=== PATIENT | male | born 1970 | race African-American/Black ===

== ENCOUNTER 2020-07-12 09:35 | Outpatient (REF) | payer OTHER, SELFPAY ==
[2020-07-12 11:36] LABS: Estimated Average Glucose 140 mg/dL; Hemoglobin A1c % 6.5 %
[2020-07-12 11:46] LABS: Microalbum/Creatinine Ratio Ur 34.3 ug/mg cr
[2020-07-12 11:50] LABS: Alanine Aminotransferase 15 U/L (0-40); Albumin Level 4.2 g/dL (3.5-5.0); Alkaline Phosphatase 93 U/L (39-117); Anion Gap 13 (12-20); Aspartate Amino Transferase 16 U/L (5-37); Bilirubin Total 0.4 mg/dL (0.0-1.0); Blood Urea Nitrogen 16 mg/dL (9-16); Calcium 9.2 mg/dL (8.4-10.2); Carbon Dioxide 27 mmol/L (22-29); Chloride 103 mmol/L (96-108); Cholesterol 230 mg/dL; Estimated Glomerular Filt Rate > 60; Glucose Fasting 135 mg/dL (60-99); HDL Cholesterol 47 mg/dL; LDL Cholesterol Calculated 168 mg/dl; Potassium 4.6 mmol/l (3.3-5.1); Sodium 138 mmol/L (135-145); Total Protein 7.7 g/dL (6.5-8.0); Triglycerides 78 mg/dL
[2020-07-12 11:53] LABS: TSH reflex Free T4 1.58 mIU/mL (0.32-4.0)
== END 2020-07-12 09:36 | disposition home or self-care (01) ==
LOC: HO.WFDLDS 09:35
PROVIDERS: Visit Provider Family Medicine
DX: Z00.00 Encounter for general adult medical examination without abnormal findings (principal); I10 Essential (primary) hypertension; E78.5 Hyperlipidemia, unspecified; R73.03 Prediabetes; R79.89 Other specified abnormal findings of blood chemistry
CPT/HCPCS: 36415; 80053; 80061; 82043; 83036; 84443

== ENCOUNTER 2020-11-10 09:46 | Outpatient (REF) | payer OTHER, SELFPAY ==
[2020-11-10 12:08] LABS: Anion Gap 11 (12-20); Blood Urea Nitrogen 12 mg/dL (9-16); Calcium 9.2 mg/dL (8.4-10.2); Carbon Dioxide 29 mmol/L (22-29); Chloride 104 mmol/L (96-108); Cholesterol 179 mg/dL; Estimated Glomerular Filt Rate > 60; Glucose Fasting 132 mg/dL (60-99); HDL Cholesterol 42 mg/dL; LDL Cholesterol Calculated 123 mg/dl; Potassium 4.4 mmol/L (3.3-5.1); Sodium 140 mmol/L (135-145); Triglycerides 73 mg/dL
== END 2020-11-10 09:47 | disposition home or self-care (01) ==
LOC: HO.WFDLDS 09:46
PROVIDERS: Visit Provider Family Medicine
DX: Z00.00 Encounter for general adult medical examination without abnormal findings (principal); E78.5 Hyperlipidemia, unspecified; E11.9 Type 2 diabetes mellitus without complications
CPT/HCPCS: 36415; 80048; 80061

== ENCOUNTER 2023-02-07 10:23 | Outpatient (AMB) | payer OTHER, SELFPAY ==
--- NOTE | 2023-02-07 10:32 | MHC.PC.OV ---
Vital Signs 02/07/23 10:33 Height 5 ft 8 in Weight 414 lb 2 oz BMI 63.0 BP 138/94 H Blood Pressure Location Lt brachial Position Sitting Respiration 12 Pulse 78 Pulse Source Pulse Oximeter Temp 98.4 F Temp Source Temporal Artery Scan Pulse Oximetry (%) 96 Oxygen Delivery Method Room Air Intake Visit Reasons: Re-establish care Intake Note: Patient states that that he was in the hospital 11/15/22. Patient states that he was in the hospital due to his blood sugar spiking. Patient also hasn't had any meds in a while due to him going away to help take care of a family member who was sick and eneded up passing way. Histology Aide Required: No Accompanied by: Self / Same As Patient Allergies shellfish derived Allergy (Severe, Verified 02/07/23 10:42) rash, sweeling throat Raw fruit Adverse Reaction (Intermediate, Uncoded 02/07/23 10:43) Tickling in back of throat Tobacco use date assessed: 02/07/23 Dental Screening Dental Screen Date: 02/07/23 Did you have a dental visit in the last 12 months?: No Did you have a dental problem in the last 6 months where you did not have access to dental care?: No Was dental information given to patient?: Yes HPI Re-establish care HPI Details 52 y/o male presents to re-establish care. PMHx: MO 2011, DM, HLD, HTN Last eye doctor exam was this year at [place]. Bp today 138/94. He is on lisinopril 5 mg daily. A1c today 02/07/23 is 14.0%. Has been off his metformin for some time. [facility] Medical History (Updated 02/07/23 @ 11:10 by Andrés Wallace) No pertinent past medical history Surgical History No pertinent past surgical history Family History Father Heart disease Mother Diabetes Sister FH: diabetic complications Social History Housing: House Alcohol intake: current Alcohol intake frequency: holidays/special occasions only Patient Tobacco Use Status: Never used Tobacco e-Cigarette/Vaping Use: Never Used service: Yes Current occupational status: employed 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 Cognitive needs: No Hearing needs: No Vision needs: No Questionnaire PHQ-9 Over the last 2 weeks, how often have you been bothered by any of the following problems? 1. Little interest or pleasure in doing things: several days 2. Feeling down, depressed, or hopeless: several days 3. Trouble falling or staying asleep, or sleeping too much: several days (Staying asleep) 4. Feeling tired or having little energy: not at all 5. Poor appetite or overeating: not at all 6. Feeling bad about yourself - or that you are a failure or have let yourself or your family down: several days 7. Trouble concentrating on things, such as reading the newspaper or watching television: several days 8. Moving or speaking so slowly that other people could have noticed. Or the opposite - being so fidgety or restless that you have been moving around a lot more than usual: not at all 9. Thoughts that you would be better off or of hurting yourself in some way: several days Total score: 6 Source: Developed by Drs. Alvarez Kirk, Jessica Jeff, Arthur Mosquera and colleagues, with an educational hilda from [employer]. Thrive Questionnaire Date Thrive assessed: 02/07/23 I am a: Patient What is your living situation today?: I have a steady place to live Within the past 12 months, did the food you bought not last and you didn't have the money to get more?: Never true Within the past 12 months, did you worry whether your food would run out before you got money to buy more?: Never true Do you have trouble paying for medicines?: No Do you have trouble getting transportation to medical appointments?: No Do you have trouble paying your heating and electricity bill?: No Do you have trouble taking care of your child, family member or friend?: No Do you have trouble with day-to-day activities such as bathing, preparing meals, shopping, managing finances, etc.?: No Are you currently unemployed and looking for a job?: No Are you interested in more education?: No Please select the resources that you would like help with: None Currently or been in a relationship where the following occur: no concerns reported AUDIT C Alcohol Use Questionnaire (AUDIT-C) 1. How often do you have a drink containing alcohol?: Monthly or less 2. How many drinks containing alcohol do you have on a typical day when you are drinking?: 1 or 2 3. How often do you have six or more drinks on one occasion?: Never Total Score: 1 LOU-7 AMB Questionnaire LOU-7 Date LOU - 7 assessed: 02/07/23 Feeling nervous, anxious, or on edge: 1 = Several days Not being able to stop or control worryin = Several days Worrying too much about different things: 1 = Several days Trouble relaxin = Several days Being so restless that it is hard to sit still: 0 = Not at all Becoming easily annoyed or irritable: 2 = More than half the days Feeling afraid as if something awful might happen: 2 = More than half the days Total LOU-7 score (0-4 normal; 5-9 mild; 10-14 moderate; 15-21 severe): 8 Source: Developed by Drs. Alvarez Kirk, Jessica Jeff, Arthur Mosquera and colleagues, with an educational hilda from [employer]. Review of Systems Const Denies chills, Denies fatigue, Denies fever(s), Denies headache(s) and Denies weakness ENT Denies dizziness and Denies headache(s) Card Denies dyspnea Resp Denies cough, Denies dyspnea, Denies wheezing and Denies other (shortness of breath) Musc Denies numbness and Denies tingling Neuro Denies dizziness, Denies headache(s), Denies numbness, Denies tingling and Denies weakness Psych Denies anxiety and Denies depression Endo Denies fatigue Aller/Immun Denies wheezing Physical exam (Primary Care) Vital Signs: Last Vital Signs Temp 98.4 F 02/07/23 10:33 Pulse 78 02/07/23 10:33 Resp 12 02/07/23 10:33 BP 138/94 H 02/07/23 10:33 Pulse Ox 96 02/07/23 10:33 Oxygen Delivery Method Room Air 02/07/23 10:33 BMI result Body Mass Index 63.0 Tobacco/Smoking Status: Tobacco use Status Tobacco use date assessed 02/07/23 02/07/23 10:50 Patient Tobacco Use Status Never used Tobacco 02/07/23 10:50 e-Cigarette/Vaping Use Never Used 02/07/23 10:50 PHQ-9: PHQ-9 Score PHQ-9: Total score 6 02/07/23 10:50 Thrive Assessment: Date of Thrive Assessment Date Thrive assessed 02/07/23 02/07/23 10:50 Currently or been in a relationship where the following occur: no concerns reported Const General: well developed; No acute distress Nutritional Appearance: obese morbidly obese Orientation/consciousness: patient oriented x3 HENMT Head: Yes normocephalic and Yes atraumatic Eyes General: appearance normal, both eyes and all related structures Pupils: Equal, round and reactive pupils present EOM: EOMs intact bilaterally Resp Effort & Inspection: normal respiratory effort Auscultation: clear to auscultation bilaterally Cardio Rate: regular rate Rhythm: regular rhythm Heart sounds: S1 normal heart sound present, S2 normal heart sound present, no gallops, no murmurs and no rubs Neuro General: patient oriented x3 and gait normal Cranial nerves: Yes Equal, round and reactive pupils present Psych Affect: normal affect Assessment and Plan Assessment & Plan (1) Diabetes: Code(s): E11.9 - Type 2 diabetes mellitus without complications Plan: History of diabetes Had been on metformin 500 mg twice a day but has been off this for quite some time. A1c today is 14.0% (2) Essential hypertension: Code(s): I10 - Essential (primary) hypertension Plan: Blood pressure is elevated. Goal is less than 130/80 He has been off of his medication Will start him back up on lisinopril 10 mg daily (3) Hyperlipidemia: Code(s): E78.5 - Hyperlipidemia, unspecified Plan: History of hyperlipidemia and had been on atorvastatin 40 mg daily Check lipids Restart atorvastatin 40 mg daily. History of coronary artery disease and [place] in 2012; if tolerating atorvastatin 40 mg daily, we discussed considering increasing this to 80 mg daily at his next visit. (4) Morbid obesity with BMI of 60.0-69.9, adult: Code(s): E66.01 - Morbid (severe) obesity due to excess calories; Z68.44 - Body mass index [BMI] 60.0-69.9, adult Plan: Has lost about 60 lb recently Encouraged ongoing weight loss Encouraged exercise (5) CAD (coronary artery disease): Code(s): I25.10 - Atherosclerotic heart disease of [place] coronary artery without angina pectoris Plan: As above, restart statin and we may increase this at his next visit Check lipids Control blood pressure and blood sugar (6) History of MO (myocardial infarction): Code(s): I25.2 - Old myocardial infarction Plan: Stable Orders: Orders Comprehensive [place]. Panel Fast Today Z00.00 - Encounter for general adult medical examination without abnormal findings Lipid Panel Today Z00.00 - Encounter for general adult medical examination without abnormal findings Prostate Specific Antigen Scr Today Z12.5 - Encounter for screening for malignant neoplasm of prostate TSH reflex Free T4 Today Z00.00 - Encounter for general adult medical examination without abnormal findings Microalbumin, Random (w Creat) Today I10 - Essential (primary) hypertension UA and rflx microscopic Today Z00.00 - Encounter for general adult medical examination without abnormal findings Medications: New dulaglutide (Trulicity) 0.75 mg (0.5 mL) subcut QWEEK 2 mL 1RF 28 days Changed From lisinopril 5 mg PO DAILY 30 tabs 2RF To lisinopril 10 mg PO DAILY 30 tabs 1RF 30 days Refilled atorvastatin 40 mg PO BEDTIME 30 tabs 0RF 30 days metformin 500 mg PO BID 60 tabs 4RF Coding Level of Care Code Est Pt Level 4 (78118) Diagnoses Diabetes E11.9 Essential hypertension I10 Hyperlipidemia E78.5 Morbid obesity with BMI of 60.0-69.9, adult E66.01; Z68.44 CAD (coronary artery disease) I25.10 History of MO (myocardial infarction) I25.2
[2023-02-07 10:33] VITALS: BP 138/94; PULSE 78; RESP 12; TEMP 36.9; O2SAT 96; BMI 63.0
== END 2023-02-07 11:13 | disposition home or self-care (01) ==
PROVIDERS: Visit Provider Family Medicine
DX: E11.9 Type 2 diabetes mellitus without complications (principal); I10 Essential (primary) hypertension; E66.01 Morbid (severe) obesity due to excess calories; Z68.44 Body mass index [BMI] 60.0-69.9, adult; E78.5 Hyperlipidemia, unspecified; I25.10 Atherosclerotic heart disease of native coronary artery without angina pectoris; I25.2 Old myocardial infarction
CPT/HCPCS: 99214

== ENCOUNTER 2023-02-07 11:13 | Outpatient (REF) | payer OTHER, SELFPAY ==
[2023-02-07 14:31] LABS: Appearance Urine Clear; Color Urine Yellow; Glucose Urine UA >=1000 mg/dL (Negative); Leukocyte Esterase Urine Negative (Negative); Nitrite Urine Negative (Negative); PH 5.5 (5.0-9.0); Specific Gravity - Urine >= 1.030 (1.005-1.025); UMIC TRIGGER UA YES; Urine Blood Negative (Negative); Urine Ketones Trace mg/dL (Negative); Urine Protein Negative (Neg-Trace)
[2023-02-07 14:44] LABS: Alanine Aminotransferase 26 U/L (0-40); Albumin Level 3.9 g/dL (3.5-5.0); Alkaline Phosphatase 105 U/L (39-117); Anion Gap 11 (12-20); Aspartate Amino Transferase 21 U/L (5-37); Bacteria Urine None Seen (None Seen); Bilirubin Total 0.6 mg/dL (0.0-1.0); Blood Urea Nitrogen 9 mg/dL (9-16); Calcium 9.4 mg/dL (8.4-10.2); Carbon Dioxide 25 mmol/L (22-29); Chloride 103 mmol/L (96-108); Cholesterol 255 mg/dL; Estimated Glomerular Filt Rate > 60; Glucose Fasting 308 mg/dL (60-99); HDL Cholesterol 43 mg/dL; Hyaline Casts Urine 0-2 /LPF (0-2); LDL Cholesterol Calculated 188 mg/dl; Potassium 3.9 mmol/L (3.3-5.1); RBC Urine 0-2 /HPF (0-2); Sodium 135 mmol/L (135-145); Total Protein 7.9 g/dL (6.5-8.0); Triglycerides 120 mg/dL; WBC Urine 0-5 /HPF (0-5)
[2023-02-07 14:56] LABS: Creatinine Urine 134.48 mg/dL; Microalbum/Creatinine Ratio Ur 21.5 ug/mg cr
[2023-02-07 14:59] LABS: Prostate Specific Antigen Scr 0.54 ng/mL (<0.05-4.0); TSH reflex Free T4 1.37 uIU/mL (0.32-4.0)
== END 2023-02-07 11:14 | disposition home or self-care (01) ==
LOC: HO.WFDLDS 11:13
PROVIDERS: Visit Provider Family Medicine
DX: Z00.00 Encounter for general adult medical examination without abnormal findings (principal); Z12.5 Encounter for screening for malignant neoplasm of prostate; I10 Essential (primary) hypertension
CPT/HCPCS: 36415; 80053; 80061; 81001; 82043; 84153; 84443

== ENCOUNTER 2023-03-07 10:31 | Outpatient (AMB) | payer OTHER, SELFPAY ==
--- NOTE | 2023-03-07 10:37 | A.OFFPC_ITS ---
Vital Signs 03/07/23 10:38 03/07/23 11:02 03/07/23 11:04 Height 5 ft 8 in Weight 409 lb 6 oz BMI 62.2 BP 162/100 H 162/98 H 158/88 H Blood Pressure Location Lt brachial Lt brachial Rt brachial Position Sitting Sitting Sitting Respiration 15 16 Pulse 70 76 Pulse Source Pulse Oximeter Pulse Oximeter Pulse Oximetry (%) 98 96 Oxygen Delivery Method Room Air Room Air Intake Visit Reasons: f/u hypertension and diabetes Intake Note: Patient reports he is following up on hypertension and diabetes today. Fluxer Required: No Accompanied by: Self / Same As Patient Allergies shellfish derived Allergy (Severe, Verified 03/07/23 10:52) rash, sweeling throat Raw fruit Adverse Reaction (Intermediate, Uncoded 02/07/23 10:43) Tickling in back of throat Tobacco use date assessed: 02/07/23 HPI f/u hypertension and diabetes HPI Details 52 y/o male presents to f/u hypertension and diabetes. Blood pressure today elevated at 162/100. He is on lisinopril 10mg daily but he states he has not taken it this morning. Last A1c 02/07/23 14%. He is on Trulicity 0.75mg and metformin 500mg b.i.d. [facility] Medical History No pertinent past medical history Surgical History No pertinent past surgical history Family History Father Heart disease Mother Diabetes Sister FH: diabetic complications Social History Housing: House Alcohol intake: current Alcohol intake frequency: holidays/special occasions only Patient Tobacco Use Status: Never used Tobacco e-Cigarette/Vaping Use: Never Used service: Yes Current occupational status: employed 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 Cognitive needs: No Hearing needs: No Vision needs: No Questionnaire Thrive Questionnaire Date Thrive assessed: 02/07/23 LOU-7 AMB Questionnaire LOU-7 Date LOU - 7 assessed: 02/07/23 Source: Developed by Drs. Alvarez Kirk, Jessica Jeff, Arthur Mosquera and colleagues, with an educational hilda from [employer].. Review of Systems Const Denies chills, Denies fatigue, Denies fever(s), Denies headache(s) and Denies weakness ENT Denies dizziness and Denies headache(s) Card Denies chest pain, Denies lightheadedness, Denies dyspnea and Denies other (Palpitations) Resp Denies cough, Denies dyspnea, Denies wheezing and Denies other ( shortness of breath) Musc Denies numbness and Denies tingling Neuro Denies dizziness, Denies headache(s), Denies numbness, Denies tingling, Denies paresthesias and Denies weakness Psych Denies anxiety and Denies depression Endo Denies fatigue Aller/Immun Denies wheezing Physical exam (Primary Care) Vital Signs: Last Vital Signs Pulse 76 03/07/23 11:02 Resp 16 03/07/23 11:02 BP 158/88 H 03/07/23 11:04 Pulse Ox 96 03/07/23 11:02 Oxygen Delivery Method Room Air 03/07/23 11:02 BMI result Body Mass Index 62.2 Tobacco/Smoking Status: Tobacco use Status Tobacco use date assessed 02/07/23 03/07/23 10:37 Patient Tobacco Use Status Never used Tobacco 03/07/23 10:37 e-Cigarette/Vaping Use Never Used 03/07/23 10:37 Thrive Assessment: Date of Thrive Assessment Date Thrive assessed 02/07/23 03/07/23 10:37 Const General: no acute distress and well developed Nutritional Appearance: well nourished and obese morbidly obese Orientation/consciousness: patient oriented x3 [facility] Head: Yes normocephalic and Yes atraumatic Eyes General: appearance normal, both eyes and all related structures Pupils: Equal, round and reactive pupils present EOM: EOMs intact bilaterally Resp Effort & Inspection: normal respiratory effort Auscultation: clear to auscultation bilaterally Cardio Rate: regular rate Rhythm: regular rhythm Heart sounds: S1 normal heart sound present, S2 normal heart sound present, no gallops, no murmurs and no rubs Neuro General: patient oriented x3 and gait normal Cranial nerves: Yes Equal, round and reactive pupils present Psych Affect: normal affect Assessment and Plan Assessment & Plan (1) Essential hypertension: Code(s): I10 - Essential (primary) hypertension Plan: Patient is tolerating lisinopril 10 mg daily. Still well above goal for a patient with coronary artery disease; less than 130/80 Has not taken his medications today but significantly elevated and only comes on slightly with relaxation. As he has been tolerating 10 mg daily, will increase to 20 mg daily Encouraged good compliance with medication (2) Diabetes: Code(s): E11.9 - Type 2 diabetes mellitus without complications Plan: A1c still 14.0%. He is not at steady state yet but has not changed any with addition of Trulicity Continue metformin and will increase Trulicity from 0.75 mg weekly to 1.5 mg weekly Will follow-up in 2 months (3) CAD (coronary artery disease): Code(s): I25.10 - Atherosclerotic heart disease of [place] coronary artery without angina pectoris Plan: Stable (4) Viral illness: Code(s): B34.9 - Viral infection, unspecified Plan: Recent COVID infection. Symptoms have resolved and lungs are clear today Reminded him that if he is ill with COVID, he is a candidate for Paxil [employer] and can call at 1st positive test. Medications: Changed From lisinopril 10 mg PO DAILY 30 days 30 tabs 1RF To lisinopril 20 mg PO DAILY 30 days 30 tabs 1RF From atorvastatin 40 mg PO BEDTIME 30 days 30 tabs 0RF To atorvastatin 80 mg PO BEDTIME 90 days 90 tabs 2RF From dulaglutide (Trulicity) 0.75 mg (0.5 mL) subcut QWEEK 28 days 2 mL 1RF To dulaglutide 1.5 mg (0.5 mL) subcut QWEEK 28 days 2 mL 3RF Coding Level of Care Code Est Pt Level 4 (05244) Diagnoses Essential hypertension I10 Diabetes E11.9 CAD (coronary artery disease) I25.10 Viral illness B34.9
[2023-03-07 10:38] VITALS: BP 162/100; PULSE 70; RESP 15; O2SAT 98; BMI 62.2
[2023-03-07 11:02] VITALS: BP 162/98; PULSE 76; RESP 16; O2SAT 96
[2023-03-07 11:04] VITALS: BP 158/88
== END 2023-03-07 11:18 | disposition home or self-care (01) ==
PROVIDERS: PCP Family Medicine; Visit Provider Family Medicine
DX: I10 Essential (primary) hypertension (principal); E11.9 Type 2 diabetes mellitus without complications; I25.10 Atherosclerotic heart disease of native coronary artery without angina pectoris; B34.9 Viral infection, unspecified
CPT/HCPCS: 99214

== ENCOUNTER 2023-05-09 08:36 | Outpatient (AMB) | payer OTHER, SELFPAY ==
[2023-05-09 08:44] VITALS: BP 130/78; PULSE 74; O2SAT 99; BMI 62.2
--- NOTE | 2023-05-09 08:44 | A.OFFPC_ITS ---
Vital Signs 05/09/23 08:44 Height 5 ft 8 in Weight 409 lb BMI 62.2 BP 130/78 Blood Pressure Location Lt brachial Position Sitting Pulse 74 Pulse Source Pulse Oximeter Pulse Oximetry (%) 99 Oxygen Delivery Method Room Air Intake Visit Reasons: f/u diabetes, hypertension Intake Note: Patient is here to follow up on hypertension and diabetes. Allergies shellfish derived Allergy (Severe, Verified 05/09/23 08:45) rash, sweeling throat Raw fruit Adverse Reaction (Intermediate, Uncoded 05/09/23 08:45) Tickling in back of throat Tobacco use date assessed: 05/09/23 Dental Screening Dental Screen Date: 05/09/23 Did you have a dental visit in the last 12 months?: No Did you have a dental problem in the last 6 months where you did not have access to dental care?: Yes Was dental information given to patient?: Yes HPI f/u diabetes, hypertension HPI Details 52 y/o male presents to f/u diabetes, hy pertension and hyperlipidemia. Had increased lisinopril from 10mg to 20mg daily. Increased artovastatin from 40mg to 80mg daily. Increased Trulicity from 0.75 weekly to 1.5mg weekly and continued metformin as prescribed. No recent lipid panel to review. A1c today 05/09/23 is 7.6%. Last A1c 02/07/23 14%. He reports normal sensation of his feet but does have some neuropathy. Blood pressure today 130/78. He is on lisinopril 20mg daily. [facility] Medical History No pertinent past medical history Surgical History No pertinent past surgical history Family History Father Heart disease Mother Diabetes Sister FH: diabetic complications Social History Housing: House Alcohol intake: current Alcohol intake frequency: holidays/special occasions only Patient Tobacco Use Status: Never used Tobacco e-Cigarette/Vaping Use: Never Used service: Yes Current occupational status: employed Current occupation: [employer] Cognitive needs: No Hearing needs: No Vision needs: No Questionnaire Thrive Questionnaire Date Thrive assessed: 02/07/23 LOU-7 AMB Questionnaire LOU-7 Date LOU - 7 assessed: 02/07/23 Source: Developed by Drs. Alvarez Kirk, Jessica Jeff, Arthur Mosquera and colleagues, with an educational hilda from [employer]. Physical exam (Primary Care) Vital Signs: Last Vital Signs Pulse 74 05/09/23 08:44 BP 130/78 05/09/23 08:44 Pulse Ox 99 05/09/23 08:44 Oxygen Delivery Method Room Air 05/09/23 08:44 BMI result Body Mass Index 62.2 Tobacco/Smoking Status: Tobacco use Status Tobacco use date assessed 05/09/23 05/09/23 08:51 Patient Tobacco Use Status Never used Tobacco 05/09/23 08:51 e-Cigarette/Vaping Use Never Used 05/09/23 08:51 Thrive Assessment: Date of Thrive Assessment Date Thrive assessed 02/07/23 05/09/23 08:51 Const Nutritional Appearance: obese morbidly obese Results AMB Hemoglobin A1c AMB Hemoglobin A1c 7.6 % Last Edit by Yoli Coombs CMA on 05/09/23 09:02 Results Reviewed Results Reviewed: Laboratory Last Values Hgb A1c (Clinic) 7.6 % (4.0-6.0) H 05/09/23 09:01 Assessment and Plan Assessment & Plan (1) Diabetes mellitus with diabetic neuropathy: Code(s): E11.40 - Type 2 diabetes mellitus with diabetic neuropathy, unspecified Plan: A1c?much?improved?and?now?7.6%. Goal?is?less?than?7.0% Neuropathy?at?bilateral?feet?is?much?improved?as?well Will?increase?Trulicity?from?1.5?mg?weekly?to?3.0?mg?weekly He?will?continue?metformin?as?prescribed (2) CAD (coronary artery disease): Code(s): I25.10 - Atherosclerotic heart disease of [place] coronary artery without angina pectoris Plan: Stable (3) Essential hypertension: Code(s): I10 - Essential (primary) hypertension Plan: Blood?pressure?is?fairly?well?controlled.??Goal?is?less?than?130/80?for?patient? with?coronary?artery?disease Continue?lisinopril?20?mg?daily (4) Hyperlipidemia: Code(s): E78.5 - Hyperlipidemia, unspecified Plan: Had?increased?his?atorvastatin?to?80?mg?daily?as? patient?has?coronary?artery?disease Tolerating?well He?is?fasting?today?so?we?will?recheck?lipids. Orders: Orders Lipid Panel Today I25.10 - Atherosclerotic heart disease of [place] coronary artery without angina pectoris, Z00.00 - Encounter for general adult medical examination without abnormal findings Comprehensive [place]. Panel Fast Today I25.10 - Atherosclerotic heart disease of [place] coronary artery without angina pectoris, Z00.00 - Encounter for general adult medical examination without abnormal findings AMB Hemoglobin A1c Today Z13.9 - Encounter for screening, unspecified Medications: Changed From dulaglutide 1.5 mg (0.5 mL) subcut QWEEK 28 days 2 mL 3RF To dulaglutide 3 mg (0.5 mL) subcut QWEEK 2 mL 3RF 28 days Coding Level of Care Code Est Pt Level 4 (63753) Diagnoses Diabetes mellitus with diabetic neuropathy E11.40 CAD (coronary artery disease) I25.10 Essential hypertension I10 Hyperlipidemia E78.5
== END 2023-05-09 09:30 | disposition home or self-care (01) ==
PROVIDERS: PCP Family Medicine; Visit Provider Family Medicine
DX: E11.40 Type 2 diabetes mellitus with diabetic neuropathy, unspecified (principal); I25.10 Atherosclerotic heart disease of native coronary artery without angina pectoris; I10 Essential (primary) hypertension; E78.5 Hyperlipidemia, unspecified
CPT/HCPCS: 83036; 99214

== ENCOUNTER 2023-05-09 09:21 | Outpatient (REF) | payer OTHER, SELFPAY ==
[2023-05-09 11:41] LABS: Alanine Aminotransferase 17 U/L (0-40); Alkaline Phosphatase 96 U/L (39-117); Anion Gap 13 (12-20); Aspartate Amino Transferase 16 U/L (5-37); Bilirubin Total 0.6 mg/dL (0.0-1.0); Blood Urea Nitrogen 11 mg/dL (9-16); Calcium 9.4 mg/dL (8.4-10.2); Carbon Dioxide 27 mmol/L (22-29); Chloride 105 mmol/L (96-108); Cholesterol 186 mg/dL (<200); Estimated Glomerular Filt Rate > 60; Glucose Fasting 96 mg/dL (60-99); HDL Cholesterol 38 mg/dL (>40); LDL Cholesterol Calculated 129 mg/dL (<100); Potassium 4.1 mmol/L (3.3-5.1); Sodium 141 mmol/L (135-145); Total Protein 8.3 g/dL (6.5-8.0); Triglycerides 99 mg/dL (<150)
== END 2023-05-09 09:22 | disposition home or self-care (01) ==
LOC: HO.WFDLDS 09:21
PROVIDERS: Visit Provider Family Medicine
DX: Z00.00 Encounter for general adult medical examination without abnormal findings (principal); I25.10 Atherosclerotic heart disease of native coronary artery without angina pectoris
CPT/HCPCS: 36415; 80053; 80061

== ENCOUNTER 2023-12-19 12:14 | Outpatient (AMB) | payer OTHER, SELFPAY ==
[2023-12-19 12:25] VITALS: BP 128/78; PULSE 84; O2SAT 98; BMI 65.1
--- NOTE | 2023-12-19 12:25 | MHC.PC.OV ---
Vital Signs 12/19/23 12:25 Height 5 ft 8 in Weight 428 lb 8 oz BMI 65.1 BP 128/78 Blood Pressure Location Lt brachial Position Sitting Pulse 84 Pulse Source Pulse Oximeter Pulse Oximetry (%) 98 Oxygen Delivery Method Room Air Intake Visit Reasons: CPE Intake Note: Patient is here physical Allergies shellfish derived Allergy (Severe, Verified 05/09/23 08:45) rash, sweeling throat Raw fruit Adverse Reaction (Intermediate, Uncoded 05/09/23 08:45) Tickling in back of throat Medication List - Last Reconciled 12/19/23 by Kurt Steel MD atorvastatin 80 mg PO BEDTIME 90 days dulaglutide 1.5 mg (0.5 mL) subcut QWEEK 28 days ibuprofen 800 mg PO Q8H 14 days lisinopril 20 mg PO DAILY 30 days metformin 500 mg PO BID Tobacco use date assessed: 05/09/23 Dental Screening Dental Screen Date: 05/09/23 HPI CPE HPI Details 53 y/o male presents for a CPE with f/u labs and health maintenance. Labs were drawn 05/09/23. Reviewed labs with pt. Triglycerides 99. TC 186. LDL 129. HDL low at 38. He is on artovastatin 80mg. Last A1c 05/09/23 7.6%. A1c today 12/19/23 is 7.2%. Blood pressure today 128/78. He is on lisinopril 20mg daily. [facility] Medical History No pertinent past medical history Surgical History No pertinent past surgical history Family History Father Heart disease Mother Diabetes Sister FH: diabetic complications Social History Housing: House Alcohol intake: current Alcohol intake frequency: holidays/special occasions only Patient Tobacco Use Status: Never used Tobacco e-Cigarette/Vaping Use: Never Used service: Yes Current occupational status: employed 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 Cognitive needs: No Hearing needs: No Vision needs: No Questionnaire PHQ-9 Over the last 2 weeks, how often have you been bothered by any of the following problems? 1. Little interest or pleasure in doing things: not at all 2. Feeling down, depressed, or hopeless: not at all 3. Trouble falling or staying asleep, or sleeping too much: not at all 4. Feeling tired or having little energy: not at all 5. Poor appetite or overeating: not at all 6. Feeling bad about yourself - or that you are a failure or have let yourself or your family down: not at all 7. Trouble concentrating on things, such as reading the newspaper or watching television: not at all 8. Moving or speaking so slowly that other people could have noticed. Or the opposite - being so fidgety or restless that you have been moving around a lot more than usual: not at all 9. Thoughts that you would be better off or of hurting yourself in some way: not at all Total score: 0 Depression Screening Interpretation: Negative Depression Screening Done: Yes 04697 - PHQ-9 Billing: Yes Source: Developed by Drs. Alvarez Kirk, Jessica Jeff, Arthur Mosquera and colleagues, with an educational hilda from [employer]. Thrive Questionnaire Date Thrive assessed: 12/19/23 I am a: Patient What is your living situation today?: I have a steady place to live Within the past 12 months, did the food you bought not last and you didn't have the money to get more?: Never true Within the past 12 months, did you worry whether your food would run out before you got money to buy more?: Never true Do you have trouble paying for medicines?: No Do you have trouble getting transportation to medical appointments?: No Do you have trouble paying your heating and electricity bill?: No Do you have trouble taking care of your child, family member or friend?: No Do you have trouble with day-to-day activities such as bathing, preparing meals, shopping, managing finances, etc.?: No Are you currently unemployed and looking for a job?: No Are you interested in more education?: No THRIVE Score: 0 AUDIT C Alcohol Use Questionnaire (AUDIT-C) 1. How often do you have a drink containing alcohol?: Monthly or less 2. How many drinks containing alcohol do you have on a typical day when you are drinking?: 1 or 2 3. How often do you have six or more drinks on one occasion?: Never Total Score: 1 LOU-7 AMB Questionnaire LOU-7 Date LOU - 7 assessed: 12/19/23 Feeling nervous, anxious, or on edge: 2 = More than half the days Not being able to stop or control worryin = More than half the days Worrying too much about different things: 2 = More than half the days Trouble relaxin = Several days Being so restless that it is hard to sit still: 0 = Not at all Becoming easily annoyed or irritable: 0 = Not at all Feeling afraid as if something awful might happen: 1 = Several days Total LOU-7 score (0-4 normal; 5-9 mild; 10-14 moderate; 15-21 severe): 8 Source: Developed by Drs. Alvarez Kirk, Jessica Jeff, Arthur Mosquera and colleagues, with an educational hilda from [employer]. LOU-7 Assessment Billing LOU-7 Assessment Tool: LOU-7 Assessment 24263 Review of Systems Const Denies chills, Denies fatigue, Denies fever(s), Denies headache(s) and Denies weakness Eyes Denies change in vision ENT Denies dizziness, Denies headache(s), Denies hearing loss, Denies nasal congestion, Denies sinus pain, Denies sinus pressure and Denies sore throat Card Denies chest pain, Denies lightheadedness, Denies dyspnea and Denies other (palpitations) Resp Denies cough, Denies dyspnea and Denies wheezing GI Denies abdominal pain, Denies melena, Denies hematochezia, Denies change in bowel habits, Denies dyspepsia and Denies nausea Denies hematuria and Denies dysuria Musc Denies abnormal gait, Denies myalgias, Denies arthralgias, Denies numbness and Denies tingling Skin/Breast Denies rash, Denies unusual bruising and Denies wounds Neuro Denies abnormal gait, Denies dizziness, Denies headache(s), Denies memory loss, Denies numbness, Denies Sensory deficit (Neuro), Denies tingling and Denies weakness Psych Denies anxiety, Denies depression and Denies memory loss Endo Denies cold intolerance, Denies fatigue, Denies heat intolerance, Denies polydipsia and Denies polyuria Rui/Lymph Denies easy bleeding and Denies easy bruising Aller/Immun Denies wheezing Physical exam (Primary Care) Vital Signs: Last Vital Signs Pulse 84 12/19/23 12:25 BP 128/78 12/19/23 12:25 Pulse Ox 98 12/19/23 12:25 Oxygen Delivery Method Room Air 12/19/23 12:25 BMI result Body Mass Index 65.1 Tobacco/Smoking Status: Tobacco use Status Tobacco use date assessed 05/09/23 12/19/23 12:25 Patient Tobacco Use Status Never used Tobacco 12/19/23 12:25 e-Cigarette/Vaping Use Never Used 12/19/23 12:25 PHQ-9: PHQ-9 Score PHQ-9: Total score 0 12/19/23 13:10 Depression Screening Interpretation: Negative Thrive Assessment: Date of Thrive Assessment Date Thrive assessed 12/19/23 12/19/23 12:41 Const General: no acute distress, well developed, alert and awake Nutritional Appearance: well nourished Orientation/consciousness: patient oriented x3 HENMT Head: Yes normocephalic and Yes atraumatic Ears: hearing grossly normal bilaterally and TM's normal bilaterally General nose exam: Normal external nose present and Normal nares present Mouth: Normal oral and palatal mucosa present and moist mucous membranes Teeth and gingiva: dentition normal Throat: Yes posterior oropharynx normal Eyes General: appearance normal, both eyes and all related structures Pupils: Equal, round and reactive pupils present and Pupil accommodation reflex normal EOM: EOMs intact bilaterally Neck Neck: Yes normal visual inspection, Yes no lymphadenopathy and Yes trachea midline Thyroid: Thyroid normal Carotids: no bruits Lymphatic: no lymphadenopathy noted Chest Chest palpation & inspection: normal inspection of the chest Resp Effort & Inspection: normal respiratory effort Auscultation: clear to auscultation bilaterally Cardio Rate: regular rate Rhythm: regular rhythm Heart sounds: S1 normal heart sound present, S2 normal heart sound present, no gallops, no murmurs and no rubs Bruits: no abdominal aortic bruits and no carotid bruits GI Palpation (GI): No Abdominal aortic bruit present, Soft to palpation, nontender, No hepatosplenomegaly present and No Rebound tenderness present Auscultation: normal bowel sounds General: Yes no CVA tenderness Back/Spine/Pelvis Back: no CVA tenderness Cervical Spine: cervical ROM normal and No Cervical spine tenderness Thoracic/Lumbar Spine: thoraco-lumbar ROM normal, No pain with thoraco-lumbar ROM, No thoracic spinal tenderness and No lumbar spinal tenderness Skin Lesions: no lesions Rashes: no rashes Trauma: no lacerations or abrasions Wounds: no wounds Nails: normal Neuro General: patient oriented x3 Cranial nerves: Yes Equal, round and reactive pupils present Cognition (Neuro): normal cognition Gait exam (Neuro): Normal gait present Motor exam (neuro): 5/5 motor strength present throughout Sensory Exam: No Sensory deficit (Neuro) Deep tendon reflexes (DTR's): Right patellar reflex intensity grade: 2+ and Left patellar reflex intensity grade: 2+ Extrem General: Yes normal to inspection and No edema Psych Appearance: grossly normal Affect: normal affect Attitude: cooperative Thought process: Normal thought process present Results AMB Hemoglobin A1c AMB Hemoglobin A1c 7.2 % Last Edit by Yoli Coombs CMA on 12/19/23 13:28 Assessment and Plan Assessment & Plan (1) Adult general medical exam: Code(s): Z00.00 - Encounter for general adult medical examination without abnormal findings Plan: 53-year-old?male?presents?for?complete?physical?exam Encouraged?healthy?diet?with?active?lifestyle?and?plenty?of?exercise (2) Diabetes: Code(s): E11.9 - Type 2 diabetes mellitus without complications Plan: A1c?7.2%?which?is?improved?despite?not?being?able?to?tolerate?an increase?in?dulaglutide He?will?continue?this?and?we?will?increase?metformin?from?500?mg?b.i.d.?to?750?mg?b.i.d. (3) CAD (coronary artery disease): Code(s): I25.10 - Atherosclerotic heart disease of [place] coronary artery without angina pectoris Plan: Stable (4) Hyperlipidemia: Code(s): E78.5 - Hyperlipidemia, unspecified Plan: Check?labs (5) Chest wall pain: Code(s): R07.89 - Other chest pain (6) Essential hypertension: Code(s): I10 - Essential (primary) hypertension Plan: Blood?pressure?is?controlled Continue?current?medication.??Goal?is?less?than?130/80 (7) History of HI (myocardial infarction): Code(s): I25.2 - Old myocardial infarction Plan: Stable (8) Screening for colon cancer: Code(s): Z12.11 - Encounter for screening for malignant neoplasm of colon Plan: Refer?to?Gastroenterology (9) Screening for prostate cancer: Code(s): Z12.5 - Encounter for screening for malignant neoplasm of prostate Plan: Check?PSA (10) Morbid obesity with BMI of 60.0-69.9, adult: Code(s): E66.01 - Morbid (severe) obesity due to excess calories; Z68.44 - Body mass index [BMI] 60.0-69.9, adult Plan: Referred?to?weight?management Orders: Orders Comprehensive Muse. Panel Fast Today Z00.00 - Encounter for general adult medical examination without abnormal findings Lipid Panel Today Z00.00 - Encounter for general adult medical examination without abnormal findings Prostate Specific Antigen Scr Today Z12.5 - Encounter for screening for malignant neoplasm of prostate TSH reflex Free T4 Today Z00.00 - Encounter for general adult medical examination without abnormal findings UA and rflx microscopic Today Z00.00 - Encounter for general adult medical examination without abnormal findings Complete Blood Count Auto Diff Today Z00.00 - Encounter for general adult medical examination without abnormal findings Microalbumin, Random (w Creat) Today I10 - Essential (primary) hypertension AMB Hemoglobin A1c Today Z13.9 - Encounter for screening, unspecified US extremity nonvascular Today M79.661 - Pain in right lower leg Referrals Gastroenterology Referral Z12.11 - Encounter for screening for malignant neoplasm of colon Medical Weight Management Referral E11.9 - Type 2 diabetes mellitus without complications, E66.01 - Morbid (severe) obesity due to excess calories, I25.10 - Atherosclerotic heart disease of [place] coronary artery without angina pectoris, Z68.44 - Body mass index [BMI] 60.0-69.9, adult Medications: Changed From metformin 500 mg PO BID 60 tabs 4RF To metformin 750 mg (1.5 x 500 mg) PO BID 90 days 270 tabs 4RF Coding Level of Care Code Est Pt Level 3 (07750) Est Pt Prev Care 40-64y(48814) Diagnoses Adult general medical exam Z00.00 Diabetes E11.9 CAD (coronary artery disease) I25.10 Hyperlipidemia E78.5 Chest wall pain R07.89 Essential hypertension I10 History of HI (myocardial infarction) I25.2 Screening for colon cancer Z12.11 Screening for prostate cancer Z12.5 Morbid obesity with BMI of 60.0-69.9, adult E66.01; Z68.44 Additional Codes LOU-7 Assessment Billing - LOU-7 Assessment Tool: LOU-7 Assessment [id number] ([id number])
== END 2023-12-19 13:29 | disposition home or self-care (01) ==
PROVIDERS: PCP Family Medicine; Visit Provider Family Medicine
DX: Z00.00 Encounter for general adult medical examination without abnormal findings (principal); E11.69 Type 2 diabetes mellitus with other specified complication; E66.01 Morbid (severe) obesity due to excess calories; Z68.44 Body mass index [BMI] 60.0-69.9, adult; M76.61 Achilles tendinitis, right leg; I25.10 Atherosclerotic heart disease of native coronary artery without angina pectoris; E78.5 Hyperlipidemia, unspecified; R07.89 Other chest pain; I10 Essential (primary) hypertension; I25.2 Old myocardial infarction; Z12.11 Encounter for screening for malignant neoplasm of colon; Z12.5 Encounter for screening for malignant neoplasm of prostate
CPT/HCPCS: 83036; 99213; 99396

== ENCOUNTER 2023-12-19 12:45 | Outpatient (REF) | payer OTHER, SELFPAY ==
[2023-12-19 14:25] LABS: MANUAL DIFF FLAG NO
[2023-12-19 14:30] LABS: Basophils Percent Auto 0.7 % (0-2); Eosinophils Absolute Auto 0.2 X10*3/uL (0.0-0.4); Eosinophils Percent Auto 2.8 % (0-4); Hematocrit 38.9 % (42.0-52.0); Imm Gran Abs Auto 0.02 X10*3/uL (0.00-0.03); Imm Gran Pct Auto 0.3 % (0.0-0.4); Lymphocytes Absolute Auto 2.6 X10*3/uL (1.2-4.9); Lymphocytes Percent Auto 42.6 % (20-40); Mean Corpuscular HGB Conc 33.4 g/dl (31.0-36.0); Mean Corpuscular Hemoglobin 31.3 pg (27.0-33.0); Mean Corpuscular Volume 93.5 fL (80.0-98.0); Monocytes Absolute Auto 0.4 X10*3/uL (0.1-1.2); Monocytes Percent Auto 6.5 % (2-11); Neutrophils Absolute Auto 2.8 x10*3/uL (2.0-8.3); Neutrophils Percent Auto 47.1 % (45-73); Platelet Count 232 X10*3/uL (160-400); Red Blood Count 4.16 X10*6/uL (4.60-5.80); Red Cell Distribution Width 12.4 % (11.0-16.0)
[2023-12-19 14:38] LABS: Appearance Urine Clear; Color Urine Yellow; Glucose Urine UA Negative (Negative); Leukocyte Esterase Urine Negative (Negative); Nitrite Urine Negative (Negative); PH 5.5 (5.0-9.0); Specific Gravity - Urine >= 1.030 (1.005-1.025); Urine Blood Negative (Negative); Urine Ketones Negative (Negative); Urine Protein Negative (Neg-Trace)
[2023-12-19 14:51] LABS: Alanine Aminotransferase 23 U/L (0-40); Albumin Level 4.3 g/dL (3.5-5.0); Alkaline Phosphatase 109 U/L (39-117); Anion Gap 12 (12-20); Aspartate Amino Transferase 20 U/L (5-37); Bilirubin Total 0.5 mg/dL (0.0-1.0); Blood Urea Nitrogen 17 mg/dL (9-16); Calcium 9.6 mg/dL (8.4-10.2); Carbon Dioxide 26 mmol/L (22-29); Chloride 105 mmol/L (96-108); Cholesterol 168 mg/dL (<200); Estimated Glomerular Filt Rate > 60; Glucose Fasting 128 mg/dL (60-99); HDL Cholesterol 45 mg/dL (>40); LDL Cholesterol Calculated 109 mg/dL (<100); Potassium 3.8 mmol/L (3.3-5.1); Sodium 139 mmol/L (135-145); Total Protein 8.2 g/dL (6.5-8.0); Triglycerides 72 mg/dL (<150)
[2023-12-19 15:00] LABS: Prostate Specific Antigen Scr 0.54 ng/mL (<0.05-4.0)
[2023-12-19 15:08] LABS: TSH reflex Free T4 1.09 uIU/mL (0.32-4.0)
[2023-12-19 15:30] LABS: Creatinine Urine 155.25 mg/dL; Microalbum/Creatinine Ratio Ur 21.9 ug/mg cr (<30)
== END 2023-12-19 12:46 | disposition home or self-care (01) ==
LOC: HO.WFDLDS 12:45
PROVIDERS: Visit Provider Family Medicine
DX: Z00.00 Encounter for general adult medical examination without abnormal findings (principal); I10 Essential (primary) hypertension; Z12.5 Encounter for screening for malignant neoplasm of prostate
CPT/HCPCS: 36415; 80053; 80061; 81003; 82043; 82570; 84153; 84443; 85025

== ENCOUNTER 2024-01-01 13:02 | Outpatient (AMB) | payer OTHER, SELFPAY ==
--- NOTE | 2024-01-01 13:06 | MHC.PC.OV ---
Vital Signs 01/01/24 13:13 Height 5 ft 8 in Weight 436 lb BMI 66.3 BP 130/76 Blood Pressure Location Lt brachial Position Sitting Pulse 82 Pulse Source Pulse Oximeter Pulse Oximetry (%) 97 Oxygen Delivery Method Room Air Intake Visit Reasons: [facility] 12/26 for nausea and dizziness Intake Note: Patient is here for follow up on dizziness and nausea, was seen at [facility] on 12/26. Allergies shellfish derived Allergy (Severe, Verified 01/01/24 13:31) rash, sweeling throat Raw fruit Adverse Reaction (Intermediate, Uncoded 05/09/23 08:45) Tickling in back of throat Medication List - Last Reconciled 01/01/24 by LIAM Caballero-DEREK atorvastatin 80 mg PO BEDTIME 90 days dulaglutide 1.5 mg (0.5 mL) subcut QWEEK 28 days ibuprofen 800 mg PO Q8H 14 days lisinopril 20 mg PO DAILY 30 days metformin 750 mg (1.5 x 500 mg) PO BID 90 days Tobacco use date assessed: 01/01/24 Dental Screening Dental Screen Date: 01/01/24 Did you have a dental visit in the last 12 months?: No Did you have a dental problem in the last 6 months where you did not have access to dental care?: No Was dental information given to patient?: Yes HPI HPI Comments History of Present Illness Details 53-year-old male with ACS, prediabetes, hypertension here today for hospital discharge follow up. He went to [facility] Emergency room 12/27/2023. Workup and discharge summary from this visit has been reviewed. The patient's EKG was within normal limits, labs showed mild anemia, glucose 213, mild elevation in his lactate 2.6, troponin x1 elevated at 9, COVID test negative, urinalysis showed trace glucose albumin and bacteria, specific gravity was elevated, along with urobili; he was treated with IV fluids & Zofran. He was discharged home with a diagnosis of viral gastritis and a prescription for Zofran. Chest x-ray was done and negative. Records indicate a repeat Troponin was done however this result is NOT available to me at the time of the visit. He comes in today telling me that he was in his normal state of health until December 23 when he had a sudden onset of dizziness. The dizziness would worsen with position changes such as rolling over in bed, turning his head to the side or leaning over to the side. The dizziness would come and go over the next few days until which time the dizziness caused vomiting. It was at this time that he sought care in the emergency room. Since the emergency room visit, he has been taking Zofran every 8 hours and completed the medication yesterday. He reports that he is eating and drinking normally now and has had no more vomiting. He continues to have symptoms of dizziness that remain worse with position changes such as turning his head to the side, leaning over or with position changes. He denies syncope or chest pain. Denies fever chills or head trauma. In regards to the labs showing anemia has not had a colonoscopy yet. He denies any overt bleeding Exam: Awake alert oriented Scleras nonicteric bilat, EOMI R EAC cerumen impaction, L EAC with cerumen obstructing view of TM MMM RRR LS dim throughout Abd morbidly obese Plan: Treat cerumen impaction with Debrox and return to the office for an ear lavage. Use meclizine to treat vertigo. The likely cause of his symptoms is middle ear such as BPPV. Referral placed to GI for a colonoscopy given anemia found on ED labs. Return to the office in 1 week for re-evaluation and for bilat ear lavage, sooner as needed. [facility] Medical History No pertinent past medical history Surgical History No pertinent past surgical history Family History Father Heart disease Mother Diabetes Sister FH: diabetic complications Social History Housing: House Alcohol intake: current Alcohol intake frequency: holidays/special occasions only Patient Tobacco Use Status: Never used Tobacco e-Cigarette/Vaping Use: Never Used service: Yes Current occupational status: employed 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 Cognitive needs: No Hearing needs: No Vision needs: No Questionnaire Thrive Questionnaire Date Thrive assessed: 12/19/23 LOU-7 AMB Questionnaire LOU-7 Date LOU - 7 assessed: 12/19/23 Source: Developed by Drs. Alvarez Kirk, Jessica Jeff, Arthur Mosquera and colleagues, with an educational hilda from [employer]. Physical exam (Primary Care) Vital Signs: Last Vital Signs Pulse 82 01/01/24 13:13 BP 130/76 01/01/24 13:13 Pulse Ox 97 01/01/24 13:13 Oxygen Delivery Method Room Air 01/01/24 13:13 BMI result Body Mass Index 66.3 Tobacco/Smoking Status: Tobacco use Status Tobacco use date assessed 01/01/24 01/01/24 13:16 Patient Tobacco Use Status Never used Tobacco 01/01/24 13:10 e-Cigarette/Vaping Use Never Used 01/01/24 13:10 Thrive Assessment: Date of Thrive Assessment Date Thrive assessed 12/19/23 01/01/24 13:10 Assessment and Plan Assessment & Plan (1) Hospital discharge follow-up: Code(s): Z09 - Encounter for follow-up examination after completed treatment for conditions other than malignant neoplasm (2) Screening for colon cancer: Code(s): Z12.11 - Encounter for screening for malignant neoplasm of colon (3) Anemia: Code(s): D64.9 - Anemia, unspecified Qualifiers: Anemia type: unspecified type Qualified Code(s): D64.9 - Anemia, unspecified (4) Vertigo: Code(s): R42 - Dizziness and giddiness (5) Impacted cerumen, bilateral: Code(s): H61.23 - Impacted cerumen, bilateral Plan This note is constructed using voice recognition software. While every effort has been made to ensure accuracy in surface miner, still errors may have been included Sometimes, these errors may affect the content or meaning of the given sentence . Total time spent caring for the patient today was 42 minutes. This includes time spent before the visit reviewing the chart, time spent during the visit, and time spent after the visit on documentation Orders: Referrals Gastroenterology Referral D64.9 - Anemia, unspecified, Z12.11 - Encounter for screening for malignant neoplasm of colon Medications: New meclizine 25 mg PO BID PRN 30 tabs 0RF dizziness carbamide peroxide 6.5% (Debrox) 5 drps otic (ears) DAILY 15 mL 0RF BILAT EARS 5 days Coding Level of Care Code Est Pt Level 5 (03438) Diagnoses Hospital discharge follow-up Z09 Screening for colon cancer Z12.11 Anemia, unspecified type D64.9 Anemia type: unspecified type Vertigo R42 Impacted cerumen, bilateral H61.23
[2024-01-01 13:13] VITALS: BP 130/76; PULSE 82; O2SAT 97; BMI 66.3
== END 2024-01-01 13:50 | disposition home or self-care (01) ==
PROVIDERS: PCP Family Medicine; Visit Provider Nurse Practitioner Family
DX: Z09 Encounter for follow-up examination after completed treatment for conditions other than malignant neoplasm (principal); Z12.11 Encounter for screening for malignant neoplasm of colon; D64.9 Anemia, unspecified; R42 Dizziness and giddiness; H61.23 Impacted cerumen, bilateral
CPT/HCPCS: 99215

== ENCOUNTER → 2024-01-03 08:38 | Outpatient (BNVA) | payer OTHER, SELFPAY | PROVIDERS: PCP Family Medicine; Visit Provider Physician Assistant Surgical ==

== ENCOUNTER 2024-01-10 15:40 | Outpatient (REF) | payer OTHER, SELFPAY ==
--- NOTE | ~2024-01-10 | US_ITS ---
EXAMINATION: US EXTREMITY, NONVASCULAR CLINICAL INFORMATION: Right lower extremity pain. COMPARISON: None available. TECHNIQUE: High-frequency linear ultrasound transducer was used to examine the area of clinical concern in the right posterior medial calf. FINDINGS: Varicosities as large as 3.5 mm are seen with a deep cranberry sorter noted in the right calf posteriorly. The cranberry sorter was not evaluated for reflux. US/US extremity nonvascular IMPRESSION: Varicosities with deep cranberry sorter in the right calf.
== END 2024-01-10 15:41 | disposition home or self-care (01) ==
LOC: HO.US 15:40
PROVIDERS: PCP Family Medicine; Visit Provider Family Medicine
DX: M79.661 Pain in right lower leg (principal)
CPT/HCPCS: 76882

== ENCOUNTER 2024-01-31 08:57 | Outpatient (REF) | payer OTHER, SELFPAY ==
--- NOTE | ~2024-01-31 | US_ITS ---
EXAMINATION: US ABDOMEN COMPLETE CLINICAL INFORMATION: Upper abdominal pain.. COMPARISON: None available. TECHNIQUE: Real-time imaging of the abdominal viscera. FINDINGS: PANCREAS: Normal. ABDOMINAL AORTA: The proximal, mid, and distal segments are normal in caliber. INFERIOR VENA CAVA: Visualized portions are normal. LIVER: The liver is normal in size. The liver contour is normal. Parenchymal echogenicity is generally increased. No focal hepatic lesion. There is no intrahepatic biliary duct dilatation seen. GALLBLADDER: Normal. The gallbladder is physiologically distended without evidence of stones, sludge, polyps, wall thickening or pericholecystic fluid. COMMON BILE DUCT: Normal in caliber measuring 0.5 cm in diameter. RIGHT KIDNEY: Normal. No hydronephrosis. No renal calculi or focal parenchymal lesions. The kidney measures 13.5 cm in maximum dimension. LEFT KIDNEY: Normal. No hydronephrosis. No renal calculi or focal parenchymal lesions. The kidney measures 14.5 cm in maximum dimension. SPLEEN: Normal. The spleen measures 8.5 cm in maximum dimension. FREE FLUID: None. US/US abdomen complete IMPRESSION: There is generalized increase in hepatic echotexture, consistent with fatty infiltration or hepatocellular disease. Please correlate clinically. No focal hepatic mass or intrahepatic biliary dilatation is seen.
== END 2024-01-31 08:58 | disposition home or self-care (01) ==
LOC: HO.US 08:57
PROVIDERS: PCP Family Medicine; Visit Provider Physician Assistant
DX: R10.10 Upper abdominal pain, unspecified (principal)
CPT/HCPCS: 76700

== ENCOUNTER 2024-02-06 11:07 | Emergency (ER) | payer OTHER, SELFPAY ==
--- NOTE | ~2024-02-06 | XR_ITS ---
EXAMINATION: XR LUMBOSACRAL SPINE CLINICAL INFORMATION: Severe lower back pain COMPARISON: None available. TECHNIQUE: Four views of the lumbosacral spine. FINDINGS: 5 nonrib-bearing lumbar-type vertebral bodies. Retrolisthesis of the distal coccyx. No acute visible fracture. Very mild degenerative changes of the lower lumbar spine with osteophyte formation. Vertebral body heights and disc spaces are otherwise maintained. Posterior elements are intact. Paraspinal soft tissues are unremarkable. Visualized bowel gas is unremarkable. Pelvic phleboliths are noted. XR/XR lumbar spine 2-3V IMPRESSION: 1. Retrolisthesis of the distal coccyx. Correlation with point tenderness. 2. No acute visible fracture. 3. Very mild degenerative changes of the lower lumbar spine with osteophyte formation.
[2024-02-06 11:13] VITALS: BP 178/78; PULSE 78; RESP 16; TEMP 36.4; O2SAT 98; BMI 63.1
--- NOTE | 2024-02-06 11:13 | ED.BACK ---
HPI - Back Pain/Injury General Chief Complaint: Back Pain/Injury Stated Complaint: r flank pain Time Seen by Provider: 02/06/24 11:24 Source: patient Mode of arrival: ambulatory Limitations: no limitations History of Present Illness HPI Narrative: 53-year-old male with a past medical history of CAD, DM, and hypertension presents to the emergency department with complains of worsening bilateral low back pain for the past 6 days. He reports he initially had right upper quadrant pain with an ultrasound and his primary care provider which was ?normal?. He denies any trauma or overuse injury but states that he has been increasing his exercise in the attempt to lose weight. He reports that he has lost 70+ lbs and has an appointment at the [place] [facility] tomorrow. He denies any saddle anesthesias, urinary or fecal incontinence, urinary hesitancy, fever, chills, history of IVDU, erythema, or ecchymosis of the back. Pertinent positives and negatives discussed in HPI Related Data Home Medications ?Medication ?Instructions ?Recorded ?Confirmed ondansetron HCl 4 mg tablet 4 mg PO Q8H PRN 01/23/24 01/23/24 Previous Rx's ?Medication ?Instructions ?Recorded atorvastatin 80 mg tablet 80 mg PO BEDTIME 90 days #90 tabs 07/31/23 metformin 500 mg tablet 750 mg (1.5 x 500 mg) PO BID 90 12/19/23 days #270 tabs meclizine 25 mg tablet 25 mg PO BID PRN dizziness #30 tabs 01/01/24 lisinopril 20 mg tablet 20 mg PO DAILY 30 days #30 tabs 01/14/24 tirzepatide 2.5 mg/0.5 mL 2.5 mg (0.5 mL) subcut QWEEK 4 01/23/24 subcutaneous pen injector weeks #2 mL (Mounjaro) Allergies Allergy/AdvReac Type Severity Reaction Status Date / Time shellfish derived Allergy Severe rash, Verified 02/06/24 11:18 sweeling throat Raw fruit AdvReac Intermediate Tickling Uncoded 02/06/24 11:18 in back of throat Review of Systems Review of Systems: Yes all other systems are reviewed and are negative PMFSH Past Medical History Medical History (Updated 02/06/24 @ 13:01 by Saniya Xiong NP) No pertinent past medical history Surgical History (Updated 01/03/24 @ 09:36 by Christine Zhao [facility]) Hx of oral surgery Family History Family History Father Heart disease Mother Diabetes Sister FH: diabetic complications Social History Social History Housing: House Alcohol intake: current Alcohol intake frequency: holidays/special occasions only Patient Tobacco Use Status: Never used Tobacco e-Cigarette/Vaping Use: Never Used Advance Directives: No Advance Directives Information Provided: Yes service: Yes Current occupational status: employed Current occupation: [employer] Cognitive needs: No Hearing needs: No Vision needs: No Physical Exam Vital Signs: Vital Signs: Last Vital Signs Temp 98.2 F 02/06/24 13:08 Pulse 69 02/06/24 13:08 Resp 18 02/06/24 13:08 BP 152/81 H 02/06/24 13:08 Pulse Ox 96 02/06/24 13:08 O2 Del Method Room Air 02/06/24 13:08 BMI result Body Mass Index 63.1 Nursing notes and vital signs reviewed. GENERAL APPEARANCE: A&0 x 4, generally well appearing, no acute distress HENMT: Normal to inspection, atraumatic, face symmetrical. Normal external ears, nose, and oropharynx clear. EYE: PERRLA, EOM intact, structures appear normal NECK: Supple without stiffness or restricted ROM. HEART: Normal rate and regular rhythm, normal S1/S2, no M/R/G LUNGS: LS CTA, moving air well. Able to speak in complete sentences. No crackles, wheezes, or rhonchi auscultated BACK: No CVAT, no obvious deformity EXTREMITIES: Moving all extremities without difficulty. Normal capillary refill. NEUROLOGICAL: Alert and oriented, moving all 4 extremities with equal strength. CN not formally tested but appearing grossly intact. Observed to ambulate with normal gait. Cognition normal SKIN: Warm and dry without any lesions, rash, or visible sores Back/Spine/Pelvis: Back: No mass, No erythema, No warmth and No ecchymosis Back/spine/pelvis image: 1. Tenderness to palpation 2. Tenderness to palpation Course Course Course Narrative: This is a Rapid Medical Examination (RME) performed by Alireza Reed PA-C in triage. Full HPI, ROS, assessment and treatment plan per primary provider in the Main ED. 53 yo male with history of morbid obesity, CAD w/ hx [place], DM2, anemia, HTN, HLD who presents to the ER for evaluation of lower back pain that started 6 days ago when he was sleeping. He states it started after he had an abdominal U/S a few weeks ago. He has had RUQ pain since December, no changes with it, no N/V/D. No urinary symptoms. In triage he appears comfortable. He has midline tenderness of his lumbar spine w/ associated soft tissue tenderness as well. Plan: lumbar xray & UA Medications Administered Discontinued Medications Generic Name Dose Route Start Last Admin Trade Name Freq PRN Reason Stop Dose Admin Acetaminophen 975 mg 02/06/24 12:08 02/06/24 12:19 Acetaminophen 325 Mg Tablet PO 02/06/24 12:09 975 mg ONCE ONE Administration Medical Decision Making Medical Decision Making MDM Narrative: Old records reviewed for previous imaging, lab studies, ECGs, and notes. Patient was assessed the emergency department with no acute distress or toxicity noted. UA showing no evidence of hematuria or infection. XR lumbar spine completed, which I have independently interpreted as negative to acute fractures. Radiologist remarks on retrolisthesis of the distal coccyx and very mild degenerative changes of the lower lumbar spine with osteophyte formation and no evidence of acute visible fracture. Patient educated to use [id number] pain medications including Tylenol and ibuprofen, heat, and ice. Patient educated to follow up with his primary care provider as he may benefit from physical therapy. Patient also educated to continue with his appointment for tomorrow the [facility] as weight loss can help definitively lessen low back pain. Patient is safe for discharge at this time with plan for [id number] Tylenol and/or NSAID such as ibuprofen or naproxen for fever/discomfort with dosing as per packaging. HPI, PE, diagnostics, and plan discussed with patient and family with no unanswered questions at this time. Strict return precautions given to return to the emergency department with new, worsening, or concerning emergent symptoms. Recommended to follow-up with there primary care provider in 24-48 hours for further treatment and management. Differential Diagnosis Differential Diagnoses: The differential diagnosis associated with the presentation includes But not limited to fracture, dislocation, strain, sprain, stenosis, radiculopathy, spondylolisthesis, cauda equina, epidural abscess, contusion, sepsis, malignancy, UTI, cystitis, pyelonephritis, nephrolithiasis Lab Data MDM Lab Attestation statement: I reviewed the patient's lab results. Labs: Lab Results 02/06/24 Range/Units 12:21 Urine Color Yellow Urine Appearance Clear Urine pH 5.5 (5.0-9.0) Ur Specific [place] 1.025 (1.005-1.025) Urine Protein Negative (Neg-Trace) mg/dL Urine Glucose (UA) Negative (Negative) mg/dL Urine Ketones Negative (Negative) mg/dL Urine Blood Negative (Negative) Urine Nitrite Negative (Negative) Ur Leukocyte Esterase Negative (Negative) Independent Interpretation I performed an independent interpretation of an: Plain X-Ray External Record Review External record reviewed: Prior outpatient labs Prescription Management Antibiotics were considered, however; no bacterial infection was identified at this time. Narcotic pain medication was considered, however; based on exam, side effects, and high-risk of addiction was deemed necessary at this time. Chronic Conditions Patient?s care impacted by: Diabetes and Hypertension Discharge Plan Discharge Clinical Impression: Retrolisthesis of vertebrae, Low back pain Patient Disposition: Home, Self-Care Instructions: Back Pain (ED), Spondylolisthesis (ED) Additional Instructions: Changes in your lower spine were seen on x-ray. These changes are called retrolisthesis. It is recommended that you follow-up with your primary care regarding this as you may need to start physical therapy. Continue on your weight loss journey is not will help with alleviating low back pain. You may continue to use [id number] Tylenol in addition to ibuprofen, 600 mg, every 8 hours for further management. Please return to the emergency department for any numbness or tingling in the legs or between the legs, loss of urine or bowel function, or urinary hesitancy, or any other concerning symptoms Prescriptions: No Action atorvastatin 80 mg tablet 80 mg PO BEDTIME 90 Days Qty: 90 2RF lisinopril 20 mg tablet 20 mg PO DAILY 30 Days Qty: 30 1RF meclizine 25 mg tablet 25 mg PO BID PRN (Reason: dizziness) Qty: 30 0RF metformin 500 mg tablet 750 mg PO BID 90 Days Qty: 270 4RF ondansetron HCl 4 mg tablet 4 mg PO Q8H PRN Mounjaro 2.5 mg/0.5 mL pen injector 2.5 mg subcut QWEEK 28 Days Qty: 2 1RF Referrals: Kurt Steel MD [Primary Care Provider] - Stand Alone Forms: Work/School Release Interventions: ED Discharge Assessment Last Done: 02/06/24 13:08 Discharge Date/Time: 02/06/24 13:08 Print Language: Turkish
[2024-02-06] MEDS: Acetaminophen 325 MG TABLET 975 MG PO (12:19)
[2024-02-06 12:30] LABS: Appearance Urine Clear; Color Urine Yellow; Glucose Urine UA Negative (Negative); Leukocyte Esterase Urine Negative (Negative); Nitrite Urine Negative (Negative); PH 5.5 (5.0-9.0); Specific Gravity - Urine 1.025 (1.005-1.025); Urine Blood Negative (Negative); Urine Ketones Negative (Negative); Urine Protein Negative (Neg-Trace)
[2024-02-06 13:08] VITALS: BP 152/81; PULSE 69; RESP 18; TEMP 36.8; O2SAT 96
== END 2024-02-06 13:08 | disposition home or self-care (01) ==
PROVIDERS: Physician Assistant; Emergency Provider Emergency Medicine; PCP Family Medicine
DX: M43.16 Spondylolisthesis, lumbar region (principal); M54.50 Low back pain, unspecified; I25.10 Atherosclerotic heart disease of native coronary artery without angina pectoris; I10 Essential (primary) hypertension; Z79.899 Other long term (current) drug therapy
CPT/HCPCS: 72100; 81003; 99283

== ENCOUNTER 2024-02-07 13:07 | Outpatient (AMB) | payer OTHER, SELFPAY ==
--- NOTE | 2024-02-07 13:11 | MHC.OFFVISWM ---
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 Allergies shellfish derived Allergy (Severe, Verified 02/07/24 13:32) rash, sweeling throat Raw fruit Adverse Reaction (Intermediate, Uncoded 02/07/24 13:32) Tickling in back of throat Medication List - Last Reconciled 02/07/24 by SANJEEV Estes atorvastatin 80 mg PO BEDTIME 90 days lisinopril 20 mg PO DAILY 30 days meclizine 25 mg PO BID PRN metformin 750 mg (1.5 x 500 mg) PO BID 90 days ondansetron HCl 4 mg PO Q8H PRN tirzepatide (Mounjaro) 2.5 mg (0.5 mL) subcut QWEEK 4 weeks HPI Comments Details: Pt is here to start the [facility] Weight Management surgical weight loss program. He heard about our program from his PCP. His goal is to lose weight and achieve a healthy lifestyle as well as to improve, if not resolve, obesity related medical conditions, including htn, dm, hld. He reports first being concerned about her weight over the last 40 years, highest weight to date was 485. His initial weight when he first presented to the SWL program on 01/03/24 was 428.8 pounds with a BMI of 66.2. Current weight is 416.4 pounds with a BMI of 63.3. He has tried multiple methods of weight loss including fad diets without permanent results. He lives alone. 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 [place] 2011, saw cardiology around that time but not since, he was focusing on being a father (4 grown kids) and didn't f/u. He wakes at:?6 am, and goes to bed at?9 pm. Dinner is at 730 pm. Breakfast: bagel w cream cheese or sandwich AM snack: mini muffins Lunch: sandwich or salad PM snack: popcorn Dinner: chicken, pork chops, burger, hot dogs, fries, chips, vegs, corn, snap peas, broccoli After dinner: donuts, candy bar Other snacks: as above Liquids: 64 oz water, no soda, no juice Alcohol/marijuana/tobacco intake: none Exercise: PF gym 3 days per week, 30 min treadmill, 90 min weights GERD score: 10 GLO score: 2 ESS score: 2 QOL score: 98 [facility] Medical History No pertinent past medical history Surgical History Hx of oral surgery Family History Father Heart disease Mother Diabetes Sister FH: diabetic complications Social History Housing: House Alcohol intake: current Alcohol intake frequency: holidays/special occasions only Patient Tobacco Use Status: Never used Tobacco e-Cigarette/Vaping Use: Never Used service: Yes Current occupational status: employed 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 Cognitive needs: No Hearing needs: No Vision needs: No Physical Exam Const General: cooperative, healthy appearing and no acute distress Orientation/consciousness: patient oriented x3 HEENT Head: Yes normal to inspection Ears: hearing grossly normal bilaterally General nose exam: Normal external nose present Face and sinus: Yes normal facial exam Eyes General: appearance normal, both eyes and all related structures Resp Effort & Inspection: normal respiratory effort Auscultation: clear to auscultation bilaterally Cardio Rate: regular rate Rhythm: regular rhythm Heart sounds: S1 normal heart sound present and S2 normal heart sound present GI Inspection: Yes normal to inspection, No distended and Yes obesity Palpation (GI): Soft to palpation, nontender and no guarding Auscultation: normal bowel sounds Skin General skin exam: no rashes or lesions noted Neuro General: patient oriented x3 Extrem General: No edema Psych Appearance: grossly normal Mental Status: mental status grossly normal Speech and movement: Normal speech and movement present Affect: normal affect Attitude: cooperative Assessment & Plan Assessment & Plan (1) Morbid obesity: Code(s): E66.01 - Morbid (severe) obesity due to excess calories Category: Medical Plan: This is a?53 yo male who will start our SWL program to prepare for bariatric surgery.? Blood work, CXR, ECG, Abd US and UGI have been ordered. She is being scheduled for initial consultations. She will start SWL classes and watch the first three videos before her next appointment. 1. You have been given a paper with a link to our software chema (The [employer]) to generate an individualized nutritional and exercise plan specific for you. Please send me a screenshot of the plans you will generate Meal to include lean meat (beef, fish, pork, turkey, chicken), or citizen of [place] yogurt, or egg whites, or beans with a salad with olive oil and fruits (berries, pears, apples, kiwi). Avoid salt, breads, potatoes, rice, pasta, desserts. 2. If you choose shakes, each shake would be drunk slowly, like coffee over a period of 2 hours. 3. If you choose bars, cut each bar in 4 pieces and eat each piece in 30 min to make each bar last 2 hours. 4. I emphasized the importance of measuring accurately the food portion and measure it when serving the food on a plate 5. The meal portions include a specific number of forks of meat (protein) and salad. You always eat the meat portion but you can replace up to half of salad/vegetables portion with rice, potatoes or pasta, or a fruit ?if you like. The less you do it the better weight loss will be. 6. One full-size fork is what can be scooped on the fork without falling aside and not what can be bit with the fork. Use regular forks like those you find in a typical restaurant. 7.? Please send me weight measurements from your body composition scale as soon as possible and then once a week. Always include your diet and exercise plan. The best time to weigh yourself is first thing in the morning after going to the bathroom. 8. The best choice for exercise would be treadmill at [employer]. Alternatively start walking outside daily, tracking calories with a goal of 300 calories per day, daily. You can download the chema [employer] which can track your time, distance and calories while walking outside. You press start in the chema when you start and then stop when you are finished. 9.?Goal is to lose at least 2-3 lbs per week, and about 50 before surgery, which is about 366 pounds before surgery 10. Please follow the diet plan exactly without any change. If you don't like something about the plan or you feel hungry you need to communicate with me so I can help you revise the plan. My cell phone number to communicate with me by text is [phone] Patient is morbidly obese and is not considered stable at this time.?I spent a total of 70 minutes reviewing/updating records, examining the patient and counseling the patient on weight management as detailed above. (2) CAD (coronary artery disease): Code(s): I25.10 - Atherosclerotic heart disease of [place] coronary artery without angina pectoris Category: Medical Plan: Patient with a history of AL in 2011. Saw cardiology around that time but has not followed up. He does have multiple risk factors for ongoing coronary artery disease including morbid obesity, diabetes, hypertension, hyperlipidemia. We will refer him to our cardiology service Orders: Orders Hemoglobin A1c Today B34.9 - Viral infection, unspecified, E11.9 - Type 2 diabetes mellitus without complications, E66.01 - Morbid (severe) obesity due to excess calories, E78.5 - Hyperlipidemia, unspecified, I10 - Essential (primary) hypertension, I25.10 - Atherosclerotic heart disease of [place] coronary artery without angina pectoris IRON PROFILE Today B34.9 - Viral infection, unspecified, E11.9 - Type 2 diabetes mellitus without complications, E66.01 - Morbid (severe) obesity due to excess calories, E78.5 - Hyperlipidemia, unspecified, I10 - Essential (primary) hypertension, I25.10 - Atherosclerotic heart disease of [place] coronary artery without angina pectoris Vitamin B12 and Folate Today B34.9 - Viral infection, unspecified, E11.9 - Type 2 diabetes mellitus without complications, E66.01 - Morbid (severe) obesity due to excess calories, E78.5 - Hyperlipidemia, unspecified, I10 - Essential (primary) hypertension, I25.10 - Atherosclerotic heart disease of [place] coronary artery without angina pectoris Zinc Today B34.9 - Viral infection, unspecified, E11.9 - Type 2 diabetes mellitus without complications, E66.01 - Morbid (severe) obesity due to excess calories, E78.5 - Hyperlipidemia, unspecified, I10 - Essential (primary) hypertension, I25.10 - Atherosclerotic heart disease of [place] coronary artery without angina pectoris C Reactive Protein Today B34.9 - Viral infection, unspecified, E11.9 - Type 2 diabetes mellitus without complications, E66.01 - Morbid (severe) obesity due to excess calories, E78.5 - Hyperlipidemia, unspecified, I10 - Essential (primary) hypertension, I25.10 - Atherosclerotic heart disease of [place] coronary artery without angina pectoris Vitamin B1 Today B34.9 - Viral infection, unspecified, E11.9 - Type 2 diabetes mellitus without complications, E66.01 - Morbid (severe) obesity due to excess calories, E78.5 - Hyperlipidemia, unspecified, I10 - Essential (primary) hypertension, I25.10 - Atherosclerotic heart disease of [place] coronary artery without angina pectoris TSH reflex Free T4 Today B34.9 - Viral infection, unspecified, E11.9 - Type 2 diabetes mellitus without complications, E66.01 - Morbid (severe) obesity due to excess calories, E78.5 - Hyperlipidemia, unspecified, I10 - Essential (primary) hypertension, I25.10 - Atherosclerotic heart disease of [place] coronary artery without angina pectoris Ferritin Today B34.9 - Viral infection, unspecified, E11.9 - Type 2 diabetes mellitus without complications, E66.01 - Morbid (severe) obesity due to excess calories, E78.5 - Hyperlipidemia, unspecified, I10 - Essential (primary) hypertension, I25.10 - Atherosclerotic heart disease of [place] coronary artery without angina pectoris Vitamin D 25-OH Total Today B34.9 - Viral infection, unspecified, E11.9 - Type 2 diabetes mellitus without complications, E66.01 - Morbid (severe) obesity due to excess calories, E78.5 - Hyperlipidemia, unspecified, I10 - Essential (primary) hypertension, I25.10 - Atherosclerotic heart disease of [place] coronary artery without angina pectoris US abdomen comp w elastography Today B34.9 - Viral infection, unspecified, E11.9 - Type 2 diabetes mellitus without complications, E66.01 - Morbid (severe) obesity due to excess calories, E78.5 - Hyperlipidemia, unspecified, I10 - Essential (primary) hypertension, I25.10 - Atherosclerotic heart disease of [place] coronary artery without angina pectoris ECG 12 lead EKG Today B34.9 - Viral infection, unspecified, E11.9 - Type 2 diabetes mellitus without complications, E66.01 - Morbid (severe) obesity due to excess calories, E78.5 - Hyperlipidemia, unspecified, I10 - Essential (primary) hypertension, I25.10 - Atherosclerotic heart disease of [place] coronary artery without angina pectoris FL upper GI w air Today B34.9 - Viral infection, unspecified, E11.9 - Type 2 diabetes mellitus without complications, E66.01 - Morbid (severe) obesity due to excess calories, E78.5 - Hyperlipidemia, unspecified, I10 - Essential (primary) hypertension, I25.10 - Atherosclerotic heart disease of [place] coronary artery without angina pectoris Insulin Today B34.9 - Viral infection, unspecified, E11.9 - Type 2 diabetes mellitus without complications, E66.01 - Morbid (severe) obesity due to excess calories, E78.5 - Hyperlipidemia, unspecified, I10 - Essential (primary) hypertension, I25.10 - Atherosclerotic heart disease of [place] coronary artery without angina pectoris Complete Blood Count Auto Diff Today B34.9 - Viral infection, unspecified, E11.9 - Type 2 diabetes mellitus without complications, E66.01 - Morbid (severe) obesity due to excess calories, E78.5 - Hyperlipidemia, unspecified, I10 - Essential (primary) hypertension, I25.10 - Atherosclerotic heart disease of [place] coronary artery without angina pectoris Lipid Panel Today B34.9 - Viral infection, unspecified, E11.9 - Type 2 diabetes mellitus without complications, E66.01 - Morbid (severe) obesity due to excess calories, E78.5 - Hyperlipidemia, unspecified, I10 - Essential (primary) hypertension, I25.10 - Atherosclerotic heart disease of [place] coronary artery without angina pectoris Comprehensive Met. Panel Today B34.9 - Viral infection, unspecified, E11.9 - Type 2 diabetes mellitus without complications, E66.01 - Morbid (severe) obesity due to excess calories, E78.5 - Hyperlipidemia, unspecified, I10 - Essential (primary) hypertension, I25.10 - Atherosclerotic heart disease of [place] coronary artery without angina pectoris Vitamin A Today B34.9 - Viral infection, unspecified, E11.9 - Type 2 diabetes mellitus without complications, E66.01 - Morbid (severe) obesity due to excess calories, E78.5 - Hyperlipidemia, unspecified, I10 - Essential (primary) hypertension, I25.10 - Atherosclerotic heart disease of [place] coronary artery without angina pectoris XR chest 2V Today B34.9 - Viral infection, unspecified, E11.9 - Type 2 diabetes mellitus without complications, E66.01 - Morbid (severe) obesity due to excess calories, E78.5 - Hyperlipidemia, unspecified, I10 - Essential (primary) hypertension, I25.10 - Atherosclerotic heart disease of [place] coronary artery without angina pectoris Referrals Behavioral Health Referral B34.9 - Viral infection, unspecified, E11.9 - Type 2 diabetes mellitus without complications, E66.01 - Morbid (severe) obesity due to excess calories, E78.5 - Hyperlipidemia, unspecified, I10 - Essential (primary) hypertension, I25.10 - Atherosclerotic heart disease of [place] coronary artery without angina pectoris Cardiology Referral E11.9 - Type 2 diabetes mellitus without complications, E66.01 - Morbid (severe) obesity due to excess calories, E78.5 - Hyperlipidemia, unspecified, I10 - Essential (primary) hypertension, I25.10 - Atherosclerotic heart disease of [place] coronary artery without angina pectoris
[2024-02-07 13:24] VITALS: BP 158/82; PULSE 86; TEMP 36.4; O2SAT 94; BMI 64.2
== END 2024-02-07 14:16 | disposition home or self-care (01) ==
PROVIDERS: PCP Family Medicine; Visit Provider Physician Assistant Surgical
DX: E66.01 Morbid (severe) obesity due to excess calories (principal); I25.10 Atherosclerotic heart disease of native coronary artery without angina pectoris
CPT/HCPCS: 99205

== ENCOUNTER → 2024-02-07 13:07 | Outpatient (BNVA) | payer OTHER, SELFPAY | PROVIDERS: PCP Family Medicine; Visit Provider Physician Assistant Surgical ==

== ENCOUNTER 2024-02-13 10:22 | Emergency (ER) | payer OTHER, SELFPAY ==
[2024-02-13 10:25] VITALS: BP 203/97; PULSE 91; RESP 18; TEMP 36.2; O2SAT 96; BMI 63.0
--- NOTE | 2024-02-13 10:55 | ED_ITS ---
HPI - Abdominal Pain General Chief Complaint: Back Pain/Injury Stated Complaint: r flank pain-swelling Time Seen by Provider: 02/13/24 10:54 Source: patient Mode of arrival: ambulatory Limitations: no limitations History of Present Illness ED Provider: Alireza Reed PA-C HPI narrative: 53-year-old male with a history of HTN, DM, morbid obesity (BMI 63), anemia, vertigo, CAD, history of MD, HLD who presents to the ER for evaluation of right- sided flank pain that started a couple of days ago. He also reports some more mild pain on the left flank as well. He states he feels like the right flank is swollen and warm. It is constant and he was unable to sleep last night. He states it is worse with palpation.He was seen here on 02/05 c/o lower back pain. Had lumbar XR that showed mild retrolisthesis of the distal coccyx and he was discharged with plan for PT - appointment made for mar 04. He also recently had an abd U/S on 01/30 for intermittent RUQ pain that showed fatty liver, no gal lstones or evidence of of cholelithaisis, no kidney stones on the right side. He reports increased urinary frequency due to increased water intake without any associated dysuria, hematuria, urgency or scrotal pain. MD elicited complaint: flank pain Pertinent past history: other (obesity, back pain) Onset (ago): day(s) Pain Consistency: constant Location: L flank and R flank Severity: moderate Quality: aching Radiation: none Migration to: no migration Exacerbating factors: other (palpation) Relieving factors: nothing Associated symptoms: denies other symptoms Related Data Home Medications ?Medication ?Instructions ?Recorded ?Confirmed ondansetron HCl 4 mg tablet 4 mg PO Q8H PRN 01/23/24 02/07/24 Previous Rx's ?Medication ?Instructions ?Recorded atorvastatin 80 mg tablet 80 mg PO BEDTIME 90 days #90 tabs 07/31/23 metformin 500 mg tablet 750 mg (1.5 x 500 mg) PO BID 90 12/19/23 days #270 tabs meclizine 25 mg tablet 25 mg PO BID PRN dizziness #30 tabs 01/01/24 lisinopril 20 mg tablet 20 mg PO DAILY 30 days #30 tabs 01/14/24 tirzepatide 2.5 mg/0.5 mL 2.5 mg (0.5 mL) subcut QWEEK 4 01/23/24 subcutaneous pen injector weeks #2 mL (Nilsa) ibuprofen 600 mg tablet 600 mg PO Q8H PRN pain #14 tabs 02/13/24 lidocaine 5 % topical patch 1 patch topical DAILY #15 ea 02/13/24 Allergies Allergy/AdvReac Type Severity Reaction Status Date / Time shellfish derived Allergy Severe rash, Verified 02/13/24 10:29 sweeling throat Raw fruit AdvReac Intermediate Tickling Uncoded 02/13/24 10:29 in back of throat Review of Systems Review of Systems Yes all other systems are reviewed and are negative [facility] Past Medical History Medical History No pertinent past medical history Surgical History Hx of oral surgery Family History Family History Father Heart disease Mother Diabetes Sister FH: diabetic complications Social History Social History Housing: House Alcohol intake: current Alcohol intake frequency: holidays/special occasions only Patient Tobacco Use Status: Never used Tobacco e-Cigarette/Vaping Use: Never Used Advance Directives: No Advance Directives Information Provided: Yes service: Yes Current occupational status: employed 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 Oriented X3. No acute distress. Head: normocephalic, atraumatic. Eyes: Pupils equal, round and reactive to light. ENT: Pharynx normal. No tonsillar swelling or exudate. Neck: Normal inspection. Neck supple. CVS: Normal heart rate and rhythm. Pulses normal. Respiratory: No respiratory distress. Breath sounds normal. Abdomen: Morbidly obese, Soft and nontender. +BS x4. right flank has an area of point tenderness without any associated swelling, erythema or warmth. mild tenderness of the left flank as well. no CVA tenderness bilaterally. Skin: Skin warm and dry. Normal skin color. Normal skin turgor. No rashes. Extremities: No lower extremity edema. No joint swelling. Neuro/psych: Oriented X 3. No motor deficit. No sensory deficit. CN II-XII intact. Normal speech and cognition. Medical Decision Making Medical Decision Making [facility] Narrative: 53-year-old male with history of morbid obesity, diabetes, back pain, vertigo, CAD, HTN who presents to the ER for evaluation of 3-4 days of right flank pain, mild left flank pain as well. He has some mild tenderness on examination. No CVA tenderness. His imaging from 01/30 was reviewed, no kidney stones were seen on the right side. He has increased urinary frequency but admits to drinking more water. He has no other urinary symptoms. He has no nausea, vomiting, diarrhea. No right upper quadrant pain at this time. Urinalysis today shows no hematuria or evidence of infection. His blood pressure was elevated on arrival but he states he did not sleep much because of the pain and he did not take his blood pressure medications this morning. He was given 20 mg of lisinopril which is a home medication for him. Denies any chest pain, vision changes, headaches. Repeat blood pressure was significantly improved. At this time his flank pain is not thought to be in acute abdominal process. Will treat for musculoskeletal pain with NSAIDs and lidocaine patches. He will follow up with his primary care doctor. Stable for discharge home Differential Diagnosis Differential Diagnoses: The differential diagnosis associated with the presentation includes MSK pain/muscle strain, kidney stone, UTI, pyelonephritis, cellulitis, abscess, cholecystitis, biliary colic Admission/Observation Consideration of admission/observation: Escalation of care including admission/observation considered Lab Data [facility] Lab Attestation statement: I reviewed the patient's lab results. No evidence of infection or microscopic hematuria Labs: Lab Results 02/13/24 Range/Units 11:08 Urine Color Yellow Urine Appearance Clear Urine pH 5.5 (5.0-9.0) Ur Specific [place] 1.025 (1.005-1.025) Urine Protein Negative (Neg-Trace) mg/dL Urine Glucose (UA) Negative (Negative) mg/dL Urine Ketones Negative (Negative) mg/dL Urine Blood Negative (Negative) Urine Nitrite Negative (Negative) Ur Leukocyte Esterase Negative (Negative) External Record Review External record reviewed: Outpatient record, Prior outpatient labs and Prior outpatient radiology Recent ultrasounds and x-rays were reviewed Tests considered The following testing was considered but not selected: CT scan of his abdomen and pelvis was considered however low clinical suspicion for acute abdominal process Prescription Management I considered prescription management with: Pain Medication and Antibiotic Chronic Conditions Patient?s care impacted by: Diabetes, Hypertension and Other (morbid obesity) Medications Administered Discontinued Medications Generic Name Dose Route Start Last Admin Trade Name Freq PRN Reason Stop Dose Admin Lisinopril 20 mg 02/13/24 11:01 02/13/24 11:08 Lisinopril 20 Mg Tablet PO 02/13/24 11:02 20 mg ONCE ONE Administration Protocol Critical Care Time Critical Care Time Critical Care Time: No Discharge Plan Discharge Clinical Impression: Acute flank pain Patient Disposition: Home, Self-Care Instructions: Flank Pain (ED) Additional Instructions: Your urine test today was normal. There was no evidence of blood or infection. Your abdominal ultrasound from a couple of weeks ago did not show any abnormalities of your right kidney or your gallbladder. The pain you are experiencing today is most likely muscular. Recommend taking the prescribed anti-inflammatory as needed for pain. Rest, no strenuous activity. Use the prescribed pain patches topically to the area that is most uncomfortable. You can use ice or heat to the area as needed. Follow-up with your doctor. If you develop new or worsening symptoms call 911 or come back to the ER for further evaluation. Prescriptions: New ibuprofen 600 mg tablet 600 mg PO Q8H PRN (Reason: pain) Qty: 14 0RF lidocaine 5 % adhesive patch,medicated 1 patch topical DAILY Qty: 15 0RF Rx Instructions: leave on most painful area for up to 12 hrs No Action atorvastatin 80 mg tablet 80 mg PO BEDTIME 90 Days Qty: 90 2RF lisinopril 20 mg tablet 20 mg PO DAILY 30 Days Qty: 30 1RF meclizine 25 mg tablet 25 mg PO BID PRN (Reason: dizziness) Qty: 30 0RF metformin 500 mg tablet 750 mg PO BID 90 Days Qty: 270 4RF ondansetron HCl 4 mg tablet 4 mg PO Q8H PRN Mounjaro 2.5 mg/0.5 mL pen injector 2.5 mg subcut QWEEK 28 Days Qty: 2 1RF Referrals: Kurt Steel MD [Primary Care Provider] - Stand Alone Forms: Work/School Release Print Language: [place]
[2024-02-13 11:08] VITALS: BP 203/97
[2024-02-13] MEDS: lisinopriL 20 MG TABLET PO (11:08)
[2024-02-13 11:17] LABS: Appearance Urine Clear; Color Urine Yellow; Glucose Urine UA Negative (Negative); Leukocyte Esterase Urine Negative (Negative); Nitrite Urine Negative (Negative); PH 5.5 (5.0-9.0); Specific Gravity - Urine 1.025 (1.005-1.025); Urine Blood Negative (Negative); Urine Ketones Negative (Negative); Urine Protein Negative (Neg-Trace)
[2024-02-13 11:31] VITALS: BP 132/78; PULSE 77; RESP 17; TEMP 36.1; O2SAT 98
[2024-02-13 12:14] VITALS: BP 132/78; PULSE 77; RESP 17; TEMP 36.1; O2SAT 98
== END 2024-02-13 12:15 | disposition home or self-care (01) ==
PROVIDERS: Physician Assistant; Emergency Provider Emergency Medicine; PCP Family Medicine
DX: R10.9 Unspecified abdominal pain (principal); E11.9 Type 2 diabetes mellitus without complications; I10 Essential (primary) hypertension; E78.5 Hyperlipidemia, unspecified; D64.9 Anemia, unspecified; Z79.02 Long term (current) use of antithrombotics/antiplatelets; Z79.84 Long term (current) use of oral hypoglycemic drugs; Z79.899 Other long term (current) drug therapy
CPT/HCPCS: 81003; 99283

== ENCOUNTER 2024-02-14 10:02 | Outpatient (REF) | payer OTHER, SELFPAY ==
--- NOTE | ~2024-02-14 | XR_ITS ---
EXAMINATION: XR CHEST, 2 VIEWS CLINICAL INFORMATION: Obesity. COMPARISON: 07/04/2017. TECHNIQUE: PA and lateral views of the chest were obtained. FINDINGS: Lungs are clear. No consolidation, pneumothorax, or pleural effusion. Cardiac and mediastinal contours are normal. Pulmonary vasculature is unremarkable. Trachea is midline. Mild degenerative disc disease midthoracic spine. Osteoarthritis of the right acromioclavicular joint. No acute osseous findings. XR/XR chest 2V IMPRESSION: No acute cardiopulmonary findings. Electronically signed by: Adi Jean-Baptiste MD 03/09/2024 05:50 PM EDT
--- NOTE | 2024-02-14 10:09 | ECG_ITS ---
Test Reason : MOR OBESITY Blood Pressure : / mmHG Vent. Rate : 074 BPM Atrial Rate : 074 BPM P-R Int : 158 ms QRS Dur : 106 ms QT Int : 378 ms P-R-T Axes : 139 075 008 degrees QTc Int : 419 ms Unusual P axis, possible ectopic atrial rhythm Abnormal ECG No previous ECGs available Referred By: Huey Hernandez Electronically Signed By:BERTHA SINGH
[2024-02-14 10:14] LABS: MANUAL DIFF FLAG NO
[2024-02-14 10:56] LABS: Basophils Percent Auto 0.8 % (0-2); Eosinophils Absolute Auto 0.1 X10*3/uL (0.0-0.4); Eosinophils Percent Auto 2.1 % (0-4); Hematocrit 40.2 % (42.0-52.0); Hemoglobin 13.5 g/dl (14.0-18.0); Imm Gran Abs Auto 0.01 X10*3/uL (0.00-0.03); Imm Gran Pct Auto 0.2 % (0.0-0.4); Lymphocytes Absolute Auto 1.9 X10*3/uL (1.2-4.9); Lymphocytes Percent Auto 40.5 % (20-40); Mean Corpuscular HGB Conc 33.6 g/dl (31.0-36.0); Mean Corpuscular Hemoglobin 31.5 pg (27.0-33.0); Mean Corpuscular Volume 93.7 fL (80.0-98.0); Mean Platelet Volume 10.8 fL (9.4-12.4); Monocytes Absolute Auto 0.3 X10*3/uL (0.1-1.2); Monocytes Percent Auto 7.1 % (2-11); Neutrophils Absolute Auto 2.4 x10*3/uL (2.0-8.3); Neutrophils Percent Auto 49.3 % (45-73); Platelet Count 229 X10*3/uL (160-400); Red Blood Count 4.29 X10*6/uL (4.60-5.80); White Blood Count 4.8 X10*3/uL (4.8-10.8)
[2024-02-14 11:01] LABS: Estimated Average Glucose 151 mg/dL; Hemoglobin A1c % 6.9 % (<6.0)
[2024-02-14 12:00] LABS: Alanine Aminotransferase 30 U/L (0-40); Albumin Level 4.4 g/dL (3.5-5.0); Alkaline Phosphatase 90 U/L (39-117); Anion Gap 11 (12-20); Aspartate Amino Transferase 22 U/L (5-37); Bilirubin Total 0.6 mg/dL (0.0-1.0); Blood Urea Nitrogen 16 mg/dL (9-16); C Reactive Protein 0.36 mg/dL (< or = 0.50); Calcium 9.6 mg/dL (8.4-10.2); Carbon Dioxide 27 mmol/L (22-29); Chloride 107 mmol/L (96-108); Cholesterol 130 mg/dL (<200); Estimated Glomerular Filt Rate > 60; Glucose Random 136 mg/dL (60-115); HDL Cholesterol 38 mg/dL (>40); Iron 63 mcg/dL (45-160); LDL Cholesterol Calculated 83 mg/dL (<100); Percent Iron Saturation 23 % (15-50); Sodium 141 mmol/L (135-145); Total Iron Binding Capacity 269 mcg/dL (228-428); Total Protein 8.4 g/dL (6.5-8.0); Triglycerides 49 mg/dL (<150); Unsaturated Iron Binding 206 ug/dL
[2024-02-14 12:02] LABS: Ferritin 289 ng/mL (20-250); Vitamin D 25-OH Total 28.7 ng/mL (>30)
[2024-02-14 12:09] LABS: Folate 11.9 ng/mL (> or = 4.0); Vitamin B12 772 pg/mL (200-900)
[2024-02-14 12:25] LABS: Insulin 14 uU/mL (2-29)
[2024-02-18 16:43] LABS: Zinc 74 mcg/dL (60-130)
[2024-02-20 02:14] LABS: Vitamin A 46 mcg/dL (38-98)
[2024-02-21 06:28] LABS: Vitamin B1 6 nmol/L (8-30)
== END 2024-02-14 10:03 | disposition home or self-care (01) ==
LOC: HO.XRAY 10:02
PROVIDERS: PCP Family Medicine; Visit Provider Physician Assistant Surgical
DX: E66.01 Morbid (severe) obesity due to excess calories (principal); B34.9 Viral infection, unspecified; I25.10 Atherosclerotic heart disease of native coronary artery without angina pectoris; E11.9 Type 2 diabetes mellitus without complications; E78.5 Hyperlipidemia, unspecified; I10 Essential (primary) hypertension
CPT/HCPCS: 36415; 71046; 80053; 80061; 82306; 82607; 82728; 82746; 83036; 83525; 83540; 84425; 84443; 84590; 84630; 85025; 86140; 93005

== ENCOUNTER 2024-02-19 10:15 | Outpatient (AMB) | payer OTHER, SELFPAY ==
--- NOTE | 2024-02-19 10:18 | MHC.OFFVIS ---
Vital Signs 02/19/24 10:19 Height 5 ft 8 in Weight 415 lb 5.614 oz BMI 63.1 BP 145/73 H Blood Pressure Location Lt brachial Position Sitting Pulse 70 Intake Visit Reasons: colonoscopy screening Intake Note: Marino presents to in office today for colonoscopy screening. CC: Patient c/o RUQ abd pain and bilateral flanks pain for a few months. Patient also reports diarrhea as soon as he eats something he states it comes right through me . Also, reports nausea, and vomiting not as bad now but back in December he states it was bad and he was not able to even sit up. He was seen at [facility] at that time. Patient on Mounjaro since the beginning of the year last dose around 25 of December per patient. Graduate Assistant Required: No Allergies shellfish derived Allergy (Severe, Verified 02/19/24 10:26) rash, sweeling throat No Known Drug Allergies Allergy (Unknown, Verified 02/19/24 10:26) none Raw fruit Adverse Reaction (Intermediate, Uncoded 02/13/24 10:29) Tickling in back of throat HPI HPI colonoscopy screening: Details: 53-year-old male here for preprocedural meeting to discuss a screening colonoscopy. He is referred by Nereyda Tatum of [facility] primary care. PMX Morbid obesity History of IA Diabetes High cholesterol Hypertension Coronary artery disease Vertigo * SURGICAL HISTORY Oral surgery * ALLERGIES Shellfish Fruit * [employer] LABS: Laboratory Tests 02/14/24 10:14 WBC 4.8 Hgb 13.5 L Hct 40.2 L MCV 93.7 MCH 31.5 Plt Count 229 Estimated GFR > 60 Hemoglobin A1c % 6.9 H Ferritin 289 H Total Bilirubin 0.6 AST 22 ALT 30 Alkaline Phosphatase 90 TSH 1.50 US abdomen 01/31/24 MPRESSION: There is generalized increase in hepatic echotexture, consistent with fatty infiltration or hepatocellular disease. Please correlate clinically. No focal hepatic mass or intrahepatic biliary dilatation is seen. LIVER: The liver is normal in size. The liver contour is normal. Parenchymal echogenicity is generally increased. No focal hepatic lesion. There is no intrahepatic biliary duct dilatation seen. GALLBLADDER: Normal. The gallbladder is physiologically distended without evidence of stones, sludge, polyps, wall thickening or pericholecystic fluid. TODAY'S VISIT This is his first colonoscopy. He has frequent N/V/D over the past 2 years, but worse with the start of his Mounjaro 1 year ago. He stopped the Mounjaro in November of 2023 and his metformin increased but the also worsened diarrhea. Has pain in the RUQ radiates down the flank and to the back, ? if muscular no r/t eating or BM. The diarrhea will be post prandial but is not regular, at times he has formed to soft stools. He vomits 1-2 times a week. He can not ID any particular exacerbating or remitting factors. He is currently in the bariatric wt loss program and the diet they prescribed has helped with the sx. HE WAS SEEN RECENTLY at [facility] emergency department for nausea vomiting and abdominal pain and it was discovered he had a mild anemia macrocytic hypochromic with normal platelets but an elevated ferritin. He is currently taking 1 a day vitamin that may contain iron. I am going to run a hemochromatosis screen on him to better guide him as it is not entirely clear that this is blood loss or iron deficiency anemia and this will help me to decide if he really should be taking iron or whether this could be detrimental to his liver. His cardiac conditions and coronary artery disease is well controlled he denies any respiratory problems. He is relatively naive to anesthesia and sedation. There are no infectious disease problems. There is no known history of colon cancer however his parents relatively young his dad in his 40s of an IA and his mom at 39 of her diabetes. ROV 8 weeks. [facility] Medical History (Updated 02/19/24 @ 10:59 by AHSAN Farah) Impacted cerumen, bilateral Pre-diabetes Acute muscle stiffness of neck History of IA (myocardial infarction) Viral illness Laboratory examination ordered as part of a routine general medical examination Screening for prostate cancer Screening for colon cancer Adult general medical exam Screening for prostate cancer Morbid obesity No pertinent past medical history Surgical History Hx of oral surgery Family History Father Heart disease Mother Diabetes Sister FH: diabetic complications Social History Housing: House Alcohol intake: current Alcohol intake frequency: holidays/special occasions only Patient Tobacco Use Status: Never used Tobacco e-Cigarette/Vaping Use: Never Used service: Yes Current occupational status: employed Current occupation: [employer] Cognitive needs: No Hearing needs: No Vision needs: No Review of Systems Const Denies fatigue, Denies fever(s), Denies night sweats, Denies poor appetite and Reports weight loss (intentional dieting) ENT Reports Normal hearing present, Denies dental pain, Denies dysphagia, Reports vertigo, Denies hearing loss, Denies mouth pain, Denies odynophagia, Denies throat swelling, Denies tongue swelling and Reports other (Dentition adequate) Card Reports no additional complaints Resp Reports no additional complaints GI Details: Reports abdominal pain, Denies melena, Denies bloating, Denies hematochezia, Denies constipation, Denies GI cramping, Denies dysphagia, Denies excessive flatus, Denies early satiety, Denies heartburn, Denies diarrhea, Reports loose stools, Reports nausea, Denies odynophagia, Reports vomiting and Denies hematemesis Reports flank pain Musc Reports back pain Skin/Breast Denies pruritus, Denies lesions, Denies rash and Denies jaundice Neuro Reports Normal hearing present, Denies Abnormal speech present and Reports vertigo Endo Denies fatigue Aller/Immun Denies throat swelling and Denies tongue swelling Physical Exam Vital Signs: Last Vital Signs Pulse 70 02/19/24 10:19 BP 145/73 H 02/19/24 10:19 BMI result Body Mass Index 63.1 Const General: cooperative, no acute distress, well developed and well groomed Nutritional Appearance: well nourished and obese morbidly obese Orientation/consciousness: oriented to person, oriented to place and oriented to time Limitations: No language barrier HEENT Head: Yes normocephalic and Yes atraumatic Eyes General: appearance normal, both eyes and all related structures Pupils: Equal, round and reactive pupils present Neck Neck: Yes normal visual inspection and Yes no lymphadenopathy Thyroid: Thyroid normal Resp Effort & Inspection: normal respiratory effort and able to speak in complete sentences Auscultation: clear to auscultation bilaterally Cardio Rate: regular rate Rhythm: regular rhythm Heart sounds: Normal, physiologic split S2 sound present Peripheral pulses: radial pulses present and posterior tibial pulses present GI Inspection: No distended, Yes Abdominal panniculus present, Yes obesity and Yes striae Palpation (GI): Soft to palpation, nontender, no guarding, not rigid and No hepatosplenomegaly present Percussion: Yes normal to percussion Auscultation: normal bowel sounds Rectal Exam - Male: Yes deferred Skin General skin exam: no rashes or lesions noted, turgor normal, skin not dry, no jaundice, No spider nevi and no striae Rashes: no rashes Nails: normal Neuro General: oriented to person, oriented to place and oriented to time Cranial nerves: Yes Equal, round and reactive pupils present and Yes Normal hearing present Speech: No Abnormal speech present Extrem General: Yes normal to inspection, No clubbing, No cyanosis and No edema Psych Appearance: grossly normal and well kempt Mental Status: mental status grossly normal Speech and movement: Normal speech and movement present Affect: normal affect Attitude: cooperative Thought process: Normal thought process present and not confabulating Thought content: Normal thought content present Insight: Fair insight present (Psych) Judgement: Fair judgement present (Psych) Results Reviewed Results Reviewed: Laboratory Tests 02/14/24 10:14 WBC 4.8 Hgb 13.5 L Hct 40.2 L MCV 93.7 MCH 31.5 Plt Count 229 Estimated GFR > 60 Hemoglobin A1c % 6.9 H Ferritin 289 H Total Bilirubin 0.6 AST 22 ALT 30 Alkaline Phosphatase 90 TSH 1.50 US abdomen 01/31/24 MPRESSION: There is generalized increase in hepatic echotexture, consistent with fatty infiltration or hepatocellular disease. Please correlate clinically. No focal hepatic mass or intrahepatic biliary dilatation is seen. LIVER: The liver is normal in size. The liver contour is normal. Parenchymal echogenicity is generally increased. No focal hepatic lesion. There is no intrahepatic biliary duct dilatation seen. GALLBLADDER: Normal. The gallbladder is physiologically distended without evidence of stones, sludge, polyps, wall thickening or pericholecystic fluid. Assessment & Plan Assessment & Plan (1) Pre-op examination: Code(s): Z01.818 - Encounter for other preprocedural examination Category: Medical (2) Morbid obesity with BMI of 60.0-69.9, adult: Code(s): E66.01 - Morbid (severe) obesity due to excess calories; Z68.44 - Body mass index [BMI] 60.0-69.9, adult Category: Medical (3) Nausea and vomiting: Code(s): R11.2 - Nausea with vomiting, unspecified Category: Medical (4) Upper abdominal pain: Code(s): R10.10 - Upper abdominal pain, unspecified Category: Medical (5) Type 2 diabetes mellitus with morbid obesity: Code(s): E11.69 - Type 2 diabetes mellitus with other specified complication; E66.01 - Morbid (severe) obesity due to excess calories Category: Medical (6) Elevated ferritin: Code(s): R79.89 - Other specified abnormal findings of blood chemistry Category: Medical Plan This is his first colonoscopy. He has frequent N/V/D over the past 2 years, but worse with the start of his Mounjaro 1 year ago. He stopped the Mounjaro in November of 2023 and his metformin increased but the also worsened diarrhea. Has pain in the RUQ radiates down the flank and to the back, ? if muscular no r/t eating or BM. The diarrhea will be post prandial but is not regular, at times he has formed to soft stools. He vomits 1-2 times a week. He can not ID any particular exacerbating or remitting factors. He is currently in the bariatric wt loss program and the diet they prescribed has helped with the sx. HE WAS SEEN RECENTLY at [facility] emergency department for nausea vomiting and abdominal pain and it was discovered he had a mild anemia macrocytic hypochromic with normal platelets but an elevated ferritin. He is currently taking 1 a day vitamin that may contain iron. I am going to run a hemochromatosis screen on him to better guide him as it is not entirely clear that this is blood loss or iron deficiency anemia and this will help me to decide if he really should be taking iron or whether this could be detrimental to his liver. His cardiac conditions and coronary artery disease is well controlled he denies any respiratory problems. He is relatively naive to anesthesia and sedation. There are no infectious disease problems. There is no known history of colon cancer however his parents relatively young his dad in his 40s of an IA and his mom at 39 of her diabetes. ROV 8 weeks. Orders: Orders C Reactive Protein Today E11.69 - Type 2 diabetes mellitus with other specified complication, E66.01 - Morbid (severe) obesity due to excess calories, R10.10 - Upper abdominal pain, unspecified, R11.2 - Nausea with vomiting, unspecified Transglutaminase IgA Today E11.69 - Type 2 diabetes mellitus with other specified complication, E66.01 - Morbid (severe) obesity due to excess calories, R10.10 - Upper abdominal pain, unspecified, R11.2 - Nausea with vomiting, unspecified Transglutaminase Ab IgG Today E11.69 - Type 2 diabetes mellitus with other specified complication, E66.01 - Morbid (severe) obesity due to excess calories, R10.10 - Upper abdominal pain, unspecified, R11.2 - Nausea with vomiting, unspecified EGD/[place] Combo - GI Use Only Today R11.2 - Nausea with vomiting, unspecified H Pylori Breath Test Today R11.2 - Nausea with vomiting, unspecified NM gastric emptying study Today R11.2 - Nausea with vomiting, unspecified Rast Allergen Today E11.69 - Type 2 diabetes mellitus with other specified complication, E66.01 - Morbid (severe) obesity due to excess calories, R10.10 - Upper abdominal pain, unspecified, R11.2 - Nausea with vomiting, unspecified DNA Analysis Hemochromatosis Today R79.89 - Other specified abnormal findings of blood chemistry Medications: New peg 3350-electrolytes 236-22.74-6.74 -5.86 gram (Golytely) until fecal effluent is clear; do not exceed a total volume of 2,000 mL 240 mL PO Q10M 4,000 mL 0RF 1 day Z12.11 - Encounter for screening for malignant neoplasm of colon bisacodyl (Dulcolax (bisacodyl)) 10 mg (2 x 5 mg) PO BEDTIME 4 tabs 0RF 2 days On Hold tirzepatide (Mounjaro) Hold Comment: Doctor's Order 2.5 mg (0.5 mL) subcut QWEEK 4 weeks 2 mL 1RF Coding Level of Care Code New Pt Level 3 (88471) Diagnoses Pre-op examination Z01.818 Morbid obesity with BMI of 60.0-69.9, adult E66.01; Z68.44 Nausea and vomiting R11.2 Upper abdominal pain R10.10 Type 2 diabetes mellitus with morbid obesity E11.69; E66.01 Elevated ferritin R79.89
[2024-02-19 10:19] VITALS: BP 145/73; PULSE 70; BMI 63.1
== END 2024-02-19 11:45 | disposition home or self-care (01) ==
PROVIDERS: PCP Family Medicine; Visit Provider Nurse Practitioner
DX: R11.2 Nausea with vomiting, unspecified (principal); R10.10 Upper abdominal pain, unspecified; Z01.818 Encounter for other preprocedural examination; Z12.11 Encounter for screening for malignant neoplasm of colon; R79.89 Other specified abnormal findings of blood chemistry
CPT/HCPCS: 99203

== ENCOUNTER → 2024-02-19 10:15 | Outpatient (BNVA) | payer OTHER, SELFPAY | PROVIDERS: PCP Family Medicine; Visit Provider Nurse Practitioner ==

== ENCOUNTER 2024-02-19 12:21 | Outpatient (REF) | payer OTHER, SELFPAY ==
[2024-02-19 14:13] LABS: C Reactive Protein 0.29 mg/dL (< or = 0.50)
[2024-02-20 11:44] LABS: H Pylori Breath Test Negative (Negative)
[2024-02-20 18:40] LABS: Transglutaminase Ab IgG <1.0 U/mL; Transglutaminase IgA <1.0 U/mL
== END 2024-02-19 12:22 | disposition home or self-care (01) ==
LOC: HO.LAB 12:21
PROVIDERS: PCP Family Medicine; Visit Provider Nurse Practitioner
DX: R11.2 Nausea with vomiting, unspecified (principal); R10.10 Upper abdominal pain, unspecified; E11.69 Type 2 diabetes mellitus with other specified complication; E66.01 Morbid (severe) obesity due to excess calories; R79.89 Other specified abnormal findings of blood chemistry
CPT/HCPCS: 36415; 81256; 83013; 86003; 86140; 86364

== ENCOUNTER → 2024-02-21 09:00 | Outpatient (BNVA) | payer OTHER, SELFPAY | PROVIDERS: PCP Family Medicine; Visit Provider Counselor Mental Health ==

== ENCOUNTER → 2024-02-21 09:00 | Outpatient (AMB) | payer OTHER, SELFPAY ==
--- NOTE | 2024-02-21 09:14 | A.OFFWM_ITS ---
Intake Intake Visit Reasons: VIDEO BH Intake Allergies shellfish derived Allergy (Severe, Verified 02/19/24 10:26) rash, sweeling throat No Known Drug Allergies Allergy (Unknown, Verified 02/19/24 10:26) none Raw fruit Adverse Reaction (Intermediate, Uncoded 02/13/24 10:29) Tickling in back of throat [facility] Medical History (Updated 02/21/24 @ 10:00 by Marisa Caruso [facility]) Adjustment disorder Impacted cerumen, bilateral Pre-diabetes Acute muscle stiffness of neck History of [place] (myocardial infarction) Viral illness Laboratory examination ordered as part of a routine general medical examination Screening for prostate cancer Screening for colon cancer Adult general medical exam Screening for prostate cancer Morbid obesity No pertinent past medical history Surgical History Hx of oral surgery Family History Father Heart disease Mother Diabetes Sister FH: diabetic complications Social History Housing: House Alcohol intake: current Alcohol intake frequency: holidays/special occasions only Patient Tobacco Use Status: Never used Tobacco e-Cigarette/Vaping Use: Never Used service: Yes Current occupational status: employed 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 Cognitive needs: No Hearing needs: No Vision needs: No Behavioral Health Assessment Weight Management Therapy Therapy Notes Details PT is a 53 years old Male, who presents for a visit to complete BH assessment as part of surgical weight loss program. Presenting Concerns Referral Source P Provider. PT saw BHARGAV on 02/06. HE has initially refered to the program by his PCP. Reason for referral Completion of behavioral health assessment as part of process for weight-loss surgery. Precipitating Event Obesity and medical issues. Living Situation Current Living Situation Rent At risk of losing current housing? No Satisfied with current living situation? Yes Comments Pt lives alone. Food/Weight/Diet Expectations of change Initial goal is to lose at least 2-3 lbs per week, and about 50 before surgery, which is about 366 pounds before surgery. (initial weight 416Lbs) Patient goals are PT is implementing the following: Current meal plan: 2 shakes, 1 bar 1 meal. Exercise plan: Daily walk. Gym at least 3 days at week. History/Relationship with food Example of meals before starting the program: Breakfast: Lunch: Dinner: Snacks: Drinks/Liquids: History/Relationship with weight In the last 10 years, the patient's Lowest weight was and highest Social History Family history and relationship Single. He has 4 children (They are 27 boy, 21 y/o girl, 20 y/o girl and 19 y/o son). He has a very good relationship with them. He has 1 sister and 2 brothers. Parents are . PT describes Pretty good family dynamics. Parental/Familial director pharmacovigilance obligations None. Developmental history and status None. Currently WNL. Social support 3 close Friends. Community support PCP. Muslim/Spirituality Grew up as southern episcopalian but he doesn't practice. Cultural/Ethnic information PT was born and raised in [place]. Identifies as black-[place]. Legal Involvement and History Current or historical involvement with the legal system? none reported. Education Highest grade completed HS Preferred learning style Learn by doing Currently enrolled in educational program? No Interested in further educational program? Yes Educational Interests/Skills Computers and electronics. 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 ) Wants help to find employment? No Meaningful activities Movies, do things out of the house, time with friends, rides on his car. In the past used to play videogames but not as much anymore. Financial Situation Describe current financial situation Occasional struggle Financial assistance? None Service Service? Yes (in the past 4 years in the [place].) Mental Health and Addiction Treatment Current/Past substance abuse? No Comments Alcohol: on special occasions, 2-3 times at year and it will be 2-3 beers and 1-2 mixed drinks. Cigarettes/Tobacco: none Cannabis/Edibles: edibles 3 at week for sleeping. Current/Past addictive behavior concerns? No Psychiatric history Never in counseling and or received medications for MH. PT denies ever been in crisis or inpatient for mental health. There is no recent or current concern about SI/SA and self-harm or other harm. However, patient disclose SI around 2020 when he moved to the area, lost his job and was struggling financially, but things quickly got resolved and has been well from mental health perspective. Medical and Physical Health Summary Additional Medical History not covered in history None reported Sexual History concerns None reported Physical exam in the last year? Yes Pain Screening Current pain? Yes Pain in the last few months? Yes Comments Ongoing issues causing abdominal pain. Referred to an specialist for p ossible gallbladder issues. Knee and back pain. Medications Is the patient compliant with medications? Yes Does the patient have Peters Guardian in place? Not applicable Does the patient use complimentary health approaches? No Trauma/Abuse History History of trauma? No Questionnaires PHQ-9 Over the last 2 weeks, how often have you been bothered by any of the following problems? 1. Little interest or pleasure in doing things: not at all 2. Feeling down, depressed, or hopeless: not at all 3. Trouble falling or staying asleep, or sleeping too much: more than half the days (staying asleep due to abdominal pain. ) 4. Feeling tired or having little energy: several days 5. Poor appetite or overeating: several days 6. Feeling bad about yourself - or that you are a failure or have let yourself o r your family down: not at all 7. Trouble concentrating on things, such as reading the newspaper or watching television: not at all 8. Moving or speaking so slowly that other people could have noticed. Or the opposite - being so fidgety or restless that you have been moving around a lot more than usual: not at all 9. Thoughts that you would be better off or of hurting yourself in some way: not at all Total score: 4 Depression Screening Interpretation: Negative Depression Screening Done: Yes 41989 - PHQ-9 Billing: Yes Source: Developed by Drs. Alvarez Kirk, Jessica Jeff, Arthur mullen nd colleagues, with an educational hilda from [employer]. Assessment & Plan Assessment & Plan (1) Adjustment disorder: Code(s): F43.20 - Adjustment disorder, unspecified Qualifiers: Adjustment disorder type: unspecified type Qualified Code(s): F43.20 - Adjustment disorder, unspecified Plan Assessment not finished today, we will meet again on 03/13/24 at 9 am via telehealth to complete it. Patient was offered a sooner appointment but Fridays at 9 work best for his work schedule. So far client appears to be a good candidate for surgery. Coding Level of Care Code New Pt Tele Psy Diag Hans ([id number]) Patient Type New Diagnoses Adjustment disorder, unspecified type F43.20 Adjustment disorder type: unspecified type Time Spent (min) 60
== END ==
PROVIDERS: PCP Family Medicine; Visit Provider Counselor Mental Health
DX: F43.20 Adjustment disorder, unspecified (principal)
CPT/HCPCS: 90791

== ENCOUNTER 2024-02-28 08:52 | Outpatient (REF) | payer OTHER, SELFPAY ==
--- NOTE | ~2024-02-28 | US_ITS ---
EXAMINATION: US COMPLETE ABDOMEN WITH LIVER ELASTOGRAPHY CLINICAL INFORMATION: Morbid obesity. COMPARISON: Ultrasound abdomen 01/31/2024. TECHNIQUE: Real-time imaging of the abdominal viscera. Noninvasive ultrasound liver fibrosis assessment is performed using Jodi ElastPQ point quantification shear wave elastography (pSWE) with a C5-2 MHz transducer. Multiple elastography samples are obtained. FINDINGS: PANCREAS: Normal. The visualized pancreatic head and body are normal in appearance. The remainder of the pancreas is obscured from visualization by the overlying bowel gas. ABDOMINAL AORTA: The proximal, middle, and distal aortic segments are normal in caliber. INFERIOR VENA CAVA: Visualized portions are normal. LIVER: The liver is enlarged measuring at least 18 cm in greatest length and demonstrates increased echogenicity with hepatic steatosis. No focal lesion or intrahepatic biliary duct dilatation. The right lobe measures 18 cm in length. The left lobe measures 12.5 cm in length. Portal flow is towards the liver (hepatopetal). Shear wave liver elastography median stiffness is 1.37 m/s (reference: normal median stiffness is 1.3 m/s or less). IQR/median stiffness to assess sampling precision is 0.20 (reference: good quality data set is IQR/median stiffness of 0.15 or less). GALLBLADDER: Normal. The gallbladder is physiologically distended without evidence of stones, sludge, polyps, wall thickening or pericholecystic fluid. COMMON BILE DUCT: Normal in caliber measuring 0.2 cm in diameter. RIGHT KIDNEY: Normal. No hydronephrosis. No renal calculi or focal parenchymal lesions. The kidney measures 12.4 cm in maximum dimension. LEFT KIDNEY: Normal. No hydronephrosis. No renal calculi or focal parenchymal lesions. The kidney measures 13.2 cm in maximum dimension. SPLEEN: Normal. The spleen measures 8.4 cm in maximum dimension. FREE FLUID: None. US/US abdomen comp w elastography IMPRESSION: 1. Enlarged fatty liver. 2. Liver Elastography: In the absence of other known clinical signs, measurements rule out compensated advanced chronic liver disease. If there are known clinical signs, further testing may be needed for confirmation. REFERENCE: Society of Radiologists in Ultrasound Liver Stiffness Thresholds (2020): LIVER STIFFNESS THRESHOLDS: *Liver Stiffness equal or less than 1.3 m/s: High probability of being normal. *Liver Stiffness less than 1.7 m/s: In the absence of other known clinical signs, rules out compensated advanced chronic liver disease. *Liver Stiffness 1.7-2.1 m/s: Suggestive of compensated advanced chronic liver disease but need further test for confirmation. *Liver Stiffness over 2.1 m/s: Rules in compensated advanced chronic liver disease. *Liver Stiffness over 2.4 m/s: Suggestive of clinically significant portal hypertension. QUALITY OF DATA SET: *IQR/Median value equal or less than 0.15 implies a quality data set. *IQR/Median value over 0.15 implies a poor quality data set. SIGNIFICANT CHANGE FROM PRIOR EXAM: Significant change if liver stiffness measurement is 10% or greater from prior exam. OTHER CONSIDERATIONS: The stage of liver fibrosis may be overestimated in the setting of acute hepatitis, liver inflammation, elevated liver function tests, hepatic vascular congestion, obstructive cholestasis, non-fasting state, and infiltrative diseases such as amyloidosis and lymphoma. In some patients with NAFLD, the liver stiffness thresholds for compensated advanced chronic liver disease may be lower. In causes other than viral hepatitis and NAFLD, liver stiffness thresholds are not well established. Electronically signed by: Dario Lerma MD 03/21/2024 03:49 PM EDT
== END 2024-02-28 08:53 | disposition home or self-care (01) ==
LOC: HO.US 08:52
PROVIDERS: PCP Family Medicine; Visit Provider Physician Assistant Surgical
DX: E66.01 Morbid (severe) obesity due to excess calories (principal); B34.9 Viral infection, unspecified; I25.10 Atherosclerotic heart disease of native coronary artery without angina pectoris; E11.9 Type 2 diabetes mellitus without complications; E78.5 Hyperlipidemia, unspecified; I10 Essential (primary) hypertension
CPT/HCPCS: 76700; 76981

== ENCOUNTER 2024-03-05 09:00 | Outpatient (AMB) | payer OTHER, SELFPAY ==
--- NOTE | 2024-03-05 09:48 | MHC.PC.OV ---
Vital Signs 03/05/24 09:52 03/05/24 10:11 Height 5 ft 7.5 in Weight 415 lb 4 oz BMI 64.1 BP 141/84 H 137/86 Blood Pressure Location Lt brachial Lt brachial Position Sitting Sitting Respiration 18 Pulse 71 Pulse Source Pulse Oximeter Pulse Oximetry (%) 96 Oxygen Delivery Method Room Air Intake Visit Reasons: dm med f/u and stomach pain Intake Note: Follow up diabetes and stomach pain. Went to [facility] and was diagnosed with spinal stenosis and needs referral to physcial therapy Allergies shellfish derived Allergy (Severe, Verified 03/05/24 09:49) rash, sweeling throat No Known Drug Allergies Allergy (Unknown, Verified 03/05/24 09:49) none Raw fruit Adverse Reaction (Intermediate, Uncoded 03/05/24 09:49) Tickling in back of throat Medication List - Last Reconciled 03/05/24 by Abimbola Nova PA-C atorvastatin 80 mg PO BEDTIME 90 days bisacodyl (Dulcolax (bisacodyl)) 10 mg (2 x 5 mg) PO BEDTIME 2 days cholecalciferol (vitamin D3) 125 mcg PO DAILY 90 days ibuprofen 600 mg PO Q8H PRN lisinopril 20 mg PO DAILY 30 days metformin 750 mg (1.5 x 500 mg) PO BID 90 days peg 3350-electrolytes 236-22.74-6.74 -5.86 gram (Golytely) 240 mL PO Q10M 1 day thiamine HCl (vitamin B1) 100 mg PO DAILY Tobacco use date assessed: 01/01/24 Dental Screening Dental Screen Date: 01/01/24 HPI dm med f/u and stomach pain HPI Details Pt is a 53 y/o male who presents today for a follow up. He is here today because he also has intermittent FMLA paperwork. States that he needs this filled out for his doctor's appointments. He has upcoming appointments with GI and bariatric surgery and would like to start physical therapy for his back. General: He is following with weight management and is feeling a lot better with the protein shakes and one meal a day. He states he is also following with an chema that is keeping him honest with it. He states that it is very effective. He is down 25 lbs. GI: He just saw GI and is booked for a double endoscopy. He still has upper abdominal pain and flank pain that comes and goes. No urinary sx. He gets nauseous with the pain but no vomiting. He denies any diarrhea or constipation. He wonders if this pain is related to his weight. He states sometimes it feels like it is from the back and is worse if he has to sit at a desk for a lot of hours and hold himself up . It gets better with laying down and stretching. Endo: He never got the mounjaro due to insurance issues. He did not tolerate trulicity. It caused dizziness. He is on metformin 750 mg bid. His last a1c was 6.9. Pysch: He states he still has a hard time falling asleep and staying asleep. States it sometimes feels like his mind races. We did discuss possibilities of obstructive sleep apnea [facility] Medical History (Updated 03/05/24 @ 12:40 by Abimbola Nova PA-C) Adjustment disorder Impacted cerumen, bilateral Pre-diabetes Acute muscle stiffness of neck History of [place] (myocardial infarction) Viral illness Laboratory examination ordered as part of a routine general medical examination Screening for prostate cancer Screening for colon cancer Adult general medical exam Screening for prostate cancer Morbid obesity No pertinent past medical history Surgical History Hx of oral surgery Family History Father Heart disease Mother Diabetes Sister FH: diabetic complications Social History Housing: House Alcohol intake: current Alcohol intake frequency: holidays/special occasions only Patient Tobacco Use Status: Never used Tobacco e-Cigarette/Vaping Use: Never Used service: Yes Current occupational status: employed Current occupation: [employer] Cognitive needs: No Hearing needs: No Vision needs: No Questionnaire PHQ-9 Over the last 2 weeks, how often have you been bothered by any of the following problems? 1. Little interest or pleasure in doing things: not at all 2. Feeling down, depressed, or hopeless: several days 3. Trouble falling or staying asleep, or sleeping too much: more than half the days 4. Feeling tired or having little energy: several days 5. Poor appetite or overeating: several days 6. Feeling bad about yourself - or that you are a failure or have let yourself or your family down: several days 7. Trouble concentrating on things, such as reading the newspaper or watching television: several days 8. Moving or speaking so slowly that other people could have noticed. Or the opposite - being so fidgety or restless that you have been moving around a lot more than usual: several days 9. Thoughts that you would be better off or of hurting yourself in some way: several days Total score: 9 Source: Developed by Drs. Alvarez Kirk, Jessica Jeff, Arthur Mosquera and colleagues, with an educational hilda from [employer]. Thrive Questionnaire Date Thrive assessed: 12/19/23 I am a: Patient What is your living situation today?: I have a steady place to live Within the past 12 months, did the food you bought not last and you didn't have the money to get more?: Never true Within the past 12 months, did you worry whether your food would run out before you got money to buy more?: Never true Do you have trouble paying for medicines?: No Do you have trouble getting transportation to medical appointments?: No Do you have trouble paying your heating and electricity bill?: No Do you have trouble taking care of your child, family member or friend?: No Do you have trouble with day-to-day activities such as bathing, preparing meals, shopping, managing finances, etc.?: No Are you currently unemployed and looking for a job?: No Are you interested in more education?: Yes Please select the resources that you would like help with: Education Currently or been in a relationship where the following occur: No concerns reported THRIVE Score: 0 AUDIT C Alcohol Use Questionnaire (AUDIT-C) 1. How often do you have a drink containing alcohol?: Monthly or less 2. How many drinks containing alcohol do you have on a typical day when you are drinking?: 1 or 2 3. How often do you have six or more drinks on one occasion?: Never Total Score: 1 LOU-7 AMB Questionnaire LOU-7 Date LOU - 7 assessed: 12/19/23 Feeling nervous, anxious, or on edge: 1 = Several days Not being able to stop or control worryin = Several days Worrying too much about different things: 1 = Several days Trouble relaxin = Several days Being so restless that it is hard to sit still: 0 = Not at all Becoming easily annoyed or irritable: 0 = Not at all Feeling afraid as if something awful might happen: 1 = Several days Total LOU-7 score (0-4 normal; 5-9 mild; 10-14 moderate; 15-21 severe): 5 Source: Developed by Drs. Alvarez Kirk, Jessica Jeff, Arthur Mosquera and colleagues, with an educational hilda from [employer]. Physical exam (Primary Care) Vital Signs: Last Vital Signs Pulse 71 03/05/24 09:52 Resp 18 03/05/24 09:52 BP 137/86 03/05/24 10:11 Pulse Ox 96 03/05/24 09:52 Oxygen Delivery Method Room Air 03/05/24 09:52 BMI result Body Mass Index 64.1 Tobacco/Smoking Status: Tobacco use Status Tobacco use date assessed 01/01/24 03/05/24 09:54 Patient Tobacco Use Status Never used Tobacco 03/05/24 09:54 e-Cigarette/Vaping Use Never Used 03/05/24 09:54 PHQ-9: PHQ-9 Score PHQ-9: Total score 9 03/05/24 09:54 Thrive Assessment: Date of Thrive Assessment Date Thrive assessed 12/19/23 03/05/24 09:54 Currently or been in a relationship where the following occur: No concerns reported Const Orientation/consciousness: patient oriented x3 HENMT Ears: hearing grossly normal bilaterally Neck Thyroid: Thyroid normal Lymphatic: no lymphadenopathy noted Resp Auscultation: clear to auscultation bilaterally Cardio Rate: regular rate Rhythm: regular rhythm Heart sounds: S1 normal heart sound present and S2 normal heart sound present GI Inspection: Yes normal to inspection Palpation (GI): Soft to palpation and Other GI palpation findings present (nontender, no cva tenderness) Auscultation: normoactive bowel sounds Rectal Exam - Male: Yes deferred Back/Spine/Pelvis Thoracic/Lumbar Spine: thoraco-lumbar ROM normal and paraspinal muscle tenderness Skin General skin exam: no rashes or lesions noted Neuro General: patient oriented x3, gait normal and no focal motor deficits Assessment and Plan Assessment & Plan (1) Type 2 diabetes mellitus with morbid obesity: Code(s): E11.69 - Type 2 diabetes mellitus with other specified complication; E66.01 - Morbid (severe) obesity due to excess calories Plan: will add ozempic. discussed risks/benefits and adverse effects. continue metformin. follow up 3 months or sooner prn (2) Mid back pain: Code(s): M54.9 - Dorsalgia, unspecified Plan: referral to PT (3) Essential hypertension: Code(s): I10 - Essential (primary) hypertension Plan: wnl continue current plan (4) Upper abdominal pain: Code(s): R10.10 - Upper abdominal pain, unspecified Plan: following with GI (5) Insomnia: Code(s): G47.00 - Insomnia, unspecified Plan: sleep study ordered (6) Morbid obesity with BMI of 60.0-69.9, adult: Code(s): E66.01 - Morbid (severe) obesity due to excess calories; Z68.44 - Body mass index [BMI] 60.0-69.9, adult Plan: starting ozempic. We discussed risks and benefits and adverse effects of this medication. He has also follow up with bariatric surgery. Three-month follow-up. Sooner if needed. Plan Intermittent FMLA filled out today for appointments. Orders: Orders PT Evaluation and Treatment Today M54.9 - Dorsalgia, unspecified RT home sleep study Today E66.01 - Morbid (severe) obesity due to excess calories, G47.00 - Insomnia, unspecified, Z68.44 - Body mass index [BMI] 60.0-69.9, adult Medications: New semaglutide (Ozempic) for 4 weeks 0.25 mg (0.368 mL) subcut QWEEK 3 mL 1RF Coding Level of Care Code Est Pt Level 4 (25931) Complex EM visit Add On G2211 Diagnoses Type 2 diabetes mellitus with morbid obesity E11.69; E66.01 Mid back pain M54.9 Essential hypertension I10 Upper abdominal pain R10.10 Insomnia G47.00 Morbid obesity with BMI of 60.0-69.9, adult E66.01; Z68.44
[2024-03-05 09:52] VITALS: BP 141/84; PULSE 71; RESP 18; O2SAT 96; BMI 64.1
[2024-03-05 10:11] VITALS: BP 137/86
== END 2024-03-05 10:45 | disposition home or self-care (01) ==
PROVIDERS: PCP Family Medicine; Visit Provider Physician Assistant
DX: E11.69 Type 2 diabetes mellitus with other specified complication (principal); E66.01 Morbid (severe) obesity due to excess calories; Z68.44 Body mass index [BMI] 60.0-69.9, adult; M54.9 Dorsalgia, unspecified; I10 Essential (primary) hypertension; R10.10 Upper abdominal pain, unspecified; G47.00 Insomnia, unspecified
CPT/HCPCS: 99214

== ENCOUNTER 2024-03-13 07:46 | Outpatient (AMB) | payer OTHER, SELFPAY ==
--- NOTE | 2024-03-13 08:13 | A.OFFVIS_ITS ---
Intake Visit Reasons: TV Follow Up LEIDY / [facility] 1ST Allergies shellfish derived Allergy (Severe, Verified 03/13/24 08:13) rash, sweeling throat No Known Drug Allergies Allergy (Unknown, Verified 03/13/24 08:13) none Raw fruit Adverse Reaction (Intermediate, Uncoded 03/13/24 08:13) Tickling in back of throat Medication List - Last Reconciled 03/13/24 by Lennox Jimenez MD atorvastatin 80 mg PO BEDTIME 90 days bisacodyl (Dulcolax (bisacodyl)) 10 mg (2 x 5 mg) PO BEDTIME 2 days cholecalciferol (vitamin D3) 125 mcg PO DAILY 90 days ibuprofen 600 mg PO Q8H PRN lisinopril 20 mg PO DAILY 30 days metformin 750 mg (1.5 x 500 mg) PO BID 90 days peg 3350-electrolytes 236-22.74-6.74 -5.86 gram (Golytely) 240 mL PO Q10M 1 day semaglutide (Ozempic) 0.25 mg (0.368 mL) subcut QWEEK thiamine HCl (vitamin B1) 100 mg PO DAILY HPI HPI TV Follow Up LEIDY / [facility] 1ST: Details: Start time: 8.09am, End time: 8.49am ?I spent 35 minutes speaking with the patient on the phone plus an additional 5 minutes reviewing and updating records for a total of 40 minutes HPI Comments Details: Overall weight loss: 22.8lbs, or 5.32% TBWL Is uisng the GAMEVIL chema. Very happy with it. Is using 2 Atkins plus shakes, 2 Atkins protein bars and one meal (14 forks of meat and 14 forks of salad or vegetables) Exercise: Gym x3/wk doing treadmill for 1 hour and walking outside x4/wk [facility] Medical History (Updated 03/13/24 @ 08:24 by Lennox Jimenez MD) Morbid obesity Adjustment disorder Impacted cerumen, bilateral Pre-diabetes Acute muscle stiffness of neck History of [place] (myocardial infarction) Viral illness Laboratory examination ordered as part of a routine general medical examination Screening for prostate cancer Screening for colon cancer Adult general medical exam Screening for prostate cancer No pertinent past medical history Surgical History Hx of oral surgery Family History Father Heart disease Mother Diabetes Sister FH: diabetic complications Social History Housing: House Alcohol intake: current Alcohol intake frequency: holidays/special occasions only Patient Tobacco Use Status: Never used Tobacco e-Cigarette/Vaping Use: Never Used service: Yes Current occupational status: employed 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 Cognitive needs: No Hearing needs: No Vision needs: No Telehealth Telehealth Telehealth Platform: Telephone Location of provider rendering services: practice address Location of patient: address on file Patient Identification confirmed using: Name, : Yes Telehealth method: voice only Patient verbally consented to treatment: Yes Patient verbally consented to billing insurance company: Yes Patient informed of any privacy concerns related to visit: Yes Minutes spent on Phone/Video with Pt.: 40 Assessment & Plan Assessment & Plan (1) Morbid obesity: Code(s): E66.01 - Morbid (severe) obesity due to excess calories Category: Medical Plan: 1. Plan for lap sleeve gastrectomy. If diaphragmatic or ventral hernias are present at time of surgery, these will be repaired laparoscopically as well. Risks and complications include possible conversion to an open procedure, anastomotic leak, bleeding requiring transfusion, small bowel obstruction, , DVT and pulmonary embolism, cardiac, or pulmonary complications, as halfway complications such as anastomotic ulcer, insufficient weight loss and vitamin deficiencies. I emphasized the importance of close follow-up, adherence to instructions and good communication. 2. Continue same meal plan of 2 Atkins plus shakes, 2 Atkins protein bars and one meal (14 forks of meat and 14 forks of salad or vegetables) 3. Exercise: Continue Gym x3/wk doing treadmill for 1 hour and walking outside x4/wk but use the Right BMI chema to create a specific exercise plan for your walks and treadmill 4. Send me weight measurements weekly on Orders: Orders CA lexiscan stress w ric Today R94.31 - Abnormal electrocardiogram [ECG] [EKG] CA echo transthorac w con Today R94.31 - Abnormal electrocardiogram [ECG] [EKG]
== END 2024-03-13 08:49 | disposition home or self-care (01) ==
LOC: HO.HBS 07:46
PROVIDERS: PCP Family Medicine; Visit Provider Surgery
DX: E66.01 Morbid (severe) obesity due to excess calories (principal); Z68.44 Body mass index [BMI] 60.0-69.9, adult
CPT/HCPCS: 99443

== ENCOUNTER → 2024-03-13 07:46 | Outpatient (BNVA) | payer OTHER, SELFPAY | PROVIDERS: PCP Family Medicine; Visit Provider Surgery ==

== ENCOUNTER 2024-03-25 08:19 | Outpatient (AMB) | payer OTHER, SELFPAY ==
[2024-03-25 08:42] VITALS: BP 118/70; PULSE 69; RESP 16; TEMP 36.6; O2SAT 98; BMI 64.0
--- NOTE | 2024-03-25 08:42 | A.OFFPC_ITS ---
Vital Signs 03/25/24 08:42 Height 5 ft 7.5 in Weight 414 lb 11.032 oz BMI 64.0 BP 118/70 Blood Pressure Location Lt brachial Position Sitting Respiration 16 Pulse 69 Pulse Source Pulse Oximeter Temp 97.9 F Temp Source Oral Pulse Oximetry (%) 98 Oxygen Delivery Method Room Air Intake Visit Reasons: f/u diabetes Allergies shellfish derived Allergy (Severe, Verified 03/13/24 08:13) rash, sweeling throat No Known Drug Allergies Allergy (Unknown, Verified 03/13/24 08:13) none Raw fruit Adverse Reaction (Intermediate, Uncoded 03/13/24 08:13) Tickling in back of throat Tobacco use date assessed: 01/01/24 Dental Screening Dental Screen Date: 01/01/24 HPI f/u diabetes HPI Details 53 y/o male presents to f/u diabetes, hy pertension. Blood pressure today 118/70. He is on lisinopril 20mg daily. Had increased his metformin in November. Last A1c 02/14/24 6.9%. He is on metformin 750mg b.i.d. He has not been able to get Ozempic approved and has not been able to take it x1 month. Notes he had been to the emergency department for back pain. He f/u with GI for nausea/vomiting and upper abd. discomfort. [facility] Medical History (Updated 03/25/24 @ 09:02 by Andrés Wallace) Morbid obesity Adjustment disorder Impacted cerumen, bilateral Pre-diabetes Acute muscle stiffness of neck History of [place] (myocardial infarction) Viral illness Laboratory examination ordered as part of a routine general medical examination Screening for prostate cancer Screening for colon cancer Adult general medical exam Screening for prostate cancer No pertinent past medical history Surgical History Hx of oral surgery Family History Father Heart disease Mother Diabetes Sister FH: diabetic complications Social History Housing: House Alcohol intake: current Alcohol intake frequency: holidays/special occasions only Patient Tobacco Use Status: Never used Tobacco e-Cigarette/Vaping Use: Never Used service: Yes Current occupational status: employed Current occupation: [employer] Cognitive needs: No Hearing needs: No Vision needs: No Questionnaire Thrive Questionnaire Date Thrive assessed: 03/05/24 I am a: Patient What is your living situation today?: I have a steady place to live Within the past 12 months, did the food you bought not last and you didn't have the money to get more?: Never true Within the past 12 months, did you worry whether your food would run out before you got money to buy more?: Never true Do you have trouble paying for medicines?: No Do you have trouble getting transportation to medical appointments?: No Do you have trouble paying your heating and electricity bill?: No Do you have trouble taking care of your child, family member or friend?: No Do you have trouble with day-to-day activities such as bathing, preparing meals, shopping, managing finances, etc.?: No Are you currently unemployed and looking for a job?: No Are you interested in more education?: Yes Please select the resources that you would like help with: Education Currently or been in a relationship where the following occur: No concerns reported THRIVE Score: 0 LOU-7 AMB Questionnaire LOU-7 Date LOU - 7 assessed: 12/19/23 Source: Developed by Drs. Alvarez Kirk, Jessica Jeff, Arthur Mosquera and colleagues, with an educational hilda from [employer]. Review of Systems Const Denies chills, Denies fatigue, Denies fever(s), Denies headache(s) and Denies weakness ENT Denies dizziness and Denies headache(s) Card Denies dyspnea Resp Denies cough, Denies dyspnea, Denies wheezing and Denies other (shortness of breath) Musc Denies numbness and Denies tingling Neuro Denies dizziness, Denies headache(s), Denies numbness, Denies tingling and Denies weakness Psych Denies anxiety and Denies depression Endo Denies fatigue Aller/Immun Denies wheezing Physical exam (Primary Care) Vital Signs: Last Vital Signs Temp 97.9 F 03/25/24 08:42 Pulse 69 03/25/24 08:42 Resp 16 03/25/24 08:42 BP 118/70 03/25/24 08:42 Pulse Ox 98 03/25/24 08:42 Oxygen Delivery Method Room Air 03/25/24 08:42 BMI result Body Mass Index 64.0 Tobacco/Smoking Status: Tobacco use Status Tobacco use date assessed 01/01/24 03/25/24 08:46 Patient Tobacco Use Status Never used Tobacco 03/25/24 08:46 e-Cigarette/Vaping Use Never Used 03/25/24 08:46 Thrive Assessment: Date of Thrive Assessment Date Thrive assessed 03/05/24 03/25/24 08:46 Currently or been in a relationship where the following occur: No concerns reported Const General: well developed; No acute distress Nutritional Appearance: well nourished and obese morbidly obese Orientation/consciousness: patient oriented x3 HENMT Head: Yes normocephalic and Yes atraumatic Eyes General: appearance normal, both eyes and all related structures Pupils: Equal, round and reactive pupils present EOM: EOMs intact bilaterally Resp Effort & Inspection: normal respiratory effort Neuro General: patient oriented x3 and gait normal Cranial nerves: Yes Equal, round and reactive pupils present Psych Affect: normal affect Coding Level of Care Code Est Pt Level 4 (64782) Diagnoses Diabetes E11.9 Essential hypertension I10 Nausea and vomiting R11.2 Back pain M54.9 Assessment & Plan Assessment & Plan (1) Diabetes: Code(s): E11.9 - Type 2 diabetes mellitus without complications Category: Medical Plan: 6.9%.??Goal?is?less?than?7.0%.??Controlled. He?has?not?been?able?to?get?Ozempic?so?is?just?on?metformin?which?I?had?increase d?at?last?visit. Patient?is?at?goal. No?changes?to?his?medications?today?though?if?he?is?able?to?get?Ozempic?he?can ?start?this. We?can?follow- up?at?next?visit?and?if?he?is?still?unable?to?get?Ozempic?I?will?take?it?off?his ?med?list Continue?diabetic?diet.??Continue?exercise?and?weight?loss (2) Essential hypertension: Code(s): I10 - Essential (primary) hypertension Category: Medical Plan: Blood?pressure?is?controlled.??Goal?is?less?than?130/80?for?patient?with?CAD Continue?current?medication (3) Nausea and vomiting: Code(s): R11.2 - Nausea with vomiting, unspecified Category: Medical Plan: Patient?had?un controlled?nausea?and?vomiting?and?missed?work?from?December??to?December?. Will?fill?out?FMLA?paperwork?for?a?continuous absence?over?that?time?period. Also?has?paperwork?filled?out?already?for?interm ittent?time?off?from?work?for?his?ongoing?workup?by?Gastroenterology. (4) Back pain: Code(s): M54.9 - Dorsalgia, unspecified Category: Medical Plan: Back?pain?with?lumbar?retrolisthesis This?has?been?improving Continue?weight?loss
== END 2024-03-25 09:06 | disposition home or self-care (01) ==
PROVIDERS: PCP Family Medicine; Visit Provider Family Medicine
DX: E11.9 Type 2 diabetes mellitus without complications (principal); I10 Essential (primary) hypertension; R11.2 Nausea with vomiting, unspecified; M54.9 Dorsalgia, unspecified

== ENCOUNTER → 2024-03-25 08:19 | Outpatient (BNVA) | payer OTHER, SELFPAY | PROVIDERS: PCP Family Medicine; Visit Provider Family Medicine ==

== ENCOUNTER 2024-04-03 09:14 | Outpatient (AMB) | payer OTHER, SELFPAY ==
--- NOTE | 2024-04-03 09:00 | MHC.WMTHER ---
Intake Intake Visit Reasons: VIDEO BH F/U Allergies shellfish derived Allergy (Severe, Verified 03/13/24 08:13) rash, sweeling throat No Known Drug Allergies Allergy (Unknown, Verified 03/13/24 08:13) none Raw fruit Adverse Reaction (Intermediate, Uncoded 03/13/24 08:13) Tickling in back of throat [facility] Medical History (Updated 03/25/24 @ 09:02 by Andrés Wallace) Morbid obesity Adjustment disorder Impacted cerumen, bilateral Pre-diabetes Acute muscle stiffness of neck History of [place] (myocardial infarction) Viral illness Laboratory examination ordered as part of a routine general medical examination Screening for prostate cancer Screening for colon cancer Adult general medical exam Screening for prostate cancer No pertinent past medical history Surgical History Hx of oral surgery Family History Father Heart disease Mother Diabetes Sister FH: diabetic complications Social History Housing: House Alcohol intake: current Alcohol intake frequency: holidays/special occasions only Patient Tobacco Use Status: Never used Tobacco e-Cigarette/Vaping Use: Never Used service: Yes Current occupational status: employed 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 Cognitive needs: No Hearing needs: No Vision needs: No Behavioral Health Assessment Weight Management Therapy Therapy Notes Details PT is a 53 years old Male, who presents for a second visit to complete assessment as part of surgical weight loss program. Today we completed assessment, PHQ-9 was repeated and BES reviewed. PT denied any history of mental health treatment and or past hospitalization/crisis for behavioral health. Also, denies safety concerns around SI/SA and/or self-harm/other-harm, also there is no history of substance use reported. There is also no evidence for stress/emotional-eating, and scores from BES suggest low risk for binge eating behavior. PHQ- scores also showed no active symptoms/concerns with depression. On the other hand, mental status exam is within normal limits, suggesting person's functioning is not impaired. At this time patient is cleared from the behavioral health standpoint and will not need to have further visits pre-surgery. Presenting Concerns Referral Source WMP Provider. PT saw BHARGAV on 02/06. HE has initially refered to the program by his PCP. Reason for referral Completion of behavioral health assessment as part of process for weight-loss surgery. Precipitating Event Obesity and medical issues. Living Situation Current Living Situation Rent At risk of losing current housing? No Satisfied with current living situation? Yes Comments Pt lives alone. Food/Weight/Diet Expectations of change Initial goal is to lose at least 2-3 lbs per week, and about 50 before surgery, which is about 366 pounds before surgery. (initial weight 416Lbs). Current weight as of today 04/03 is 408Lbs. Patient's big goal is to recover is health. With bariatric surgery and weight-loss he hopes to become active and healthier. PT is implementing the following: Current meal plan: 2 shakes, 1 bar 1 meal. Exercise plan: Daily walk. Gym at least 3 days at week. History/Relationship with food PT reports he enjoys food and try new things. And his issues are related to eat when bored, and skipping meals when he is active or busy, for example not eating at all when working a 10 hour day. He was also doing a lot of take out and by the end of the day he was very hungry and at times he was overeating. Other times he would't eat when hungry, just to have something to chew. Example of meals before starting the program: Breakfast: frozen breakfast sandwich with egg, meat and cheese and a glass a milk or juice. Lunch: a sandwich wit chasse, ham/turkey and siddiqui. Dinner: take out depending on his mood. Pizza, burger w/ fries, salad. Snacks: when has breaks from work. chips, candy, peanuts. Drinks/Liquids: 2-3 cans Soda, ice tea or hot tea, juice, milk. History/Relationship with weight Denies being overweight in childhood. He was very active growing up. PT reports he was under 200Lbs was around 1995, at age 25, when he had his first child. In the last 10 years, the patient's Lowest weight 406Lbs (2 weeks ago) and highest 475Lbs about 2 years ago. History/Relationship with dieting PT reports he was not consistent with things before. He has tried some diets like weight watchers and self-diets and exercise. Binge Eating Do you frequently eat large amounts of food in short periods of time, not feeling physically hungry? No Do you feel out of control when you eat a large amount of food in a short period of time? No Do you eat large amounts of food rapidly and typically alone? No Night Eating Do you wake up at least once during the night to eat? No If you wake up in the night, do you find that it is necessary to eat something in order to fall back asleep? No Do you have little or no appetite in the morning and feel very hungry in the evening, often overeating between dinner and when you go to bed? Yes Social History Family history and relationship Single. He has 4 children (They are 27 boy, 21 y/o girl, 20 y/o girl and 19 y/o son). He has a very good relationship with them. He has 1 sister and 2 brothers. Parents are . PT describes Pretty good family dynamics. 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 Developmental history and status None. Currently WNL. Social support 3 close Friends. Community support PCP. Hinduism/Spirituality Grew up as southern rastafari but he doesn't practice. Cultural/Ethnic information PT was born and raised in [place]. Identifies as black-[place]. Legal Involvement and History Current or historical involvement with the legal system? none reported. Education Highest grade completed HS Preferred learning style Learn by doing Currently enrolled in educational program? No Interested in further educational program? Yes Educational Interests/Skills Computers and electronics. 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 ) Wants help to find employment? No Meaningful activities Movies, do things out of the house, time with friends, rides on his car. In the past used to play videogames but not as much anymore. Financial Situation Describe current financial situation Occasional struggle Financial assistance? None Service Service? Yes (in the past 4 years in the [employer].) Mental Health and Addiction Treatment Current/Past substance abuse? No Comments Alcohol: on special occasions, 2-3 times at year and it will be 2-3 beers and 1-2 mixed drinks. Cigarettes/Tobacco: none Cannabis/Edibles: edibles 3 at week for sleeping. Current/Past addictive behavior concerns? No Psychiatric history Never in counseling and or received medications for MH. PT denies ever been in crisis or inpatient for mental health. There is no recent or current concern about SI/SA and self-harm or other harm. However, patient disclose SI around 2020 when he moved to the area, lost his job and was struggling financially, but things quickly got resolved and has been well from mental health perspective. Medical and Physical Health Summary Additional Medical History not covered in history None reported Sexual History concerns None reported Physical exam in the last year? Yes Pain Screening Current pain? Yes Pain in the last few months? Yes Comments Ongoing issues causing abdominal pain. Referred to an specialist for possible gallbladder issues. Knee and back pain. Medications Is the patient compliant with medications? Yes Does the patient have Peters Guardian in place? Not applicable Does the patient use complimentary health approaches? No Trauma/Abuse History History of trauma? No Questionnaires PHQ-9 Over the last 2 weeks, how often have you been bothered by any of the following problems? 1. Little interest or pleasure in doing things: not at all 2. Feeling down, depressed, or hopeless: several days 3. Trouble falling or staying asleep, or sleeping too much: several days (staying asleep as she multiple times at night to use the bathroom.) 4. Feeling tired or having little energy: several days 5. Poor appetite or overeating: not at all 6. Feeling bad about yourself - or that you are a failure or have let yourself or your family down: not at all 7. Trouble concentrating on things, such as reading the newspaper or watching television: not at all 8. Moving or speaking so slowly that other people could have noticed. Or the opposite - being so fidgety or restless that you have been moving around a lot more than usual: not at all 9. Thoughts that you would be better off or of hurting yourself in some way: not at all Total score: 3 Depression Screening Interpretation: Negative Depression Screening Done: Yes 77756 - PHQ-9 Billing: Yes Source: Developed by Jessica Suresh Tomer, Arthur Mosquera and colleagues, with an educational hilda from [employer]. Binge Eating Scale Group 1 A. I don't feel self-conscious about my wt. or body size when I'm with others. B. I feel concerned about how I look to others, but it normally does not make me fell disappointed with myself C. I do get self-conscious about my appearance and wt. which makes me feel disappointed in myself. D. I feel very self-conscious about my wt. and frequently I feel intense shame and disgust for myself. I try to avoid social contacts because of my self-consciousness. Response Group 1: C Group 2 A. I don't have any difficulty eating slowly in the proper manner. B. Although I seem to gobble down foods, I don't end up feeling stuffed because of eating to much. C. At times, I tend to eat quickly and then, I feel uncomfortably full afterwards. D. I have the habit of bolting down my food, without really chewing it. When this happens I usually feel uncomfortably stuffed because I've eaten to much. Response Group 2: B Group 3 A. I feel capable to control my eating urges when I want to. B. I feel like I have failed to control my eating more than the average person. C. I feel utterly helpless when it comes to feeling in control of my eating urges. D. Because I feel so helpless about controlling my eating I have become very desperate about trying to get control. Response Group 3: B Group 4 A. I don't have the habit of eating when I'm bored. B. I sometimes eat when I'm bored, but often I'm able to get busy and get my mind off food. C. I have a regular habit of eating when I'm bored, but occasionally, I can use some other activity to get my mind off eating. D. I have a strong habit of eating when I'm bored. Nothing seems to help me breath the habit. Response Group 4: B Group 5 A. I'm usually physically hungry when I eat something. B. Occasionally, I eat something on impulse even though I really am not hungry. C. I have the regular habit of eating foods, that I might not really enjoy, to satisfy a hungry feeling even though physically, I don't need the food. D. Although I'm not physically hungry, I get a hungry feeling in my mouth that only seems to be satisfied when I eat a food, like sandwich, that fills my mouth. Sometimes, when I eat the food to satisfy my mouth hunger, I then spit the food out so I won't gain weight. Response Group 5: B Group 6 A. I don't feel any guilt or self-hate after I overeat. B. After I overeat, occasionally I feel guilt or self-hate. C. Almost all the time I experience strong guilt or self-hate after I overeat. Response Group 6: B Group 7 A. I don't lose total control of my eating when dieting even after periods when I overeat. B. Sometimes when I eat a forbidden food on a diet, I feel like I blew it and eat even more. C. Frequently, I have the habit of saying to myself, I've blown it now, why not go all the way, when I overeat on a diet. When that happens I eat more. D. I have a regular habit of starting a strict diets for myself but I break the diets by going on an eating binge. My life seems to be either a feast or famine. Response Group 7: A Group 8 A. I rarely eat so much food that I feel uncomfortably stuffed afterwards. B. Usually about once a month, I each such a quantity of food, I end up feeling very stuffed. C. I have regular periods during the month when I eat large amounts of food, either at mealtime or at snacks. D. I eat so much food that I regularly feel quite uncomfortable after eating and sometimes a bit nauseous. Response Group 8: A Group 9 A. My level of calorie intake does not go up very high or go down very low on a regular basis. B. Sometimes after I overeat, I will try to reduce my caloric intake to almost nothing to compensate for the excess calories I've eaten. C. I have a regular habit of overeating during the night. It seems that my routine is not to be hungry in the morning but overeat in the evening. D. In my adult years, I have had week-long periods where I practically starve myself. This follows periods when I overeat. It seems I live a life of either feast or famine. Response Group 9: A Group 10 A. I usually am able to stop eating when I want to. I know when enough is enough. B. Every so often, I experience a compulsion to eat which I can't seem to control. C. Frequently, I experience strong urges to eat which I seem unable to control, but at other times I can control my eating urges. D. I feel incapable of controlling urges to eat. I have a fear of not being able to stop eating voluntarily. Response Group 10: A Group 11 A. I don't have any problem stopping eating when I feel full. B. I usually can stop eating when I feel full but occasionally overeat leaving me feeling uncomfortably stuffed. C. I have a problem stopping eating once I start and usually I feel uncomfortably stuffed after I eat a meal. D. Because I have a problem not being able to stop eating when I want, I sometimes have to induce vomiting to relieve my stuffed feeling. Response Group 11: B Group 12 A. I seem to eat just as much when I'm with others, Family social gatherings as when I'm by myself. B. Sometimes, when I'm with other persons, I don't eat as much as I want to eat because I'm self-conscious about my eating. C. Frequently, I eat only a small amount of food when others are present, because I'm very embarrassed about my eating. D. I feel so ashamed about overeating that I pick times to overeat when I know no one will see me. I feel like a closet eater. Response Group 12: A Group 13 A. I eat three meals a day with only an occasional between meal snack. B. I eat 3 meals a day, but I also normally snack between meals. C. When I am snacking heavily, I get in the habit of skipping regular meals. D. There are regular periods when I seem to be continually eating, with no planned meals. Response Group 13: B Group 14 A. I don't think much about trying to control unwanted eating urges. B. At least some of the time, I feel my thoughts are pre-occupied with trying to control my eating urges. C. I feel that frequently I spend much time thinking about how much I ate or about trying not to eat anymore. D. It seems to me that most of my waking hours are pre-occupied by thoughts about eating or not eating. I feel like I'm constantly struggling not to eat. Response Group 14: B Group 15 A. I don't think about food a great deal. B. I have strong craving for food but they last only for brief periods of time. C. I have days when I can't seem to think about anything else but food. D. Most of my days seem to be pre-occupied with thoughts about food. I feel like I live to eat. Response Group 15: B Group 16 A. I usually know whether or not I'm physically hungry. I take the right portion of food to satisfy me. B. Occasionally, I feel uncertain about knowing whether or not I'm physically hungry. A these times it's hard to know how much food I should take to satisfy me. C. Even though I might know how many calories I should eat, I don't have any idea what is a normal amount of food for me. Response Group 16: B Binge Eating Score: 12 Score less than 17 Minimal Risk Score between 18-26 Moderate Risk Score between 27-46 High Risk Assessment & Plan Assessment & Plan (1) Adjustment disorder: Code(s): F43.20 - Adjustment disorder, unspecified Qualifiers: Adjustment disorder type: unspecified type Qualified Code(s): F43.20 - Adjustment disorder, unspecified Plan PT has been cleared from standpoint. PT has been advised to start counseling as he disclosed he would benefit from it due to period of stress due to life and family issues. He will follow up with me post-op for support and recommended to join the Facebook group and group therapy, also the patient has been informed of support available at anytime while she is part of this program. Next chema: 4 wks after surgery. Telehealth [facility]health [facility] Location of [facility] rendering services: other Location of patient: address on file Patient Identification confirmed using: Name, : Yes Telehealth method: video Patient verbally consented to treatment: Yes Patient verbally consented to billing insurance company: Yes Patient informed of any privacy concerns related to visit: Yes Minutes spent on Phone/Video with Pt.: 70 Coding Level of Care Code Established Pt Tele Psytx >53 mins ([id number]) Patient Type Established Diagnoses Adjustment disorder, unspecified type F43.20 Adjustment disorder type: unspecified type Time Spent (min) 70 Comment Start time: 9:00am, End time: 10:10
== END 2024-04-03 10:00 | disposition home or self-care (01) ==
LOC: HO.HBST 09:14
PROVIDERS: PCP Family Medicine; Visit Provider Counselor Mental Health
DX: F43.20 Adjustment disorder, unspecified (principal)
CPT/HCPCS: 90837

== ENCOUNTER → 2024-04-03 09:14 | Outpatient (BNVA) | payer OTHER, SELFPAY | PROVIDERS: PCP Family Medicine; Visit Provider Counselor Mental Health ==

== ENCOUNTER → 2024-04-15 08:42 | Outpatient (REF) | payer OTHER, SELFPAY ==
--- NOTE | 2024-04-15 08:45 | CA_ITS ---
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 The calculated ejection fraction is 60% by biplane method. - No obvious valvular pathology seen on this study. Findings Procedure Information Contrast agent, definity, is being given per protocol without apparent complications. The quality of the study was technically difficult. The study quality is limited by patients body habitus. Left Ventricle Normal left ventricular cavity size. The left ventricular systolic function is normal. The calculated ejection fraction is 60% by biplane method. There is no evidence of regional wall motion abnormalities. Diastolic function is normal for age. There is moderate septal asymmetric hypertrophy. Right Ventricle The right ventricle was not well visualized. Atria Both atria are normal in size. Aortic Valve The aortic valve was not well visualized. There is no aortic valve stenosis. There is no aortic valve regurgitation. Mitral Valve The mitral valve appears normal. There is no mitral valve regurgitation. There is no mitral valve stenosis. Pulmonic Valve The pulmonic valve is likely normal. Tricuspid Valve There is no tricuspid valve regurgitation. Tricuspid regurgitation envelope is inadequate for calculation of right ventricular systolic pressure. Great Vessels The asc aorta is normal in size. Venous The inferior vena cava was not well visualized. Pericardium/Pleural There is no evidence of pericardial effusion. Prior Study Comparison No prior study available for comparison. Recommendations, Care & Conclusions No obvious valvular pathology seen on this study. Measurements 2D Linear Measurements LA Diam: 3.20 2.7-3.8/3.0-4.0 cm LAIDs Index: 1.16 1.5-2.3 cm/m2 LVOT Diam: 2.40 3.0+(-)1.3 cm 2D Systolic Function EF 4C: 59.20 >55% EF 2C: 59.90 >55% EF BiP: 60.00 >55% Mitral Valve MV Pk E: 0.76 MV PK A: 0.68 MV Decel Time: 254.00 E/A: 1.10 E'Lateral: 7.29 E'Medial: 7.18 E/E' Med: 10.60 E/E' Lat: 10.40 PHT: 74.00 MVA PHT: 2.97 Decel Routt: 2.98 Aortic Valve AoV Pk [place]: 1.36 AoV Pk Grad: 7.00 LAMIN: 3.77 LVOT LVOT Pk [place]: 1.22 LVOT Mn [place]: 0.90 LVOT VTI: 0.22 LVOT Pk Grad: 6.00 LVOT Mn Grad: 4.00 LVOT Diam: 2.40 LVOT Area: 4.52 Diastolic Function MV Pk E: 0.76 MV Pk A: 0.68 E/A: 1.10 E'Medial: 7.18 E/E' Med: 10.60 E' Laterial: 7.29 E/E' Lat: 10.40 Right Ventricle TVS' [place]: 22.40 Great Vessels Aorta Sinus of Valsalva: 3.70 2.0-3.5 cm Ao Asc: 3.40 2.1-3.4 cm Pulmonary Valve PV Pk [place]: 1.03 Peak PV Grad: 4.00 Updated in Other Vendor System with Status of Final Agapito Carrera MD electronically signed on 04/15/2024 12:32:10 PM with status of Final
== END ==
LOC: HO.CARD 08:42
PROVIDERS: PCP Family Medicine; Visit Provider Surgery
DX: R94.31 Abnormal electrocardiogram [ECG] [EKG] (principal)
CPT/HCPCS: 93306; Q9957

== ENCOUNTER → 2024-04-15 08:45 | Outpatient (BNV) | payer OTHER, SELFPAY | PROVIDERS: PCP Family Medicine; Visit Provider Internal Medicine | DX: R94.31 Abnormal electrocardiogram [ECG] [EKG] (principal) | CPT/HCPCS: 93306 ==

== ENCOUNTER 2024-04-17 09:33 | Outpatient (AMB) | payer OTHER, SELFPAY ==
--- NOTE | 2024-04-17 09:40 | MHC.OFFVIS ---
Vital Signs 04/17/24 09:46 Height 5 ft 7.5 in Weight 410 lb 0.957 oz BMI 63.3 BP 144/56 H Blood Pressure Location Lt radial Position Sitting Pulse 75 Intake Visit Reasons: Follow up abd pain Intake Note: Jonathan presents in the office as a follow up for abdominal pains. CC: He states that he has gotten better but the symptoms are still there. Stomach pains, constipation and diarrhea. Unix Manager Required: No Allergies shellfish derived Allergy (Severe, Verified 06/11/24 08:53) rash, sweeling throat almond Allergy (Intermediate, Verified 06/11/24 08:53) Gastrointestinal Upset Egg Derived Allergy (Intermediate, Verified 06/11/24 08:53) Gastrointestinal Upset Fish Containing Products Allergy (Intermediate, Verified 06/11/24 08:53) Gastrointestinal Upset hazelnut Allergy (Intermediate, Verified 06/11/24 08:53) Diarrhea milk Allergy (Intermediate, Verified 06/11/24 08:53) Gastrointestinal Upset peanut Allergy (Intermediate, Verified 06/11/24 08:53) Gastrointestinal Upset soy Allergy (Intermediate, Verified 06/11/24 08:53) Gastrointestinal Upset walnut Allergy (Intermediate, Verified 06/11/24 08:53) Gastrointestinal Upset wheat Allergy (Intermediate, Verified 06/11/24 08:53) Gastrointestinal Upset No Known Drug Allergies Allergy (Unknown, Verified 06/11/24 08:53) none SESAME Allergy (Intermediate, Uncoded 06/11/24 08:53) Gastrointestinal Upset Raw fruit Adverse Reaction (Intermediate, Uncoded 06/11/24 08:53) Tickling in back of throat HPI HPI Follow up abd pain: Details: Assessment & Plan (1) Pre-op examination: Code(s): Z01.818 - Encounter for other preprocedural examination Category: Medical (2) Morbid obesity with BMI of 60.0-69.9, adult: Code(s): E66.01 - Morbid (severe) obesity due to excess calories; Z68.44 - Body mass index [BMI] 60.0-69.9, adult Category: Medical (3) Nausea and vomiting: Code(s): R11.2 - Nausea with vomiting, unspecified Category: Medical (4) Upper abdominal pain: Code(s): R10.10 - Upper abdominal pain, unspecified Category: Medical (5) Type 2 diabetes mellitus with morbid obesity: Code(s): E11.69 - Type 2 diabetes mellitus with other specified complication; E66.01 - Morbid (severe) obesity due to excess calories Category: Medical (6) Elevated ferritin: Code(s): R79.89 - Other specified abnormal findings of blood chemistry Category: Medical Plan This is his first colonoscopy. He has frequent N/V/D over the past 2 years, but worse with the start of his Mounjaro 1 year ago. He stopped the Mounjaro in November of 2023 and his metformin increased but the also worsened diarrhea. Has pain in the RUQ radiates down the flank and to the back, ? if muscular no r/t eating or BM. The diarrhea will be post prandial but is not regular, at times he has formed to soft stools. He vomits 1-2 times a week. He can not ID any particular exacerbating or remitting factors. He is currently in the bariatric wt loss program and the diet they prescribed has helped with the sx. HE WAS SEEN RECENTLY at [facility] emergency department for nausea vomiting and abdominal pain and it was discovered he had a mild anemia macrocytic hypochromic with normal platelets but an elevated ferritin. He is currently taking 1 a day vitamin that may contain iron. I am going to run a hemochromatosis screen on him to better guide him as it is not entirely clear that this is blood loss or iron deficiency anemia and this will help me to decide if he really should be taking iron or whether this could be detrimental to his liver. His cardiac conditions and coronary artery disease is well controlled he denies any respiratory problems. He is relatively naive to anesthesia and sedation. There are no infectious disease problems. There is no known history of colon cancer however his parents relatively young his dad in his 40s of an NC and his mom at 39 of her diabetes. ROV 8 weeks. Orders: Orders C Reactive Protein Today E11.69 - Type 2 diabetes mellitus with other specified complication, E66.01 - Morbid (severe) obesity due to excess calories, R10.10 - Upper abdominal pain, unspecified, R11.2 - Nausea with vomiting, unspecified Transglutaminase IgA Today E11.69 - Type 2 diabetes mellitus with other specified complication, E66.01 - Morbid (severe) obesity due to excess calories, R10.10 - Upper abdominal pain, unspecified, R11.2 - Nausea with vomiting, unspecified Transglutaminase Ab IgG Today E11.69 - Type 2 diabetes mellitus with other specified complication, E66.01 - Morbid (severe) obesity due to excess calories, R10.10 - Upper abdominal pain, unspecified, R11.2 - Nausea with vomiting, unspecified EGD/Amoret Combo - GI Use Only Today R11.2 - Nausea with vomiting, unspecified H Pylori Breath Test Today R11.2 - Nausea with vomiting, unspecified NM gastric emptying study Today R11.2 - Nausea with vomiting, unspecified Rast Allergen Today E11.69 - Type 2 diabetes mellitus with other specified complication, E66.01 - Morbid (severe) obesity due to excess calories, R10.10 - Upper abdominal pain, unspecified, R11.2 - Nausea with vomiting, unspecified DNA Analysis Hemochromatosis Today R79.89 - Other specified abnormal findings of blood chemistry Medications: New peg 3350-electrolytes 236-22.74-6.74 -5.86 gram (Golytely) until fecal effluent is clear; do not exceed a total volume of 2,000 mL 240 mL PO Q10M 4,000 mL 0RF 1 day Z12.11 - Encounter for screening for malignant neoplasm of colon bisacodyl (Dulcolax (bisacodyl)) 10 mg (2 x 5 mg) PO BEDTIME 4 tabs 0RF 2 days On Hold tirzepatide (Mounjaro) Hold Comment: Doctor's Order 2.5 mg (0.5 mL) subcut QWEEK 4 weeks 2 mL 1RF LABS: Laboratory Tests 02/14/24 02/19/24 02/19/24 10:14 11:31 12:45 WBC 4.8 Hgb 13.5 L Hct 40.2 L Plt Count 229 C-Reactive Protein 0.29 Tiss Transglutamin IgG <1.0 Tiss Transglutamin IgA <1.0 H. pylori Breath Test Negative RAST SHOWS MULTIPLE VERY HIGH ALLERGIC RESPONSES TO: Hazelnuts, shrimp, scallops, wheat, peanuts, sesame, soy, almonds, Walnuts, Fish, milk egg whites GASTRIC EMPTYING STUDY 04/23/2024 EGD/COLONOSCOPY 08/07/2024 ? is bariatrics doing EGD?? BIOPSY TODAY'S VISIT He has severe and multiple food allergies which likely is a large component of his diarrhea and abd pain. I am referring him to cigar head pegger for advice given the wide variety of foods and the severity of the allergies. Also top of my head I can only advise him to eat salads with chicken or beef and make sure that the dressing is made with olive oil and not any nuts oils. I am sure dietitian can do better and advising him. He continues to work with weight management and they might be doing the EGD. I am should the stomach would be quite irritated an abnormal until we get the food allergy situation under control so that would be a good step towards helping him to his bariatric surgery. He will continue to follow-up and get the gastric emptying study and of course the colonoscopy. [facility] Medical History Morbid obesity Adjustment disorder Impacted cerumen, bilateral Pre-diabetes Acute muscle stiffness of neck History of NC (myocardial infarction) Viral illness Laboratory examination ordered as part of a routine general medical examination Screening for prostate cancer Screening for colon cancer Adult general medical exam Screening for prostate cancer No pertinent past medical history Surgical History Hx of oral surgery Family History Father Heart disease Mother Diabetes Sister FH: diabetic complications Social History Housing: House Alcohol intake: current Alcohol intake frequency: holidays/special occasions only Patient Tobacco Use Status: Never used Tobacco e-Cigarette/Vaping Use: Never Used service: Yes Current occupational status: employed 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 [employer] Cognitive needs: No Hearing needs: No Vision needs: No Review of Systems Const Denies fatigue, Denies fever(s), Denies night sweats, Denies poor appetite, Reports weight gain and Denies weight loss ENT Reports Normal hearing present, Denies dental pain, Denies dysphagia, Denies hearing loss, Denies mouth pain, Denies odynophagia, Denies throat swelling, Denies tongue swelling and Reports other (Dentition adequate) Card Reports no additional complaints Resp Reports no additional complaints GI Details: Reports abdominal pain, Denies melena, Reports bloating, Denies hematochezia, Denies constipation, Denies GI cramping, Denies dysphagia, Denies excessive flatus, Denies early satiety, Reports heartburn, Reports diarrhea, Reports nausea, Denies odynophagia, Reports vomiting and Denies hematemesis Skin/Breast Denies pruritus, Denies lesions, Denies rash and Denies jaundice Neuro Reports Normal hearing present and Denies Abnormal speech present Endo Denies fatigue Aller/Immun Denies throat swelling and Denies tongue swelling Physical Exam Vital Signs: Last Vital Signs Pulse 75 04/17/24 09:46 BP 144/56 H 04/17/24 09:46 BMI result Body Mass Index 63.3 Const General: cooperative, no acute distress, well developed and well groomed Nutritional Appearance: well nourished and obese morbidly obese Orientation/consciousness: oriented to person, oriented to place and oriented to time Limitations: No language barrier HEENT Head: Yes normocephalic and Yes atraumatic Eyes General: appearance normal, both eyes and all related structures Pupils: Equal, round and reactive pupils present Neck Neck: Yes normal visual inspection and Yes no lymphadenopathy Thyroid: Thyroid normal Resp Effort & Inspection: normal respiratory effort and able to speak in complete sentences Auscultation: clear to auscultation bilaterally Cardio Rate: regular rate Rhythm: regular rhythm Heart sounds: Normal, physiologic split S2 sound present Peripheral pulses: radial pulses present and posterior tibial pulses present GI Inspection: No distended, Yes Abdominal panniculus present and Yes obesity Palpation (GI): Soft to palpation, nontender, no guarding, not rigid and No hepatosplenomegaly present Percussion: Yes normal to percussion Auscultation: normal bowel sounds Rectal Exam - Male: Yes deferred Skin General skin exam: no rashes or lesions noted, turgor normal, skin not dry, no jaundice, No spider nevi and no striae Rashes: no rashes Nails: normal Neuro General: oriented to person, oriented to place and oriented to time Cranial nerves: Yes Equal, round and reactive pupils present and Yes Normal hearing present Speech: No Abnormal speech present Extrem General: Yes normal to inspection, No clubbing, No cyanosis and No edema Psych Appearance: grossly normal and well kempt Mental Status: mental status grossly normal Speech and movement: Normal speech and movement present Affect: normal affect Attitude: cooperative Thought process: Normal thought process present and not confabulating Thought content: Normal thought content present Insight: Good insight present (Psych) Judgement: Good judgement present (Psych) Assessment & Plan Assessment & Plan (1) Multiple food allergies: Comment: Steffany nut, shrimp, scallops, peanuts, wheat, sesame, soy, almond, walnuts, fish, milk, egg whites Code(s): Z91.018 - Allergy to other foods Category: Medical (2) Morbid obesity with BMI of 60.0-69.9, adult: Code(s): E66.01 - Morbid (severe) obesity due to excess calories; Z68.44 - Body mass index [BMI] 60.0-69.9, adult Category: Medical (3) CAD (coronary artery disease): Code(s): I25.10 - Atherosclerotic heart disease of [place] coronary artery without angina pectoris Category: Medical (4) Type 2 diabetes mellitus with morbid obesity: Code(s): E11.69 - Type 2 diabetes mellitus with other specified complication; E66.01 - Morbid (severe) obesity due to excess calories Category: Medical Plan He has severe and multiple food allergies which likely is a large component of his diarrhea and abd pain. I am referring him to cigar head pegger for advice given the wide variety of foods and the severity of the allergies. Also top of my head I can only advise him to eat salads with chicken or beef and make sure that the dressing is made with olive oil and not any nuts oils. I am sure dietitian can do better and advising him. He continues to work with weight management and they might be doing the EGD. I am should the stomach would be quite irritated an abnormal until we get the food allergy situation under control so that would be a good step towards helping him to his bariatric surgery. He will continue to follow-up and get the gastric emptying study and of course the colonoscopy. GASTRIC EMPTYING STUDY 04/23/2024 EGD/COLONOSCOPY 08/07/2024 ? is bariatrics doing EGD?? BIOPSY Orders: Referrals Vice President Of News Nutrition Referral Z91.018 - Allergy to other foods, E11.69 - Type 2 diabetes mellitus with other specified complication, E66.01 - Morbid (severe) obesity due to excess calories, Z68.44 - Body mass index [BMI] 60.0-69.9, adult, I25.10 - Atherosclerotic heart disease of [place] coronary artery without angina pectoris Coding Level of Care Code Est Pt Level 3 (49533) Diagnoses Multiple food allergies Z91.018 Morbid obesity with BMI of 60.0-69.9, adult E66.01; Z68.44 CAD (coronary artery disease) I25.10 Type 2 diabetes mellitus with morbid obesity E11.69; E66.01
[2024-04-17 09:46] VITALS: BP 144/56; PULSE 75; BMI 63.3
== END 2024-04-17 11:15 | disposition home or self-care (01) ==
PROVIDERS: PCP Family Medicine; Visit Provider Nurse Practitioner
DX: Z91.018 Allergy to other foods (principal); E66.01 Morbid (severe) obesity due to excess calories; Z68.44 Body mass index [BMI] 60.0-69.9, adult; I25.10 Atherosclerotic heart disease of native coronary artery without angina pectoris; E11.69 Type 2 diabetes mellitus with other specified complication
CPT/HCPCS: 99213

== ENCOUNTER → 2024-04-17 09:33 | Outpatient (BNVA) | payer OTHER, SELFPAY | PROVIDERS: PCP Family Medicine; Visit Provider Nurse Practitioner ==

== ENCOUNTER → 2024-04-23 08:11 | Outpatient (REF) | payer OTHER, SELFPAY ==
--- NOTE | ~2024-04-23 | NM_ITS ---
EXAMINATION: NM RADIONUCLIDE SOLID FOOD GASTRIC EMPTYING 4-HOUR STUDY CLINICAL INFORMATION: Nausea and vomiting, unspecified. COMPARISON: None TECHNIQUE: A standard meal consisting of 4 oz of Egg Beaters brand tagged with 880 microcuries Tc-99m Sulfur Colloid, 8 oz water and 2 slices of toast with jelly was administered orally to the patient. Images were obtained using a dual head gamma camera in the anterior and posterior projections over of the stomach immediately post ingestion and at hourly intervals up to 4 hours post ingestion. The anterior and posterior counts at each time interval were averaged using the geometric mean and expressed as percentage of the immediate post ingestion counts. FINDINGS: There is good visualization of activity in the stomach immediately post ingestion. As the study progresses, there is good clearance of activity from the stomach and visualization of progressively increasing small bowel activity. By the end of the study, there is almost no retention noted in the stomach. Retention in the stomach at each time interval was: 1 hour 32% (normal 37%-90%) 2 hours 3% (normal 30%-60%) 3 hours 1% 4 hours 0% (normal 0%-10%) NM/UT gastric emptying study IMPRESSION: Normal 4-hour solid food gastric emptying study. For solid meal, rapid gastric emptying is less than 30% at 60 minutes. Delayed gastric emptying criteria is more than 60% remaining at 120 minutes or more than 10% at 240 minutes. The 4-hour value is the best discriminator of a normal or abnormal result). Gastric emptying study grading per JNMT Consensus Recommendations in 2008 (https://tech.snmjournals.org/content/36/1/44) Grade 1 (mild retention): 11-20% at 4h Grade 2 (moderate retention): 21-35% at 4h Grade 3 (severe retention): 36-50% at 4h Grade 4 (very severe retention): >50% retention at 4h Electronically signed by: Alayna Oliveira MD 05/03/2024 04:37 PM [facility] [place]
== END ==
LOC: HO.NUCMED 08:11
PROVIDERS: PCP Family Medicine; Visit Provider Nurse Practitioner
DX: R11.2 Nausea with vomiting, unspecified (principal)
CPT/HCPCS: 78264; A9541

== ENCOUNTER 2024-04-27 10:05 | Outpatient (REF) | payer OTHER, SELFPAY ==
--- NOTE | ~2024-04-27 | FL_ITS ---
EXAMINATION: XR FLUOROSCOPY UPPER GI WITH AIR CLINICAL INFORMATION: Preoperative evaluation prior to bariatric surgery. COMPARISON: None TECHNIQUE: Fluoroscopic air contrast upper GI examination was performed utilizing standard techniques with thin and thick barium and effervescent granules. Numerous spot images were obtained. FINDINGS: Dual and single contrast images of the esophagus demonstrate normal caliber, and contour. Evaluation of the esophageal mucosa is limited due to the patient's body habitus. No evidence of stricture, mass, or ulcerations identified. Esophageal peristalsis was normal. A small type I hiatal hernia is present. Mild gastroesophageal reflux is seen in the distal esophagus. Dual contrast and single contrast images of the stomach demonstrated a normal contour. Evaluation of the gastric mucosa is limited due to patient's body habitus. No obvious masses or ulcerations are seen. Contrast freely passed into the gastric antrum and duodenal bulb without delay. Single and air-contrast images of the duodenal bulb demonstrate no abnormality. The duodenal sweep has a normal appearance, course, and mucosal fold appearance. The imaged proximal jejunum has a normal fold pattern and caliber. FLUOROSCOPY TIME: 2 minutes 55 seconds Number of Spot Images: 4 Number of Cine: 11 DOSE AREA PRODUCT: 2021 uGy-m2 (microgray-meter squared) FL/FL upper GI w air IMPRESSION: 1. Small type I hiatal hernia with mild gastroesophageal reflux. 2. Limited evaluation of the esophageal and gastric mucosa due to the patient's body habitus. This procedure was performed by Rod Tabares PA-C, and supervised by Dr. Mariscal Electronically signed by: Adi Mariscal MD 04/28/2024 12:44 PM [facility] [place]
== END 2024-04-27 10:06 | disposition home or self-care (01) ==
LOC: HO.XRAY 10:05
PROVIDERS: PCP Family Medicine; Visit Provider Physician Assistant Surgical
DX: E66.01 Morbid (severe) obesity due to excess calories (principal); B34.9 Viral infection, unspecified; I25.10 Atherosclerotic heart disease of native coronary artery without angina pectoris; E11.9 Type 2 diabetes mellitus without complications; E78.5 Hyperlipidemia, unspecified; I10 Essential (primary) hypertension
CPT/HCPCS: 74246

== ENCOUNTER → 2024-04-27 10:06 | Outpatient (BNV) | payer OTHER, SELFPAY | PROVIDERS: PCP Family Medicine; Visit Provider Physician Assistant Surgical | DX: K44.9 Diaphragmatic hernia without obstruction or gangrene (principal); Z01.818 Encounter for other preprocedural examination | CPT/HCPCS: 74246 ==

== ENCOUNTER 2024-05-08 10:16 | Outpatient (AMB) | payer OTHER, SELFPAY ==
[2024-05-08 10:19] VITALS: BP 175/78; PULSE 69; BMI 63.9
--- NOTE | 2024-05-08 10:19 | A.OFFVIS_ITS ---
Vital Signs 05/08/24 10:19 Height 5 ft 7.5 in Weight 414 lb 7.504 oz BMI 63.9 BP 175/78 H Blood Pressure Location Lt brachial Position Sitting Pulse 69 Intake Visit Reasons: follow up barium swallow Intake Note: Patient in office today in follow up of gastric emptying. CC: Patient reports still having a little bit of abd pain, constipation, and diarrhea but not as before. Director Dance Required: No Accompanied by: Self / Same As Patient Allergies shellfish derived Allergy (Severe, Verified 08/07/24 07:50) rash, sweeling throat almond Allergy (Intermediate, Verified 08/07/24 07:50) Gastrointestinal Upset Egg Derived Allergy (Intermediate, Verified 08/07/24 07:50) Gastrointestinal Upset Fish Containing Products Allergy (Intermediate, Verified 08/07/24 07:50) Gastrointestinal Upset hazelnut Allergy (Intermediate, Verified 08/07/24 07:50) Diarrhea milk Allergy (Intermediate, Verified 08/07/24 07:50) Gastrointestinal Upset peanut Allergy (Intermediate, Verified 08/07/24 07:50) Gastrointestinal Upset soy Allergy (Intermediate, Verified 08/07/24 07:50) Gastrointestinal Upset walnut Allergy (Intermediate, Verified 08/07/24 07:50) Gastrointestinal Upset wheat Allergy (Intermediate, Verified 08/07/24 07:50) Gastrointestinal Upset No Known Drug Allergies Allergy (Unknown, Verified 08/07/24 07:50) none SESAME Allergy (Intermediate, Uncoded 06/11/24 08:53) Gastrointestinal Upset Raw fruit Adverse Reaction (Intermediate, Uncoded 06/11/24 08:53) Tickling in back of throat HPI HPI follow up barium swallow : Details: He has severe and multiple food allergies which likely is a large component of his diarrhea and abd pain. I am referring him to intramural director for advice given the wide variety of foods and the severity of the allergies. Also top of my head I can only advise him to eat salads with chicken or beef and make sure that the dressing is made with olive oil and not any nuts oils. I am sure dietitian can do better and advising him. He continues to work with weight management and they might be doing the EGD. I am should the stomach would be quite irritated an abnormal until we get the food allergy situation under control so that would be a good step towards helping him to his bariatric surgery. He will continue to follow-up and get the gastric emptying study and of course the colonoscopy.: Assessment & Plan (1) Multiple food allergies: Comment: Steffany nut, shrimp, scallops, peanuts, wheat, sesame, soy, almond, walnuts, fish, milk, egg whites Code(s): Z91.018 - Allergy to other foods Category: Medical (2) Morbid obesity with BMI of 60.0-69.9, adult: Code(s): E66.01 - Morbid (severe) obesity due to excess calories; Z68.44 - Body mass index [BMI] 60.0-69.9, adult Category: Medical (3) CAD (coronary artery disease): Code(s): I25.10 - Atherosclerotic heart disease of [place] coronary artery without angina pectoris Category: Medical (4) Type 2 diabetes mellitus with morbid obesity: Code(s): E11.69 - Type 2 diabetes mellitus with other specified complication; E66.01 - Morbid (severe) obesity due to excess calories Category: Medical Orders: Referrals Cytotechnologist/Histotechnologist Nutrition Referral E11.69 - Type 2 diabetes mellitus with other specified complication, E66.01 - Morbid (severe) obesity due to excess calories, I25.10 - Atherosclerotic heart disease of [place] coronary artery without angina pectoris, Z68.44 - Body mass index [BMI] 60.0-69.9, adult, Z91.018 - Allergy to other foods GASTRIC EMPTYING STUDY IMPRESSION: Normal 4-hour solid food gastric emptying study. EGD/COLONOSCOPY 08/07/2024 BIOPSY TODAY'S VISIT He is working with bariatrics on the dietary guidance, they have changed his protein shakes to avoid the allergins. He is having less diarrhea, loss bloating and is feeling much better. It is a struggle to avoid so many allergins and he is going through a learning curve. His food allergies are: Steffany nut, shrimp, scallops, peanuts, wheat, sesame, soy, almond, walnuts, fish, milk, egg white ROV 6 mos. PFSH Medical History Morbid obesity Adjustment disorder Impacted cerumen, bilateral Pre-diabetes Acute muscle stiffness of neck History of DC (myocardial infarction) Viral illness Laboratory examination ordered as part of a routine general medical examination Screening for prostate cancer Screening for colon cancer Adult general medical exam Screening for prostate cancer No pertinent past medical history Surgical History Hx of oral surgery Family History Father Heart disease Mother Diabetes Sister FH: diabetic complications Social History Housing: House Are you a primary home health caregiver to a significant other at home: No Do you presently have visiting nurse or other home services: No Alcohol intake: current Alcohol intake frequency: does not drink Patient Tobacco Use Status: Never used Tobacco e-Cigarette/Vaping Use: Never Used service: Yes Current occupational status: employed 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 Cognitive needs: No Hearing needs: No Vision needs: No Review of Systems Const Denies fatigue, Denies fever(s), Denies night sweats, Denies poor appetite and Denies weight loss ENT Reports Normal hearing present, Denies dental pain, Denies dysphagia, Denies hearing loss, Denies mouth pain, Denies odynophagia, Denies throat swelling, Denies tongue swelling and Reports other (Dentition adequate) Card Reports no additional complaints Resp Reports no additional complaints GI Details: Denies abdominal pain, Denies melena, Denies bloating, Denies hematochezia, Denies constipation, Denies GI cramping, Denies dysphagia, Denies excessive flatus, Denies early satiety, Denies heartburn, Reports diarrhea, Denies nausea, Denies odynophagia, Denies vomiting and Denies hematemesis Skin/Breast Denies pruritus, Denies lesions, Denies rash and Denies jaundice Neuro Reports Normal hearing present and Denies Abnormal speech present Endo Denies fatigue Aller/Immun Denies throat swelling and Denies tongue swelling Physical Exam Vital Signs: Last Vital Signs Pulse 69 05/08/24 10:19 BP 175/78 H 05/08/24 10:19 BMI result Body Mass Index 63.9 Const General: cooperative, no acute distress, well developed and well groomed Nutritional Appearance: well nourished and obese morbidly obese Orientation/consciousness: oriented to person, oriented to place and oriented to time Limitations: No language barrier HEENT Head: Yes normocephalic and Yes atraumatic Eyes General: appearance normal, both eyes and all related structures Pupils: Equal, round and reactive pupils present Neck Neck: Yes normal visual inspection and Yes no lymphadenopathy Thyroid: Thyroid normal Resp Effort & Inspection: normal respiratory effort and able to speak in complete sentences Auscultation: clear to auscultation bilaterally Cardio Rate: regular rate Rhythm: regular rhythm Heart sounds: Normal, physiologic split S2 sound present Peripheral pulses: radial pulses present and posterior tibial pulses present GI Inspection: No distended, Yes Abdominal panniculus present and Yes obesity Palpation (GI): Soft to palpation, nontender, no guarding, not rigid and No hepatosplenomegaly present Percussion: Yes normal to percussion Auscultation: normal bowel sounds Rectal Exam - Male: Yes deferred Skin General skin exam: no rashes or lesions noted, turgor normal, skin not dry, no jaundice, No spider nevi and no striae Rashes: no rashes Nails: normal Neuro General: oriented to person, oriented to place and oriented to time Cranial nerves: Yes Equal, round and reactive pupils present and Yes Normal hearing present Speech: No Abnormal speech present Extrem General: Yes normal to inspection, No clubbing, No cyanosis and No edema Psych Appearance: grossly normal and well kempt Mental Status: mental status grossly normal Speech and movement: Normal speech and movement present Affect: normal affect Attitude: cooperative Thought process: Normal thought process present and not confabulating Thought content: Normal thought content present Insight: Good insight present (Psych) Judgement: Good judgement present (Psych) Assessment & Plan Assessment & Plan (1) Multiple food allergies: Comment: Steffany nut, shrimp, scallops, peanuts, wheat, sesame, soy, almond, walnuts, fish, milk, egg whites Code(s): Z91.018 - Allergy to other foods Category: Medical Plan He is working with bariatrics on the dietary guidance, they have changed his protein shakes to avoid the allergins. He is having less diarrhea, loss bloating and is feeling much better. It is a struggle to avoid so many allergins and he is going through a learning curve. His food allergies are: Steffany nut, shrimp, scallops, peanuts, wheat, sesame, soy, almond, walnuts, fish, milk, egg white ROV 6 mos. Coding Level of Care Code Est Pt Level 3 (87271) Diagnoses Multiple food allergies Z91.018
== END 2024-05-08 11:14 | disposition home or self-care (01) ==
PROVIDERS: PCP Family Medicine; Visit Provider Nurse Practitioner
DX: Z91.018 Allergy to other foods (principal)
CPT/HCPCS: 99499

== ENCOUNTER → 2024-05-25 09:03 | Outpatient (REF) | payer OTHER, SELFPAY ==
--- NOTE | ~2024-05-25 | NM_ITS ---
Lexiscan Myocardial perfusion study Indication: Preoperative cardiovascular evaluation Technique: The patient was brought in for a Lexiscan perfusion study on 05/25/2024 and was injected 0.4 mg of Lexiscan intravenously. Within a minute of this injection 45 mCi of sestamibi was given intravenously. Images were obtained using the SPECT gamma camera interlaced with the gating device. Images were obtained in supine position. Resting perfusion study was performed on 05/27/2024. Patient was administered 45 mCi of sestamibi intravenously at rest. Images were then obtained in supine position. Total DLP 204 mGy-cm. Images were processed with the software and compared side to side in short axis, horizontal long axis and vertical long axis views. Findings: Raw aquisition reviewed. The stress perfusion study showed small defect in the apical part of inferior wall. No major change with CT attenuation correction. The gated study shows visually normal LV systolic function and calculated LVEF of 51%. LV cavity is normal in size. The gated study shows normal wall thickening and contraction of segments. Resting study shows diminished tracer uptake in the apical part of inferior wall. No major change with CT attenuation correction. Gating at rest reveals normal wall motion with ejection fraction at 54%. The findings are consistent with fixed apical inferior perfusion defect that could be artifactual. No clear reversible defects. NM/NM cardiolite stress test Impression: 1. Myocardial perfusion imaging study shows probably normal myocardial perfusion. 2. Gated LVEF is 51% during stress and 54% during rest but visually appears normal.. 3. Transient ischemic dilatation not present. EKG component of the test reported separately. Electronically signed by: Agapito Carrera MD 05/28/2024 12:20 PM JUAN CARLOS
--- NOTE | 2024-05-25 09:05 | CA_ITS ---
Acquisition Time: 2024-05-25 09:54:13 Total Exercise Time: 00:02:00 Test Indications: R94.31 - Abnormal electrocardio Medications: Protocol: LEXISCAN Max HR: 116 BPM 69% of Pred: 168 BPM Max BP: 140/080 mmHG Max Work Load: 1.0 METS Pharmacologic Stress test with Lexiscan, while pt kicks his legs in chair, with mild SOB, without any chest discomfort, without any arryhmias, with normortensive repsonse to Lexiscan. Nondiagnostic EKG for ischemia. Nuclear images pending. Breathing back to normal in recovery. Test reviewed with Dr. Devi. Referred By: Lennox Jimenez Overread By: MAGNOLIA ALTAMIRANO
== END ==
LOC: HO.CARD 09:03
PROVIDERS: PCP Family Medicine; Visit Provider Surgery
DX: R94.31 Abnormal electrocardiogram [ECG] [EKG] (principal)
CPT/HCPCS: 78452; 93017; A9500; J0280; J2785

== ENCOUNTER → 2024-05-25 09:05 | Outpatient (BNV) | payer OTHER, SELFPAY | PROVIDERS: PCP Family Medicine; Visit Provider Nurse Practitioner Family | DX: R06.02 Shortness of breath (principal); R94.31 Abnormal electrocardiogram [ECG] [EKG] | CPT/HCPCS: 78452; 93016; 93018 ==

== ENCOUNTER 2024-06-11 08:34 | Outpatient (AMB) | payer OTHER, SELFPAY ==
[2024-06-11 08:53] VITALS: BP 145/72; PULSE 61; O2SAT 99; BMI 65.7
--- NOTE | 2024-06-11 08:53 | A.OFFPC_ITS ---
Vital Signs 06/11/24 08:53 06/11/24 08:56 Height 5 ft 7.5 in Weight 426 lb 2 oz BMI 65.7 BP 145/72 H 169/90 H Blood Pressure Location Lt brachial Lt brachial Position Sitting Pulse 61 Pulse Source Pulse Oximeter Pulse Oximetry (%) 99 Oxygen Delivery Method Room Air Intake Visit Reasons: dm f/u Intake Note: Diabetes follow up Accountant Helper Required: No Allergies shellfish derived Allergy (Severe, Verified 06/11/24 08:53) rash, sweeling throat almond Allergy (Intermediate, Verified 06/11/24 08:53) Gastrointestinal Upset Egg Derived Allergy (Intermediate, Verified 06/11/24 08:53) Gastrointestinal Upset Fish Containing Products Allergy (Intermediate, Verified 06/11/24 08:53) Gastrointestinal Upset hazelnut Allergy (Intermediate, Verified 06/11/24 08:53) Diarrhea milk Allergy (Intermediate, Verified 06/11/24 08:53) Gastrointestinal Upset peanut Allergy (Intermediate, Verified 06/11/24 08:53) Gastrointestinal Upset soy Allergy (Intermediate, Verified 06/11/24 08:53) Gastrointestinal Upset walnut Allergy (Intermediate, Verified 06/11/24 08:53) Gastrointestinal Upset wheat Allergy (Intermediate, Verified 06/11/24 08:53) Gastrointestinal Upset No Known Drug Allergies Allergy (Unknown, Verified 06/11/24 08:53) none SESAME Allergy (Intermediate, Uncoded 06/11/24 08:53) Gastrointestinal Upset Raw fruit Adverse Reaction (Intermediate, Uncoded 06/11/24 08:53) Tickling in back of throat Medication List - Last Reconciled 06/11/24 by Abimbola Nova PA-C atorvastatin 80 mg PO BEDTIME 90 days bisacodyl (Dulcolax (bisacodyl)) 10 mg (2 x 5 mg) PO BEDTIME 2 days cholecalciferol (vitamin D3) 125 mcg PO DAILY 90 days ibuprofen 600 mg PO Q8H PRN lisinopril 20 mg PO DAILY 90 days metformin 750 mg (1.5 x 500 mg) PO BID 90 days thiamine HCl (vitamin B1) 100 mg PO DAILY Tobacco use date assessed: 01/01/24 Dental Screening Dental Screen Date: 01/01/24 HPI dm f/u HPI Details History of Present Illness The patient is a 53-year-old male presenting with a follow-up for Type 2 Diabetes Mellitus, Essential Hypertension, and Dyslipidemia. His Type 2 Diabetes Mellitus is currently managed with Metformin 750 mg twice daily, and he most recently reported an HbA1c of 6.5%, showing improvement from prior levels. The patient has experienced gastrointestinal issues with GLP-1 agonists, specifically Ozempic, leading to discontinuation. He is not interested in trying another GLP 1. he does not monitor his current blood sugars. Denies any hypoglycemic events. CV: Blood pressure is elevated today in the office. Compliant with the lisinopril 20 mg. He did see bariatric surgery recently and was noted to have an abnormal EKG in a referral to cardiology was placed. No chest pain, shortness on breath or dizziness. Currently denies any headaches or vision changes. Dyslipidemia is managed with Atorvastatin, with an LDL level of 83, maintaining within targeted levels. The patient's vitamin D levels were noted to be low, but supplementation has not yet been obtained. Health Maintenance - HbA1c monitoring for diabetes manageme nt - Blood pressure management with continu ed medication and potential addition of Amlodipine - Cholesterol management with Atorvastat in - Vitamin D supplementation discussed, r efill needed - Semaglutide (Ozempic) adverse reaction s reviewed - Importance of avoiding certain foods d ue to allergies discussed - Referral to cardiology and follow-up p lanned due to abnormal EKG Social History - Family status: has children - Weight management: Monitoring and use of a bariatric chema - Level of activity: Engages with bariat brandon management strategies - Functional status: Cognizant of stress affecting health parameters - Current nutritional intake: Adjustment s made due to food sensitivities and allergies Review of Systems - Cardiovascular: Reports stress affecti ng blood pressure Physical Exam General: Well developed, well nourished, in no acute distress. Appears stated age. Head: Normocephalic, atraumatic. Neck: Supple, no adenopathy or thyromegaly. Lungs: Clear to auscultation bilaterally. Heart: Regular rate and rhythm. Extremities: No clubbing, cyanosis nor edema is noted. Neurologic: Gait and station normal. Cranial Nerves 2-12 intact. Motor strength grossly symmetrical and intact. No sensory loss. Balance normal. Skin: No rashes Psych: Normal eye contact, affect and mood appropriate, and normal interactions. Patient is alert and appropriate to context. Results - Labs: HbA1c at 6.5%, LDL at 83 - Tests: Abnormal previous EKG, current EKG appears normal Plan - Continue Metformin for diabetes manage ment; monitor HbA1c levels - Add Amlodipine to the current Lisinopr il regimen to better control hypertension - Continue Atorvastatin for cholesterol management - Refill and consider initiation of juan r min D supplementation - Follow-up with cardiology for further evaluation of heart health - Encourage lifestyle modifications to a id in stress reduction and blood pressure management - Reinforce avoidance of foods and medic ations causing adverse gastrointestinal reactions Patient was informed and verbally consented to the use of an ambient scribe for clinic note documentation during this visit. Discussion Notes I reviewed the patient's current management of Type 2 Diabetes Mellitus, noting the improvement in HbA1c levels. We discussed adding Amlodipine for better control of Essential Hypertension alongside the existing Lisinopril regimen and potential side effects, including vasodilation symptoms like peripheral edema. I reiterated the importance of following up with cardiology due to a prior abnormal EKG. We decided against reintroducing GLP-1 RA therapy due to previous adverse effects. Additionally, I recommended continuing cholesterol management with Atorvastatin and ensured prescription details for vitamin D were addressed. Follow-up visits were planned to reassess blood pressure management and cardiovascular health status. Patient Instructions - Continue taking Metformin and follow b lood sugar monitoring - Start Amlodipine as prescribed for hyp ertension - Maintain taking Atorvastatin for thalia sterol - Address vitamin D deficiency through s upplementation - Monitor blood pressure regularly and r eport significant changes - Refrain from foods known to aggravate allergies - Schedule follow-up in 2-3 weeks, espec rd for blood pressure assessment - Seek immediate care if experiencing ch est pain or shortness of breath PFSH Medical History Morbid obesity Adjustment disorder Impacted cerumen, bilateral Pre-diabetes Acute muscle stiffness of neck History of [place] (myocardial infarction) Viral illness Laboratory examination ordered as part of a routine general medical examination Screening for prostate cancer Screening for colon cancer Adult general medical exam Screening for prostate cancer No pertinent past medical history Surgical History Hx of oral surgery Family History Father Heart disease Mother Diabetes Sister FH: diabetic complications Social History Housing: House Alcohol intake: current Alcohol intake frequency: holidays/special occasions only Patient Tobacco Use Status: Never used Tobacco e-Cigarette/Vaping Use: Never Used service: Yes Current occupational status: employed 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 [employer] Cognitive needs: No Hearing needs: No Vision needs: No Questionnaire Thrive Questionnaire Date Thrive assessed: 03/05/24 I am a: Patient What is your living situation today?: I have a steady place to live Within the past 12 months, did the food you bought not last and you didn't have the money to get more?: Never true Within the past 12 months, did you worry whether your food would run out before you got money to buy more?: Never true Do you have trouble paying for medicines?: No Do you have trouble getting transportation to medical appointments?: No Do you have trouble paying your heating and electricity bill?: No Do you have trouble taking care of your child, family member or friend?: No Do you have trouble with day-to-day activities such as bathing, preparing meals, shopping, managing finances, etc.?: No Are you currently unemployed and looking for a job?: No Are you interested in more education?: Yes Please select the resources that you would like help with: Education Currently or been in a relationship where the following occur: No concerns reported THRIVE Score: 0 LOU-7 AMB Questionnaire LOU-7 Date LOU - 7 assessed: 12/19/23 Source: Developed by Drs. Alvarez Kirk, Jessica Jeff, Arthur Mosquera and colleagues, with an educational hilda from [employer]. Physical exam (Primary Care) Vital Signs: Last Vital Signs Pulse 61 06/11/24 08:53 BP 169/90 H 06/11/24 08:56 Pulse Ox 99 06/11/24 08:53 Oxygen Delivery Method Room Air 06/11/24 08:53 BMI result Body Mass Index 65.7 Tobacco/Smoking Status: Tobacco use Status Tobacco use date assessed 01/01/24 06/11/24 08:55 Patient Tobacco Use Status Never used Tobacco 06/11/24 08:55 e-Cigarette/Vaping Use Never Used 06/11/24 08:55 Thrive Assessment: Date of Thrive Assessment Date Thrive assessed 03/05/24 06/11/24 08:55 Currently or been in a relationship where the following occur: No concerns reported Coding Level of Care Code Est Pt Level 4 (97912) Complex EM visit Add On G2211 Diagnoses Type 2 diabetes mellitus with morbid obesity E11.69; E66.01 Essential hypertension I10 Hyperlipidemia E78.5 Assessment & Plan Assessment & Plan (1) Type 2 diabetes mellitus with morbid obesity: Code(s): E11.69 - Type 2 diabetes mellitus with other specified complication; E66.01 - Morbid (severe) obesity due to excess calories Category: Medical (2) Essential hypertension: Code(s): I10 - Essential (primary) hypertension Category: Medical (3) Hyperlipidemia: Code(s): E78.5 - Hyperlipidemia, unspecified Category: Medical Plan . Medications: New amlodipine 5 mg PO DAILY 90 tabs 1RF Refilled cholecalciferol (vitamin D3) 125 mcg PO DAILY 90 days 90 caps 2RF
[2024-06-11 08:56] VITALS: BP 169/90
== END 2024-06-11 09:22 | disposition home or self-care (01) ==
PROVIDERS: PCP Family Medicine; Visit Provider Physician Assistant
DX: E11.69 Type 2 diabetes mellitus with other specified complication (principal); E66.01 Morbid (severe) obesity due to excess calories; Z68.44 Body mass index [BMI] 60.0-69.9, adult; I10 Essential (primary) hypertension; E78.5 Hyperlipidemia, unspecified

== ENCOUNTER → 2024-06-11 08:34 | Outpatient (BNVA) | payer OTHER, SELFPAY | PROVIDERS: PCP Family Medicine; Visit Provider Physician Assistant | DX: E11.69 Type 2 diabetes mellitus with other specified complication (principal); E66.01 Morbid (severe) obesity due to excess calories; Z68.44 Body mass index [BMI] 60.0-69.9, adult; I10 Essential (primary) hypertension; E78.5 Hyperlipidemia, unspecified; Z79.899 Other long term (current) drug therapy | CPT/HCPCS: 83036 ==

== ENCOUNTER 2024-06-11 09:36 | Outpatient (REF) | payer OTHER, SELFPAY ==
--- OUTSIDE RECORDS SUMMARY | 2024-06-11 09:39 | XMS_ITS | Data Portability ---
Author Organization [facility], [address] Address [address] [place] [address] Assessment No assessment recorded. Plan of Treatment Reminders Order Date Submit Date Provider Last Modified By Organization Details Last Modified Time Details Appointments None recorded. Lab urinalysis , dipstick 2022 023 [place] [address] _[facility], [address] [place] [address], [phone], 3 11:45:12 glucose, fingerstic k, blood 2022 023 [place] [address] _[facility], [address] [place] [address], [phone], 3 11:45:12 Referral emergency medicine referral 2022 023 [email or web address] Not available 12:17:31 Procedures None recorded. Surgeries None recorded. Imaging None recorded. Medication Orders None recorded. Patient TargetsNo targets recorded. Patient InstructionsNo instructions recorded. Reason for Referral Emergency Medicine Referral for Hyperglycemia Referring Physician: Lennie Vidal, Urgent Care, Encounter Date: 11/15/2022 Results Created Date Observation Date Name Description Value Unit Range Abnormal Flag Note LastModifiedBy Organization Detail LastModifiedTime 11/16/19 23 11/15/2022 gluco se, finge rstic k, blood blood sugar - non fasting >400 mg/dL 80-140 = normal Not Available [address], [address], 11/15/2022 11:41:20 11/16/19 23 11/15/2022 gluco se, finge rstic k, blood blood sugar - fasting mg/dL 80-125 = normal Not Available [address], [place], [address], 11/15/2022 11:41:20 11/16/19 23 11/15/2022 urina lysis , dipst ick Unknown Analyte Normal = light yellow Not Available [facility] [address], [place], [address], 11/15/2022 11:34:37 11/16/19 23 11/15/2022 urina lysis , dipst ick Unknown Analyte Yellow Not Available [address], [place], [address], 11/15/2022 11:34:37 11/16/19 23 11/15/2022 urina lysis , dipst ick Unknown Analyte Normal = clear Not Available [address], [place], [address], 11/15/2022 11:34:37 11/16/19 23 11/15/2022 urina lysis , dipst ick Unknown Analyte Clear Not Available [address], [place], [address], 11/15/2022 11:34:37 11/16/19 23 11/15/2022 urina lysis , dipst ick Unknown Analyte Normal = negati ve Not Available [facility] [address], [place], [address], 11/15/2022 11:34:37 11/16/19 23 11/15/2022 urina lysis , dipst ick Unknown Analyte 500 mg/dL Not Available [facility] [address], [place], [address], 11/15/2022 11:34:37 11/16/19 23 11/15/2022 urina lysis , dipst ick Unknown Analyte Normal = Negati ve Not Available [facility] [address], [place], [address], 11/15/2022 11:34:37 11/16/19 23 11/15/2022 urina lysis , dipst ick Unknown Analyte Negati ve Not Available [facility] [address], [place], [address], 11/15/2022 11:34:37 11/16/19 23 11/15/2022 urina lysis , dipst ick Unknown Analyte Normal = Negati ve Not Available [facility] [address], [place], [address], 11/15/2022 11:34:37 11/16/19 23 11/15/2022 urina lysis , dipst ick Unknown Analyte Negati ve Not Available [facility] [address], [place], [address], 11/15/2022 11:34:37 11/16/19 23 11/15/2022 urina lysis , dipst ick Unknown Analyte Normal = 1.010, 1.015, 1.020 Not Available [facility] [address], [place], [address], 11/15/2022 11:34:37 11/16/19 23 11/15/2022 urina lysis , dipst ick Unknown Analyte 1.015 Not Available [address], [place], [address], 11/15/2022 11:34:37 11/16/19 23 11/15/2022 urina lysis , dipst ick Unknown Analyte Normal = Negati ve Not Available [facility] [address], [place], [address], 11/15/2022 11:34:37 11/16/19 23 11/15/2022 urina lysis , dipst ick Unknown Analyte Negati ve Not Available [facility] [address], [place], [place], [address], 11/15/2022 11:34:37 11/16/19 23 11/15/2022 urina lysis , dipst ick Unknown Analyte Normal = 6.5, 7.0, 7.5, 8.0 Not Available [address], [place], [place], [address], 11/15/2022 11:34:37 11/16/19 23 11/15/2022 urina lysis , dipst ick Unknown Analyte 5.5 Not Available [facility] [address], [place], [place], [address], 11/15/2022 11:34:37 11/16/19 23 11/15/2022 urina lysis , dipst ick Unknown Analyte Normal = Negati ve Not Available [facility] [address], [place], [address], 11/15/2022 11:34:37 11/16/19 23 11/15/2022 urina lysis , dipst ick Unknown Analyte Negati ve Not Available [address], [place], [place], [address], 11/15/2022 11:34:37 11/16/19 23 11/15/2022 urina lysis , dipst ick Unknown Analyte Normal = 0.2, 1.0 Not Available [facility] [address], [place], [address], 11/15/2022 11:34:37 11/16/19 23 11/15/2022 urina lysis , dipst ick Unknown Analyte 0.2 E.U./d L Not Available [address], [place], [address], 11/15/2022 11:34:37 11/16/19 23 11/15/2022 urina lysis , dipst ick Unknown Analyte Normal = Negati ve Not Available [address] [place] [address], [place], [address], 11/15/2022 11:34:37 11/16/19 23 11/15/2022 urina lysis , dipst ick Unknown Analyte Negati ve Not Available [address] [place] [address], [place], [address], 11/15/2022 11:34:37 11/16/19 23 11/15/2022 urina lysis , dipst ick Unknown Analyte Normal = Negati ve Not Available [address] [place] [address], [place], [address], 11/15/2022 11:34:37 11/16/19 23 11/15/2022 urina lysis , dipst ick Unknown Analyte Negati ve Not Available [address] [place], [place] [address], [address], 11/15/2022 11:34:37 Result Notes None recorded. Problems Name Problem SNOMED Code Status Onset Date Resolution Date Notes Provider Name and Address Organization Details Recorded Time Prediabetes 638564545 Active 023 SANJEEV Young - [facility] 10:53:17 Problem Notes None recorded. Medical Equipment None Reported. Allergies Allergen ID Allergen Name Allergen Category Reaction Reaction Severity Criticality Documentation Date Start Date Code Code System Note Provider Name and Address Organization Details Recorded Time 813021 shellfish derived food,medi cation Not available Not available Not available 11/15/2022 SANJEEV [facility] 10:52:23 Medications Name Sig Start Date Stop Date Status Note LastModified by Organization Details LastModified Time multivitamin active Not Available Not Available Not Available Vitals Date Recorded Body height Body mass index (BMI) Body weight Respiratory rate Body temperature Oxygen saturation Oxygen saturation in Arterial blood by Pulse oximetry Heart rate Systolic blood pressure Diastolic blood pressure Provider Name and Address Organization Details Last Updated DateTime 172.72 cm 66 kg/m2 246169. 09 g 20 /min 97.5 [degF] 98 % 98 % 94 /min 137 mm[Hg] 84 mm[Hg] Mercedes [facility] 10:55:27 Social History Question Answer Notes LastModified by Organizat ion Details LastModified Time Tobacco Smoking Status Never Smoker SANJEEV Young [facility] 11/15/2022 10:53:51 What Is Your Level Of Alcohol Consumption? None Information not available 11/15/2022 Do You Use Any Illicit Or Recreational Drugs? No Information not available 11/15/2022 Have You Recently Traveled Abroad? No Information not available 11/15/2022 Do You Or Have You Ever Used Any Other Forms Of Tobacco Or Nicotine? No Information not available 11/15/2022 Sex: Unknown Functional Status None recorded. Mental Status None recorded. Family History Relationship Description Onset Age of this Age Resolved Age Notes LastModified by Organization Details LastModified Time Mother Diabetes mellitus [email or web address] Not available 2022 10:53:26 Father Cardiomegaly [email or web address] Not avai lable 11/15/2022 10:53:42 Medical History No medical history recorded. Immunizations Vaccine Type Date Status Note Provider Nam e and Address Organization Details Recorded Time COVID-19, mRNA, LNP-S, PF, 100 mcg/0.5mL dose or 50 mcg/0.25mL dose 10/13/2020 completed SANJEEV Young [facility] 11/15/2022 10:52:15 COVID-19, mRNA, LNP-S, PF, 100 mcg/0.5mL dose or 50 mcg/0.25mL dose 11/07/2020 completed SANJEEV Young [facility] 11/15/2022 10:52:15 Past Encounters Encounter ID Performer Location Encounter Start Date Encounter Closed Date Diagnosis/Indication Diagnosis SNOMED-CT Code Diagnosis ICD10 Code [id number] 21005[facility] [address] [place] [address] 10/20/2018 14:17:41 10/20/2018 14:46:22 [id number] 21005[facility] [address] [place] [address] 07/20/2019 13:35:00 07/20/2019 14:37:30 [id number] Lennie Vidal MD [address] [address] 11/15/2022 09:18:58 11/15/2022 11:48:14 Polyuria 25021085 R35.89 Hyperglycemia 52573594 R 73.9 Glycosuria 56511548 R81 Health Concerns Section Related Observation LastModified by Organization Detai ls LastModified Time None Recorded Concern Status LastModified by Organization Details LastModified Time None Recorded Advance Directives Directive None Recorded Payers Encounter Date Sequence Insurance Name Policy Number Policy Barba Covered Member ID Barba Member ID Guarantor Name 07/20/2019 1 [place] [id number] Jonathan Jeff [id number] Jonathan Jeff 11/15/2022 1 [facility] [id number] Jonathan Jeff [id number] Jonathan Jeff Notes Date Note Type Note Provider Name and Address Organization Details Recorded Time 11/15/2022 text/html Patient presents with dry mouthUpon questioning he admits to excessive thrist and urinatrion for the last months.KNown to be prediabetric only.ON no meds for Diabetes. Lennie Vidal MD [address] [place], [address], [place] - [facility] 11/20/2022 08:30:29
[2024-06-11 11:15] LABS: MANUAL DIFF FLAG NO
[2024-06-11 11:27] LABS: Basophils Percent Auto 0.8 % (0-2); Eosinophils Absolute Auto 0.1 X10*3/uL (0.0-0.4); Eosinophils Percent Auto 2.1 % (0-4); Hematocrit 35.6 % (42.0-52.0); Hemoglobin 11.9 g/dl (14.0-18.0); Imm Gran Abs Auto 0.01 X10*3/uL (0.00-0.03); Imm Gran Pct Auto 0.2 % (0.0-0.4); Lymphocytes Absolute Auto 1.9 X10*3/uL (1.2-4.9); Lymphocytes Percent Auto 39.8 % (20-40); Mean Corpuscular HGB Conc 33.4 g/dl (31.0-36.0); Mean Corpuscular Hemoglobin 31.2 pg (27.0-33.0); Mean Corpuscular Volume 93.2 fL (80.0-98.0); Mean Platelet Volume 11.1 fL (9.4-12.4); Monocytes Absolute Auto 0.4 X10*3/uL (0.1-1.2); Monocytes Percent Auto 7.3 % (2-11); Neutrophils Absolute Auto 2.4 x10*3/uL (2.0-8.3); Neutrophils Percent Auto 49.8 % (45-73); Platelet Count 208 X10*3/uL (160-400); Red Blood Count 3.82 X10*6/uL (4.60-5.80); Red Cell Distribution Width 12.2 % (11.0-16.0); White Blood Count 4.8 X10*3/uL (4.8-10.8)
[2024-06-11 11:47] LABS: Alanine Aminotransferase 21 U/L (0-40); Albumin Level 3.9 g/dL (3.5-5.0); Alkaline Phosphatase 67 U/L (39-117); Anion Gap 10 (12-20); Aspartate Amino Transferase 22 U/L (5-37); Bilirubin Total 0.8 mg/dL (0.0-1.0); Blood Urea Nitrogen 11 mg/dL (9-16); Calcium 8.9 mg/dL (8.4-10.2); Carbon Dioxide 28 mmol/L (22-29); Chloride 107 mmol/L (96-108); Estimated Glomerular Filt Rate > 60; Glucose Random 121 mg/dL (60-115); Potassium 3.9 mmol/L (3.3-5.1); Sodium 141 mmol/L (135-145); Total Protein 7.5 g/dL (6.5-8.0)
== END 2024-06-11 09:37 | disposition home or self-care (01) ==
LOC: HO.WFDLDS 09:36
PROVIDERS: Visit Provider Physician Assistant
DX: R10.10 Upper abdominal pain, unspecified (principal)
CPT/HCPCS: 36415; 80053; 85025

== ENCOUNTER 2024-06-26 08:29 | Outpatient (AMB) | payer OTHER, SELFPAY ==
--- NOTE | 2024-06-26 08:39 | MHC.PC.OV ---
Vital Signs 06/26/24 08:41 Height 5 ft 7.5 in Weight 424 lb 2 oz BMI 65.4 BP 160/90 H Blood Pressure Location Rt brachial Position Sitting Respiration 14 Pulse 68 Pulse Source Pulse Oximeter Temp 98.9 F Temp Source Oral Pulse Oximetry (%) 97 Oxygen Delivery Method Room Air Intake Visit Reasons: f/u diabetes, hypertension Intake Note: f/u dm- htn Allergies shellfish derived Allergy (Severe, Verified 06/26/24 08:40) rash, sweeling throat almond Allergy (Intermediate, Verified 06/26/24 08:40) Gastrointestinal Upset Egg Derived Allergy (Intermediate, Verified 06/26/24 08:40) Gastrointestinal Upset Fish Containing Products Allergy (Intermediate, Verified 06/26/24 08:40) Gastrointestinal Upset hazelnut Allergy (Intermediate, Verified 06/26/24 08:40) Diarrhea milk Allergy (Intermediate, Verified 06/26/24 08:40) Gastrointestinal Upset peanut Allergy (Intermediate, Verified 06/26/24 08:40) Gastrointestinal Upset soy Allergy (Intermediate, Verified 06/26/24 08:40) Gastrointestinal Upset walnut Allergy (Intermediate, Verified 06/26/24 08:40) Gastrointestinal Upset wheat Allergy (Intermediate, Verified 06/26/24 08:40) Gastrointestinal Upset No Known Drug Allergies Allergy (Unknown, Verified 06/26/24 08:40) none SESAME Allergy (Intermediate, Uncoded 06/11/24 08:53) Gastrointestinal Upset Raw fruit Adverse Reaction (Intermediate, Uncoded 06/11/24 08:53) Tickling in back of throat Tobacco use date assessed: 01/01/24 Dental Screening Dental Screen Date: 01/01/24 HPI f/u diabetes, hypertension HPI Details 53 y/o male presents to f/u diabetes, hypertension. Last A1c 06/11/24 6.5%. He is on metformin 750mg b.i.d. Blood pressure today 160/90, 68p. He is on lisinopril 20mg, amlodipine 5mg daily. HPI Comments History of Present Illness Details Documentation assistance for Kurt Steel MD, was provided by Andrés Wallace,? Promotions Executive on 06/26/2024 at 8:56 AM EST. I, Dr. Steel, have read, observed, and verified documentation. [facility] Medical History Morbid obesity Adjustment disorder Impacted cerumen, bilateral Pre-diabetes Acute muscle stiffness of neck History of OR (myocardial infarction) Viral illness Laboratory examination ordered as part of a routine general medical examination Screening for prostate cancer Screening for colon cancer Adult general medical exam Screening for prostate cancer No pertinent past medical history Surgical History Hx of oral surgery Family History Father Heart disease Mother Diabetes Sister FH: diabetic complications Social History Housing: House Alcohol intake: current Alcohol intake frequency: holidays/special occasions only Patient Tobacco Use Status: Never used Tobacco e-Cigarette/Vaping Use: Never Used service: Yes Current occupational status: employed Current occupation: [employer] Cognitive needs: No Hearing needs: No Vision needs: No Questionnaire PHQ-9 Over the last 2 weeks, how often have you been bothered by any of the following problems? 1. Little interest or pleasure in doing things: not at all 2. Feeling down, depressed, or hopeless: several days 3. Trouble falling or staying asleep, or sleeping too much: not at all 4. Feeling tired or having little energy: not at all 5. Poor appetite or overeating: not at all 6. Feeling bad about yourself - or that you are a failure or have let yourself or your family down: several days 7. Trouble concentrating on things, such as reading the newspaper or watching television: several days 8. Moving or speaking so slowly that other people could have noticed. Or the opposite - being so fidgety or restless that you have been moving around a lot more than usual: not at all 9. Thoughts that you would be better off or of hurting yourself in some way: several days Total score: 4 Source: Developed by Drs. Alvarez Kirk, Jessica Jeff, Arthur Mosquera and colleagues, with an educational hilda from [employer] Thrive Questionnaire Date Thrive assessed: 03/05/24 I am a: Patient What is your living situation today?: I have a steady place to live Within the past 12 months, did the food you bought not last and you didn't have the money to get more?: Never true Within the past 12 months, did you worry whether your food would run out before you got money to buy more?: Never true Do you have trouble paying for medicines?: No Do you have trouble getting transportation to medical appointments?: No Do you have trouble paying your heating and electricity bill?: No Do you have trouble taking care of your child, family member or friend?: No Do you have trouble with day-to-day activities such as bathing, preparing meals, shopping, managing finances, etc.?: No Are you currently unemployed and looking for a job?: No Are you interested in more education?: No Please select the resources that you would like help with: Job search/training and Education Currently or been in a relationship where the following occur: No concerns reported THRIVE Score: 0 AUDIT C Alcohol Use Questionnaire (AUDIT-C) 1. How often do you have a drink containing alcohol?: Monthly or less 2. How many drinks containing alcohol do you have on a typical day when you are drinking?: 1 or 2 3. How often do you have six or more drinks on one occasion?: Never Total Score: 1 LOU-7 AMB Questionnaire LOU-7 Date LOU - 7 assessed: 12/19/23 Feeling nervous, anxious, or on edge: 1 = Several days Not being able to stop or control worryin = Several days Worrying too much about different things: 1 = Several days Trouble relaxin = Several days Being so restless that it is hard to sit still: 0 = Not at all Becoming easily annoyed or irritable: 1 = Several days Feeling afraid as if something awful might happen: 1 = Several days Total LOU-7 score (0-4 normal; 5-9 mild; 10-14 moderate; 15-21 severe): 6 Source: Developed by Drs. Alvarez Kirk, Jessica Jeff, Arthur Mosquera and colleagues, with an educational hilda from [employer] Review of Systems Const Denies chills, Denies fatigue, Denies fever(s), Denies headache(s) and Denies weakness ENT Denies dizziness and Denies headache(s) Card Denies dyspnea Resp Denies cough, Denies dyspnea, Denies wheezing and Denies other (shortness of breath) Musc Denies numbness and Denies tingling Neuro Denies dizziness, Denies headache(s), Denies numbness, Denies tingling and Denies weakness Psych Denies anxiety and Denies depression Endo Denies fatigue Aller/Immun Denies wheezing Physical exam (Primary Care) Vital Signs: Last Vital Signs Temp 98.9 F 06/26/24 08:41 Pulse 68 06/26/24 08:41 Resp 14 06/26/24 08:41 BP 160/90 H 06/26/24 08:41 Pulse Ox 97 06/26/24 08:41 Oxygen Delivery Method Room Air 06/26/24 08:41 BMI result Body Mass Index 65.4 Tobacco/Smoking Status: Tobacco use Status Tobacco use date assessed 01/01/24 06/26/24 08:44 Patient Tobacco Use Status Never used Tobacco 06/26/24 08:44 e-Cigarette/Vaping Use Never Used 06/26/24 08:44 PHQ-9: PHQ-9 Score PHQ-9: Total score 4 06/26/24 08:44 Thrive Assessment: Date of Thrive Assessment Date Thrive assessed 03/05/24 06/26/24 08:44 Currently or been in a relationship where the following occur: No concerns reported Const General: well developed; No acute distress Nutritional Appearance: well nourished Orientation/consciousness: patient oriented x3 HENMT Head: Yes normocephalic and Yes atraumatic Eyes General: appearance normal, both eyes and all related structures Pupils: Equal, round and reactive pupils present EOM: EOMs intact bilaterally Resp Effort & Inspection: normal respiratory effort Auscultation: clear to auscultation bilaterally Cardio Rate: regular rate Rhythm: regular rhythm Heart sounds: S1 normal heart sound present, S2 normal heart sound present, no gallops, no murmurs and no rubs Neuro General: patient oriented x3 and gait normal Cranial nerves: Yes Equal, round and reactive pupils present Psych Affect: normal affect Coding Level of Care Code Est Pt Level 3 (10375) Diagnoses Essential hypertension I10 Diabetes E11.9 CAD (coronary artery disease) I25.10 Assessment & Plan Assessment & Plan (1) Essential hypertension: Code(s): I10 - Essential (primary) hypertension Category: Medical Plan: Blood?pressures?have?been?much?too?high?and?are?still?high?despite?addition?of?amlodipine?by?endocrinology. Goal?is?less?than?130/80 Will?switch?lisinopril?20?mg?daily?to?a?combo?pill;?lisinopril-hydrochlorothiazide?20/25 He?will?continue?amlodipine He?will?see?the?nurse?next?week?to?recheck?blood?pressure?no?adjust?further?if?needed He?will?return?in?1?month?follow-up?me (2) Diabetes: Code(s): E11.9 - Type 2 diabetes mellitus without complications Category: Medical Plan: A1c?shows?good?control.??Goal?is?less?than?7.0% Continue?her?medications Follow-up?with?endocrinology?as?recommended (3) CAD (coronary artery disease): Code(s): I25.10 - Atherosclerotic heart disease of [place] coronary artery without angina pectoris Category: Medical Plan: Patient?notes?that?he?gets?some?chest?pain?with?exertion.??This?ceases?when?he?discontinues?exertion. He?has?an?outstanding?referral?to?cardiology?and?it?seems?he?has?been?contacted?previously?but?no?appointment?has?been?scheduled. A?gave?him?the?number?to?call?Cardiology?and?get?scheduled. Advised?him?to?keep?a?regular?routine?of?activity?but?avoid?strenuous?exertion?if?gets?chest?pain?lasting?more?than?few?minutes?after?resting,?should?seek?medical?attention. Medications: New lisinopril-hydrochlorothiazide 20-25 mg 1 tab PO QAM 90 days 90 tabs 3RF Discontinued lisinopril Discontinued Reason: Doctor's Order 20 mg PO DAILY 90 days 90 tabs 0RF
--- OUTSIDE RECORDS SUMMARY | 2024-06-26 08:40 | XMS_ITS | Data Portability ---
Author Organization [facility]JEE[facility], [address] Address [address] [place] [address] Assessment No assessment recorded. Plan of Treatment Reminders Order Date Submit Date Provider Last Modified By Organization Details Last Modified Time Details Appointments None recorded. Lab urinalysis , dipstick 2022 023 [place] [address] _[facility], [address] [place] [address], [phone], 3 11:45:12 glucose, fingerstic k, blood 2022 023 [place] [address] _[facility], [address] [place] [address], [address], 3 11:45:12 Referral emergency medicine referral 2022 [...] >400 mg/dL 80-140 = normal Not Available _[address], [address], 11/15/2022 11:41:20 11/16/19 23 11/15/2022 gluco se, finge rstic k, blood blood sugar - fasting mg/dL 80-125 = normal Not Available [address], [place], [address], 11/15/2022 11:41:20 11/16/19 23 11/15/2022 urina lysis , dipst ick Unknown Analyte Normal = light yellow Not Available [facility] [address], [place], [address], 11/15/2022 11:34:37 11/16/19 23 11/15/2022 urina lysis , dipst ick Unknown Analyte Yellow Not Available [address], [place], [address], 11/15/2022 11:34:37 11/16/19 23 11/15/2022 urina lysis , dipst ick Unknown Analyte Normal = clear Not Available [address], [place], [address], 11/15/2022 11:34:37 11/16/19 23 11/15/2022 urina lysis , dipst ick Unknown Analyte Clear Not Available [address], [place], [address], 11/15/2022 11:34:37 11/16/19 23 11/15/2022 urina lysis , dipst ick Unknown Analyte Normal = negati ve Not Available [facility] [address], [place], [address], 11/15/2022 11:34:37 11/16/19 23 11/15/2022 urina lysis , dipst ick Unknown Analyte 500 mg/dL Not Available [facility] [address], [place], [address], 11/15/2022 11:34:37 11/16/19 23 11/15/2022 urina lysis , dipst ick Unknown Analyte Normal = Negati ve Not Available tierra quinter[facility] [address], [place], [address], 11/15/2022 11:34:37 11/16/19 23 11/15/2022 urina lysis , dipst ick Unknown Analyte Negati ve Not Available tierra quinteros [address], [place], [address], 11/15/2022 11:34:37 11/16/19 23 11/15/2022 urina lysis , dipst ick Unknown Analyte Normal = Negati ve Not Available tierra quinteros [address], [place], [address], 11/15/2022 11:34:37 11/16/19 23 11/15/2022 urina lysis , dipst ick Unknown Analyte Negati ve Not Available tierra quinteros [address], [place], [address], 11/15/2022 11:34:37 11/16/19 23 11/15/2022 urina lysis , dipst ick Unknown Analyte Normal = 1.010, 1.015, 1.020 Not Available tierra quinteros [address], [place], [address], 11/15/2022 11:34:37 11/16/19 23 11/15/2022 urina lysis , dipst ick Unknown Analyte 1.015 Not Available [address], [place], [address], 11/15/2022 11:34:37 11/16/19 23 11/15/2022 urina lysis , dipst ick Unknown Analyte Normal = Negati ve Not Available tierra quinteros [address], [place], [address], 11/15/2022 11:34:37 11/16/19 23 11/15/2022 urina lysis , dipst ick Unknown Analyte Negati ve Not Available tierra quinteros [address], [place], [place], [address], 11/15/2022 11:34:37 11/16/19 23 11/15/2022 urina lysis , dipst ick Unknown Analyte Normal = 6.5, 7.0, 7.5, 8.0 Not Available [address], [place], [place], [address], 11/15/2022 11:34:37 11/16/19 23 11/15/2022 urina lysis , dipst ick Unknown Analyte 5.5 Not Available konrad [address], [place], [place], [address], 11/15/2022 11:34:37 11/16/19 23 11/15/2022 urina lysis , dipst ick Unknown Analyte Normal = Negati ve Not Available tierra [address], [place], [address], 11/15/2022 11:34:37 11/16/19 23 11/15/2022 urina lysis , dipst ick Unknown Analyte Negati ve Not Available [address] quinteros [address], [place], [place], [address], 11/15/2022 11:34:37 11/16/19 23 11/15/2022 urina lysis , dipst ick Unknown Analyte Normal = 0.2, 1.0 Not Available tierra [address], [place], [address], 11/15/2022 11:34:37 11/16/19 23 11/15/2022 urina lysis , dipst ick Unknown Analyte 0.2 E.U./d L Not Available [address] quinteros [address], [place], [address], 11/15/2022 11:34:37 11/16/19 23 11/15/2022 urina lysis , dipst ick Unknown Analyte Normal = Negati ve Not Available [address] [place] [address], [place], [address], 11/15/2022 11:34:37 11/16/19 23 11/15/2022 urina lysis , dipst ick Unknown Analyte Negati ve Not Available [address] [place] [address], [place], [address], 11/15/2022 11:34:37 11/16/19 23 11/15/2022 urina lysis , dipst ick Unknown Analyte Normal = Negati ve Not Available [address] [place] [address], [place], [address], 11/15/2022 11:34:37 11/16/19 23 11/15/2022 urina lysis , dipst ick Unknown Analyte Negati ve Not Available [address] [place], [place] [address], [address], 11/15/2022 11:34:37 Result Notes None recorded. Problems Name Problem SNOMED Code Status Onset Date Resolution Date Notes Provider Name and Address Organization Details Recorded Time Prediabetes [id number] Active 023 SANJEEV Young - [facility] 10:53:17 Problem Notes None recorded. Medical Equipment None Reported. Allergies Allergen ID Allergen Name Allergen Category Reaction Reaction Severity Criticality Documentation Date Start Date Code Code System Note Provider Name and Address Organization Details Recorded Time 606193 shellfish derived food,medi cation Not available Not [...] Last Updated DateTime 172.72 cm 66 kg/m2 783201. 09 g 20 /min 97.5 [degF] 98 [...] Diagnosis/Indication Diagnosis SNOMED-CT Code Diagnosis ICD10 Code [id number] 21005_[facility] [address] [place] [address] 10/20/2018 14:17:41 10/20/2018 14:46:22 [id number] 21005[facility] [address] [place] [address] 07/20/2019 13:35:00 07/20/2019 14:37:30 [id number] Lennie Vidal MD [address] [address] 11/15/2022 09:18:58 11/15/2022 11:48:14 Polyuria 97028854 R35.89 Hyperglycemia 97788967 R 73.9 Glycosuria 39130761 R81 Health Concerns Section Related Observation LastModified by Organization Detai ls LastModified Time None Recorded Concern Status LastModified by Organization Details LastModified Time None Recorded Advance Directives Directive None Recorded Payers Encounter Date Sequence Insurance Name Policy Number Policy Barba Covered Member ID Barba Member ID Guarantor Name 07/20/2019 1 [place] [id number] Jonathan Jeff [id number] Jonathan Jeff 11/15/2022 1 [facility] [id number] Jonathan Jeff [id number] Jonathan Jeff Notes Date Note Type Note Provider Name and Address Organization Details Recorded Time 11/15/2022 text/html Patient presents with dry mouthUpon questioning he admits to excessive thrist and urinatrion for the last months.KNown to be prediabetric only.ON no meds for Diabetes. Lennie Vidal MD [address] [place], [address], [place] - [facility] 11/20/2022 08:30:29
[2024-06-26 08:41] VITALS: BP 160/90; PULSE 68; RESP 14; TEMP 37.2; O2SAT 97; BMI 65.4
== END 2024-06-26 09:03 | disposition home or self-care (01) ==
PROVIDERS: PCP Family Medicine; Visit Provider Family Medicine
DX: I10 Essential (primary) hypertension (principal); E11.9 Type 2 diabetes mellitus without complications; I25.10 Atherosclerotic heart disease of native coronary artery without angina pectoris

== ENCOUNTER → 2024-06-29 08:55 | Outpatient (BNVA) | payer OTHER, SELFPAY | PROVIDERS: PCP Family Medicine; Visit Provider Family Medicine | DX: I10 Essential (primary) hypertension (principal); Z79.899 Other long term (current) drug therapy | CPT/HCPCS: 99211 ==

== ENCOUNTER 2024-07-03 08:39 | Outpatient (AMB) | payer OTHER, SELFPAY ==
--- NOTE | 2024-07-03 08:48 | A.OFFVIS_ITS ---
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 Required: No Accompanied by: Self / Same As Patient Allergies shellfish derived Allergy (Severe, Verified 06/26/24 08:40) rash, sweeling throat almond Allergy (Intermediate, Verified 06/26/24 08:40) Gastrointestinal Upset Egg Derived Allergy (Intermediate, Verified 06/26/24 08:40) Gastrointestinal Upset Fish Containing Products Allergy (Intermediate, Verified 06/26/24 08:40) Gastrointestinal Upset hazelnut Allergy (Intermediate, Verified 06/26/24 08:40) Diarrhea milk Allergy (Intermediate, Verified 06/26/24 08:40) Gastrointestinal Upset peanut Allergy (Intermediate, Verified 06/26/24 08:40) Gastrointestinal Upset soy Allergy (Intermediate, Verified 06/26/24 08:40) Gastrointestinal Upset walnut Allergy (Intermediate, Verified 06/26/24 08:40) Gastrointestinal Upset wheat Allergy (Intermediate, Verified 06/26/24 08:40) Gastrointestinal Upset No Known Drug Allergies Allergy (Unknown, Verified 06/26/24 08:40) none SESAME Allergy (Intermediate, Uncoded 06/11/24 08:53) Gastrointestinal Upset Raw fruit Adverse Reaction (Intermediate, Uncoded 06/11/24 08:53) Tickling in back of throat Medication List - Last Reconciled 07/03/24 by Amador Devi MD amlodipine 10 mg PO DAILY atorvastatin 80 mg PO BEDTIME 90 days cholecalciferol (vitamin D3) 125 mcg PO DAILY 90 days ibuprofen 600 mg PO Q8H PRN lisinopril-hydrochlorothiazide 20-25 mg 1 tab PO QAM 90 days metformin 750 mg (1.5 x 500 mg) PO BID 90 days thiamine HCl (vitamin B1) 100 mg PO DAILY HPI Comments Details: [age] year gentleman who is referred to us for perioperative cardiovascular risk assessment before bariatric surgery. He has morbid obesity and and is being consider for diuretics surgery at this stage. He has been losing some weight with exercise and diet. He has strong family history of diabetes and cardiovascular issues. His father at 44. Mother also from complications of diabetes in her 40s. Sister also at a young age. He is saying he is the only person in his family to cross 45 year age. He has been experiencing central chest tightness with activity. He is saying that this happens while he is doing rowing machine but definitely happens when he gets on the treadmill. He has to stop and the sensation goes away. He underwent echocardiography which was normal. Nuclear stress test was read as probably normal with EF 51% during stress and 54% at rest. A small fixed apical inferior perfusion defect was noted but was thought to be an artifact. He has been taking medications regularly. He is currently on hydrochlorothiazide lisinopril and amlodipine. His blood pressure is 150/82. [facility] Medical History Morbid obesity Adjustment disorder Impacted cerumen, bilateral Pre-diabetes Acute muscle stiffness of neck History of [place] (myocardial infarction) Viral illness Laboratory examination ordered as part of a routine general medical examination Screening for prostate cancer Screening for colon cancer Adult general medical exam Screening for prostate cancer No pertinent past medical history Surgical History Hx of oral surgery Family History Father Heart disease Mother Diabetes Sister FH: diabetic complications Social History Housing: House Alcohol intake: current Alcohol intake frequency: holidays/special occasions only Patient Tobacco Use Status: Never used Tobacco e-Cigarette/Vaping Use: Never Used service: Yes Current occupational status: employed 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 Cognitive needs: No Hearing needs: No Vision needs: No Review of Systems Const Denies chills, Denies fatigue, Denies fever(s), Denies frequent falls, Denies weakness, Denies weight gain and Denies weight loss ENT Denies dizziness Card Denies chest pain, Denies leg edema, Denies lightheadedness, Denies palpitations, Denies dyspnea, Denies dyspnea on exertion and Denies orthopnea Resp Denies cough, Denies dyspnea and Denies dyspnea on exertion GI Denies bloating and Denies change in bowel habits Musc Denies muscle weakness, Denies numbness and Denies tingling Neuro Denies dizziness, Denies frequent falls, Denies numbness, Denies tingling and Denies weakness Endo Denies fatigue and Denies palpitations Physical Exam Vital Signs: Last Vital Signs Pulse 91 07/03/24 08:49 BP 150/82 H 07/03/24 08:49 BMI result Body Mass Index 63.4 GENERAL APPEARANCE: Morbidly obese. In no distress. SKIN: no suspicious lesions, warm and dry. HEART: no murmurs, regular rate and rhythm. LUNGS: clear to auscultation bilaterally. ABDOMEN: soft, nontender. EXTREMITIES: no edema. PERIPHERAL PULSES: equal. NEUROLOGIC: No gross deficits, AAO X 3 Office Procedures EKG Details: Sinus rhythm 91 beats per minute, normal axis, normal ECG, QTC 440 milliseconds. [id number], Complete Assessment & Plan Assessment & Plan (1) Chest pain: Code(s): R07.9 - Chest pain, unspecified Category: Medical (2) Morbid obesity: Code(s): E66.01 - Morbid (severe) obesity due to excess calories Category: Medical (3) Hyperlipidemia: Code(s): E78.5 - Hyperlipidemia, unspecified Category: Medical (4) Essential hypertension: Code(s): I10 - Essential (primary) hypertension Category: Medical Plan [age] year gentleman with morbid obesity who is being considered for bariatric surgery and is here for cardiovascular risk assessment. He underwent stress testing which did not show any significant issues other than a fixed inferior perfusion defect which was thought to be diaphragmatic attenuation. He does have exertional symptoms which are consistent. He gets chest tightness while exercising on treadmill. He has strong history of diabetes and cardiovascular issues. His father in his 40s and the way he is describing he probably had a post-[place] complication. Overall his risk profile is high for underlying coronary artery disease. Given symptoms I have discussed with him to do a diagnostic angiogram before he proceeds for bariatric surgery. If he has any significant coronary disease then we will revascularize as he asymptomatic. Adding carvedilol 6.25 mg twice a day for hypertension. Continue lisinopril, hydrochlorothiazide and amlodipine. We will do blood workup including a fasting lipid panel. Thank you for allowing me to participate in the care of your patient. Please feel free to contact me if you have any questions. Orders: Orders Cardiac Cath LT Diagnostic Today Amador Devi MD R07.9 - Chest pain, unspecified Complete Blood Count no Diff Today Amador Devi MD R07.9 - Chest pain, unspecified Prothrombin Time INR Today Amador Devi MD R07.9 - Chest pain, unspecified Basic Metabolic Panel Today Amador Devi MD R07.9 - Chest pain, unspecified Lipid Panel Today Amador Devi MD R07.9 - Chest pain, unspecified Medications: New carvedilol must administer with a meal/food 6.25 mg PO BID 60 tabs 4RF Amador Devi MD R07.9 - Chest pain, unspecified Changed From amlodipine 5 mg PO DAILY 90 tabs 1RF To amlodipine 10 mg PO DAILY Abimbola Nova PA-C Coding Level of Care Code New Pt Level 5 (65502) Diagnoses Chest pain R07.9 Morbid obesity E66.01 Hyperlipidemia E78.5 Essential hypertension I10 CPT Codes EKG - CPT: 81974-Exckinxdlhifrtgoz, Complete ([id number])
[2024-07-03 08:49] VITALS: BP 150/82; PULSE 91; BMI 63.4
== END 2024-07-03 09:41 | disposition home or self-care (01) ==
PROVIDERS: PCP Family Medicine; Visit Provider Internal Medicine Cardiovascular Disease
DX: R07.9 Chest pain, unspecified (principal); E66.01 Morbid (severe) obesity due to excess calories; E78.5 Hyperlipidemia, unspecified; I10 Essential (primary) hypertension
CPT/HCPCS: 93010; 99204

== ENCOUNTER → 2024-07-03 08:39 | Outpatient (BNVA) | payer OTHER, SELFPAY | PROVIDERS: PCP Family Medicine; Visit Provider Internal Medicine Cardiovascular Disease | DX: I10 Essential (primary) hypertension (principal); I25.10 Atherosclerotic heart disease of native coronary artery without angina pectoris; R07.9 Chest pain, unspecified; E66.01 Morbid (severe) obesity due to excess calories; E78.5 Hyperlipidemia, unspecified; Z79.899 Other long term (current) drug therapy | CPT/HCPCS: 93005; 96127 ==

== ENCOUNTER 2024-07-03 12:56 | Outpatient (AMB) | payer OTHER, SELFPAY ==
--- NOTE | 2024-07-03 13:26 | A.OFFPC_ITS ---
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 Accompanied by: Self / Same As Patient Allergies shellfish derived Allergy (Severe, Verified 07/03/24 13:27) rash, sweeling throat almond Allergy (Intermediate, Verified 07/03/24 13:27) Gastrointestinal Upset Egg Derived Allergy (Intermediate, Verified 07/03/24 13:27) Gastrointestinal Upset Fish Containing Products Allergy (Intermediate, Verified 07/03/24 13:27) Gastrointestinal Upset hazelnut Allergy (Intermediate, Verified 07/03/24 13:27) Diarrhea milk Allergy (Intermediate, Verified 07/03/24 13:27) Gastrointestinal Upset peanut Allergy (Intermediate, Verified 07/03/24 13:27) Gastrointestinal Upset soy Allergy (Intermediate, Verified 07/03/24 13:27) Gastrointestinal Upset walnut Allergy (Intermediate, Verified 07/03/24 13:27) Gastrointestinal Upset wheat Allergy (Intermediate, Verified 07/03/24 13:27) Gastrointestinal Upset No Known Drug Allergies Allergy (Unknown, Verified 07/03/24 13:27) none SESAME Allergy (Intermediate, Uncoded 06/11/24 08:53) Gastrointestinal Upset Raw fruit Adverse Reaction (Intermediate, Uncoded 06/11/24 08:53) Tickling in back of throat Tobacco use date assessed: 07/03/24 Dental Screening Dental Screen Date: 07/03/24 Did you have a dental visit in the last 12 months?: Yes Did you have a dental problem in the last 6 months where you did not have access to dental care?: No Was dental information given to patient?: Patient has dentist HPI Med Review HPI Details 53 y/o male presents to recheck blood pr essure. Blood pressure 132/80, 91p. He is on lisinopril-HCTZ 20-25mg, amlodipine 10mg, carvedilol 6.25mg b[facility] Medical History Morbid obesity Adjustment disorder Impacted cerumen, bilateral Pre-diabetes Acute muscle stiffness of neck History of [place] (myocardial infarction) Viral illness Laboratory examination ordered as part of a routine general medical examination Screening for prostate cancer Screening for colon cancer Adult general medical exam Screening for prostate cancer No pertinent past medical history Surgical History Hx of oral surgery Family History Father Heart disease Mother Diabetes Sister FH: diabetic complications Social History Housing: House Alcohol intake: current Alcohol intake frequency: holidays/special occasions only Patient Tobacco Use Status: Never used Tobacco e-Cigarette/Vaping Use: Never Used service: Yes Current occupational status: employed Current occupation: [employer] Cognitive needs: No Hearing needs: No Vision needs: No Questionnaire PHQ-9 Over the last 2 weeks, how often have you been bothered by any of the following problems? 1. Little interest or pleasure in doing things: not at all 2. Feeling down, depressed, or hopeless: several days 3. Trouble falling or staying asleep, or sleeping too much: not at all 4. Feeling tired or having little energy: not at all 5. Poor appetite or overeating: not at all 6. Feeling bad about yourself - or that you are a failure or have let yourself or your family down: several days 7. Trouble concentrating on things, such as reading the newspaper or watching television: several days 8. Moving or speaking so slowly that other people could have noticed. Or the opposite - being so fidgety or restless that you have been moving around a lot more than usual: not at all 9. Thoughts that you would be better off or of hurting yourself in some way: several days Total score: 4 Depression Screening Interpretation: Negative Depression Screening Done: Yes 00785 - PHQ-9 Billing: Yes Source: Developed by Drs. Alvarez Kirk, Jessica Jeff, Arthur Mosquera and colleagues, with an educational hilda from [employer]. Thrive Questionnaire Date Thrive assessed: 06/26/24 I am a: Patient What is your living situation today?: I have a steady place to live Within the past 12 months, did the food you bought not last and you didn't have the money to get more?: Never true Within the past 12 months, did you worry whether your food would run out before you got money to buy more?: Never true Do you have trouble paying for medicines?: No Do you have trouble getting transportation to medical appointments?: No Do you have trouble paying your heating and electricity bill?: No Do you have trouble taking care of your child, family member or friend?: No Do you have trouble with day-to-day activities such as bathing, preparing meals, shopping, managing finances, etc.?: No Are you currently unemployed and looking for a job?: No Are you interested in more education?: No Currently or been in a relationship where the following occur: No concerns reported THRIVE Score: 0 LOU-7 AMB Questionnaire LOU-7 Date LOU - 7 assessed: 07/03/24 Feeling nervous, anxious, or on edge: 1 = Several days Not being able to stop or control worryin = Several days Worrying too much about different things: 1 = Several days Trouble relaxin = Several days Being so restless that it is hard to sit still: 0 = Not at all Becoming easily annoyed or irritable: 1 = Several days Feeling afraid as if something awful might happen: 1 = Several days Total LOU-7 score (0-4 normal; 5-9 mild; 10-14 moderate; 15-21 severe): 6 Source: Developed by Drs. Alvarez Kirk, Jessica Jeff, Arthur Mosquera and colleagues, with an educational hilda from [employer]. LOU-7 Assessment Billing LOU-7 Assessment Tool: LOU-7 Assessment 51468 Review of Systems Const Denies chills, Denies fatigue, Denies fever(s), Denies headache(s) and Denies weakness ENT Denies dizziness and Denies headache(s) Card Denies chest pain, Denies lightheadedness, Denies dyspnea and Denies other (Palpitations) Resp Denies cough, Denies dyspnea, Denies wheezing and Denies other ( shortness of breath) Musc Denies numbness and Denies tingling Neuro Denies dizziness, Denies headache(s), Denies numbness, Denies tingling, Denies paresthesias and Denies weakness Psych Denies anxiety and Denies depression Endo Denies fatigue Aller/Immun Denies wheezing Physical exam (Primary Care) Vital Signs: Last Vital Signs Pulse 91 07/03/24 13:27 BP 132/80 07/03/24 13:27 Pulse Ox 97 07/03/24 13:27 BMI result Body Mass Index 63.6 Tobacco/Smoking Status: Tobacco use Status Tobacco use date assessed 07/03/24 07/03/24 13:31 Patient Tobacco Use Status Never used Tobacco 07/03/24 13:31 e-Cigarette/Vaping Use Never Used 07/03/24 13:31 PHQ-9: PHQ-9 Score PHQ-9: Total score 4 07/03/24 13:38 Depression Screening Interpretation: Negative Thrive Assessment: Date of Thrive Assessment Date Thrive assessed 06/26/24 07/03/24 13:31 Currently or been in a relationship where the following occur: No concerns rep orted Const General: no acute distress and well developed Nutritional Appearance: well nourished Orientation/consciousness: patient oriented x3 [facility] Head: Yes normocephalic and Yes atraumatic Eyes General: appearance normal, both eyes and all related structures Pupils: Equal, round and reactive pupils present EOM: EOMs intact bilaterally Resp Effort & Inspection: normal respiratory effort Auscultation: clear to auscultation bilaterally Cardio Rate: regular rate Rhythm: regular rhythm Heart sounds: S1 normal heart sound present, S2 normal heart sound present, no gallops, no murmurs and no rubs Neuro General: patient oriented x3 and gait normal Cranial nerves: Yes Equal, round and reactive pupils present Psych Affect: normal affect Coding Level of Care Code Est Pt Level 3 (36486) Diagnoses Essential hypertension I10 CAD (coronary artery disease) I25.10 Additional Codes LOU-7 Assessment Billing - LOU-7 Assessment Tool: LOU-7 Assessment 62957 ([id number]) PHQ-9 - 19989 - PHQ-9 Billing: Yes ([id number]) Assessment & Plan Assessment & Plan (1) Essential hypertension: Code(s): I10 - Essential (primary) hypertension Category: Medical Plan: Blood?pressure?132/80?now?fairly?well?controlled.??Goal?is?less?than?130/80 Patient?says?he?only?just?took?his?medication?shortly?before?he?arrived?today. He?also?notes?that?he?has?a?blood?pressure?monitor?being?delive red?soon?and?will?monitor?at?home.??He?will?call?return?to?the?office?if?blood?p ressures?are?rising?again. Continue?current?medication?regimen Watch?salt/sodium Work?on?weight?loss?and?exercise (2) CAD (coronary artery disease): Code(s): I25.10 - Atherosclerotic heart disease of [place] coronary artery without angina pectoris Category: Medical Plan: Patient?has?an?upcoming?angiogram?with?Cardiology Follow-up?with?Cardiology?as?recommended
[2024-07-03 13:27] VITALS: BP 132/80; PULSE 91; O2SAT 97; BMI 63.6
== END 2024-07-03 13:42 | disposition home or self-care (01) ==
PROVIDERS: PCP Family Medicine; Visit Provider Family Medicine
DX: I10 Essential (primary) hypertension (principal); I25.10 Atherosclerotic heart disease of native coronary artery without angina pectoris

== ENCOUNTER 2024-07-14 08:19 | Outpatient (AMB) | payer OTHER, SELFPAY ==
[2024-07-14 08:28] VITALS: BMI 62.7
--- NOTE | 2024-07-14 08:28 | A.OFFVIS_ITS ---
VS Expanded 07/14/24 08:28 07/15/24 10:57 Height 5 ft 7.5 in 5 ft 7.5 in Weight 406 lb 1.463 oz 406 lb BMI 62.7 62.6 Intake Visit Reasons: T2DM Allergies shellfish derived Allergy (Severe, Verified 07/03/24 13:27) rash, sweeling throat almond Allergy (Intermediate, Verified 07/03/24 13:27) Gastrointestinal Upset Egg Derived Allergy (Intermediate, Verified 07/03/24 13:27) Gastrointestinal Upset Fish Containing Products Allergy (Intermediate, Verified 07/03/24 13:27) Gastrointestinal Upset hazelnut Allergy (Intermediate, Verified 07/03/24 13:27) Diarrhea milk Allergy (Intermediate, Verified 07/03/24 13:27) Gastrointestinal Upset peanut Allergy (Intermediate, Verified 07/03/24 13:27) Gastrointestinal Upset soy Allergy (Intermediate, Verified 07/03/24 13:27) Gastrointestinal Upset walnut Allergy (Intermediate, Verified 07/03/24 13:27) Gastrointestinal Upset wheat Allergy (Intermediate, Verified 07/03/24 13:27) Gastrointestinal Upset No Known Drug Allergies Allergy (Unknown, Verified 07/03/24 13:27) none SESAME Allergy (Intermediate, Uncoded 06/11/24 08:53) Gastrointestinal Upset Raw fruit Adverse Reaction (Intermediate, Uncoded 06/11/24 08:53) Tickling in back of throat Nutrition Presentation Details: Pt presents for MNT for T2DM with CAD, morbid obesity and multiple food allergies (nuts/seeds/soy, dairy, eggs. seafood, wheat) Typical meal intake 7:30 grits/water, hot tea and 2 tbsp of sugar and just eggs plant based L12 chicken /turkey /beef bread whole grain , veggies water protein bar : luis manuel protein bar vanilla turkey breast, or mashed potatoes or carrots,or beans birds eye mixed veggies snack: apple pie or cake sparkling water food frequency fruits: 0-1/d ve serving/d dairy alternatives: 2/d protein: 15 oz/d starches> 20 BS Monitoring Most Recent Diabetes Results: Cholesterol 153 mg/dL (<200) 07/13/24 HDL Cholesterol 38 mg/dL (>40) L 07/13/24 Triglycerides 63 mg/dL (<150) 07/13/24 Creatinine 1.36 mg/dL (0.5-1.4) 07/13/24 Blood Urea Nitrogen 27 mg/dL (9-16) H 07/13/24 Sodium 139 mmol/L (135-145) 07/13/24 Potassium 4.2 mmol/L (3.3-5.1) 07/13/24 Chloride 104 mmol/L (96-108) 07/13/24 Carbon Dioxide 24 mmol/L (22-29) 07/13/24 Calcium 9.8 mg/dL (8.4-10.2) 07/13/24 AST 22 U/L (5-37) 06/11/24 ALT 21 U/L (0-40) 06/11/24 Total Protein 7.5 g/dL (6.5-8.0) 06/11/24 Albumin 3.9 g/dL (3.5-5.0) 06/11/24 KZV-Ywledep-Bk.Jeor Equation Height: 5 ft 7.5 in Weight: 406 lb Resting Metabolic Rate: 2660.47 Calculated Activity Level: Sedentary Calories Needed to Maintain Weight: 3192.56 Diagnosis Nutrition problem #1: excessive energy intake As related to (etiology) #1: diagnosis As evidenced by (sign/symptom) #1: high BMI and knowledge deficit of diet Monitoring/Goals Nutrition problem monitoring: level of knowledge/skill, total PRO intake and weight Learning/Education Readiness to learn: good [facility] Medical History Morbid obesity Adjustment disorder Impacted cerumen, bilateral Pre-diabetes Acute muscle stiffness of neck History of ME (myocardial infarction) Viral illness Laboratory examination ordered as part of a routine general medical examination Screening for prostate cancer Screening for colon cancer Adult general medical exam Screening for prostate cancer No pertinent past medical history Surgical History Hx of oral surgery Family History Father Heart disease Mother Diabetes Sister FH: diabetic complications Social History Housing: House Alcohol intake: current Alcohol intake frequency: holidays/special occasions only Patient Tobacco Use Status: Never used Tobacco e-Cigarette/Vaping Use: Never Used service: Yes Current occupational status: employed 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 Cognitive needs: No Hearing needs: No Vision needs: No Assessment & Plan Assessment & Plan (1) Type 2 diabetes mellitus with morbid obesity: Comment: CAD, multiple food allergies Code(s): E11.69 - Type 2 diabetes mellitus with other specified complication; E66.01 - Morbid (severe) obesity due to excess calories Category: Medical Plan: Wt: 184 Kg ( 07/18 ) Est kcal needs as per MSJ: 3200 (40% carb, 30% protein/fat) Est fluid needs as per 25-30 ml/d: 5500 Est prot per day as per 1 g/kg bw: 180 Recommend fiber intake : 8-10 g per day and gradually increase to 25-28 g per day for women and 35-38 g for men or as tolerated Recommend sodium intake per day : less than 2300 mg Educated patient on: ( R = reviewed V = verbalizes understanding N/R = needs review N/A = not applicable * Food sources of carbohydrate, adequate serving sizes and its role in various health conditions: R (wheat free options) * Differences between complex carbohydrates a simple carbohydrates, role of fiber in diet: R (wheat free options) * Lean protein sources of foods: R V NR * Differences between types of fats and role in diet (mono on saturated fat fatty acids, saturated fatty acids, trans fats): R V N/R * Food sources of sodium in salt and healthy modifications for heart health in kidney health: R V R/V * Vitamins and minerals: R V N/R * Healthy plate method concept: R V N/R * Physical activity: Benefits a precaution: R V N/R * Hypoglycemia protocol (rule of 15): R V N/R * Dietary prevention of Hyperglycemia: R Patient Instructions: Incorporate calcium rich plant foods: leafy greens, spinach, turnip greens Choose a fruit as snack ( apple with cinnamon) as you continue to reduce on pastries/wheat snacks Coding Level of Care Code Nutr Indiv Intake (35005) Diagnoses Type 2 diabetes mellitus with morbid obesity E11.69; E66.01 Time Spent (min) 30
[2024-07-15 14:14] VITALS: BMI 62.6
== END 2024-07-14 09:17 | disposition home or self-care (01) ==
PROVIDERS: PCP Family Medicine; Visit Provider Dietitian, Registered
DX: E11.69 Type 2 diabetes mellitus with other specified complication (principal); E66.01 Morbid (severe) obesity due to excess calories

== ENCOUNTER → 2024-07-14 08:19 | Outpatient (BNVA) | payer OTHER, SELFPAY | PROVIDERS: PCP Family Medicine; Visit Provider Dietitian, Registered | DX: E11.69 Type 2 diabetes mellitus with other specified complication (principal); E66.01 Morbid (severe) obesity due to excess calories; Z68.44 Body mass index [BMI] 60.0-69.9, adult; Z71.3 Dietary counseling and surveillance | CPT/HCPCS: 97802 ==

== ENCOUNTER → 2024-07-21 23:59 | Outpatient (BNV) | payer OTHER, SELFPAY | PROVIDERS: PCP Family Medicine; Visit Provider Internal Medicine Cardiovascular Disease | DX: I20.89 Other forms of angina pectoris (principal) | CPT/HCPCS: 93458; 99152 ==

== ENCOUNTER → 2024-07-31 08:28 | Outpatient (BNVA) | payer OTHER, SELFPAY | PROVIDERS: PCP Family Medicine; Visit Provider Nurse Practitioner Family | DX: Z01.810 Encounter for preprocedural cardiovascular examination (principal); I10 Essential (primary) hypertension; E66.01 Morbid (severe) obesity due to excess calories; R07.9 Chest pain, unspecified; Q24.5 Malformation of coronary vessels; E78.5 Hyperlipidemia, unspecified; Z68.44 Body mass index [BMI] 60.0-69.9, adult; Z98.890 Other specified postprocedural states | CPT/HCPCS: 93005 ==

== ENCOUNTER → 2024-07-31 08:28 | Outpatient (AMB) | payer OTHER, SELFPAY ==
--- NOTE | 2024-07-31 08:37 | A.OFFVIS_ITS ---
Vital Signs 07/31/24 08:37 Height 5 ft 7 in Weight 404 lb 5.244 oz BMI 63.3 BP 140/62 H Blood Pressure Location Lt radial Position Sitting Pulse 77 Pulse Source Monitor Intake Visit Reasons: Follow up post cardiac cath Intake Note: f/up- cath Ref[employer]ated [employer] Required: No Accompanied by: Self / Same As Patient Allergies shellfish derived Allergy (Severe, Verified 07/03/24 13:27) rash, sweeling throat almond Allergy (Intermediate, Verified 07/03/24 13:27) Gastrointestinal Upset Egg Derived Allergy (Intermediate, Verified 07/03/24 13:27) Gastrointestinal Upset Fish Containing Products Allergy (Intermediate, Verified 07/03/24 13:27) Gastrointestinal Upset hazelnut Allergy (Intermediate, Verified 07/03/24 13:27) Diarrhea milk Allergy (Intermediate, Verified 07/03/24 13:27) Gastrointestinal Upset peanut Allergy (Intermediate, Verified 07/03/24 13:27) Gastrointestinal Upset soy Allergy (Intermediate, Verified 07/03/24 13:27) Gastrointestinal Upset walnut Allergy (Intermediate, Verified 07/03/24 13:27) Gastrointestinal Upset wheat Allergy (Intermediate, Verified 07/03/24 13:27) Gastrointestinal Upset No Known Drug Allergies Allergy (Unknown, Verified 07/03/24 13:27) none SESAME Allergy (Intermediate, Uncoded 06/11/24 08:53) Gastrointestinal Upset Raw fruit Adverse Reaction (Intermediate, Uncoded 06/11/24 08:53) Tickling in back of throat Medication List - Last Reconciled 07/31/24 by Hailey Marcial NP-C amlodipine 10 mg PO DAILY atorvastatin 80 mg PO BEDTIME 90 days carvedilol 6.25 mg PO BID cholecalciferol (vitamin D3) 125 mcg PO DAILY 90 days ibuprofen 600 mg PO Q8H PRN lisinopril-hydrochlorothiazide 20-25 mg 1 tab PO QAM 90 days metformin 750 mg (1.5 x 500 mg) PO BID 90 days thiamine HCl (vitamin B1) 100 mg PO DAILY HPI HPI Follow up post cardiac cath: Details: Jonathan is a 53 yo male with past medical history of morbid obesity, prediabetes, hypertension who is preop for bariatric surgery and reported chest tightness with exertion. A nuclear stress test was mildly abnormal. He underwent a cardiac catheterization and now presents for follow-up. Today he states that he has only been doing light activity since his procedure. 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 He has not been to the gym or doing exercises in the last 2 weeks. No chest discomfort at rest or with activity. No shortness of breath, PND, orthopnea. No palpitations, lightheadedness, presyncope, syncope. Taking meds as directed. [facility] Medical History Morbid obesity Adjustment disorder Impacted cerumen, bilateral Pre-diabetes Acute muscle stiffness of neck History of [place] (myocardial infarction) Viral illness Laboratory examination ordered as part of a routine general medical examination Screening for prostate cancer Screening for colon cancer Adult general medical exam Screening for prostate cancer No pertinent past medical history Surgical History Hx of oral surgery Family History Father Heart disease Mother Diabetes Sister FH: diabetic complications Social History Housing: House Alcohol intake: current Alcohol intake frequency: holidays/special occasions only Patient Tobacco Use Status: Never used Tobacco e-Cigarette/Vaping Use: Never Used service: Yes Current occupational status: employed 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 Cognitive needs: No Hearing needs: No Vision needs: No Review of Systems Const All systems reviewed & are unremarkable except as noted in HPI and below Denies chills, Denies fatigue, Denies fever(s), Denies frequent falls, Denies weakness, Denies weight gain and Denies weight loss ENT Denies dizziness Card Denies chest pain, Denies leg edema, Denies lightheadedness, Denies palpitations, Denies dyspnea and Denies dyspnea on exertion Resp Denies cough, Denies dyspnea and Denies dyspnea on exertion GI Denies hematochezia Musc Denies abnormal gait, Denies muscle weakness, Denies numbness, Denies radiating pain into limb and Denies tingling Neuro Denies abnormal gait, Denies dizziness, Denies frequent falls, Denies numbness, Denies tingling and Denies weakness Endo Denies fatigue and Denies palpitations Physical Exam Const Other: Morbidly obese General: cooperative, healthy appearing, comfortable and no acute distress Orientation/consciousness: patient oriented x3 Neck Neck: Yes normal visual inspection Resp Effort & Inspection: normal respiratory effort Auscultation: clear to auscultation bilaterally, no rales, no rhonchi and no wheezes Cardio Rate: regular rate Rhythm: regular rhythm Heart sounds: S1 normal heart sound present, S2 normal heart sound present, no murmurs and no rubs Neuro General: patient oriented x3 Extrem General: Yes normal to inspection, No no pedal edema and No calf tenderness Psych Appearance: grossly normal Mental Status: mental status grossly normal Speech and movement: Normal speech and movement present Office Procedures EKG Details: Today, read by me, SR with ST/ T wave abn leads III, Avf, more noticable then last EKG, rate 77, QTc 398ms [id number], Complete Assessment & Plan Assessment & Plan (1) Chest pain: Code(s): R07.9 - Chest pain, unspecified Category: Medical Plan: Reports of chest tightness while exercising. Cardiac risk factors of family history, morbid obesity, prediabetes, hypertension. Echocardiogram done 04/15/2024 showed EF 60%, no regional wall motion abnormalities, normal valves. A nuclear stress test done 05/25/2024 shows a fixed apical inferior defect that was thought to be artifactual, probable normal myocardial perfusion, EF 51% with stress and 54% during rest. EKG 07/03/2023 shows normal sinus rhythm, rate 91. 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 A CTA of the coronary arteries has already been ordered for further evaluation. It is felt that His chest tightness is not related to coronary artery disease. Test results reviewed with him in detail. He needs ongoing cardiac risk factor modification including good cholesterol, blood pressure, blood sugar, weight control. Continue atorvastatin with ideal LDL goal less than 100. Continue carvedilol, amlodipine, lisinopril/hydrochlorothiazide for blood pressure control. Continue physical activity as tolerated. Cardiology follow-up in 3 months, sooner if needed. - plan to go over CTA results with him. (2) S/P cardiac catheterization: Comment: 07/21/2024. 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 No medication changes made. (6) Hyperlipidemia: Code(s): E78.5 - Hyperlipidemia, unspecified Category: Medical Plan: [place] LDL goal less than 70. He is currently prediabetic and if he becomes diabetic LDL goal less than 70. Labs done 07/13/2024 shows LDL 103. Continue high intensity statin. Can be followed by PCP. (7) Preop cardiovascular exam: Code(s): Z01.810 - Encounter for preprocedural cardiovascular examination Category: Medical Plan: Preop for bariatric surgery. He may proceed with a low to intermediate cardiac risk. Continue statin and antihypertensives. Call/consult Cardiology if needed. Plan Time spent on chart review, documentation, interview and assessment Coding Level of Care Code Est Pt Level 4 (97570) Complex EM visit Add On G2211 Diagnoses Chest pain R07.9 S/P cardiac catheterization Z98.890 Anomalous right coronary artery Q24.5 Morbid obesity E66.01 Essential hypertension I10 Hyperlipidemia E78.5 Preop cardiovascular exam Z01.810 CPT Codes EKG - CPT: 78001-Bcraekcjoznxkpckv, Complete ([id number]) Time Spent (min) 28
--- OUTSIDE RECORDS SUMMARY | 2024-07-31 08:52 | XMS_ITS | Data Portability ---
Author Organization [facility], [address] Address [address] [place] [address] Assessment No assessment recorded. Plan of Treatment Reminders Order Date Submit Date Provider Last Modified By Organization Details Last Modified Time Details Appointments None recorded. Lab urinalysis , dipstick 2022 023 [place] [address] _[facility], [address] [place] [address], [phone], 3 11:45:12 glucose, fingerstic k, blood 2022 023 [place] [address] _[facility], [address] [place] [address], [phone], 3 11:45:12 Referral emergency medicine referral 2022 [...] >400 mg/dL 80-140 = normal Not Available _[address], [address], 11/15/2022 11:41:20 11/16/19 23 11/15/2022 gluco se, finge rstic k, blood blood sugar - fasting mg/dL 80-125 = normal Not Available [address], [place], [address], 11/15/2022 11:41:20 11/16/19 23 11/15/2022 urina lysis , dipst ick Unknown Analyte Normal = light yellow Not Available [facility] [address], [place], [address], 11/15/2022 11:34:37 11/16/19 23 11/15/2022 urina lysis , dipst ick Unknown Analyte Yellow Not Available [address], [place], [address], 11/15/2022 11:34:37 11/16/19 23 11/15/2022 urina lysis , dipst ick Unknown Analyte Normal = clear Not Available [address], [place], [address], 11/15/2022 11:34:37 11/16/19 23 11/15/2022 urina lysis , dipst ick Unknown Analyte Clear Not Available [address], [place], [address], 11/15/2022 11:34:37 11/16/19 23 11/15/2022 urina lysis , dipst ick Unknown Analyte Normal = negati ve Not Available [facility] [address], [place], [address], 11/15/2022 11:34:37 11/16/19 23 11/15/2022 urina lysis , dipst ick Unknown Analyte 500 mg/dL Not Available [facility] [address], [place], [address], 11/15/2022 11:34:37 11/16/19 23 11/15/2022 urina lysis , dipst ick Unknown Analyte Normal = Negati ve Not Available [facility] [address], [place], [address], 11/15/2022 11:34:37 11/16/19 23 11/15/2022 urina lysis , dipst ick Unknown Analyte Negati ve Not Available [facility] [address], [place], [address], 11/15/2022 11:34:37 11/16/19 23 11/15/2022 urina lysis , dipst ick Unknown Analyte Normal = Negati ve Not Available [facility] [address], [place], [address], 11/15/2022 11:34:37 11/16/19 23 11/15/2022 urina lysis , dipst ick Unknown Analyte Negati ve Not Available [facility] [address], [place], [address], 11/15/2022 11:34:37 11/16/19 23 11/15/2022 urina lysis , dipst ick Unknown Analyte Normal = 1.010, 1.015, 1.020 Not Available [facility] [address], [place], [address], 11/15/2022 11:34:37 11/16/19 23 11/15/2022 urina lysis , dipst ick Unknown Analyte 1.015 Not Available [address], [place], [address], 11/15/2022 11:34:37 11/16/19 23 11/15/2022 urina lysis , dipst ick Unknown Analyte Normal = Negati ve Not Available [facility] [address], [place], [address], 11/15/2022 11:34:37 11/16/19 23 11/15/2022 urina lysis , dipst ick Unknown Analyte Negati ve Not Available [facility] [address], [place], [place], [address], 11/15/2022 11:34:37 11/16/19 23 11/15/2022 urina lysis , dipst ick Unknown Analyte Normal = 6.5, 7.0, 7.5, 8.0 Not Available [address], [place], [place], [address], 11/15/2022 11:34:37 11/16/19 23 11/15/2022 urina lysis , dipst ick Unknown Analyte 5.5 Not Available [facility] [address], [place], [place], [address], 11/15/2022 11:34:37 11/16/19 23 11/15/2022 urina lysis , dipst ick Unknown Analyte Normal = Negati ve Not Available [facility] [address], [place], [address], 11/15/2022 11:34:37 11/16/19 23 11/15/2022 urina lysis , dipst ick Unknown Analyte Negati ve Not Available [address], [place], [place], [address], 11/15/2022 11:34:37 11/16/19 23 11/15/2022 urina lysis , dipst ick Unknown Analyte Normal = 0.2, 1.0 Not Available t[facility] [address], [place], [address], 11/15/2022 11:34:37 11/16/19 23 11/15/2022 urina lysis , dipst ick Unknown Analyte 0.2 E.U./d L Not Available [address], [place], [address], 11/15/2022 11:34:37 11/16/19 23 11/15/2022 urina lysis , dipst ick Unknown Analyte Normal = Negati ve Not Available [address] [place] [address], [place], [address], 11/15/2022 11:34:37 11/16/19 23 11/15/2022 urina lysis , dipst ick Unknown Analyte Negati ve Not Available [address] [place] [address], [place], [address], 11/15/2022 11:34:37 11/16/19 23 11/15/2022 urina lysis , dipst ick Unknown Analyte Normal = Negati ve Not Available [address] [place] [address], [place], [address], 11/15/2022 11:34:37 11/16/19 23 11/15/2022 urina lysis , dipst ick Unknown Analyte Negati ve Not Available [address] [place], [place] [address] [place], [address], 11/15/2022 11:34:37 Result Notes None recorded. Problems Name Problem SNOMED Code Status Onset Date Resolution Date Notes Provider Name and Address Organization Details Recorded Time Prediabetes 214377503 Active 023 SANJEEV Young - [facility] 10:53:17 Problem Notes None recorded. Medical Equipment None Reported. Allergies Allergen ID Allergen Name Allergen Category Reaction Reaction Severity Criticality Documentation Date Start Date Code Code System Note Provider Name and Address Organization Details Recorded Time 961307 shellfish derived food,medi cation Not available Not available Not available 11/15/2022 [id number] UNK SANJEEV [facility] 3 10:52:23 Medications Name Sig Start Date Stop Date Status Note LastModified by Organization Details LastModified Time multivitamin active Not Available Not Available Not Available Vitals Date Recorded Body height Body mass index (BMI) Body weight Pain severity - 0-10 verbal numeric rating [Score] - Reported Respiratory rate Body temperature Oxygen saturation Oxygen saturation in Arterial blood by Pulse oximetry Heart rate Systolic blood pressure Diastolic blood pressure Provider Name and Address Organization Details Last Updated DateTime 3 172.72 cm 66 kg/m2 259360. 09 g 5 20 /min 97.5 [degF] 98 % 98 % 94 /min 137 mm[Hg] 84 mm[Hg] Mercedes Hou [facility] 3 10:55:27 Social History Question Answer Notes LastModified by Organizat ion Details LastModified Time Tobacco Smoking Status Never Smoker SANJEEV Young [facility] 11/15/2022 10:53:51 What Is Your Level [...] 50 mcg/0.25mL dose 10/13/2020 completed SANJEEV Young [facility] 11/15/2022 10:52:15 COVID-19, mRNA, LNP-S, PF, 100 mcg/0.5mL dose or 50 mcg/0.25mL dose 11/07/2020 completed SANJEEV Young - [facility] 11/15/2022 10:52:15 Past Encounters Encounter ID Performer Location Encounter Start Date Encounter Closed Date Diagnosis/Indication Diagnosis SNOMED-CT Code Diagnosis ICD10 Code Diagnosis Note [id number] [address] [address] 10/20/2018 14:17:41 10/20/2018 14:46:[id number] [address] 07/20/2019 13:35:00 07/20/2019 14:37:30 [id number] Lennie Vidal MD [address] [address] 11/15/2022 09:18:58 11/15/2022 11:48:14 Polyuria 30718159 R35.89 Hyperglycemia 12576892 R 73.9 Patient with history Pre-DM, not on medication s and no PCP. Symptomati c and needs further workup and treatment. [facility] Glycosuria [id number] R81 Needs Blood sugar management and will go to ED\Agrees to go to [facility] rrently stable Health Concerns Section Related Observation LastModified by Organization Detai ls LastModified Time None Recorded Concern Status LastModified by Organization Details LastModified Time None Recorded Advance Directives Directive None Recorded Payers Encounter Date Sequence Insurance Name Policy Number Policy Barba Covered Member ID Barba Member ID Guarantor Name 07/20/2019 1 [place]ER ([place]O) [id number] Jonathan Jeff [id number] Jonathan Jeff 11/15/2022 1 [facility] [id number] Jonathan Jeff [id number] 1 Jonathan Jeff Notes Date Note Type Note Provider Name and Address Organization Details Recorded Time 11/15/2022 text/html Patient presents with dry mouthUpon questioning he admits to excessive thrist and urinatrion for the last months.KNown to be prediabetric only.ON no meds for Diabetes. Lennie Vidal [facility] [address] [facility] [place], [address], [place] - [facility] 11/20/2022 08:30:29
--- OUTSIDE RECORDS SUMMARY | 2024-07-31 08:52 | XMS_ITS | Continuity of Care Document ---
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 Phone Not on Staff, PCP Primary Care Physician Unavail able Encounter [facility] Date(s): 07/21/24 - 07/21/[address] [address]- Discharge Disposition: A-D/C Home Attending Physician: Amador Devi MD Admitting Physician: Amador Devi MD Referring Physician: Amador Devi MD Encounter Type: Disch Daystay Allergies, Adverse Reactions, Alerts Substance Criticality Severity Reaction Reaction Severity Status shellfish Active Medications amLODIPine 5 mg oral tablet 5 mg, 1, tablet, By Mouth, Daily, # 30 tablet, Refills 0, Maintenance, 07/21/24 10:21:00 AM EST, Partial fill upon patient request if the prescription is for a schedule II opioid drug. Start Date: 07/21/24 Status: Ordered Quantity: 30.0 Unit: tablet Repeat number: 1 aspirin 81 mg oral delayed release tablet 81 mg, 1, tablet, By Mouth, Daily, # 30 tablet, Refills 0, Maintenance, 07/21/24 10:23:00 AM EST, Partial fill upon patient request if the prescription is for a schedule II opioid drug. Start Date: 07/21/24 Status: Ordered Quantity: 30.0 Unit: tablet Repeat number: 1 atorvastatin 80 mg oral tablet 1 tablet = 80 mg, By Mouth, Daily, # 30 tablet, 5 Refills, Maintenance, 07/21/24 10:21:00 AM EST, Tablet, Partial fill upon patient request if the prescription is for a schedule II opioid drug. Start Date: 07/21/24 Status: Ordered Quantity: 30.0 Unit: tablet Repeat number: 1 carvedilol 6.25 mg oral tablet 6.25 mg, 1, tablet, By Mouth, 2 times a day, # 60 tablet, Refills 0, Maintenance, 07/21/24 10:22:00 AM EST, Partial fill upon patient request if the prescription is for a schedule II opioid drug. Start Date: 07/21/24 Status: Ordered Quantity: 60.0 Unit: tablet Repeat number: 1 hydrochlorothiazide-lisinopril 25 mg-20 mg oral tablet 1 tablet, By Mouth, Daily, # 15 tablet, 0 Refills, Maintenance, 07/21/24 10:22:00 AM EST, Tablet, Partial fill upon patient request if the prescription is for a schedule II opioid drug. Start Date: 07/21/24 Status: Ordered Quantity: 15.0 Unit: tablet Repeat number: 1 metFORMIN 500 mg oral tablet, extended release 1 tablet = 500 mg, By Mouth, 2 times a day, # 60 tablet, 0 Refills, Maintenance, 11/15/22 5:44:00 PMEDT, ER Tablet, [facility]/pharmacy #[id number], Partial fill upon patient request if the prescription is for a schedule II opioid drug., 173, cm, 11/15/22 16:45:00 EDT, Height, 200.2, kg, 11/15/22 16:45:00 EDT, Dry Weight Start Date: 11/15/22 Stop Date: 12/15/22 Status: Ordered Quantity: 60.0 Unit: tablet Repeat number: 1 Vitamin B1 100 mg oral tablet 100 mg, 1, tablet, By Mouth, Daily, # 7 tablet, Refills 0, Maintenance, 07/21/24 10:23:00 AM EST, Partial fill upon patient request if the prescription is for a schedule II opioid drug. Start Date: 07/21/24 Stop Date: 07/28/24 Status: Ordered Quantity: 7.0 Unit: tablet Repeat number: 1 Vitamin D3 5000 intl units oral capsule 1 capsule = 125 mcg, By Mouth, Daily, with food, # 100 capsule, 0 Refills, Maintenance, 07/21/24 10:23:00 AM EST, Capsule, Partial fill upon patient request if the prescription is for a schedule II opioid drug. Start Date: 07/21/24 Status: Ordered Quantity: 100.0 Unit: capsule Repeat number: 1 Problem List Condition Confirmation Course Effective Dates Status Health [facility] at[facility] Informant Severe obesity Confirmed Active Vital Signs Most recent to oldest [Reference Range]: 1 2 3 Height 172 cm (07/21/24 10:30 AM) Weight 185.3 kg (07/21/24 10:30 AM) Oxygen Saturation [94-100 %] 100 % (07/21/24 2:00 PM) 99 % (07/21/24 1:30 PM) 98 % (07/21/24 1:00 PM) Pulse Rate [55-90 bpm] 67 bpm (07/21/24 10:30 AM) Body Mass Index [18.5-24.99 kg/m2] 62.64 kg/m2 *>HHI* (07/21/24 10:30 AM) Blood Pressure [90-138/55-84 mm Hg] 114/52mm Hg (07/21/24 2:00 PM) 113/69mm Hg (07/21/24 1:30 PM) 93/44mm Hg (07/21/24 1:00 PM) Respiratory Rate [16-30 br/min] 22 br/min (07/21/24 2:00 PM) 16 br/min (07/21/24 1:30 PM) 16 br/min (07/21/24 1:00 PM) Temperature [96.8-100.4 DegF] 97.5 DegF (07/21/24 10:30 AM) Mode of Delivery (Oxygen) Room air (07/21/24 2:00 PM) Room air (07/21/24 1:30 PM) Room air (07/21/24 1:00 PM) Blood pressure sites Arm, left (07/21/24 11:30 AM) Arm, left (07/21/24 10:30 AM) Arm, right (07/21/24 10:15 AM) Temperature Route Temporal (07/21/24 10:30 AM) Weight Obtained Via Standing scale (07/21/24 10:30 AM) Note * Event Display: Hemodynamic Procedure Report Authored Date: * Kirsten Nix RN: PERFORM Event Display: Discharge/Transfer Note Hospital Authored Date: [id number] Nursing Discharge Note Entered On: 07/21/2024 16:27 EST Performed On: 07/21/2024 15:05 EST by Kirsten Nix RN Nursing Discharge Note 2 Discharge Time : 07/21/2024 15:05 EST Discharge Level of Care at Discharge : Home/Fdc/Foster Care Patient Left Unit Via : Wheelchair Patient Accompanied Off Unit with : Responsible adult DC Instructions Provided & Signed by Pt : Yes Patient Understands D/C Instructions : Yes Patient Instructions Discharge Signed : Yes Discharge Comments : Discharged without issue - right radial access site stable, no ooze or hematoma. Did Pt have Specialty Bed or Wound Vac : No Kirsten Nix RN - 07/21/2024 16:26 EST * Kirsten Nix RN: PERFORM Event Display: Patient Education/Instruction Authored Date: [id number] Inpatient Adult Discharge Instructions. [address] [address] Name: SUZE SCOTT : 1970?? Visit: 07/21/2024 09:08?? Current Date: 07/21/2024 13:58 ?? Account: [id number]?? Inpatient Adult Discharge Instructions We would like to thank you for allowing us to assist you with your healthcare needs. The following includes patient education materials and information regarding your injury/illness. Our entire staffstrives to provide an excellent experience for our patients and their families. PLEASE ENSURE YOU FOLLOW-UP PER THE INSTRUCTIONS BELOW! ?? YOUR OPINION IS IMPORTANT TO US! Please complete the survey you may receive by mail or email. Your feedback will be used to make improvements to the healthcare experiences of our patients and their families. Surveys are administered by [employer] ?? If further treatment with your primary care physician or another doctor is recommended, it is important for you to keep the appointment. Call your primary care physician or return to the Emergency Department immediately if your condition worsens, fails to improve, or new symptoms develop. If you need to find a doctor, you can call [facility] for a referral at [phone] or toll free at [phone] or log in to [email or web address].. ?? [facility], in keeping with [facility] guidance, no longer requires face masks for staff, patientsor visitors in most situations. Similiar to time spent indoors at other locations, there is the chance that you were exposed to repiratory viruses during your time with us (such as flu or COVID-19). If you develop symptoms concerning for a viral respiratory infection, please seek testing (and treatment if indicated) from your medical provider or home test kit. ?? You can view and manage your care through the patient portal or by using a health care chema of your choosing. [employer] is a website that allows you to securely view your medical information including your hospital discharge summary, office visit summaries, medications and follow-up visits. You can also request appointments, renew medications, and request access to your medical information using a health care chema of your choosing, or just ask a question. You can enroll at [email or web address] or register during your next office visit. You have been discharged from [facility], Patient Care Unit: CARE??. If you have any questions regarding these instructions, including results of studies pending, afteryou leave, please call us and we will be happy to assist you 14/01. [facility] Nursing Unit Direct Phone Number, for 14/01 contact and results of studies pending CARE [address] [place] [id number] Your Care Team Attending Physician Amador Devi MD?? Consulting Providers Amador Devi MD?? Discharging Providers Amador Devi MD Tests Performed Below is a partial list of the tests performed during your hospitalization. You may have had other tests and procedures not included in this list. Please discuss all test results with your provider. GLUCOSE POC Type and Screen Glucose POC?? Type and Screen?? Primary Care Provider Not on Staff, PCP?? Advance Directive Health Care Proxy on File No Discharge Vitals Temperature: 97.5 DegF Height: 172 cm Pulse Rate: 67 bpm Weight: 185.3 kg Respiratory Rate: 16 br/min Body Mass Index:??62.64 kg/m2??Critical Systolic Blood Pressure: 113 mm Hg Body surface area: 2.98 Diastolic Blood Pressure: 69 mm Hg ?? Oxygen Saturation: 99 % ?? Studies Pending All studies ordered during this hospital stay have been completed unless listed below. Please discuss all pending results with your provider listed above in these instructions. ?? No incomplete studies found?? What to do next Instructions From Your Doctor ?? Orders?? Daystay Protocol, ??07/21/24 11:25:00 EST?? You Need to Schedule the Following Appointments Follow Up with??PCP Not on Staff Discharge Medications SUZE SCOTT :1970 Visit Date:07/21/2024 Medications: Please continue your medications until treatment is completed or stopped by your provider. Medications not listed below should be discontinued. Discuss any questions related to medications with your provider. What How Much When Instructions Next Dose Unchanged Amlodipine (amLODIPine 5 mg oral tablet) 1 tab(s) Oral Daily Resume Unchanged Aspirin (aspirin 81 mg oral delayed release tablet) 1 tab(s) Oral Daily Resume Unchanged Atorvastatin (atorvastatin 80 mg oral tablet) 1 tab(s) Oral Daily Resume Unchanged Carvedilol (carvedilol 6.25 mg oral tablet) 1 tab(s) Oral Twice a day Resume Unchanged Cholecalciferol (Vitamin D3 5000 intl units oral capsule) 1 capsule Oral Daily with food ?? Resume Unchanged Hydrochlorothiazide-Lisinopril (hydrochlorothiazide-lisinopril 25 mg- 20 mg oral tablet) 1 tab(s) Oral Daily Resume Unchanged Metformin (metFORMIN 500 mg oral tablet, extended release) 1 tab(s) Oral Twice a day Duration: 30 Days Resume Unchanged Thiamine (Vitamin B1 100 mg oral tablet) 1 tab(s) Oral Daily Duration: 7 Days Resume Prescription Given During Visit No new medications prescribed at time of discharge.?? Laboratory Results Below is a partial list of the most recent Laboratory test results done prior to this discharge. You may have had other tests and procedures not included in this list. Please discuss all test resultswith your provider. GLUCOSE POC (07/21/2024) ???Glucose, POC - 154 mg/dL Type and Screen (07/21/2024) ???Blood Type - O Positive???Antibody Screen - Negative You will be contacted within 72 hours with your results. Allergies (NKA means No Known Allergies) shellfish Problems Active Problems??(1) Severe obesity?? Education Materials Below is the list of Educational Leaflet Providered with your Discharge Instructions. [employer] Patient Education - Surgery Radial Cath Approach Discharge Instructions?? [employer] Patient Education - Procedural Sedation?? [employer] Patient Education - Discharge Instructions for Cardiac Catheterization?? Valuables and Belongings I fully understand and agree that [facility] accepts no responsibility for all my personal property including clothing, toilet articles, radios, jewelry, dentures, hearing aids, rings, money, or any other property that is in my possession or is brought to me after admission. I understand certain valuables may be placed in a hospital safe for a short period of time. I understand that the hospital is not liable for loss or damage due to accident, fire, or other natural occurrence while said property is in the safe. I accept full responsibility for any personal property that I keep with me, and will not hold the hospital responsible in case of loss or disappearance. I acknowledge that i have been encouraged to send valuables and belongings home. ?? Date for Pt to Sign Valuables/Belongings: 07/21/24 10:30:00 ?? Valuables & Belongings ?? Clothes Electronic devices Jewelry Monetary Items Personal devices Miscellaneous Medications (Valuables) Valuables at Bedside Jacket, Pants, Shirt, Shoes, Undergarments Cell phone ? Valuables Sent Home ? Valuables Sent to Security ? Valuables Sent to Locker ? Other Discharge Information ? Pulmonary Rehab Status?? Pulmonary Rehab Discharge Status?? Respiratory Rate: 16 br/min ? Common Emergency Awareness Tips IS IT A STROKE? Act FAST and Check for these signs: FACE Does the face look uneven? ARM Does one arm drift down? SPEECH Does their speech sound strange? TIME Call at any sign of stroke ?? Heart Attack Signs Chest discomfort: Most heart attacks involve discomfort in the center of the chest and lasts more than a few minutes, or goes away and comes back. It can feel like uncomfortable pressure, squeezing, fullness or pain. Discomfort in upper body: Symptoms can include pain or discomfort in one or both arms, back, neck, jaw or stomach. Shortness of breath: With or without discomfort. Other signs: Breaking out in a cold sweat, nausea, or lightheaded. Remember, MINUTES DO MATTER. If you experience any of these heart attack warning signs, call to get immediate medical attention! ?? Smoking can increase your chances of developing chronic health problems and can cause harmful effects to other family members in your house. If you smoke, you are strongly encouraged to quit. Please call [facility] at [phone] or [phone] or log in to [email or web address] for referrals to smoking cessation programs. ?? 819 Suicide & Crisis Lifeline is available 14/01 if you or someone you know needs to find a reason to keep living. By calling 377 you'll be connected to a skilled, trained counselor at a crisis center in your area. INPATIENT DISCHARGE INSTRUCTIONS SIGNATURE PAGE SONIADENISESUZE Location:[facility] Registration Date and Time:07/21/2024 09:08 EST Primary Care Physician: Not on Staff, PCP Attending Physician: Marito GRIGGS, [facility], I SUZE SCOTT, have received the above patient education materials/instructions and have verbalized understanding. If ambulance or transport services are being used I further acknowledge being given a choice of service. ?? If you need to contact me, please call me at this number: . Patient/Cardiac/Vascular Sonographer Name: Patient/Cardiac/Vascular Sonographer Signature: Relationship to Patient: Witness Name/Signature: Date: * Kirsten Nix RN: PERFORM, SIGN, VERIFY Event Display: Patient Education Handout Authored Date: [id number] * Kirsten Nix RN: PERFORM Event Display: Patient Education Leaflets Authored Date: [id number] Surgery Radial Cath Approach Discharge Instructions ?? 278 Radial Cath Approach Discharge Instructions ?? Activity Take it easy the rest of the day. Limit your activity on the affected side.?? Act as if your arm is broken for 24 hours. No lifting with affected arm for 24 hours. No pushing or pulling with the affected arm. Do not reach or lift with the affected arm. Do not place excessive pressure on the wrist. ?? Precautions Due to intravenous sedation: It is recommended that someone stay with you for the first night after your procedure. Do not drive or operate hazardous machinery for 24 hours. Do not make legal decisions for 24 hours. Avoid alcohol for 24 hours. Unless directed otherwise, keep yourself hydrated. ?? Dressing/Incision Care You may remove the dressing 24 hours after your procedure. Replace with band aid for an additional 24 hours. You may shower and cleanse the site with soap & water then pat dry. Avoid submersion of site in water x 5 days. Cover the with a clean band aid daily until site is healed. If the band aid becomes soiled, replacewith a clean new one. Do not apply any ointments, lotions, gels or powders to the puncture site. ?? When to contact your doctor If any of the following signs of infection occur: Fever greater than 100 degrees F Increased pain Drainage, redness or warmth at puncture site Tingling of the fingers and hand that last longer than 3 days Slight bubble of blood or bleeding from site: apply manual pressure and notify your doctor ?? Emergency situations: Bleeding from the site that will not stop: apply manual pressure and notify your doctor Profuse bleeding streaming from the puncture site: Apply manual pressure and notify your doctor immediately If your hand becomes bluish, cold to the touch, or painful, notify your doctor immediately or go toEmergency Department. For these emergent situations: If unable to contact your physician, call 911. ?? * Kirsten Nix RN: PERFORM Event Display: Patient Education Leaflets Authored Date: [id number] Procedural Sedation ?? [address] Procedural Sedation Procedural sedation is medicine to ease discomfort, pain, and anxiety during a procedure. The medicine is often given through an IV (intravenous) line in your arm or hand. In some cases, the medicinemay be taken by mouth or inhaled. While you are under sedation, you will likely be awake. But you may not remember it afterward. Why procedural sedation is used Sedation is used for many types of procedures. The goal is to reduce pain, anxiety, and stressful memories of a procedure. It can help your healthcare provider treat you. For example, having a brokenbone fixed may be easier if you feel relaxed. This type of sedation is used only for short, basic procedures. It's not used for complex surgery. Some procedures that use this type of sedation include: ??? Dental surgery ??? Breast biopsy, to take a sample of breast tissue ??? Endoscopy, to look at gastrointestinal problems ??? Bronchoscopy, tocheck for lung problems ??? Bone or joint realignment, to fix a broken bone or dislocated joint ???Minor foot or skin surgery ??? Electrical cardioversion, to restore a normal heart rhythm ??? Lumbar puncture, to check for neurological disease ?? Risks of procedural sedation Risks and possible side effects include: ??? Headache ??? Nausea and vomiting ??? Bad memories of the procedure ??? Slowed breathing ??? Changes in heart rate and blood pressure (rare) ??? Inhalation of stomach contents into your lungs (rare) Side effects will likely go away shortly after the procedure. Your healthcare team will watch your heart rate and breathing during and after your sedation. This is to help prevent problems. Your own risks may vary. They can be based on your age and your overall health. They also depend onthe type of sedation you are given. Talk with your healthcare provider about the risks that apply most to you. ?? Getting ready for procedural sedation Talk with your provider about how to get ready for your procedure. Tell them about all the medicines you take. This includes hoev-ttg-mkfsxxy medicines, such as ibuprofen. It also includes vitamins, herbs, and other supplements. You may need to stop taking some medicines before the procedure, such as blood thinners and aspirin. If you smoke, you should stop. This is to lessen the chance of a lungproblem. Talk with your provider if you need help to stop smoking. Tell your provider if you: ??? Have had any problems in the past with sedation or anesthesia ??? Have had any recent changes in your health, such as an infection or fever ??? Are or think you could be Also: ??? Follow any directions you are given for not eating or drinking before procedure. ??? Ask a trusted adult to take you home after the procedure. You can???t drive on the day you have sedation. ??? Ask a trusted adult to stay with you for a few hours while you recover. ??? Don't make any important decisions, such as financial or legal, on the day after you have sedation. ??? Follow all other instructions from your provider. ?? During your procedural sedation You may have your procedure in a hospital or a clinic. Sedation is done by a trained healthcare provider. In general, you can expect the following: ??? You will be given medicine through an IV line in your arm or hand. Or you may get a shot or take it by mouth. Or you may inhale it through a mask. ??? If you have medicine through an IV, you may feel the effects very quickly. You will start to feel relaxed and drowsy. ??? During the procedure, your heart rate, breathing, and blood pressure will be closely watched. Your breathing and blood pressure may decrease a little. But you will likely notneed help with your breathing. You may get a little extra oxygen. This is done through a mask or some soft plastic prongs under your nose. ??? You will likely be awake the whole time. If you do fall asleep, you should be easy to wake up, if needed. You should feel little or no pain. ??? When your procedure is over, the sedative medicine will be stopped. ?? After your procedural sedation You will start to feel more awake and aware. But you will likely be drowsy for a while afterward. You will be closely watched as you become more alert. You may have a faint memory of the procedure. Or you may not remember it at all. You should be able to go home within 1 to 2 hours after your procedure. Plan to have a trusted adult stay with you for a few hours. This person should make sure your condition is not getting worse. They should also watch for problems, and keep you safe. You may have side effects, such as nausea, fatigue, or unsteadiness for up to 24 hours. You may also feel lightheaded. Tell your healthcare provider if they continue. Don???t drive or operate dangerous machines during the next 24 hours. Also, don't make any important business or personal decisions. And don't drink any alcohol during the next 24 hours. Take extra care when walking and moving, You may be at a higher risk of falling. Follow any instructions you were given for eating and drinking. Be sure to follow all after-care directions. ?? When to call your healthcare provider Have someone call your healthcare provider right away if any of the following occur: ??? Drowsinessthat gets worse ??? Weakness or dizziness that gets worse ??? Repeated vomiting ??? Your speech is slurred, and others cannot understand you ??? Severe or ongoing pain from the procedure, not relieved by the pain medicine (if prescribed) ??? Fever of 100.4?? F (38??C) or higher, or as advised by your healthcare provider ??? New rash ?? Call 911 Have someone call 911 if any of the following occur: ??? Trouble breathing ??? Trouble swallowing ??? Chest pain ??? Loss of consciousness or you can't be awakened ?? Last Reviewed Date: 2021 ?? 4494-4375 [employer]. All rights reserved. This information is not intended as a substitute for professional medical care. Always follow your healthcare professional's instructions. ?? * Kirsten Nix RN: PERFORM Event Display: Patient Education Leaflets Authored Date: [id number] Discharge Instructions for Cardiac Catheterization ?? 137[address] Discharge Instructions for Cardiac Catheterization Cardiac catheterization??is an invasive??procedure??to look for certain heart problems. These problems may affect the heart's chambers, valves, and blood vessels. A thin, flexible tube (catheter) is put in a blood vessel in your groin or arm. The catheter is moved to the heart. The healthcare provider can look at the blood flow, blood pressure, and oxygen. They can inject contrast fluid??into your blood. This flows to your heart.??The provider can then take X-rays pictures?? of your heart. Coronary angiography is often done as part of a cardiac cath. This looks for blocked areas in the arteries that send blood to the heart. If a blockage is found, your provider may try to open up the artery. They may put a stent in place. Your provider will talk with you about the results of your procedure . Ask any questions you have before you leave. This sheet will help you take care of yourselfat home. Home care ??? Have a responsible adult drive you home after your procedure. ??? Don't drive or makeany important decisions for at least 24 hours after getting any type of sedation or anesthesia.? Drink?? 6 to 8??glasses of water over the next 24 hours. This is to help flush the contrast dye out of your body. Call your healthcare team if your urine has any change in color. ??? Take your tempe rature each day for 3 to 5 days. If you feel cold and clammy or start sweating, take your temperature right away. Call your healthcare team. ??? Do only light and easy activities for??the next?? 2 to3??days. Ask for help with chores and errands while you recover. Have someone drive you to your appointments. ??? Don't lift anything heavy??until your healthcare team says it's safe. ??? Ask your healthcare team when you can expect to return to work. Unless your job involves lifting, you may be able to return to your normal activities within 2 days. ??? Take your medicines as directed. Don't skip doses. ??? Check your incisions every day for signs of infection. These include redness, swelling,and fluid leaking. It's normal to have a small bruise or bump where the catheter was put in. A bruise that's getting larger is not normal. Tell your healthcare team about this. Call your healthcare team if you see blood forming in the incision. Go to the emergency room if you have uncontrolled bleeding from the artery site. This is even more important if you take medicines that make it hard for your blood to clot. These include aspirin, clopidogrel, warfarin, apixaban, and rivaroxaban. ??? Eat a healthy diet. Make sure it's low in fat, salt, and cholesterol. Ask your healthcare team for diet information. ??? Stop smoking. Sign up for a quit-smoking program. Or ask your healthcare team for help. ??? Exercise as your healthcare team tells you to. Your healthcare team??may advise you to start a cardiac rehab program. Cardiac rehab is an exercise program where trained healthcare staff watchyour progress and stress on your heart while you exercise. Ask your team how to enroll. ??? Don't swim or take baths until your healthcare team says it???s OK. You can shower the day after the procedure. Keep the site clean and dry. This keeps the incision from getting wet and infected until the skin and artery can heal. ??? Follow all other after-care instructions from your team.? Follow-up care ??? Make a follow-up appointment as advised. It's common to have a follow-up appointment 2 to 4 weeks after an angioplasty or coronary stent procedure. ??? Make a yearly appointment. This is??to make sure you're still doing well and not having any new symptoms. ??? Don't wait for a follow-up appointment if your medicines aren't working or you're having heart-related symptoms. Call your healthcare provider. ?? When to get medical care Call your healthcare provider right away if you have any of these: ??? Severe or increasing pain, numbness, coldness, or a bluish color in the leg or arm that held the catheter ??? Fever of 100.4?? F??( 38??C) or higher, or as advised by your healthcare provider ??? Signs of infection at the incision site. These include redness, swelling, drainage, or warmth. ??? Bleeding, bruising, or a lot of??swelling where the catheter was inserted ??? Blood in your urine ??? Black or tarry stools ??? Any unusual bleeding ??? Irregular, very slow, or fast heartbeat ??? Dizziness ?? Call 911 Call 911 if you have any of these: ??? Chest pain ??? Shortness of breath ??? Sudden numbness or weakness in arms, legs, or face, or trouble speaking ??? The puncture site swells up very fast ??? Bleeding from the puncture site that doesn't slow down with firm pressure ?? Last Reviewed Date: 2021 ?? 7074-1922 [employer]. All rights reserved. This information is not intended as a substitute for professional medical care. Always follow your healthcare professional's instructions. ?? EKG study * Event Display: ECG 12-Lead Authored Date: Please click on pdf link to open report * Event Display: ECG 12-Lead Authored Date: Ventricular Rate: 62 BPM Atrial Rate: 62 BPM P-R Interval: 154 ms QRS Duration: 100 ms Q-T Interval: 390 ms QTC Calculation(Bazett): 395 ms P [place]: 60 degrees R [place]: 34 degrees T [place]: 23 degrees Normal sinus rhythm Normal ECG When compared with ECG of 27-Dec-2023 07:45, Questionable change in initial forces of anterior leads Confirmed by KAYKAY COHEN ([id number]) on 07/21/2024 1:46:43 PM Friedens: KAYKAY COHEN Cardiology * Event Display: Cardiology Office Note, Non- Authored Date: Patient Care team information Care Team Personnel Name: Not on Staff, PCP Position: S Physician (General Medicine) Member Role: PCP Care Team Related Persons Name: CAROLINA SCOTT Insurance Providers Guarantor name: PAOLA Health Plan Information #: 2 Payer: [employer] PPO MVP Member Number: [id number] Policy Number: NA Group Number: [id number] Health Plan Information #: 1 Payer: [employer] Member Number: [id number] Policy Number: NA Group Number: [id number]
== END | disposition home or self-care (01) ==
PROVIDERS: PCP Family Medicine; Visit Provider Nurse Practitioner Family
CPT/HCPCS: 93010; 99214

== ENCOUNTER 2024-08-07 06:44 | Day surgery (SDC) | payer OTHER, SELFPAY ==
--- NOTE | 2024-08-06 09:14 | P.CONAN_ITS ---
Documented by User: Lacey Chamorro NP 08/06/24 09:23 HPI - Anesthesia Eval Consult details Narrative: 53yo M for Colonoscopy Follows [facility] Card[facility] for chest pain. Recent w/u for preop bariatric surgery including cardiac cath. Optimized to proceed with procedures per 07/2024 office visit. [facility] Active Problems Active Problems: All Active Problems Preop cardiovascular exam (Acute) S/P cardiac catheterization (Acute) Anomalous right coronary artery (Acute) Chest pain (Acute) Multiple food allergies (Acute) Back pain (Acute) Neoplasm of uncertain behavior of skin (Acute) Abnormal EKG (Acute) Morbid obesity (Acute) Insomnia (Acute) Mid back pain (Acute) Adjustment disorder (Acute) Elevated ferritin (Acute) Nausea and vomiting (Acute) Pre-op examination (Acute) Type 2 diabetes mellitus with morbid obesity (Acute) Upper abdominal pain (Acute) Vertigo (Acute) Anemia (Acute) Right calf pain (Acute) Chest wall pain (Acute) CAD (coronary artery disease) (Acute) Morbid obesity with BMI of 60.0-69.9, adult (Acute) Diabetes (Acute) Obesity (Acute) Essential hypertension (Acute) Hyperlipidemia (Acute) Past Medical History Medical History Morbid obesity Adjustment disorder Impacted cerumen, bilateral Pre-diabetes Acute muscle stiffness of neck History of [place] (myocardial infarction) Viral illness Laboratory examination ordered as part of a routine general medical examination Screening for prostate cancer Screening for colon cancer Adult general medical exam Screening for prostate cancer No pertinent past medical history Family History Family History Father Heart disease Mother Diabetes Sister FH: diabetic complications Surgical History Surgical History Hx of oral surgery Social History Social History Housing: House Alcohol intake: current Alcohol intake frequency: holidays/special occasions only Patient Tobacco Use Status: Never used Tobacco e-Cigarette/Vaping Use: Never Used Advance Directives: No Advance Directives Information Provided: Yes service: Yes Current occupational status: employed 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 Cognitive needs: No Hearing needs: No Vision needs: No Meds Allergies Allergy/AdvReac Type Severity Reaction Status Date / Time shellfish derived Allergy Severe rash, Verified 08/07/24 07:50 sweeling throat almond Allergy Intermediate Gastrointestinal Verified 08/07/24 07:50 Upset Egg Derived Allergy Intermediate Gastrointestinal Verified 08/07/24 07:50 Upset Fish Containing Products Allergy Intermediate Gastrointestinal Verified 08/07/24 07:50 Upset hazelnut Allergy Intermediate Diarrhea Verified 08/07/24 07:50 milk Allergy Intermediate Gastrointestinal Verified 08/07/24 07:50 Upset peanut Allergy Intermediate Gastrointestinal Verified 08/07/24 07:50 Upset soy Allergy Intermediate Gastrointestinal Verified 08/07/24 07:50 Upset walnut Allergy Intermediate Gastrointestinal Verified 08/07/24 07:50 Upset wheat Allergy Intermediate Gastrointestinal Verified 08/07/24 07:50 Upset No Known Drug Allergies Allergy Unknown none Verified 08/07/24 07:50 SESAME Allergy Intermediate Gastrointestinal Uncoded 06/11/24 08:53 Upset Raw fruit AdvReac Intermediate Tickling Uncoded 06/11/24 08:53 in back of throat Home Medications ?Medication ?Instructions ?Recorded ?Confirmed ?Last Taken ?Type amlodipine 5 mg tablet 10 mg PO DAILY 07/03/24 08/07/24 08/07/24 History Exam Pertinent Lab Results Pertinent Lab Results: Laboratory Tests 07/13/24 10:39 WBC 5.2 Hgb 12.9 L Hct 38.8 L Plt Count 263 D Sodium 139 Potassium 4.2 Chloride 104 Carbon Dioxide 24 BUN 27 H Creatinine 1.36 Narrative Narrative: EKG 07/2024 EKG Details: Today, read by me, SR with ST/ T wave abn leads III, Avf, more noticable then last EKG, rate 77, QTc 398ms Per 07/2024 cardiac office visit Echocardiogram done 04/15/2024 showed EF 60%, no regional wall motion abnormalities, normal valves. A nuclear stress test done 05/25/2024 shows a fixed apical inferior defect that was thought to be artifactual, probable normal myocardial perfusion, EF 51% with stress and 54% during rest. EKG 07/03/2023 shows normal sinus rhythm, rate 91. 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 Assessment and Plan Assessment Anesthesia Assessment: Chart Reviewed Documented by User: Zoraida Roberts MD 08/07/24 08:21 [facility] Active Problems Active Problems: All Active Problems Preop cardiovascular exam (Acute) S/P cardiac catheterization (Acute) Anomalous right coronary artery (Acute) Chest pain (Acute) Multiple food allergies (Acute) Back pain (Acute) Neoplasm of uncertain behavior of skin (Acute) Abnormal EKG (Acute) Super super Morbid obesity (Acute)BMI 63 Insomnia (Acute) Mid back pain (Acute) Adjustment disorder (Acute) Elevated ferritin (Acute) Nausea and vomiting (Acute) Pre-op examination (Acute) Type 2 diabetes mellitus with morbid obesity (Acute) Upper abdominal pain (Acute) Vertigo (Acute) Anemia (Acute) Right calf pain (Acute) Chest wall pain (Acute) CAD (coronary artery disease) (Acute) Morbid obesity with BMI of 60.0-69.9, adult (Acute) Diabetes (Acute) Obesity (Acute) Essential hypertension (Acute) Hyperlipidemia (Acute) Past Medical History Medical History Morbid obesity Adjustment disorder Impacted cerumen, bilateral Pre-diabetes Acute muscle stiffness of neck History of [place] (myocardial infarction) Viral illness Laboratory examination ordered as part of a routine general medical examination Screening for prostate cancer Screening for colon cancer Adult general medical exam Screening for prostate cancer No pertinent past medical history Family History Family History Father Heart disease Mother Diabetes Sister FH: diabetic complications Family history of problems with anesthesia: No Surgical History Surgical History Hx of oral surgery History of Problems with Anesthesia: No Social History Social History Housing: House Alcohol intake: current Alcohol intake frequency: holidays/special occasions only Patient Tobacco Use Status: Never used Tobacco e-Cigarette/Vaping Use: Never Used Advance Directives: No Advance Directives Information Provided: Yes service: Yes Current occupational status: employed Current occupation: [employer] Cognitive needs: No Hearing needs: No Vision needs: No Meds Allergies Allergy/AdvReac Type Severity Reaction Status Date / Time shellfish derived Allergy Severe rash, Verified 08/07/24 07:50 sweeling throat almond Allergy Intermediate Gastrointestinal Verified 08/07/24 07:50 Upset Egg Derived Allergy Intermediate Gastrointestinal Verified 08/07/24 07:50 Upset Fish Containing Products Allergy Intermediate Gastrointestinal Verified 08/07/24 07:50 Upset hazelnut Allergy Intermediate Diarrhea Verified 08/07/24 07:50 milk Allergy Intermediate Gastrointestinal Verified 08/07/24 07:50 Upset peanut Allergy Intermediate Gastrointestinal Verified 08/07/24 07:50 Upset soy Allergy Intermediate Gastrointestinal Verified 08/07/24 07:50 Upset walnut Allergy Intermediate Gastrointestinal Verified 08/07/24 07:50 Upset wheat Allergy Intermediate Gastrointestinal Verified 08/07/24 07:50 Upset No Known Drug Allergies Allergy Unknown none Verified 08/07/24 07:50 SESAME Allergy Intermediate Gastrointestinal Uncoded 06/11/24 08:53 Upset Raw fruit AdvReac Intermediate Tickling Uncoded 06/11/24 08:53 in back of throat Home Medications ?Medication ?Instructions ?Recorded ?Confirmed ?Last Taken ?Type amlodipine 5 mg tablet 10 mg PO DAILY 07/03/24 08/07/24 08/07/24 History Exam Height,Weight and Vital Signs: Height 5 ft 8 in Weight 182.6 kg Vital Signs Temp Pulse Resp BP Pulse Ox O2 Del Method 08/07/24 07:30 97.9 F 80 18 110/69 97 Room Air Airway Mallampati Class: II TM Dist: >3cm Neck ROM: Full Loose/Missing/Broken Teeth: Yes (Missing tooth and broken tooth(filling fell out) top left back. Denies loose teeth. Scattered dentition) Heart: RRR Lungs: CTAB Assessment and Plan Assessment Anesthesia Assessment: Anesthesia Plan Discussed and Chart Reviewed Final Anesthetic Review Family History of Problems with Anesthesia: No History of Problems with Anesthesia: No NPO: Yes ASA Class: III Final Preanesthetic Review: No Changes in Pt Med Stat, Meds/Allgs Chart Reviewed, Consent Obtained/Reviewed and Anes Risks/Benef Reviewed Patient Risk: High Procedure Risk: Low Assessment/Block/Sedation in SS: Assess/Block/Sedation-SS Anesthetic Plan Anesthetic Plan: GA Disposition: Standard PACU
[2024-08-07 07:30] VITALS: BP 110/69; PULSE 80; RESP 18; TEMP 36.6; O2SAT 97; BMI 61.2
--- NOTE | 2024-08-07 07:30 | MHC.SHP ---
Pre-Procedural Eval Section A - 24 Hr Update-Section A only Date of Service: 08/07/24 The patient is an INPATIENT: No The patient has been examined within 24 hours of the surgical procedure. The History & Physical has been completed within 30 days and I have reviewed it.: No Section B - Complete if H&P > 30 days Chief Complaint: Nausea with vomiting, unspecified Relevant Family History (Specify if Yes): No Relevant Social History: None Present Medications: see Short Stay Collaborative assessment Medical History: Significant History (Morbid obesity Adjustment disorder Impacted cerumen, bilateral Pre-diabetes Acute muscle stiffness of neck History of [place] (myocardial infarction)) History of Previous Operations: Relevant previous surgery/procedure and date(s) (Hx of oral surgery) Allergies: Allergies Allergy/AdvReac Type Severity Reaction Status Date / Time shellfish derived Allergy Severe rash, Verified 07/03/24 13:27 sweeling throat almond Allergy Intermediate Gastrointestinal Verified 07/03/24 13:27 Upset Egg Derived Allergy Intermediate Gastrointestinal Verified 07/03/24 13:27 Upset Fish Containing Products Allergy Intermediate Gastrointestinal Verified 07/03/24 13:27 Upset hazelnut Allergy Intermediate Diarrhea Verified 07/03/24 13:27 milk Allergy Intermediate Gastrointestinal Verified 07/03/24 13:27 Upset peanut Allergy Intermediate Gastrointestinal Verified 07/03/24 13:27 Upset soy Allergy Intermediate Gastrointestinal Verified 07/03/24 13:27 Upset walnut Allergy Intermediate Gastrointestinal Verified 07/03/24 13:27 Upset wheat Allergy Intermediate Gastrointestinal Verified 07/03/24 13:27 Upset No Known Drug Allergies Allergy Unknown none Verified 07/03/24 13:27 SESAME Allergy Intermediate Gastrointestinal Uncoded 06/11/24 08:53 Upset Raw fruit AdvReac Intermediate Tickling Uncoded 06/11/24 08:53 in back of throat Review of Systems Sugical H&P ROS: Negative: Constitution, Cardiovascular and Respiratory and Yes, Specify: Gastrointestinal (chronic diarrhea) Exam Surgical H&P Exam: Normal: Heart, Normal: Lungs, Normal: Extremities and Normal: Abdomen Plan Diagnosis/Plan: Unchanged I have reviewed the history and physical and performed a pertinent physical examination on my patient. No changes have occurred unless specified. Time Spent With Patient Time: Total time managing care of this patient today ____ minutes.
[2024-08-07] MEDS: Lactated Ringers 1,000 ML 100 ML IVCONT (07:38)
[2024-08-07 07:56] LABS: Glucose, Whole Blood 154 mg/dL (60-115)
--- NOTE | 2024-08-07 09:31 | HO.OPN-COLON ---
Colonoscopy Operative Note Operative Note Date of Service: 08/07/24 Narrative: COLONOSCOPY TILL CECUM WITH BIOPSIES AND SNARE POLYPECTOMY Pre-op diagnosis: Colon cancer screening, Chronic diarrhea. Post-op diagnosis:? colon polyps, Diverticulosis, hemorrhoids Endoscopist:? Daphney Dowell MD Anesthesia:?MAC Consent: Indications for the procedure and potential complications of bleeding, perforation, reaction to medications and missed diagnosis were discussed with the patient and informed consent was obtained. Instrument: Olympus CF H 190 L variable stiffness adult colonoscope Monitoring: Vital signs and clinical assessment, intermittent blood pressure monitoring, continuous EKG monitoring, Pulse oximetry and Carbon Dioxide monitoring were done throughout the procedure. Please see anesthesia flowsheet. Colon withdrawl time was 16 minutes. Procedure: The patient was placed in the left lateral decubitis position and pre-procedure medications were administered. After a digital rectal examination of the ano-rectum, the video colonoscope was inserted into the rectum and advanced through the colon to the cecum. The colonoscope was slowly withdrawn in a retrograde panoramic fashion and the colon mucosa was carefully examined including a retroflexed view of the rectum. Findings and interventions are described below. Procedure Difficulty: without difficulty Findings: Terminal Ileum: Not evaluated Cecum: A 2-3 mm sessile polyp - removed with a cold biopsy Ascending Colon: Moderate diverticulosis throughout the entire colon Transverse Colon: A 6-7 mm sessile polyp in the proximal transverse colon - removed with a cold snare. Moderate diverticulosis throughout the entire colon Descending Colon: Moderate diverticulosis throughout the entire colon Sigmoid Colon: Moderate diverticulosis Rectum: Normal Ano-rectum: Moderate internal hemorrhoids Colon preparation: Good after some irrigation. [place] Bowel Preparation Scale Right colon; 2 Transverse colon: 2 Left colon; 3 (0 = Unprepared colon segment with mucosa not seen due to solid stool that cannot be cleared. 1 = Portion of mucosa of the colon segment seen, but other areas of the colon segment not well seen due to staining, residual stool and/or opaque liquid. 2 = Minor amount of residual staining, small fragments of stool and/or opaque liquid, but mucosa of colon segment seen well. 3 = Entire mucosa of colon segment seen well with no residual staining, small fragments of stool or opaque liquid) Impression and Post Procedure Diagnosis: Colonoscopy Findings: Two small polyps were removed Random biopsies were obtained from right and left colon to check for microscopic colitis Moderate diverticulosis seen in the entire colon Moderate hemorrhoids on retroflexed exam. Plan: I will send a letter with biopsy results. Pt has a FU appointment on 11/06/24 with Queenie Diaz NP. Repeat Colonoscopy in 5 years if polyps are adenomatous and 10 year if polyps are hyperplastic. Above findings were reviewed with the patient and relevant handouts were given and the discharge area.
[2024-08-07 09:43] VITALS: BP 112/63; PULSE 80; RESP 17; TEMP 36.9; O2SAT 100
[2024-08-07 09:48] VITALS: BP 113/65; PULSE 79; RESP 17; O2SAT 96
[2024-08-07 09:53] VITALS: BP 100/54; PULSE 82; RESP 17; O2SAT 99
[2024-08-07 09:58] VITALS: BP 111/52; PULSE 77; RESP 18; TEMP 36.6; O2SAT 100
== END 2024-08-07 10:23 | disposition home or self-care (01) ==
PROVIDERS: PCP Family Medicine; Visit Provider Internal Medicine Gastroenterology
PROC: (CPT 45385; principal; 2024-08-07 08:30)
DX: Z12.11 Encounter for screening for malignant neoplasm of colon (principal); D12.3 Benign neoplasm of transverse colon; K63.5 Polyp of colon; K57.30 Diverticulosis of large intestine without perforation or abscess without bleeding; K64.8 Other hemorrhoids; K52.9 Noninfective gastroenteritis and colitis, unspecified; R11.2 Nausea with vomiting, unspecified; I10 Essential (primary) hypertension; E78.00 Pure hypercholesterolemia, unspecified; I25.10 Atherosclerotic heart disease of native coronary artery without angina pectoris; I25.2 Old myocardial infarction; R73.03 Prediabetes; Z79.84 Long term (current) use of oral hypoglycemic drugs; Z79.899 Other long term (current) drug therapy; E66.01 Morbid (severe) obesity due to excess calories; Z68.44 Body mass index [BMI] 60.0-69.9, adult; Z91.012 Allergy to eggs; Z91.018 Allergy to other foods; Z91.010 Allergy to peanuts; Z91.013 Allergy to seafood
CPT/HCPCS: 45385; 45380; 82947; 88305; J0330; J2003; J2250; J2405; J2704; J3010

== ENCOUNTER → 2024-08-07 06:44 | Outpatient (BNV) | payer OTHER, SELFPAY | PROVIDERS: PCP Family Medicine; Visit Provider Internal Medicine Gastroenterology | DX: Z12.11 Encounter for screening for malignant neoplasm of colon (principal); K52.9 Noninfective gastroenteritis and colitis, unspecified; D12.3 Benign neoplasm of transverse colon; K57.90 Diverticulosis of intestine, part unspecified, without perforation or abscess without bleeding; K64.8 Other hemorrhoids | CPT/HCPCS: 45380; 45385 ==

== ENCOUNTER 2024-08-18 09:17 | Outpatient (AMB) | payer OTHER, SELFPAY ==
[2024-08-18 09:37] VITALS: BMI 61.4
--- NOTE | 2024-08-18 09:37 | A.OFFVIS_ITS ---
VS Expanded 08/18/24 09:37 08/18/24 10:13 Height 5 ft 8 in Weight 403 lb 10.662 oz 402 lb 9.025 oz BMI 61.4 Intake Visit Reasons: t2dm, multiple food allergies Allergies shellfish derived Allergy (Severe, Verified 08/07/24 07:50) rash, sweeling throat almond Allergy (Intermediate, Verified 08/07/24 07:50) Gastrointestinal Upset Egg Derived Allergy (Intermediate, Verified 08/07/24 07:50) Gastrointestinal Upset Fish Containing Products Allergy (Intermediate, Verified 08/07/24 07:50) Gastrointestinal Upset hazelnut Allergy (Intermediate, Verified 08/07/24 07:50) Diarrhea milk Allergy (Intermediate, Verified 08/07/24 07:50) Gastrointestinal Upset peanut Allergy (Intermediate, Verified 08/07/24 07:50) Gastrointestinal Upset soy Allergy (Intermediate, Verified 08/07/24 07:50) Gastrointestinal Upset walnut Allergy (Intermediate, Verified 08/07/24 07:50) Gastrointestinal Upset wheat Allergy (Intermediate, Verified 08/07/24 07:50) Gastrointestinal Upset No Known Drug Allergies Allergy (Unknown, Verified 08/07/24 07:50) none SESAME Allergy (Intermediate, Uncoded 06/11/24 08:53) Gastrointestinal Upset Raw fruit Adverse Reaction (Intermediate, Uncoded 06/11/24 08:53) Tickling in back of throat Nutrition Presentation Details: Pt presents for MNT f/u for T2DM, morbid obesity Pt reports, gradually making dietary changes, feeling more comfortable with omitting and recognizing foods he is allergic to. 7:30 am grits/oatmeal flavored with egg substitute plant based egg turkey malik and toast hot tea 2 spoons of sugar 12:00 applesauce/jello/hummus with naan (alternatives as snack 2pm: turkey chicken sand /siddiqui/tziki sauce /spinach on whole grain 40 helen , 16 oz of tea with 2 sugar 4pm: Snack 6:30- 7:30dinner : chicken/yellow rice or burger with spinach with siddiqui tatortots or fries reducing portions, sometimes has late meals , after 9 pm BS Monitoring Most Recent Diabetes Results: Cholesterol 153 mg/dL (<200) 07/13/24 HDL Cholesterol 38 mg/dL (>40) L 07/13/24 Triglycerides 63 mg/dL (<150) 07/13/24 Creatinine 1.36 mg/dL (0.5-1.4) 07/13/24 Blood Urea Nitrogen 27 mg/dL (9-16) H 07/13/24 Sodium 139 mmol/L (135-145) 07/13/24 Potassium 4.2 mmol/L (3.3-5.1) 07/13/24 Chloride 104 mmol/L (96-108) 07/13/24 Carbon Dioxide 24 mmol/L (22-29) 07/13/24 Calcium 9.8 mg/dL (8.4-10.2) 07/13/24 [facility] Medical History Morbid obesity Adjustment disorder Impacted cerumen, bilateral Pre-diabetes Acute muscle stiffness of neck History of [place] (myocardial infarction) Viral illness Laboratory examination ordered as part of a routine general medical examination Screening for prostate cancer Screening for colon cancer Adult general medical exam Screening for prostate cancer No pertinent past medical history Surgical History Hx of oral surgery Family History Father Heart disease Mother Diabetes Sister FH: diabetic complications Social History Housing: House Are you a primary careers counsellor to a significant other at home: No Do you presently have visiting nurse or other home services: No Alcohol intake: current Alcohol intake frequency: does not drink Patient Tobacco Use Status: Never used Tobacco e-Cigarette/Vaping Use: Never Used service: Yes Current occupational status: employed 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 Cognitive needs: No Hearing needs: No Vision needs: No Assessment & Plan Assessment & Plan (1) Type 2 diabetes mellitus with morbid obesity: Comment: CAD, multiple food allergies Code(s): E11.69 - Type 2 diabetes mellitus with other specified complication; E66.01 - Morbid (severe) obesity due to excess calories Category: Medical Plan: Wt: 184 Kg ( 07/18 ), 183kg (08/18) Est kcal needs as per MSJ: 3200 (40% carb, 30% protein/fat) Est fluid needs as per 25-30 ml/d: 5500 Est prot per day as per 1 g/kg bw: 180 Recommend fiber intake : 8-10 g per day and gradually increase to 25-28 g per day for women and 35-38 g for men or as tolerated Recommend sodium intake per day : less than 2300 mg Educated patient on: ( R = reviewed V = verbalizes understanding N/R = needs review N/A = not applicable * Food sources of carbohydrate, adequate serving sizes and its role in various health conditions: R (wheat free options) * Differences between complex carbohydrates a simple carbohydrates, role of fiber in diet: R (wheat free options) * Lean protein sources of foods: R V NR * Differences between types of fats and role in diet (mono on saturated fat fatty acids, saturated fatty acids, trans fats): R V N/R * Food sources of sodium in salt and healthy modifications for heart health in kidney health: R V R/V * Vitamins and minerals: R V N/R * Healthy plate method concept: R V N/R * Physical activity: Benefits a precaution: R V N/R * Hypoglycemia protocol (rule of 15): R V N/R * Dietary prevention of Hyperglycemia: R Patient Instructions: Keep track of calories use phone chema ok - fitness pal (keep a 3 day food record and reduce total calories by 500, from highly processed foods - salami/sausages/fried starches, sauces Coding Level of Care Code Nutr Indiv Subseq (99658) Diagnoses Type 2 diabetes mellitus with morbid obesity E11.69; E66.01 Time Spent (min) 30
--- OUTSIDE RECORDS SUMMARY | 2024-08-18 10:11 | XMS_ITS | Data Portability ---
Author Organization [facility], [facility] Address [address] [place] [address] Assessment No assessment recorded. Plan of Treatment Reminders Order Date Submit Date Provider Last Modified By Organization Details Last Modified Time Details Appointments None recorded. Lab urinalysis , dipstick 2022 023 [place] [address] _[facility], [address] [place] [address], [address], 3 11:45:12 glucose, fingerstic k, blood 2022 023 [place] [address] _[facility], [address] [place] [address], [address], 3 11:45:12 Referral emergency medicine referral 2022 [...] >400 mg/dL 80-140 = normal Not Available _[address], [address], 11/15/2022 11:41:20 11/16/19 23 11/15/2022 gluco se, finge rstic k, blood blood sugar - fasting mg/dL 80-125 = normal Not Available [address], [place], [address], 11/15/2022 11:41:20 11/16/19 23 11/15/2022 urina lysis , dipst ick Unknown Analyte Normal = light yellow Not Available [facility] [address], [place], [address], 11/15/2022 11:34:37 11/16/19 23 11/15/2022 urina lysis , dipst ick Unknown Analyte Yellow Not Available [address], [place], [address], 11/15/2022 11:34:37 11/16/19 23 11/15/2022 urina lysis , dipst ick Unknown Analyte Normal = clear Not Available [address], [place], [address], 11/15/2022 11:34:37 11/16/19 23 11/15/2022 urina lysis , dipst ick Unknown Analyte Clear Not Available [address], [place], [address], 11/15/2022 11:34:37 11/16/19 23 11/15/2022 urina lysis , dipst ick Unknown Analyte Normal = negati ve Not Available [facility] [address], [place], [address], 11/15/2022 11:34:37 11/16/19 23 11/15/2022 urina lysis , dipst ick Unknown Analyte 500 mg/dL Not Available [facility] [address], [place], [address], 11/15/2022 11:34:37 11/16/19 23 11/15/2022 urina lysis , dipst ick Unknown Analyte Normal = Negati ve Not Available [facility] [address], [place], [address], 11/15/2022 11:34:37 11/16/19 23 11/15/2022 urina lysis , dipst ick Unknown Analyte Negati ve Not Available [facility] [address], [place], [address], 11/15/2022 11:34:37 11/16/19 23 11/15/2022 urina lysis , dipst ick Unknown Analyte Normal = Negati ve Not Available [facility] [address], [place], [address], 11/15/2022 11:34:37 11/16/19 23 11/15/2022 urina lysis , dipst ick Unknown Analyte Negati ve Not Available [facility] [address], [place], [address], 11/15/2022 11:34:37 11/16/19 23 11/15/2022 urina lysis , dipst ick Unknown Analyte Normal = 1.010, 1.015, 1.020 Not Available [facility] [address], [place], [address], 11/15/2022 11:34:37 11/16/19 23 11/15/2022 urina lysis , dipst ick Unknown Analyte 1.015 Not Available [address], [place], [address], 11/15/2022 11:34:37 11/16/19 23 11/15/2022 urina lysis , dipst ick Unknown Analyte Normal = Negati ve Not Available [facility] [address], [place], [address], 11/15/2022 11:34:37 11/16/19 23 11/15/2022 urina lysis , dipst ick Unknown Analyte Negati ve Not Available tierra quinter[facility] [address], [place], [place], [address], 11/15/2022 11:34:37 11/16/19 23 11/15/2022 urina lysis , dipst ick Unknown Analyte Normal = 6.5, 7.0, 7.5, 8.0 Not Available [address], [place], [place], [address], 11/15/2022 11:34:37 11/16/19 23 11/15/2022 urina lysis , dipst ick Unknown Analyte 5.5 Not Available [facility] [address], [place], [place], [address], 11/15/2022 11:34:37 11/16/19 23 11/15/2022 urina lysis , dipst ick Unknown Analyte Normal = Negati ve Not Available tierra [address], [place], [address], 11/15/2022 11:34:37 11/16/19 23 11/15/2022 urina lysis , dipst ick Unknown Analyte Negati ve Not Available [address], [place], [place], [address], 11/15/2022 11:34:37 11/16/19 23 11/15/2022 urina lysis , dipst ick Unknown Analyte Normal = 0.2, 1.0 Not Available tierra [address], [place], [address], 11/15/2022 11:34:37 11/16/19 23 11/15/2022 urina lysis , dipst ick Unknown Analyte 0.2 E.U./d L Not Available [address], [place], [address], 11/15/2022 11:34:37 11/16/19 23 11/15/2022 urina lysis , dipst ick Unknown Analyte Normal = Negati ve Not Available [address] [place] [address], [place], [address], 11/15/2022 11:34:37 11/16/19 23 11/15/2022 urina lysis , dipst ick Unknown Analyte Negati ve Not Available [address] [place] [address], [place], [address], 11/15/2022 11:34:37 11/16/19 23 11/15/2022 urina lysis , dipst ick Unknown Analyte Normal = Negati ve Not Available [address] [place] [address], [place], [address], 11/15/2022 11:34:37 11/16/19 23 11/15/2022 urina lysis , dipst ick Unknown Analyte Negati ve Not Available [address] [place], [place] [address], [address], 11/15/2022 11:34:37 Result Notes None recorded. Problems Name Problem SNOMED Code Status Onset Date Resolution Date Notes Provider Name and Address Organization Details Recorded Time Prediabetes 967810825 Active 023 SANJEEV Young - [facility] 10:53:17 Problem Notes None recorded. Medical Equipment None Reported. Allergies Allergen ID Allergen Name Allergen Category Reaction Reaction Severity Criticality Documentation Date Start Date Code Code System Note Provider Name and Address Organization Details Recorded Time 157503 shellfish derived food,medi cation Not available Not available Not available 11/15/2022 95937 UNK SANJEEV [facility] 3 10:52:23 Medications [...] Updated DateTime 3 172.72 cm 66 kg/m2 689501. 09 g 5 20 /min 97.5 [degF] 98 % 98 % 94 /min 137 mm[Hg] 84 mm[Hg] Mercedes Hou [facility] 3 10:55:27 Social History Question Answer [...] SNOMED-CT Code Diagnosis ICD10 Code Diagnosis Note [id number] 2[address] [address] 10/20/2018 14:17:41 10/20/2018 14:46:22 [id number] 2[address] [address] 07/20/2019 13:35:00 07/20/2019 14:37:30 [id number] [place]ie Vidal [place] [address] [address] 11/15/2022 09:18:58 11/15/2022 11:48:14 Polyuria 68907964 R35.89 Hyperglycemia 66697687 R 73.9 Patient with history Pre-DM, not on medication s and no PCP. Symptomati c and needs further workup and treatment. Will go to [facility] ER Glycosuria 11074633 R81 Needs Blood sugar management and will go to ED\Agrees to go to [facility] rrently stable Health Concerns Section Related Observation LastModified by Organization Detai ls LastModified Time None Recorded Concern Status LastModified by Organization Details LastModified Time None Recorded Advance Directives Directive None Recorded Payers Encounter Date Sequence Insurance Name Policy Number Policy Barba Covered Member ID Barba Member ID Guarantor Name 07/20/2019 1 [place]) [id number] Jonathan Jeff [id number] Jonathan Jeff 11/15/2022 1 [facility] [id number] Jonathan Jeff [id number] 1 Jonathan Jeff Notes Date Note Type Note Provider Name and Address Organization Details Recorded Time 11/15/2022 text/html Patient presents with dry mouthUpon questioning he admits to excessive thrist and urinatrion for the last months.KNown to be prediabetric only.ON no meds for Diabetes. Lennie Vidal [facility] [address] [facility] [place], [address], [place] - [facility] 11/20/2022 08:30:29
== END 2024-08-18 10:36 | disposition home or self-care (01) ==
PROVIDERS: PCP Family Medicine; Visit Provider Dietitian, Registered
DX: E11.69 Type 2 diabetes mellitus with other specified complication (principal); E66.01 Morbid (severe) obesity due to excess calories

== ENCOUNTER → 2024-08-18 09:17 | Outpatient (BNVA) | payer OTHER, SELFPAY | PROVIDERS: PCP Family Medicine; Visit Provider Dietitian, Registered | DX: E11.69 Type 2 diabetes mellitus with other specified complication (principal); E66.01 Morbid (severe) obesity due to excess calories; Z68.44 Body mass index [BMI] 60.0-69.9, adult; Z71.3 Dietary counseling and surveillance | CPT/HCPCS: 97803 ==

== ENCOUNTER 2024-09-05 10:01 | Outpatient (REF) | payer OTHER, SELFPAY ==
--- OUTSIDE RECORDS SUMMARY | 2024-09-05 10:04 | XMS_ITS | Data Portability ---
Author Organization [facility], [address] Address [address] [place] [address] Assessment No assessment recorded. Plan of Treatment Reminders Order Date Submit Date Provider Last Modified By Organization Details Last Modified Time Details Appointments None recorded. Lab urinalysis , dipstick 2022 023 [place] [address] _[facility], [address] [place] [address], [address], 3 11:45:12 glucose, fingerstic k, blood 2022 023 [place] [address] _[facility], [address] [place] [address], [address], 3 11:45:12 Referral emergency medicine referral 2022 [...] >400 mg/dL 80-140 = normal Not Available _[address], [address], 11/15/2022 11:41:20 11/16/19 23 11/15/2022 gluco se, finge rstic k, blood blood sugar - fasting mg/dL 80-125 = normal Not Available [address], [place], [address], 11/15/2022 11:41:20 11/16/19 23 11/15/2022 urina lysis , dipst ick Unknown Analyte Normal = light yellow Not Available [facility] [address], [place], [address], 11/15/2022 11:34:37 11/16/19 23 11/15/2022 urina lysis , dipst ick Unknown Analyte Yellow Not Available [address], [place], [address], 11/15/2022 11:34:37 11/16/19 23 11/15/2022 urina lysis , dipst ick Unknown Analyte Normal = clear Not Available [address], [place], [address], 11/15/2022 11:34:37 11/16/19 23 11/15/2022 urina lysis , dipst ick Unknown Analyte Clear Not Available [address], [place], [address], 11/15/2022 11:34:37 11/16/19 23 11/15/2022 urina lysis , dipst ick Unknown Analyte Normal = negati ve Not Available [facility] [address], [place], [address], 11/15/2022 11:34:37 11/16/19 23 11/15/2022 urina lysis , dipst ick Unknown Analyte 500 mg/dL Not Available [address], [place], [address], 11/15/2022 11:34:37 11/16/19 23 11/15/2022 urina lysis , dipst ick Unknown Analyte Normal = Negati ve Not Available [facility] [address], [place], [address], 11/15/2022 11:34:37 11/16/19 23 11/15/2022 urina lysis , dipst ick Unknown Analyte Negati ve Not Available [facility] [address], [place], [address], 11/15/2022 11:34:37 11/16/19 23 11/15/2022 urina lysis , dipst ick Unknown Analyte Normal = Negati ve Not Available [facility] [address], [place], [address], 11/15/2022 11:34:37 11/16/19 23 11/15/2022 urina lysis , dipst ick Unknown Analyte Negati ve Not Available [facility] [address], [place], [address], 11/15/2022 11:34:37 11/16/19 23 11/15/2022 urina lysis , dipst ick Unknown Analyte Normal = 1.010, 1.015, 1.020 Not Available [facility] [address], [place], [address], 11/15/2022 11:34:37 11/16/19 23 11/15/2022 urina lysis , dipst ick Unknown Analyte 1.015 Not Available [address], [place], [address], 11/15/2022 11:34:37 11/16/19 23 11/15/2022 urina lysis , dipst ick Unknown Analyte Normal = Negati ve Not Available [facility] [address], [place], [address], 11/15/2022 11:34:37 11/16/19 23 11/15/2022 urina lysis , dipst ick Unknown Analyte Negati ve Not Available [facility] quinter[facility] [address], [place], [place], [address], 11/15/2022 11:34:37 11/16/19 23 11/15/2022 urina lysis , dipst ick Unknown Analyte Normal = 6.5, 7.0, 7.5, 8.0 Not Available [address], [place], [place], [address], 11/15/2022 11:34:37 11/16/19 23 11/15/2022 urina lysis , dipst ick Unknown Analyte 5.5 Not Available [facility] [address], [place], [place], [address], 11/15/2022 11:34:37 11/16/19 23 11/15/2022 urina lysis , dipst ick Unknown Analyte Normal = Negati ve Not Available t[facility] [address], [place], [address], 11/15/2022 11:34:37 11/16/19 23 11/15/2022 urina lysis , dipst ick Unknown Analyte Negati ve Not Available [address], [place], [place], [address], 11/15/2022 11:34:37 11/16/19 23 11/15/2022 urina lysis , dipst ick Unknown Analyte Normal = 0.2, 1.0 Not Available [facility] [address], [place], [address], 11/15/2022 11:34:37 11/16/19 23 11/15/2022 urina lysis , dipst ick Unknown Analyte 0.2 E.U./d L Not Available [address], [place], [address], 11/15/2022 11:34:37 11/16/19 23 11/15/2022 urina lysis , dipst ick Unknown Analyte Normal = Negati ve Not Available [address] [place] [address], [place], [address], 11/15/2022 11:34:37 11/16/19 23 11/15/2022 urina lysis , dipst ick Unknown Analyte Negati ve Not Available [address] [place] [address], [place], [address], 11/15/2022 11:34:37 11/16/19 23 11/15/2022 urina lysis , dipst ick Unknown Analyte Normal = Negati ve Not Available [address] [place] [address], [place], [address], 11/15/2022 11:34:37 11/16/19 23 11/15/2022 urina lysis , dipst ick Unknown Analyte Negati ve Not Available [address] [place], [place] [address], [address], 11/15/2022 11:34:37 Result Notes None recorded. Problems Name Problem SNOMED Code Status Onset Date Resolution Date Notes Provider Name and Address Organization Details Recorded Time Prediabetes 423491921 Active 023 SANJEEV Young - [facility] 10:53:17 Problem Notes None recorded. Medical Equipment None Reported. Allergies Allergen ID Allergen Name Allergen Category Reaction Reaction Severity Criticality Documentation Date Start Date Code Code System Note Provider Name and Address Organization Details Recorded Time 870777 shellfish derived food,medi cation Not available Not available Not available 11/15/2022 86952 UNK SANJEEV [facility] 3 10:52:23 Medications [...] Updated DateTime 3 172.72 cm 66 kg/m2 611435. 09 g 5 20 /min 97.5 [degF] 98 % 98 % 94 /min 137 mm[Hg] 84 mm[Hg] Mercedes Hou [facility] 3 10:55:27 Social History Question Answer [...] SNOMED-CT Code Diagnosis ICD10 Code Diagnosis Note [id number] [address] [address] 10/20/2018 14:17:41 10/20/2018 14:46:22 [id number] 2[address] [address] 07/20/2019 13:35:00 07/20/2019 14:37:30 [id number] Lennie Vidal MD [address] [address] 11/15/2022 09:18:58 11/15/2022 11:48:14 Polyuria 74064997 R35.89 Hyperglycemia 69044344 R 73.9 Patient with history Pre-DM, not on medication s and no PCP. Symptomati c and needs further workup and treatment. Will go to [facility] ER Glycosuria 76233054 R81 Needs Blood sugar management and will go to ED\Agrees to go to [facility] rrently stable Health Concerns Section Related Observation LastModified by Organization Detai ls LastModified Time None Recorded Concern Status LastModified by Organization Details LastModified Time None Recorded Advance Directives Directive None Recorded Payers Encounter Date Sequence Insurance Name Policy Number Policy Barba Covered Member ID Barba Member ID Guarantor Name 07/20/2019 1 [place] ([place]O) [id number] Jonathan Jeff [id number] Jonathan Jeff 11/15/2022 1 [facility] [id number] Jonathan Jeff [id number] 1 Jonathan Jeff Notes Date Note Type Note Provider Name and Address Organization Details Recorded Time 11/15/2022 text/html Patient presents with dry mouthUpon questioning he admits to excessive thrist and urinatrion for the last months.KNown to be prediabetric only.ON no meds for Diabetes. Lennie Vidal MD [facility] [place], [address], [place] - [facility] 11/20/2022 08:30:29
[2024-09-05 11:41] LABS: Anion Gap 13 (12-20); Blood Urea Nitrogen 18 mg/dL (9-16); Calcium 9.9 mg/dL (8.4-10.2); Carbon Dioxide 27 mmol/L (22-29); Chloride 104 mmol/L (96-108); Estimated Glomerular Filt Rate > 60; Glucose Random 130 mg/dL (60-115); Potassium 3.9 mmol/L (3.3-5.1); Sodium 140 mmol/L (135-145)
== END 2024-09-05 10:02 | disposition home or self-care (01) ==
LOC: HO.LAB 10:01
PROVIDERS: PCP Family Medicine; Visit Provider Internal Medicine Cardiovascular Disease
DX: Z01.812 Encounter for preprocedural laboratory examination (principal)
CPT/HCPCS: 36415; 80048

== ENCOUNTER 2024-10-06 12:51 | Outpatient (AMB) | payer OTHER, SELFPAY ==
[2024-10-06 12:59] VITALS: BMI 60.7
--- NOTE | 2024-10-06 12:59 | MHC.AMNUTRGE ---
VS Expanded 10/06/24 12:59 Height 5 ft 8 in Weight 399 lb 7.642 oz BMI 60.7 Intake Visit Reasons: t2dm, obesity Allergies shellfish derived Allergy (Severe, Verified 08/07/24 07:50) rash, sweeling throat almond Allergy (Intermediate, Verified 08/07/24 07:50) Gastrointestinal Upset Egg Derived Allergy (Intermediate, Verified 08/07/24 07:50) Gastrointestinal Upset Fish Containing Products Allergy (Intermediate, Verified 08/07/24 07:50) Gastrointestinal Upset hazelnut Allergy (Intermediate, Verified 08/07/24 07:50) Diarrhea milk Allergy (Intermediate, Verified 08/07/24 07:50) Gastrointestinal Upset peanut Allergy (Intermediate, Verified 08/07/24 07:50) Gastrointestinal Upset soy Allergy (Intermediate, Verified 08/07/24 07:50) Gastrointestinal Upset walnut Allergy (Intermediate, Verified 08/07/24 07:50) Gastrointestinal Upset wheat Allergy (Intermediate, Verified 08/07/24 07:50) Gastrointestinal Upset No Known Drug Allergies Allergy (Unknown, Verified 08/07/24 07:50) none SESAME Allergy (Intermediate, Uncoded 06/11/24 08:53) Gastrointestinal Upset Raw fruit Adverse Reaction (Intermediate, Uncoded 06/11/24 08:53) Tickling in back of throat Nutrition Presentation Details: Pt presents for MNT f/u for T2DM Pt reports working on preparing meals at home vs eating out walking daily and reaching 8000-80913 steps most days, reports feeling comfortable and motivated Choosing fruits instead of pastries food frequency calcium (fairlife 2 cups a day, calcium fortified dairy alternatives 2 cups/d fruits 3-4/d legumes: 2 cup/d Choosing low fat protein source sof foods , less processed BS Monitoring Most Recent Diabetes Results: Cholesterol 153 mg/dL (<200) 07/13/24 HDL Cholesterol 38 mg/dL (>40) L 07/13/24 Triglycerides 63 mg/dL (<150) 07/13/24 Creatinine 0.86 mg/dL (0.5-1.4) 09/05/24 Blood Urea Nitrogen 18 mg/dL (9-16) H 09/05/24 Sodium 140 mmol/L (135-145) 09/05/24 Potassium 3.9 mmol/L (3.3-5.1) 09/05/24 Chloride 104 mmol/L (96-108) 09/05/24 Carbon Dioxide 27 mmol/L (22-29) 09/05/24 Calcium 9.9 mg/dL (8.4-10.2) 09/05/24 [facility] Medical History Morbid obesity Adjustment disorder Impacted cerumen, bilateral Pre-diabetes Acute muscle stiffness of neck History of MO (myocardial infarction) Viral illness Laboratory examination ordered as part of a routine general medical examination Screening for prostate cancer Screening for colon cancer Adult general medical exam Screening for prostate cancer No pertinent past medical history Surgical History Hx of oral surgery Family History Father Heart disease Mother Diabetes Sister FH: diabetic complications Social History Housing: House Are you a primary primary care sales representative to a significant other at home: No Do you presently have visiting nurse or other home services: No Alcohol intake: current Alcohol intake frequency: does not drink Patient Tobacco Use Status: Never used Tobacco e-Cigarette/Vaping Use: Never Used service: Yes Current occupational status: employed 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 Cognitive needs: No Hearing needs: No Vision needs: No Assessment & Plan Assessment & Plan (1) Type 2 diabetes mellitus with morbid obesity: Comment: CAD, multiple food allergies Code(s): E11.69 - Type 2 diabetes mellitus with other specified complication; E66.01 - Morbid (severe) obesity due to excess calories Category: Medical Plan: Wt: 184 Kg ( 07/18 ), 183kg (08/18), 181 kg (10/16) Est kcal needs as per MSJ: 3200 (40% carb, 30% protein/fat) Est fluid needs as per 25-30 ml/d: 5500 Est prot per day as per 1 g/kg bw: 180 Recommend fiber intake : 8-10 g per day and gradually increase to 25-28 g per day for women and 35-38 g for men or as tolerated Recommend sodium intake per day : less than 2300 mg Educated patient on: ( R = reviewed V = verbalizes understanding N/R = needs review N/A = not applicable Food sources of carbohydrate, adequate serving sizes and its role in various health conditions: R (wheat free options) Differences between complex carbohydrates a simple carbohydrates, role of fiber in diet: R (wheat free options) Lean protein sources of foods: R V NR Differences between types of fats and role in diet (mono on saturated fat fatty acids, saturated fatty acids, trans fats): R V N/R Food sources of sodium in salt and healthy modifications for heart health in kidney health: R V R/V Vitamins and minerals: R V N/R Healthy plate method concept: R V N/R Physical activity: Benefits a precaution: R V N/R Hypoglycemia protocol (rule of 15): R V N/R Dietary prevention of Hyperglycemia: R Patient Instructions: Continue to include a variety of vegetables, variety of colors (mushrooms, okra, kale, beets as examples Continue working on including lean protein foods (from plants/poultry/lean beef, lean deli meat ) continue working on following healthy plate method keep hydrated by choosing water/herb /fruit flavor water Coding Level of Care Code Nutr Indiv Subseq (64211) Diagnoses Type 2 diabetes mellitus with morbid obesity E11.69; E66.01 Time Spent (min) 30
--- OUTSIDE RECORDS SUMMARY | 2024-10-06 15:41 | XMS_ITS | Data Portability ---
Author Organization [facility] Address [address] [place] [address] Assessment No assessment recorded. Plan of Treatment Reminders Order Date Submit Date Provider Last Modified By Organization Details Last Modified Time Details Appointments None recorded. Lab urinalysis , dipstick 2022 023 [place] [address] _[facility], [address] [place] [address], [address], 3 11:45:12 glucose, fingerstic k, blood 2022 023 [place] [address] _[facility], [address] [place] [address], [address], 3 11:45:12 Referral emergency medicine referral 2022 [...] >400 mg/dL 80-140 = normal Not Available _[address], [address], 11/15/2022 11:41:20 11/16/19 23 11/15/2022 gluco se, finge rstic k, blood blood sugar - fasting mg/dL 80-125 = normal Not Available [address], [place], [address], 11/15/2022 11:41:20 11/16/19 23 11/15/2022 urina lysis , dipst ick Unknown Analyte Normal = light yellow Not Available [facility] [address], [place], [address], 11/15/2022 11:34:37 11/16/19 23 11/15/2022 urina lysis , dipst ick Unknown Analyte Yellow Not Available [address], [place], [address], 11/15/2022 11:34:37 11/16/19 23 11/15/2022 urina lysis , dipst ick Unknown Analyte Normal = clear Not Available [address], [place], [address], 11/15/2022 11:34:37 11/16/19 23 11/15/2022 urina lysis , dipst ick Unknown Analyte Clear Not Available [address], [place], [address], 11/15/2022 11:34:37 11/16/19 23 11/15/2022 urina lysis , dipst ick Unknown Analyte Normal = negati ve Not Available [facility] [address], [place], [address], 11/15/2022 11:34:37 11/16/19 23 11/15/2022 urina lysis , dipst ick Unknown Analyte 500 mg/dL Not Available [facility] [address], [place], [address], 11/15/2022 11:34:37 11/16/19 23 11/15/2022 urina lysis , dipst ick Unknown Analyte Normal = Negati ve Not Available [facility] [address], [place], [address], 11/15/2022 11:34:37 11/16/19 23 11/15/2022 urina lysis , dipst ick Unknown Analyte Negati ve Not Available [facility] [address], [place], [address], 11/15/2022 11:34:37 11/16/19 23 11/15/2022 urina lysis , dipst ick Unknown Analyte Normal = Negati ve Not Available [facility] [address], [place], [address], 11/15/2022 11:34:37 11/16/19 23 11/15/2022 urina lysis , dipst ick Unknown Analyte Negati ve Not Available [facility] [address], [place], [address], 11/15/2022 11:34:37 11/16/19 23 11/15/2022 urina lysis , dipst ick Unknown Analyte Normal = 1.010, 1.015, 1.020 Not Available [facility] [address], [place], [address], 11/15/2022 11:34:37 11/16/19 23 11/15/2022 urina lysis , dipst ick Unknown Analyte 1.015 Not Available [address], [place], [address], 11/15/2022 11:34:37 11/16/19 23 11/15/2022 urina lysis , dipst ick Unknown Analyte Normal = Negati ve Not Available [facility] qu[facility] [address], [place], [address], 11/15/2022 11:34:37 11/16/19 23 11/15/2022 urina lysis , dipst ick Unknown Analyte Negati ve Not Available tierra quinter[facility] [address], [place], [place], [address], 11/15/2022 11:34:37 11/16/19 23 11/15/2022 urina lysis , dipst ick Unknown Analyte Normal = 6.5, 7.0, 7.5, 8.0 Not Available [address], [place], [place], [address], 11/15/2022 11:34:37 11/16/19 23 11/15/2022 urina lysis , dipst ick Unknown Analyte 5.5 Not Available kon[facility] [address], [place], [place], [address], 11/15/2022 11:34:37 11/16/19 23 11/15/2022 urina lysis , dipst ick Unknown Analyte Normal = Negati ve Not Available tierra [address], [place], [address], 11/15/2022 11:34:37 11/16/19 23 11/15/2022 urina lysis , dipst ick Unknown Analyte Negati ve Not Available [address], [place], [place], [address], 11/15/2022 11:34:37 11/16/19 23 11/15/2022 urina lysis , dipst ick Unknown Analyte Normal = 0.2, 1.0 Not Available t[facility] [address], [place], [address], 11/15/2022 11:34:37 11/16/19 23 11/15/2022 urina lysis , dipst ick Unknown Analyte 0.2 E.U./d L Not Available [address], [place], [address], 11/15/2022 11:34:37 11/16/19 23 11/15/2022 urina lysis , dipst ick Unknown Analyte Normal = Negati ve Not Available [address] [place] [address], [place], [address], 11/15/2022 11:34:37 11/16/19 23 11/15/2022 urina lysis , dipst ick Unknown Analyte Negati ve Not Available [address] [place] [address], [place], [address], 11/15/2022 11:34:37 11/16/19 23 11/15/2022 urina lysis , dipst ick Unknown Analyte Normal = Negati ve Not Available [address] [place] [address], [place], [address], 11/15/2022 11:34:37 11/16/19 23 11/15/2022 urina lysis , dipst ick Unknown Analyte Negati ve Not Available [address] [place] [address], [address], 11/15/2022 11:34:37 Result Notes None recorded. Problems Name Problem SNOMED Code Status Onset Date Resolution Date Notes Provider Name and Address Organization Details Recorded Time Prediabetes 367308320 Active 023 SANJEEV Young - [facility] 10:53:17 Problem Notes None recorded. Medical Equipment None Reported. Allergies Allergen ID Allergen Name Allergen Category Reaction Reaction Severity Criticality Documentation Date Start Date Code Code System Note Provider Name and Address Organization Details Recorded Time 835088 shellfish derived food,medi cation Not available Not available Not available 11/15/2022 20978 UNK SANJEEV [facility] 3 10:52:23 Medications [...] Updated DateTime 3 172.72 cm 66 kg/m2 041744. 09 g 5 20 /min 97.5 [degF] 98 % 98 % 94 /min 137 mm[Hg] 84 mm[Hg] Mercedes Hou [facility] 3 10:55:27 Social History Question Answer [...] SNOMED-CT Code Diagnosis ICD10 Code Diagnosis Note [id number] [address] [address] 10/20/2018 14:17:41 10/20/2018 14:46:[address] [id number] [address] [address] 07/20/2019 13:35:00 07/20/2019 14:37:30 [id number] Lennie Vidal MD [address] [address] 11/15/2022 09:18:58 11/15/2022 11:48:14 Polyuria 22023133 R35.89 Hyperglycemia 11018287 R 73.9 Patient with history Pre-DM, not on medication s and no PCP. Symptomati c and needs further workup and treatment. [facility] go [facility] ER Glycosuria [id number] R81 Needs Blood sugar management and will go to ED\Agrees to go to [facility] rrently stable Health Concerns Section Related Observation LastModified by Organization Detai ls LastModified Time None Recorded Concern Status LastModified by Organization Details LastModified Time None Recorded Advance Directives Directive None Recorded Payers Encounter Date Sequence Insurance Name Policy Number Policy Barba Covered Member ID Barba Member ID Guarantor Name 07/20/2019 1 [place]: JENNIFER (PPO) [id number] Jonathan Jeff [id number] Jonathan Jeff 11/15/2022 1 [facility] [id number] Jonathan Jeff [id number] Jonathan Jeff Notes Date Note Type Note Provider Name and Address Organization Details Recorded Time 11/15/2022 text/html Patient presents with dry mouthUpon questioning he admits to excessive thrist and urinatrion for the last months.KNown to be prediabetric only.ON no meds for Diabetes. Lennie Vidal [place], [address], [place] - [facility] 11/20/2022 08:30:29
== END 2024-10-06 13:36 | disposition home or self-care (01) ==
LOC: HO.ENCR 12:51
PROVIDERS: PCP Family Medicine; Visit Provider Dietitian, Registered
DX: E11.69 Type 2 diabetes mellitus with other specified complication (principal); E66.01 Morbid (severe) obesity due to excess calories

== ENCOUNTER → 2024-10-06 12:51 | Outpatient (BNVA) | payer OTHER, SELFPAY | PROVIDERS: PCP Family Medicine; Visit Provider Dietitian, Registered | DX: E66.01 Morbid (severe) obesity due to excess calories (principal); E11.69 Type 2 diabetes mellitus with other specified complication; Z71.3 Dietary counseling and surveillance; Z68.44 Body mass index [BMI] 60.0-69.9, adult | CPT/HCPCS: 97803 ==

== ENCOUNTER 2024-11-04 09:07 | Outpatient (AMB) | payer OTHER, SELFPAY ==
--- NOTE | 2024-11-04 09:10 | A.OFFVIS_ITS ---
Vital Signs 11/04/24 09:12 Height 5 ft 8 in Weight 394 lb 10.039 oz BMI 60.0 BP 140/82 H Blood Pressure Location Rt radial Position Sitting Pulse 76 Pulse Source Pulse Oximeter Intake Visit Reasons: 3m follow up Intake Note: 3 mth f/up Athletics Director Required: No Accompanied by: Self / Same As Patient Allergies shellfish derived Allergy (Severe, Verified 08/07/24 07:50) rash, sweeling throat almond Allergy (Intermediate, Verified 08/07/24 07:50) Gastrointestinal Upset Egg Derived Allergy (Intermediate, Verified 08/07/24 07:50) Gastrointestinal Upset Fish Containing Products Allergy (Intermediate, Verified 08/07/24 07:50) Gastrointestinal Upset hazelnut Allergy (Intermediate, Verified 08/07/24 07:50) Diarrhea milk Allergy (Intermediate, Verified 08/07/24 07:50) Gastrointestinal Upset peanut Allergy (Intermediate, Verified 08/07/24 07:50) Gastrointestinal Upset soy Allergy (Intermediate, Verified 08/07/24 07:50) Gastrointestinal Upset walnut Allergy (Intermediate, Verified 08/07/24 07:50) Gastrointestinal Upset wheat Allergy (Intermediate, Verified 08/07/24 07:50) Gastrointestinal Upset No Known Drug Allergies Allergy (Unknown, Verified 08/07/24 07:50) none SESAME Allergy (Intermediate, Uncoded 06/11/24 08:53) Gastrointestinal Upset Raw fruit Adverse Reaction (Intermediate, Uncoded 06/11/24 08:53) Tickling in back of throat Medication List - Last Reconciled 11/04/24 by Amador Devi MD amlodipine 10 mg PO DAILY atorvastatin 80 mg PO BEDTIME 90 days carvedilol 6.25 mg PO BID cholecalciferol (vitamin D3) 125 mcg PO DAILY 90 days ibuprofen 600 mg PO Q8H PRN lisinopril-hydrochlorothiazide 20-25 mg 1 tab PO QAM 90 days metformin 750 mg (1.5 x 500 mg) PO BID 90 days thiamine HCl (vitamin B1) 100 mg PO DAILY HPI Comments Details: 53-year-old gentleman with morbid obesity was referred to us for perioperative cardiovascular status has been before bariatric surgery. He was complaining of exertional chest discomfort and had strong family history of coronary disease. 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 He was referred to Cardiothoracic surgery and saw Dr. Oliver in September 2024. It was felt that he does not need surgery currently. Also due to morbid obesity it was felt that the surgical risk is too much compared to arrhythmia/ischemia. He has been exercising regularly and losing weight. He has no exertional issues at this stage. Denying any chest discomfort shortness of breath. Blood pressure has been elevated and medications were titrated. His current blood pressure is 140/82. He will keep a log and call us in 10 days with his blood pressure readings. [facility] Medical History Morbid obesity Adjustment disorder Impacted cerumen, bilateral Pre-diabetes Acute muscle stiffness of neck History of [place] (myocardial infarction) Viral illness Laboratory examination ordered as part of a routine general medical examination Screening for prostate cancer Screening for colon cancer Adult general medical exam Screening for prostate cancer No pertinent past medical history Surgical History Hx of colonoscopy Hx of oral surgery Family History Father Heart disease Mother Diabetes Sister FH: diabetic complications Social History Housing: House Are you a primary home care manager to a significant other at home: No Do you presently have visiting nurse or other home services: No Alcohol intake: current Alcohol intake frequency: does not drink Patient Tobacco Use Status: Never used Tobacco e-Cigarette/Vaping Use: Never Used service: Yes Current occupational status: employed 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 Cognitive needs: No Hearing needs: No Vision needs: No Review of Systems Const Denies chills, Denies fatigue, Denies fever(s), Denies frequent falls, Denies weakness, Denies weight gain and Denies weight loss ENT Denies dizziness Card Denies chest pain, Denies leg edema, Denies lightheadedness, Denies palpitations, Denies dyspnea and Denies dyspnea on exertion Resp Denies cough, Denies dyspnea and Denies dyspnea on exertion GI Denies hematochezia Musc Denies abnormal gait, Denies muscle weakness, Denies numbness, Denies radiating pain into limb and Denies tingling Neuro Denies abnormal gait, Denies dizziness, Denies frequent falls, Denies numbness, Denies tingling and Denies weakness Endo Denies fatigue and Denies palpitations Physical Exam Vital Signs: Last Vital Signs Pulse 76 11/04/24 09:12 BP 140/82 H 11/04/24 09:12 BMI result Body Mass Index 60.0 GENERAL APPEARANCE: Morbidly obese. In no distress. SKIN: no suspicious lesions, warm and dry. HEART: no murmurs, regular rate and rhythm. LUNGS: clear to auscultation bilaterally. ABDOMEN: soft, nontender. EXTREMITIES: no edema. PERIPHERAL PULSES: equal. NEUROLOGIC: No gross deficits, AAO X 3 Assessment & Plan Assessment & Plan (1) Preop cardiovascular exam: Code(s): Z01.810 - Encounter for preprocedural cardiovascular examination Category: Medical (2) Anomalous right coronary artery: Code(s): Q24.5 - Malformation of coronary vessels Category: Medical (3) Essential hypertension: Code(s): I10 - Essential (primary) hypertension Category: Medical (4) Hyperlipidemia: Code(s): E78.5 - Hyperlipidemia, unspecified Category: Medical Plan Very pleasant 53 year gentleman with morbid obesity who was originally seen for perioperative cardiovascular risk assessment. He has strong family history of coronary disease underwent cardiac catheterization which showed anomalous right coronary artery. Coronary CTA was performed which showed that the right cor onary artery originates from the left coronary cusp. He has seen Cardiothoracic surgery and it was felt that he does not need surgery. He has been active and has no exertional symptoms. He has lost 5 lb compared to his last visit in September. Blood pressure control is better but still elevated. I have advised him to check his blood pressure and keep a log at home for the next 10 days and then call us. If he continues to be hypertensive then 25 mg spironolactone can be added to his regimen. I have advised him also to consider bariatric surgery because he will get benefit from it. He will see us back in 4 months. Thank you for allowing me to participate in the care of your patient. Please feel free to contact me if you have any questions. Coding Level of Care Code Est Pt Level 4 (51560) Diagnoses Preop cardiovascular exam Z01.810 Anomalous right coronary artery Q24.5 Essential hypertension I10 Hyperlipidemia E78.5
[2024-11-04 09:12] VITALS: BP 140/82; PULSE 76; BMI 60.0
--- OUTSIDE RECORDS SUMMARY | 2024-11-04 09:31 | XMS_ITS | Continuity of Care Document ---
Author Organization [facility] Cardiac Christiana nikolas Address [address] [place] [address] [place] [address]- Care Team Providers Care Cryptologist Name Role Phone Milvia GRIGGS, Kurt Hinojosa Primary Care Physician Encounter [facility] Date(s): 10/01/24 - 10/31/24 [facility] Cardiac Surgery [address] [place] [address] Drive [address] [place] [address]- Attending Physician: Yazan Muse Admitting Physician: Yazan Muse Referring Physician: AdmtrYazan Encounter Type: Triage Allergies, Adverse Reactions, Alerts Substance Criticality Severity [...] Refills, Maintenance, 11/15/22 5:44:00 PMEDT, ER Tablet, [id number], Partial fill upon patient request if the prescription is for a schedule II opioid drug., 173, cm, 11/15/22 16:45:00 EDT, Height, 200.2, kg, 11/15/22 16:45:00 EDT, Dry Weight Start Date: 11/15/22 Stop Date: 12/15/22 Status: Ordered Quantity: 60.0 Unit: tablet Repeat number: 1 Vitamin D3 [...] St atus Informant Severe obesity Confirmed Active Patient Care team information Care Team Personnel Name: Kurt Steel MD Position: [facility] Outreach Member Role: PCP Address: [address] [place] [address]- Telecom: Care Team Related Persons Name: CAROLINA SCOTT Insurance Providers Guarantor name: SUZE SCOTT Health Plan Information #: 1 Payer: [employer] Member Number: NA Policy Number: NA Group Number: NA
--- OUTSIDE RECORDS SUMMARY | 2024-11-04 09:31 | XMS_ITS | Data Portability ---
Author Organization [facility], [facility] Address [address] [place] [address] Assessment No assessment recorded. Plan of Treatment Reminders Order Date Submit Date Provider Last Modified By Organization Details Last Modified Time Details Appointments None recorded. Lab urinalysis , dipstick 2022 023 [place] [address] _[facility], [address] [place] [address], [address], 3 11:45:12 glucose, fingerstic k, blood 2022 023 [place] [address] _[facility], [address] [place] [address], [address], 3 11:45:12 Referral emergency medicine referral 2022 [...] mg/dL 80-140 = normal Not Available _[address], [address], 11/15/2022 11:41:20 11/16/19 23 11/15/2022 gluco se, finge rstic k, blood blood sugar - fasting mg/dL 80-125 = normal Not Available [address], [place], [address], 11/15/2022 11:41:20 11/16/19 23 11/15/2022 urina lysis , dipst ick Unknown Analyte Normal = light yellow Not Available [facility] [address], [place], [address], 11/15/2022 11:34:37 11/16/19 23 11/15/2022 urina lysis , dipst ick Unknown Analyte Yellow Not Available [address], [place], [address], 11/15/2022 11:34:37 11/16/19 23 11/15/2022 urina lysis , dipst ick Unknown Analyte Normal = clear Not Available [address], [place], [address], 11/15/2022 11:34:37 11/16/19 23 11/15/2022 urina lysis , dipst ick Unknown Analyte Clear Not Available [address], [place], [address], 11/15/2022 11:34:37 11/16/19 23 11/15/2022 urina lysis , dipst ick Unknown Analyte Normal = negati ve Not Available [facility] [address], [place], [address], 11/15/2022 11:34:37 11/16/19 23 11/15/2022 urina lysis , dipst ick Unknown Analyte 500 mg/dL Not Available [facility] [address], [place], [address], 11/15/2022 11:34:37 11/16/19 23 11/15/2022 urina lysis , dipst ick Unknown Analyte Normal = Negati ve Not Available [facility] [address], [place], [address], 11/15/2022 11:34:37 11/16/19 23 11/15/2022 urina lysis , dipst ick Unknown Analyte Negati ve Not Available [facility] [address], [place], [address], 11/15/2022 11:34:37 11/16/19 23 11/15/2022 urina lysis , dipst ick Unknown Analyte Normal = Negati ve Not Available [facility] qu[facility] [address], [place], [address], 11/15/2022 11:34:37 11/16/19 23 11/15/2022 urina lysis , dipst ick Unknown Analyte Negati ve Not Available tierra quinteros [address], [place], [address], 11/15/2022 11:34:37 11/16/19 23 11/15/2022 urina lysis , dipst ick Unknown Analyte Normal = 1.010, 1.015, 1.020 Not Available tierra quinteros [address], [place], [address], 11/15/2022 11:34:37 11/16/19 23 11/15/2022 urina lysis , dipst ick Unknown Analyte 1.015 Not Available [address], [place], [address], 11/15/2022 11:34:37 11/16/19 23 11/15/2022 urina lysis , dipst ick Unknown Analyte Normal = Negati ve Not Available t[facility] quinter[facility] [address], [place], [address], 11/15/2022 11:34:37 11/16/19 23 11/15/2022 urina lysis , dipst ick Unknown Analyte Negati ve Not Available tierra quinteros [address], [place], [place], [address], 11/15/2022 11:34:37 11/16/19 23 11/15/2022 urina lysis , dipst ick Unknown Analyte Normal = 6.5, 7.0, 7.5, 8.0 Not Available [address], [place], [place], [address], 11/15/2022 11:34:37 11/16/19 23 11/15/2022 urina lysis , dipst ick Unknown Analyte 5.5 Not Available konrad [address], [place], [place], [address], 11/15/2022 11:34:37 11/16/19 23 11/15/2022 urina lysis , dipst ick Unknown Analyte Normal = Negati ve Not Available tierra [address], [place], [address], 11/15/2022 11:34:37 11/16/19 23 11/15/2022 urina lysis , dipst ick Unknown Analyte Negati ve Not Available [address], [place], [place], [address], 11/15/2022 11:34:37 11/16/19 23 11/15/2022 urina lysis , dipst ick Unknown Analyte Normal = 0.2, 1.0 Not Available tierra [address], [place], [address], 11/15/2022 11:34:37 11/16/19 23 11/15/2022 urina lysis , dipst ick Unknown Analyte 0.2 E.U./d L Not Available [address], [place], [address], 11/15/2022 11:34:37 11/16/19 23 11/15/2022 urina lysis , dipst ick Unknown Analyte Normal = Negati ve Not Available [address] [place] [address], [place], [address], 11/15/2022 11:34:37 11/16/19 23 11/15/2022 urina lysis , dipst ick Unknown Analyte Negati ve Not Available [address] [place] [address], [place], [address], 11/15/2022 11:34:37 11/16/19 23 11/15/2022 urina lysis , dipst ick Unknown Analyte Normal = Negati ve Not Available [address] [place] [address], [place], [address], 11/15/2022 11:34:37 11/16/19 23 11/15/2022 urina lysis , dipst ick Unknown Analyte Negati ve Not Available [address] [place], [place] [address] [place], [address], 11/15/2022 11:34:37 Result Notes None recorded. Problems Name Problem SNOMED Code Status Onset Date Resolution Date Notes Provider Name and Address Organization Details Recorded Time Prediabetes 191941908 Active 023 SANJEEV Young - [facility] 10:53:17 Problem Notes None recorded. Medical Equipment None Reported. Allergies Allergen ID Allergen Name Allergen Category Reaction Reaction Severity Criticality Documentation Date Start Date Code Code System Note Provider Name and Address Organization Details Recorded Time 253644 shellfish derived food,medi cation Not available Not available Not available 11/15/2022 22479 UNK Mercedes Badillobryn cohen [facility] 10:52:23 Medications Name Sig Start Date [...] Updated DateTime 3 172.72 cm 66 kg/m2 670456. 09 g 5 20 /min 97.5 [degF] 98 % 98 % 94 /min 137 mm[Hg] 84 mm[Hg] Mercedes Moralescarlos PACE [facility] 10:55:27 Social History Question Answer Notes LastModified by [employer] Details LastModified Time Tobacco Smoking Status Never Smoker Mercedes Moralescarlos cohen SANJEEV [facility] 11/15/2022 10:53:51 Have You Recently Traveled Abroad? No Information not available 11/15/2022 Sex: Unknown Functional Status Question Answer Note LastModified by [employer] Details LastModified Time Do you use any illicit or recreational drugs? No Information not available 11/15/2022 Do you or have you ever used any other forms of tobacco or nicotine? No Information not available 11/15/2022 What is your level of alcohol consumption? None Information not available 11/15/2022 Mental Status None recorded. Family History Relationship [...] dose or 50 mcg/0.25mL dose 10/13/2020 completed Mercedes Belcherguillermo cohen PA - [facility] 11/15/2022 10:52:15 COVID-19, mRNA, LNP-S, PF, 100 mcg/0.5mL dose or 50 mcg/0.25mL dose 11/07/2020 completed Mercedes Shah SANJEEV cohen - [facility] 11/15/2022 10:52:15 Past Encounters Encounter ID Performer Location Encounter Start Date Encounter Closed Date Diagnosis/Indication Diagnosis SNOMED-CT Code Diagnosis ICD10 Code Diagnosis Note [id number] [facility] [address] [place] [address] 10/20/2018 14:17:41 10/20/2018 14:46:22 [id number] [address] [facility] [address] [place] [address] 07/20/2019 13:35:00 07/20/2019 14:37:30 [id number] Lennie Vidal MD [address] [place] [address] 11/15/2022 09:18:58 11/15/2022 11:48:14 Polyuria 81838024 R35.89 Hyperglycemia 19037191 R 73.9 Patient with history Pre-DM, not on medication s and no PCP. Symptomati c and needs further workup and treatment. Will go to [facility] ER Glycosuria [id number] R81 Needs Blood sugar management and will go to ED\Agrees to go to [facility] rrently stable Health Concerns Section Related Observation LastModified by Organization Detai ls LastModified Time None Recorded Concern Status LastModified by Organization Details LastModified Time None Recorded Advance Directives Directive None Recorded Payers Insurance Date Sequence Insurance Name Policy Number Policy Barba Covered Member ID Barba Member ID Guarantor Name 11/15/2022 1 [place]ENNIFER (PPO) [id number] Jonathan Jeff [id number] Jonathan Jeff 11/15/2022 1 [facility] [id number] Jonathan Jeff [id number] 1 Jonathan Jeff Notes Date Note Type Note Provider Name and Address Organization Details Recorded Time 11/15/2022 text/html Patient presents with dry mouthUpon questioning he admits to excessive thrist and urinatrion for the last months.KNown to be prediabetric only.ON no meds for Diabetes. Lennie Vidal MD [address] [place], [address], [place] - [facility] 11/20/2022 08:30:29
== END 2024-11-04 09:40 | disposition home or self-care (01) ==
LOC: HO.HCS 09:08
PROVIDERS: PCP Family Medicine; Visit Provider Internal Medicine Cardiovascular Disease
DX: Z01.810 Encounter for preprocedural cardiovascular examination (principal); Q24.5 Malformation of coronary vessels; I10 Essential (primary) hypertension; E78.5 Hyperlipidemia, unspecified
CPT/HCPCS: 99214

== ENCOUNTER → 2024-11-04 09:07 | Outpatient (BNVA) | payer OTHER, SELFPAY | PROVIDERS: PCP Family Medicine; Visit Provider Internal Medicine Cardiovascular Disease ==

== ENCOUNTER 2024-11-17 13:18 | Outpatient (AMB) | payer OTHER, SELFPAY ==
--- OUTSIDE RECORDS SUMMARY | 2024-11-17 13:24 | XMS_ITS | Data Portability ---
Author Organization [facility], [facility] Address [address] [place] [address] Assessment No assessment recorded. Plan of Treatment Reminders Order Date Submit Date Provider Last Modified By Organization Details Last Modified Time Details Appointments None recorded. Lab urinalysis , dipstick 2022 023 [place] [address] _[facility], [address] [place] [address], [address], 3 11:45:12 glucose, fingerstic k, blood 2022 023 [place] [address] _[facility], [address] [place] [address], [address], 3 11:45:12 Referral emergency medicine referral 2022 [...] >400 mg/dL 80-140 = normal Not Available _[address], [address], 11/15/2022 11:41:20 11/16/19 23 11/15/2022 gluco se, finge rstic k, blood blood sugar - fasting mg/dL 80-125 = normal Not Available [address], [place], [address], 11/15/2022 11:41:20 11/16/19 23 11/15/2022 urina lysis , dipst ick Unknown Analyte Normal = light yellow Not Available [facility] [address], [place], [address], 11/15/2022 11:34:37 11/16/19 23 11/15/2022 urina lysis , dipst ick Unknown Analyte Yellow Not Available [address], [place], [address], 11/15/2022 11:34:37 11/16/19 23 11/15/2022 urina lysis , dipst ick Unknown Analyte Normal = clear Not Available [address], [place], [address], 11/15/2022 11:34:37 11/16/19 23 11/15/2022 urina lysis , dipst ick Unknown Analyte Clear Not Available [address], [place], [address], 11/15/2022 11:34:37 11/16/19 23 11/15/2022 urina lysis , dipst ick Unknown Analyte Normal = negati ve Not Available [facility] [address], [place], [address], 11/15/2022 11:34:37 11/16/19 23 11/15/2022 urina lysis , dipst ick Unknown Analyte 500 mg/dL Not Available [address], [place], [address], 11/15/2022 11:34:37 11/16/19 23 11/15/2022 urina lysis , dipst ick Unknown Analyte Normal = Negati ve Not Available tierra quinteros [address], [place], [address], 11/15/2022 11:34:37 11/16/19 23 11/15/2022 urina lysis , dipst ick Unknown Analyte Negati ve Not Available [facility] [address], [place], [address], 11/15/2022 11:34:37 11/16/19 23 11/15/2022 urina lysis , dipst ick Unknown Analyte Normal = Negati ve Not Available [facility] quinter[facility] [address], [place], [address], 11/15/2022 11:34:37 11/16/19 23 11/15/2022 urina lysis , dipst ick Unknown Analyte Negati ve Not Available tierra quinter[facility] [address], [place], [address], 11/15/2022 11:34:37 11/16/19 23 11/15/2022 urina lysis , dipst ick Unknown Analyte Normal = 1.010, 1.015, 1.020 Not Available t[facility] quinter[facility] [address], [place], [address], 11/15/2022 11:34:37 11/16/19 23 11/15/2022 urina lysis , dipst ick Unknown Analyte 1.015 Not Available [address], [place], [address], 11/15/2022 11:34:37 11/16/19 23 11/15/2022 urina lysis , dipst ick Unknown Analyte Normal = Negati ve Not Available [facility] qu[facility] [address], [place], [address], 11/15/2022 11:34:37 11/16/19 23 11/15/2022 urina lysis , dipst ick Unknown Analyte Negati ve Not Available tierra quinter[facility] [address], [place], [place], [address], 11/15/2022 11:34:37 11/16/19 23 11/15/2022 urina lysis , dipst ick Unknown Analyte Normal = 6.5, 7.0, 7.5, 8.0 Not Available [address], [place], [place], [address], 11/15/2022 11:34:37 11/16/19 23 11/15/2022 urina lysis , dipst ick Unknown Analyte 5.5 Not Available kon[facility] [address], [place], [place], [address], 11/15/2022 11:34:37 11/16/19 23 11/15/2022 urina lysis , dipst ick Unknown Analyte Normal = Negati ve Not Available tierra [address], [place], [address], 11/15/2022 11:34:37 11/16/19 23 11/15/2022 urina lysis , dipst ick Unknown Analyte Negati ve Not Available [address], [place], [place], [address], 11/15/2022 11:34:37 11/16/19 23 11/15/2022 urina lysis , dipst ick Unknown Analyte Normal = 0.2, 1.0 Not Available tierra [address], [place], [address], 11/15/2022 11:34:37 11/16/19 23 11/15/2022 urina lysis , dipst ick Unknown Analyte 0.2 E.U./d L Not Available [address], [place], [address], 11/15/2022 11:34:37 11/16/19 23 11/15/2022 urina lysis , dipst ick Unknown Analyte Normal = Negati ve Not Available [address] [place] [address], [place], [address], 11/15/2022 11:34:37 11/16/19 23 11/15/2022 urina lysis , dipst ick Unknown Analyte Negati ve Not Available [address] [place] [address], [place], [address], 11/15/2022 11:34:37 11/16/19 23 11/15/2022 urina lysis , dipst ick Unknown Analyte Normal = Negati ve Not Available [address] [place] [address], [place], [address], 11/15/2022 11:34:37 11/16/19 23 11/15/2022 urina lysis , dipst ick Unknown Analyte Negati ve Not Available [address] [place], [place] [address], [address], 11/15/2022 11:34:37 Result Notes None recorded. Problems Name Problem SNOMED Code Status Onset Date Resolution Date Notes Provider Name and Address Organization Details Recorded Time Prediabetes 753537788 Active 023 SANJEEV Young - [facility] 10:53:17 Problem Notes None recorded. Medical Equipment None Reported. Allergies Allergen ID Allergen Name Allergen Category Reaction Reaction Severity Criticality Documentation Date Start Date Code Code System Note Provider Name and Address Organization Details Recorded Time 161011 shellfish derived food,medi cation Not available Not available Not available 11/15/2022 15226 UNK [facility]JEEV [facility] 10:52:23 Medications Name Sig Start Date Stop Date Status Note LastModified by Organization Details LastModified Time multivitamin active Not Available Not Available Not Available Vitals Date Recorded Body height Body mass index (BMI) Body weight Respiratory rate Body temperature Oxygen saturation Oxygen saturation in Arterial blood by Pulse oximetry Heart rate Systolic And Diastolic Provider Name and Address Organization Details Last Updated DateTime 3 172.72 cm 66 kg/m2 993735. 09 g 20 /min 97.5 [degF] 98 % 98 % 94 /min 137/84 mm[Hg] Mercedes [facility] 10:55:27 Social History Question Answer Notes LastModified by [employer] Details LastModified Time Tobacco Smoking Status Never Smoker [facility] 11/15/2022 10:53:51 Have You Recently Traveled Abroad? No Information not available 11/15/2022 Sex: Unknown Functional Status Question Answer Note LastModified by [employer] Details LastModified Time Do you use any [...] 50 mcg/0.25mL dose 10/13/2020 completed [facility]JEEV [facility] 11/15/2022 10:52:15 COVID-19, mRNA, LNP-S, PF, 100 mcg/0.5mL dose or 50 mcg/0.25mL dose 11/07/2020 completed Mercedes Shah SANJEEV cohen [facility] 11/15/2022 10:52:15 Past Encounters Encounter ID Performer Location Encounter Start Date Encounter Closed Date Diagnosis/Indication Diagnosis SNOMED-CT Code Diagnosis ICD10 Code Diagnosis Note [id number] [facility] [address] [place] [address] 10/20/2018 14:17:41 10/20/2018 14:46:22 [id number] [facility] [address] [address] 07/20/2019 13:35:00 07/20/2019 14:37:30 [id number] Lennie Vidal MD [address] [address] [place] [address] 11/15/2022 09:18:58 11/15/2022 11:48:14 Polyuria 86457923 R35.89 Hyperglycemia 61867005 R 73.9 Patient with history Pre-DM, not on medication s and no PCP. Symptomati c and needs further workup and treatment. Will go to [facility] ER Glycosuria 71654904 R81 Needs Blood sugar management and will go to ED\Agrees to go to [facility] rrently stable Health Concerns Section Related Observation LastModified by Organization Detai ls LastModified Time None Recorded Concern Status LastModified by Organization Details LastModified Time None Recorded Advance Directives Directive None Recorded Payers Insurance Date Sequence Insurance Name Policy Number Policy Barba Covered Member ID Barba Member ID Guarantor Name 11/15/2022 1 [employer] (PPO) [id number] Jonathan Jeff [id number] Jonathan Jeff 11/15/2022 1 [id number] Jonathan Jeff [id number] 1 Jonathan Jeff Notes Date Note Type Note Provider Name and Address Organization Details Recorded Time 11/15/2022 text/html Patient presents with dry mouthUpon questioning he admits to excessive thrist and urinatrion for the last months.KNown to be prediabetric only.ON no meds for Diabetes. Lennie Vidal MD [address] [place], [address], [place] - [facility] 11/20/2022 08:30:29
[2024-11-17 13:25] VITALS: BMI 60.1
--- NOTE | 2024-11-17 13:25 | A.OFFVIS_ITS ---
VS Expanded 11/17/24 13:25 11/17/24 13:52 Height 5 ft 8 in 5 ft 8 in Weight 395 lb 1.094 oz 395 lb BMI 60.1 60.1 Intake Visit Reasons: T2DM Allergies shellfish derived Allergy (Severe, Verified 08/07/24 07:50) rash, sweeling throat almond Allergy (Intermediate, Verified 08/07/24 07:50) Gastrointestinal Upset Egg Derived Allergy (Intermediate, Verified 08/07/24 07:50) Gastrointestinal Upset Fish Containing Products Allergy (Intermediate, Verified 08/07/24 07:50) Gastrointestinal Upset hazelnut Allergy (Intermediate, Verified 08/07/24 07:50) Diarrhea milk Allergy (Intermediate, Verified 08/07/24 07:50) Gastrointestinal Upset peanut Allergy (Intermediate, Verified 08/07/24 07:50) Gastrointestinal Upset soy Allergy (Intermediate, Verified 08/07/24 07:50) Gastrointestinal Upset walnut Allergy (Intermediate, Verified 08/07/24 07:50) Gastrointestinal Upset wheat Allergy (Intermediate, Verified 08/07/24 07:50) Gastrointestinal Upset No Known Drug Allergies Allergy (Unknown, Verified 08/07/24 07:50) none SESAME Allergy (Intermediate, Uncoded 06/11/24 08:53) Gastrointestinal Upset Raw fruit Adverse Reaction (Intermediate, Uncoded 06/11/24 08:53) Tickling in back of throat Nutrition Presentation Details: Pt presents for MNT f/u for Pre DM Pt reports GI symptoms have subsided since eliminating allergens Reports including food sources of omega 3: seeds /spinach fruits: dried fruits or canned protein: poultry/beef starches: potatoes/rice /wheat free/dairy free breads/pasta reading food labels fluids:water, water with non sugar flavor enchanters , tea : 12-18 cups/day keeping track of steps , 6500 steps/day BS Monitoring Most Recent Diabetes Results: Creatinine 0.86 mg/dL (0.5-1.4) 09/05/24 Blood Urea Nitrogen 18 mg/dL (9-16) H 09/05/24 Sodium 140 mmol/L (135-145) 09/05/24 Potassium 3.9 mmol/L (3.3-5.1) 09/05/24 Chloride 104 mmol/L (96-108) 09/05/24 Carbon Dioxide 27 mmol/L (22-29) 09/05/24 Calcium 9.9 mg/dL (8.4-10.2) 09/05/24 TGG-[id number]-Cq.Jeor Equation Height: 5 ft 8 in Weight: 395 lb Resting Metabolic Rate: 2618.56 Calculated Activity Level: Sedentary Calories Needed to Maintain Weight: 3142.27 PFSH Medical History Morbid obesity Adjustment disorder Impacted cerumen, bilateral Pre-diabetes Acute muscle stiffness of neck History of WI (myocardial infarction) Viral illness Laboratory examination ordered as part of a routine general medical examination Screening for prostate cancer Screening for colon cancer Adult general medical exam Screening for prostate cancer No pertinent past medical history Surgical History Hx of colonoscopy Hx of oral surgery Family History Father Heart disease Mother Diabetes Sister FH: diabetic complications Social History Housing: House Are you a primary caretaker to a significant other at home: No Do you presently have visiting nurse or other home services: No Alcohol intake: current Alcohol intake frequency: does not drink Patient Tobacco Use Status: Never used Tobacco e-Cigarette/Vaping Use: Never Used service: Yes Current occupational status: employed 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 Cognitive needs: No Hearing needs: No Vision needs: No Assessment & Plan Assessment & Plan (1) Type 2 diabetes mellitus with morbid obesity: Comment: CAD, multiple food allergies Code(s): E11.69 - Type 2 diabetes mellitus with other specified complication; E66.01 - Morbid (severe) obesity due to excess calories Category: Medical Plan: Wt at 475 lbs in the year 2011 Wt: 184 Kg ( 07/18 ), 183kg (08/18), 181 kg (10/16) , 179.5 (11/15) Est kcal needs as per MSJ: 3100 (40% carb, 30% protein/fat) Est fluid needs as per 25-30 ml/d: 5400 Est prot per day as per 1 g/kg bw: 180 Recommend fiber intake : 8-10 g per day and gradually increase to 25-28 g per day for women and 35-38 g for men or as tolerated Recommend sodium intake per day : less than 2300 mg Educated patient on: ( R = reviewed V = verbalizes understanding N/R = needs review N/A = not applicable * Food sources of carbohydrate, adequate serving sizes and its role in various health conditions: R (wheat free options) * Differences between complex carbohydrates a simple carbohydrates, role of fiber in diet: R (wheat free options) * Lean protein sources of foods: R * Differences between types of fats and role in diet (mono on saturated fat fatty acids, saturated fatty acids, trans fats): R * Food sources of sodium in salt and healthy modifications for heart health in kidney health: R V R/V * Vitamins and minerals: R * Healthy plate method concept: R * Physical activity: Benefits a precaution: R * Hypoglycemia protocol (rule of 15): R V N/R * Dietary prevention of Hyperglycemia: R Patient Instructions: continue working on mindful eating Work on preparing meals at home at least 3 times a week Try meal replacement 1- 2 a day (pea protein as example) Coding Level of Care Code Nutr Indiv Subseq (95489) Diagnoses Type 2 diabetes mellitus with morbid obesity E11.69; E66.01 Time Spent (min) 20
[2024-11-17 13:52] VITALS: BMI 60.1
== END 2024-11-17 14:17 | disposition home or self-care (01) ==
LOC: HO.ENCR 13:19
PROVIDERS: PCP Family Medicine; Visit Provider Dietitian, Registered
DX: E11.69 Type 2 diabetes mellitus with other specified complication (principal); E66.01 Morbid (severe) obesity due to excess calories

== ENCOUNTER → 2024-11-17 13:18 | Outpatient (BNVA) | payer OTHER, SELFPAY | PROVIDERS: PCP Family Medicine; Visit Provider Dietitian, Registered | DX: E11.69 Type 2 diabetes mellitus with other specified complication (principal); E66.01 Morbid (severe) obesity due to excess calories; Z68.44 Body mass index [BMI] 60.0-69.9, adult; Z71.3 Dietary counseling and surveillance | CPT/HCPCS: 97803 ==

== ENCOUNTER 2024-12-29 13:26 | Outpatient (AMB) | payer OTHER, SELFPAY ==
--- NOTE | 2024-12-29 13:57 | A.OFFVIS_ITS ---
VS Expanded 12/29/24 13:58 Height 5 ft 8 in Weight 394 lb 6.511 oz BMI 60.0 Intake Visit Reasons: morbid obesity Allergies shellfish derived Allergy (Severe, Verified 08/07/24 07:50) rash, sweeling throat almond Allergy (Intermediate, Verified 08/07/24 07:50) Gastrointestinal Upset Egg Derived Allergy (Intermediate, Verified 08/07/24 07:50) Gastrointestinal Upset Fish Containing Products Allergy (Intermediate, Verified 08/07/24 07:50) Gastrointestinal Upset hazelnut Allergy (Intermediate, Verified 08/07/24 07:50) Diarrhea milk Allergy (Intermediate, Verified 08/07/24 07:50) Gastrointestinal Upset peanut Allergy (Intermediate, Verified 08/07/24 07:50) Gastrointestinal Upset soy Allergy (Intermediate, Verified 08/07/24 07:50) Gastrointestinal Upset walnut Allergy (Intermediate, Verified 08/07/24 07:50) Gastrointestinal Upset wheat Allergy (Intermediate, Verified 08/07/24 07:50) Gastrointestinal Upset No Known Drug Allergies Allergy (Unknown, Verified 08/07/24 07:50) none SESAME Allergy (Intermediate, Uncoded 06/11/24 08:53) Gastrointestinal Upset Raw fruit Adverse Reaction (Intermediate, Uncoded 06/11/24 08:53) Tickling in back of throat Nutrition Presentation Details: Pt presents for MNT follow up for obesity Pt reports keeping sedentary for the past month (related to multiple MD appt with son) Pt verbalizes benefits he has noticed when participating in physical activity and is looking forward to resuming physical activity on Pt reports working on meal preparation at home vs eating out and working towards having smaller meals vs 2 large meals/day, choosinga variety of foods BS Monitoring Most Recent Diabetes Results: Creatinine, (0.5-1.4) 0.86 mg/dL 09/05/24 BUN, (9-16) 18 mg/dL H 09/05/24 Sodium, (135-145) 140 mmol/L 09/05/24 Potassium, (3.3-5.1) 3.9 mmol/L 09/05/24 Chloride, (96-108) 104 mmol/L 09/05/24 Carbon Dioxide, (22-29) 27 mmol/L 09/05/24 Calcium, (8.4-10.2) 9.9 mg/dL 09/05/24 [facility] Medical History Morbid obesity Adjustment disorder Impacted cerumen, bilateral Pre-diabetes Acute muscle stiffness of neck History of CT (myocardial infarction) Viral illness Laboratory examination ordered as part of a routine general medical examination Screening for prostate cancer Screening for colon cancer Adult general medical exam Screening for prostate cancer No pertinent past medical history Surgical History Hx of colonoscopy Hx of oral surgery Family History Father Heart disease Mother Diabetes Sister FH: diabetic complications Social History Housing: House Are you a primary patient care representative to a significant other at home: No Do you presently have visiting nurse or other home services: No Alcohol intake: current Alcohol intake frequency: does not drink Patient Tobacco Use Status: Never used Tobacco e-Cigarette/Vaping Use: Never Used service: Yes Current occupational status: employed 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 Cognitive needs: No Hearing needs: No Vision needs: No Assessment & Plan Assessment & Plan (1) Type 2 diabetes mellitus with morbid obesity: Comment: CAD, multiple food allergies Code(s): E11.69 - Type 2 diabetes mellitus with other specified complication; E66.01 - Morbid (severe) obesity due to excess calories Category: Medical Plan: Wt at 475 lbs in the year 2011 Wt: 184 Kg ( 07/18 ), 183kg (08/18), 181 kg (10/16) , 179.5 (11/15), 179 kg (01/15) Est kcal needs as per MSJ: 3100 (40% carb, 30% protein/fat) Est fluid needs as per 25-30 ml/d: 5400 Est prot per day as per 1 g/kg bw: 180 Recommend fiber intake : 8-10 g per day and gradually increase to 25-28 g per day for women and 35-38 g for men or as tolerated Recommend sodium intake per day : less than 2300 mg Educated patient on: ( R = reviewed V = verbalizes understanding N/R = needs review N/A = not applicable * Food sources of carbohydrate, adequate serving sizes and its role in various health conditions: R (wheat free options) * Differences between complex carbohydrates a simple carbohydrates, role of fiber in diet: R (wheat free options) * Lean protein sources of foods: R * Differences between types of fats and role in diet (mono on saturated fat fatty acids, saturated fatty acids, trans fats): R * Food sources of sodium in salt and healthy modifications for heart health in kidney health: R V R/V * Vitamins and minerals: R * Healthy plate method concept: R * Physical activity: Benefits a precaution: R * Hypoglycemia protocol (rule of 15): R V N/R * Dietary prevention of Hyperglycemia: R Patient Instructions: Continue working on reducing portion sizes , having 4 small meals /day vs 1-2 large meals 40 g protein/100 g carb 4 times/day and 1 snack consisting of 20 g protein/30 gcarbs continue choosing low sodium food options Coding Level of Care Code Nutr Indiv Subseq (73180) Diagnoses Type 2 diabetes mellitus with morbid obesity E11.69; E66.01 Time Spent (min) 30
[2024-12-29 13:58] VITALS: BMI 60.0
--- OUTSIDE RECORDS SUMMARY | 2024-12-29 14:09 | XMS_ITS | Data Portability ---
Author Organization [facility], [facility] Address [address] [place] [address] Assessment No assessment recorded. Plan of Treatment Reminders Order Date Submit Date Provider Last Modified By Organization Details Last Modified Time Details Appointments None recorded. Lab urinalysis , dipstick 2022 023 [place] [address] _[facility], [address] [place] [address], [phone], 3 11:45:12 glucose, fingerstic k, blood 2022 023 [place] [address] _[facility], [address] [place] [address], [phone], 3 11:45:12 Referral emergency medicine referral 2022 [...] Abnormal Flag Note LastModifiedBy Organization Detail LastModifiedTime 11/16/1911/15/2022 gluco se, finge rstic k, blood blood sugar - non fasting >400 mg/dL 80-140 = normal Not Available [address], [address], 11/15/2022 11:41:20 11/16/19 23 11/15/2022 gluco se, finge rstic k, blood blood sugar - fasting mg/dL 80-125 = normal Not Available [address], [place], [address], 11/15/2022 11:41:20 11/16/19 23 11/15/2022 urina lysis , dipst ick Unknown Analyte Normal = light yellow Not Available tierra [address], [place], [address], 11/15/2022 11:34:37 11/16/19 23 11/15/2022 urina lysis , dipst ick Unknown Analyte Yellow Not Available [address], [place], [address], 11/15/2022 11:34:37 11/16/19 23 11/15/2022 urina lysis , dipst ick Unknown Analyte Normal = clear Not Available tierra [address], [place], [address], 11/15/2022 11:34:37 11/16/19 23 11/15/2022 urina lysis , dipst ick Unknown Analyte Clear Not Available [address], [place], [address], 11/15/2022 11:34:37 11/16/19 23 11/15/2022 urina lysis , dipst ick Unknown Analyte Normal = negati ve Not Available tierra [address], [place], [address], 11/15/2022 11:34:37 11/16/19 23 11/15/2022 urina lysis , dipst ick Unknown Analyte 500 mg/dL Not Available tierra quinteros [address], [place], [address], 11/15/2022 11:34:37 11/16/19 23 11/15/2022 urina lysis , dipst ick Unknown Analyte Normal = Negati ve Not Available tierra quinteros [address], [place], [address], 11/15/2022 11:34:37 11/16/19 23 11/15/2022 urina lysis , dipst ick Unknown Analyte Negati ve Not Available tierra quinteros [address], [place], [address], 11/15/2022 11:34:37 11/16/19 23 11/15/2022 urina lysis , dipst ick Unknown Analyte Normal = Negati ve Not Available tierra quinteros [address], [place], [address], 11/15/2022 11:34:37 11/16/19 23 11/15/2022 urina lysis , dipst ick Unknown Analyte Negati ve Not Available tierra quinteros [address], [place], [address], 11/15/2022 11:34:37 11/16/19 23 11/15/2022 urina lysis , dipst ick Unknown Analyte Normal = 1.010, 1.015, 1.020 Not Available tierra quinteros [address], [place], [address], 11/15/2022 11:34:37 11/16/19 23 11/15/2022 urina lysis , dipst ick Unknown Analyte 1.015 Not Available [address], [place], [address], 11/15/2022 11:34:37 11/16/19 23 11/15/2022 urina lysis , dipst ick Unknown Analyte Normal = Negati ve Not Available [address]tierra quinteros [address], [place], [address], 11/15/2022 11:34:37 11/16/19 23 11/15/2022 urina lysis , dipst ick Unknown Analyte Negati ve Not Available [address]tierra quinteros [address], [place], [address], 11/15/2022 11:34:37 11/16/19 23 11/15/2022 urina lysis , dipst ick Unknown Analyte Normal = 6.5, 7.0, 7.5, 8.0 Not Available [address] quinteros [address], [place], [place], [address], 11/15/2022 11:34:37 11/16/19 23 11/15/2022 urina lysis , dipst ick Unknown Analyte 5.5 Not Available konrad [address], [place], [place], [address], 11/15/2022 11:34:37 11/16/19 23 11/15/2022 urina lysis , dipst ick Unknown Analyte Normal = Negati ve Not Available [address]tierra quinteros [address], [place], [place], [address], 11/15/2022 11:34:37 11/16/19 23 11/15/2022 urina lysis , dipst ick Unknown Analyte Negati ve Not Available [address] quinteros [address], [place], [address], 11/15/2022 11:34:37 11/16/19 23 11/15/2022 urina lysis , dipst ick Unknown Analyte Normal = 0.2, 1.0 Not Available [address] quinteros [address], [place], [address], 11/15/2022 11:34:37 11/16/19 23 11/15/2022 urina lysis , dipst ick Unknown Analyte 0.2 E.U./d L Not Available [address] [place] [address] [place], [address], 11/15/2022 11:34:37 11/16/19 23 11/15/2022 urina lysis , dipst ick Unknown Analyte Normal = Negati ve Not Available [address] [place] [address] [place], [address], 11/15/2022 11:34:37 11/16/19 23 11/15/2022 urina lysis , dipst ick Unknown Analyte Negati ve Not Available [address] [place] [address], [address], 11/15/2022 11:34:37 11/16/19 23 11/15/2022 urina lysis , dipst ick Unknown Analyte Normal = Negati ve Not Available [address] [place] [address], [place], [address], 11/15/2022 11:34:37 11/16/19 23 11/15/2022 urina lysis , dipst ick Unknown Analyte Negati ve Not Available [address] [place] [address], [address], 11/15/2022 11:34:37 Result Notes None recorded. Problems Name Problem SNOMED Code Status Onset Date Resolution Date Notes Provider Name and Address Organization Details Recorded Time Prediabetes 453919025 Active 023 SANJEEV Young [facility] 10:53:17 Problem Notes None recorded. Medical Equipment None Reported. Allergies Allergen ID Allergen Name Allergen Category Reaction Reaction Severity Criticality Documentation Date Start Date Code Code System Note Provider Name and Address Organization Details Recorded Time 079805 shellfish derived food,medi cation Not available Not available Not available 11/15/2022 43523 UNK SANJEEV Young [facility] 10:52:23 Medications [...] Last Updated DateTime 172.72 cm 66 kg/m2 286411. 09 g 20 /min 97.5 [degF] 98 % 98 % 94 /min 137/84 mm[Hg] Mercedes [facility] 10:55:27 Social History Question Answer Notes LastModified by [employer] Details LastModified Time Tobacco Smoking Status Never Smoker SANJEEV [facility] 11/15/2022 10:53:51 Have You Recently Traveled Abroad? No Information not available 11/15/2022 Sex: Unknown Functional Status Question Answer Note LastModified by [employer] Details LastModified Time Do you use any [...] SNOMED-CT Code Diagnosis ICD10 Code Diagnosis Note [id number] [facility] [address] [place] [address] 10/20/2018 14:17:41 10/20/2018 14:46:22 [id number] [facility] [address] [place] [address] 07/20/2019 13:35:00 07/20/2019 14:37:30 [id number] Lennie Vidal MD [address] [address] [place] [address] 11/15/2022 09:18:58 11/15/2022 11:48:14 Polyuria 79474165 R35.89 Hyperglycemia 75433226 R 73.9 Patient with history Pre-DM, not on medication s and no PCP. Symptomati c and needs further workup and treatment. Will go [facility] ER Glycosuria 20198804 R81 Needs Blood sugar management and will go to ED\Agrees to go to [facility] rrently stable Health Concerns Section Related Observation LastModified by Organization Detai ls LastModified Time None Recorded Concern Status LastModified by Organization Details LastModified Time None Recorded Advance Directives Directive None Recorded Payers Insurance Date Sequence Insurance Name Policy Number Policy Barba Covered Member ID Barba Member ID Guarantor Name 11/15/2022 1 [employer] (PPO) [id number] Jonathan Jeff [id number] Jonathan Jeff 11/15/2022 1 [employer] [id number] Jonathan Jeff [id number] Jonathan Jeff Notes Date Note Type Note Provider Name and Address Organization Details Recorded Time 11/15/2022 text/html Patient presents with dry mouthUpon questioning he admits to excessive thrist and urinatrion for the last months.KNown to be prediabetric only.ON no meds for Diabetes. Lennie Vidal MD [address] [facility] [place], [address], [place] - [facility] 11/20/2022 08:30:29
== END 2024-12-29 14:31 | disposition home or self-care (01) ==
LOC: HO.ENCR 13:27
PROVIDERS: PCP Family Medicine; Visit Provider Dietitian, Registered
DX: E11.69 Type 2 diabetes mellitus with other specified complication (principal); E66.01 Morbid (severe) obesity due to excess calories

== ENCOUNTER → 2024-12-29 13:26 | Outpatient (BNVA) | payer OTHER, SELFPAY | PROVIDERS: PCP Family Medicine; Visit Provider Dietitian, Registered | DX: Z71.3 Dietary counseling and surveillance (principal); E66.01 Morbid (severe) obesity due to excess calories; E11.69 Type 2 diabetes mellitus with other specified complication | CPT/HCPCS: 97803 ==

== ENCOUNTER 2025-02-19 13:01 | Outpatient (AMB) | payer OTHER, SELFPAY ==
--- NOTE | 2025-02-19 13:08 | A.OFFPC_ITS ---
Vital Signs 02/19/25 13:14 Height 5 ft 8 in Weight 388 lb BMI 59.0 BP 120/65 Blood Pressure Location Lt brachial Position Sitting Respiration 16 Pulse 73 Pulse Source Pulse Oximeter Temp 98.1 F Temp Source Oral Pulse Oximetry (%) 96 Oxygen Delivery Method Room Air Intake Visit Reasons: FMLA Follow Up Intake Note: patient here for FMLA follow up Legal Process Specialist Required: No Allergies shellfish derived Allergy (Severe, Verified 02/19/25 13:11) rash, sweeling throat almond Allergy (Intermediate, Verified 02/19/25 13:11) Gastrointestinal Upset Egg Derived Allergy (Intermediate, Verified 02/19/25 13:11) Gastrointestinal Upset Fish Containing Products Allergy (Intermediate, Verified 02/19/25 13:11) Gastrointestinal Upset hazelnut Allergy (Intermediate, Verified 02/19/25 13:11) Diarrhea milk Allergy (Intermediate, Verified 02/19/25 13:11) Gastrointestinal Upset peanut Allergy (Intermediate, Verified 02/19/25 13:11) Gastrointestinal Upset soy Allergy (Intermediate, Verified 02/19/25 13:11) Gastrointestinal Upset walnut Allergy (Intermediate, Verified 02/19/25 13:11) Gastrointestinal Upset wheat Allergy (Intermediate, Verified 02/19/25 13:11) Gastrointestinal Upset No Known Drug Allergies Allergy (Unknown, Verified 02/19/25 13:11) none SESAME Allergy (Intermediate, Uncoded 06/11/24 08:53) Gastrointestinal Upset Raw fruit Adverse Reaction (Intermediate, Uncoded 06/11/24 08:53) Tickling in back of throat Tobacco use date assessed: 02/19/25 Dental Screening Dental Screen Date: 02/19/25 Did you have a dental visit in the last 12 months?: No Did you have a dental problem in the last 6 months where you did not have access to dental care?: No Was dental information given to patient?: No HPI FMLA Follow Up HPI Details 54 y/o male presents for FMLA paperwork. Had been out of work periodically while he was getting chest/abd. pain worked up. Hx of CAD, s/p cardiac cath. Continues to see GI, communications intern. BP today 120/65, 73p. PFSH Medical History Morbid obesity Adjustment disorder Impacted cerumen, bilateral Pre-diabetes Acute muscle stiffness of neck History of [place] (myocardial infarction) Viral illness Laboratory examination ordered as part of a routine general medical examination Screening for prostate cancer Screening for colon cancer Adult general medical exam Screening for prostate cancer No pertinent past medical history Surgical History Hx of colonoscopy Hx of oral surgery Family History Father Heart disease Mother Diabetes Sister FH: diabetic complications Social History Housing: House Are you a primary home care giver to a significant other at home: No Do you presently have visiting nurse or other home services: No Alcohol intake: current Alcohol intake frequency: does not drink Patient Tobacco Use Status: Never used Tobacco e-Cigarette/Vaping Use: Never Used Second Hand Smoke Exposure: No service: Yes Current occupational status: employed 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 Cognitive needs: No Hearing needs: No Vision needs: No Questionnaire Thrive Questionnaire Date Thrive assessed: 06/26/24 I am a: Patient What is your living situation today?: I have a steady place to live Within the past 12 months, did the food you bought not last and you didn't have the money to get more?: Never true Within the past 12 months, did you worry whether your food would run out before you got money to buy more?: Never true Do you have trouble paying for medicines?: No Do you have trouble getting transportation to medical appointments?: No Do you have trouble paying your heating and electricity bill?: No Do you have trouble taking care of your child, family member or friend?: No Do you have trouble with day-to-day activities such as bathing, preparing meals, shopping, managing finances, etc.?: No Are you currently unemployed and looking for a job?: No Are you interested in more education?: No Currently or been in a relationship where the following occur: No concerns reported THRIVE Score: 0 LOU-7 AMB Questionnaire LOU-7 Date LOU - 7 assessed: 07/03/24 Source: Developed by Drs. Alvarez Kirk, Jessica Jeff, Arthur Mosquera and colleagues, with an educational hilda from [employer]. Physical exam (Primary Care) Vital Signs: Last Vital Signs Temp 98.1 F 02/19/25 13:14 Pulse 73 02/19/25 13:14 Resp 16 02/19/25 13:14 BP 120/65 02/19/25 13:14 Pulse Ox 96 02/19/25 13:14 Oxygen Delivery Method Room Air 02/19/25 13:14 BMI result Body Mass Index 59.0 Tobacco/Smoking Status: Tobacco use Status Tobacco use date assessed 02/19/25 02/19/25 13:18 Patient Tobacco Use Status Never used Tobacco 02/19/25 13:11 e-Cigarette/Vaping Use Never Used 02/19/25 13:11 Thrive Assessment: Date of Thrive Assessment Date Thrive assessed 06/26/24 02/19/25 13:11 Currently or been in a relationship where the following occur: No concerns reported Coding Level of Care Code Est Pt Level 3 (66366) Diagnoses Essential hypertension I10 CAD (coronary artery disease) I25.10 Morbid obesity E66.01 Assessment & Plan Assessment & Plan (1) Essential hypertension: Code(s): I10 - Essential (primary) hypertension Category: Medical (2) CAD (coronary artery disease): Code(s): I25.10 - Atherosclerotic heart disease of [place] coronary artery without angina pectoris Category: Medical (3) Morbid obesity: Code(s): E66.01 - Morbid (severe) obesity due to excess calories Category: Medical Plan 54-year-old male with history of hypertension, diabetes, morbid obesity, 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 Patient requires 1-4 medical visits per month including Cardiology, Endocrinology, weight management and primary care. Doing well on current regimen. FMLA paperwork filled out Follow-up with specialists as recommended
[2025-02-19 13:14] VITALS: BP 120/65; PULSE 73; RESP 16; TEMP 36.7; O2SAT 96; BMI 59.0
== END 2025-02-19 14:10 | disposition home or self-care (01) ==
LOC: HO.HMCFM 13:03
PROVIDERS: PCP Family Medicine; Visit Provider Family Medicine
DX: I10 Essential (primary) hypertension (principal); I25.10 Atherosclerotic heart disease of native coronary artery without angina pectoris; E66.01 Morbid (severe) obesity due to excess calories; Z68.43 Body mass index [BMI] 50.0-59.9, adult

== ENCOUNTER 2025-02-25 09:21 | Outpatient (AMB) | payer OTHER, SELFPAY ==
[2025-02-25 09:42] VITALS: BMI 59.0
--- NOTE | 2025-02-25 09:42 | MHC.AMNUTRGE ---
VS Expanded 02/25/25 09:42 Height 5 ft 8 in Weight 388 lb 0.217 oz BMI 59.0 Intake Visit Reasons: obesity Allergies shellfish derived Allergy (Severe, Verified 02/19/25 13:11) rash, sweeling throat almond Allergy (Intermediate, Verified 02/19/25 13:11) Gastrointestinal Upset Egg Derived Allergy (Intermediate, Verified 02/19/25 13:11) Gastrointestinal Upset Fish Containing Products Allergy (Intermediate, Verified 02/19/25 13:11) Gastrointestinal Upset hazelnut Allergy (Intermediate, Verified 02/19/25 13:11) Diarrhea milk Allergy (Intermediate, Verified 02/19/25 13:11) Gastrointestinal Upset peanut Allergy (Intermediate, Verified 02/19/25 13:11) Gastrointestinal Upset soy Allergy (Intermediate, Verified 02/19/25 13:11) Gastrointestinal Upset walnut Allergy (Intermediate, Verified 02/19/25 13:11) Gastrointestinal Upset wheat Allergy (Intermediate, Verified 02/19/25 13:11) Gastrointestinal Upset No Known Drug Allergies Allergy (Unknown, Verified 02/19/25 13:11) none SESAME Allergy (Intermediate, Uncoded 06/11/24 08:53) Gastrointestinal Upset Raw fruit Adverse Reaction (Intermediate, Uncoded 06/11/24 08:53) Tickling in back of throat Nutrition Presentation Details: Pt presents for MNT f/u for obesity Pt reports having regular bowel movements, denies any GI symptoms Restarting exercise routine physically active: 2-3 times a week (1 hr ) water/fluids : 80-100 oz /day Working on choosing lower fat foods, choosing lean protein and adding fiber rich foods working on making meals at home, choosing diff recipes , reports enjoying the journey reports taking a daily mvi 50+ reports working on diet modifications and physical activity, denies taking wt loss medications PFSH Medical History (Updated 02/24/25 @ 08:14 by Amador Devi MD) Morbid obesity Adjustment disorder Impacted cerumen, bilateral Pre-diabetes Acute muscle stiffness of neck History of [place] (myocardial infarction) Viral illness Laboratory examination ordered as part of a routine general medical examination Screening for prostate cancer Screening for colon cancer Adult general medical exam Screening for prostate cancer No pertinent past medical history Surgical History Hx of colonoscopy Hx of oral surgery Family History Father Heart disease Mother Diabetes Sister FH: diabetic complications Social History (Reviewed 11/04/24 @ 09:13 by Aracelis Cobb [facility]) Housing: House Are you a primary caregivers non medical to a significant other at home: No Do you presently have visiting nurse or other home services: No Alcohol intake: current Alcohol intake frequency: does not drink Patient Tobacco Use Status: Never used Tobacco e-Cigarette/Vaping Use: Never Used Second Hand Smoke Exposure: No service: Yes Current occupational status: employed 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 Cognitive needs: No Hearing needs: No Vision needs: No Assessment & Plan Assessment & Plan (1) Type 2 diabetes mellitus with morbid obesity: Comment: CAD, multiple food allergies Code(s): E11.69 - Type 2 diabetes mellitus with other specified complication; E66.01 - Morbid (severe) obesity due to excess calories Category: Medical Plan: Wt at 475 lbs in the year 2011 Wt: 184 Kg ( 07/18 ), 183kg (08/18), 181 kg (10/16) , 179.5 (11/15), 179 kg (01/15), 176 kg 02/15 Est kcal needs as per MSJ: 3100 (40% carb, 30% protein/fat) Est fluid needs as per 25-30 ml/d: 5300 Est prot per day as per 1 g/kg bw: 180 Recommend fiber intake : 8-10 g per day and gradually increase to 25-28 g per day for women and 35-38 g for men or as tolerated Recommend sodium intake per day : less than 2300 mg Educated patient on: ( R = reviewed V = verbalizes understanding N/R = needs review N/A = not applicable Food sources of carbohydrate, adequate serving sizes and its role in various health conditions: R (wheat free options) Differences between complex carbohydrates a simple carbohydrates, role of fiber in diet: R (wheat free options) Lean protein sources of foods: R Differences between types of fats and role in diet (mono on saturated fat fatty acids, saturated fatty acids, trans fats): R Food sources of sodium in salt and healthy modifications for heart health in kidney health: R V R/V Vitamins and minerals: R Healthy plate method concept: R Physical activity: Benefits a precaution: R Hypoglycemia protocol (rule of 15): R V N/R Dietary prevention of Hyperglycemia: R Patient Instructions: Include calcium rich foods aim at at least 1200 mg/day - see list of food sources of calcium (non dairy alternatives) Coding Level of Care Code Nutr Indiv Subseq (88414) Diagnoses Type 2 diabetes mellitus with morbid obesity E11.69; E66.01 Time Spent (min) 30
== END 2025-02-25 10:13 | disposition home or self-care (01) ==
LOC: HO.ENCR 09:22
PROVIDERS: PCP Family Medicine; Visit Provider Dietitian, Registered
DX: E11.69 Type 2 diabetes mellitus with other specified complication (principal); E66.01 Morbid (severe) obesity due to excess calories

== ENCOUNTER → 2025-02-25 09:21 | Outpatient (BNVA) | payer OTHER, SELFPAY | PROVIDERS: PCP Family Medicine; Visit Provider Dietitian, Registered | DX: E11.69 Type 2 diabetes mellitus with other specified complication (principal); I25.10 Atherosclerotic heart disease of native coronary artery without angina pectoris; I10 Essential (primary) hypertension; E66.01 Morbid (severe) obesity due to excess calories; Z68.43 Body mass index [BMI] 50.0-59.9, adult; Z91.018 Allergy to other foods | CPT/HCPCS: 97803 ==

== ENCOUNTER 2025-03-17 12:41 | Outpatient (REF) | payer OTHER, SELFPAY ==
--- NOTE | ~2025-03-17 | MR_ITS ---
EXAMINATION: MR ABDOMEN WITHOUT AND WITH CONTRAST CLINICAL INFORMATION: Liver disease, unspecified. COMPARISON: Abdominal ultrasound of February 28, 2024 TECHNIQUE: MR abdomen was performed without and with use of 10 cc intravenous Gadavist gadolinium contrast. Postcontrast images are performed in multiphase dynamic sequences. Imaging was performed in 3 planes. Subtraction images are not available for review. FINDINGS: Motion degrades many sequences. Artifacts related to body habitus limit some of the sequences. LOWER CHEST: No focal consolidation. No pleural effusions. LIVER: Hepatomegaly measuring 20.2 cm. No obvious focal hepatic lesions or focal enhancing lesions. GALLBLADDER/BILIARY TREE: Nondistended gallbladder. No large gallstones. PANCREAS: No obvious abnormality SPLEEN: No splenomegaly. ADRENAL GLANDS: No obvious nodules. KIDNEYS AND URETERS: No hydronephrosis or obvious lesions. GASTROINTESTINAL TRACT: No bowel distention. PERITONEUM/RETROPERITONEUM: No free fluid. LYMPH NODES: No bulky lymphadenopathy. VASCULAR: No abdominal aortic aneurysm. OSSEOUS STRUCTURES: Unremarkable. MR/MR abdomen wo/w con IMPRESSION: Limited examination. Hepatomegaly. No obvious focal abnormalities. Electronically signed by: Nydia Gunderson MD 03/17/2025 03:13 PM EDT
== END 2025-03-17 12:42 | disposition home or self-care (01) ==
LOC: HO.MRI 12:41
PROVIDERS: PCP Family Medicine; Visit Provider Internal Medicine Cardiovascular Disease
DX: K76.9 Liver disease, unspecified (principal)
CPT/HCPCS: 74183; A9585

== ENCOUNTER → 2025-03-17 12:49 | Outpatient (BNV) | payer OTHER, SELFPAY | PROVIDERS: PCP Family Medicine; Visit Provider Radiology Body Imaging | DX: R16.0 Hepatomegaly, not elsewhere classified (principal) | CPT/HCPCS: 74183 ==

== ENCOUNTER 2025-05-27 09:26 | Outpatient (AMB) | payer OTHER, SELFPAY ==
--- NOTE | 2025-05-27 09:31 | A.OFFVIS_ITS ---
VS Expanded 05/27/25 09:32 Height 5 ft 8 in Weight 401 lb BMI 61.0 Intake Visit Reasons: obesity Allergies shellfish derived Allergy (Severe, Verified 02/19/25 13:11) rash, sweeling throat almond Allergy (Intermediate, Verified 02/19/25 13:11) Gastrointestinal Upset Egg Derived Allergy (Intermediate, Verified 02/19/25 13:11) Gastrointestinal Upset Fish Containing Products Allergy (Intermediate, Verified 02/19/25 13:11) Gastrointestinal Upset hazelnut Allergy (Intermediate, Verified 02/19/25 13:11) Diarrhea milk Allergy (Intermediate, Verified 02/19/25 13:11) Gastrointestinal Upset peanut Allergy (Intermediate, Verified 02/19/25 13:11) Gastrointestinal Upset soy Allergy (Intermediate, Verified 02/19/25 13:11) Gastrointestinal Upset walnut Allergy (Intermediate, Verified 02/19/25 13:11) Gastrointestinal Upset wheat Allergy (Intermediate, Verified 02/19/25 13:11) Gastrointestinal Upset No Known Drug Allergies Allergy (Unknown, Verified 02/19/25 13:11) none SESAME Allergy (Intermediate, Uncoded 06/11/24 08:53) Gastrointestinal Upset Raw fruit Adverse Reaction (Intermediate, Uncoded 06/11/24 08:53) Tickling in back of throat Nutrition Presentation Details: Pt presents for MNT for morbid obesity Pt reports feeling motivated, recent weight gain related to festivities. Pt also reports keeping sedentary these past 1-2 months. Pt reports working on meal prep and relying more on home made meals vs eating out. [facility], [facility] Medical History (Updated 02/24/25 @ 08:14 by Amador Devi MD) Morbid obesity Adjustment disorder Impacted cerumen, bilateral Pre-diabetes Acute muscle stiffness of neck History of SD (myocardial infarction) Viral illness Laboratory examination ordered as part of a routine general medical examination Screening for prostate cancer Screening for colon cancer Adult general medical exam Screening for prostate cancer No pertinent past medical history Surgical History Hx of colonoscopy Hx of oral surgery Family History Father Heart disease Mother Diabetes Sister FH: diabetic complications Social History (Reviewed 11/04/24 @ 09:13 by Aracelis Cobb CMADavid Housing: House Are you a primary care rep to a significant other at home: No Do you presently have visiting nurse or other home services: No Alcohol intake: current Alcohol intake frequency: does not drink Patient Tobacco Use Status: Never used Tobacco e-Cigarette/Vaping Use: Never Used Second Hand Smoke Exposure: No service: Yes Current occupational status: employed 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 Cognitive needs: No Hearing needs: No Vision needs: No Assessment & Plan Assessment & Plan (1) Type 2 diabetes mellitus with morbid obesity: Comment: CAD, multiple food allergies Code(s): E11.69 - Type 2 diabetes mellitus with other specified complication; E66.01 - Morbid (severe) obesity due to excess calories Category: Medical Plan: Wt at 475 lbs in the year 2011 Wt: (404 lbs- 184 Kg 07/18, 176 (03/18), 180 kg (06/17)! Est kcal needs as per MSJ: 3100 (40% carb, 30% protein/fat) Est fluid needs as per 25-30 ml/d: 5300 Est prot per day as per 1 g/kg bw: 180 Recommend fiber intake : 8-10 g per day and gradually increase to 25-28 g per day for women and 35-38 g for men or as tolerated Recommend sodium intake per day : less than 2300 mg Educated patient on: ( R = reviewed V = verbalizes understanding N/R = needs review N/A = not applicable * Food sources of carbohydrate, adequate serving sizes and its role in various health conditions: R (wheat free options) * Differences between complex carbohydrates a simple carbohydrates, role of fiber in diet: R (wheat free options) * Lean protein sources of foods: R * Differences between types of fats and role in diet (mono on saturated fat fatty acids, saturated fatty acids, trans fats): R * Food sources of sodium in salt and healthy modifications for heart health in kidney health: R V R/V * Vitamins and minerals: R * Healthy plate method concept: R * Physical activity: Benefits a precaution: R * Hypoglycemia protocol (rule of 15): R V N/R * Dietary prevention of Hyperglycemia: R Patient Instructions: Keep hydrated by choosing water, milk alternative, decaf tea, low sugar beverages Resume working on reducing calories from empty calorie foods - opt for fruits Make meals lower in fat Coding Level of Care Code Nutr Indiv Subseq (66131) Diagnoses Type 2 diabetes mellitus with morbid obesity E11.69; E66.01 Time Spent (min) 30
[2025-05-27 09:32] VITALS: BMI 61.0
== END 2025-05-27 10:04 | disposition home or self-care (01) ==
LOC: HO.ENCR 09:26
PROVIDERS: PCP Family Medicine; Visit Provider Dietitian, Registered
DX: E11.69 Type 2 diabetes mellitus with other specified complication (principal); E66.01 Morbid (severe) obesity due to excess calories

== ENCOUNTER → 2025-05-27 09:26 | Outpatient (BNVA) | payer OTHER, SELFPAY | PROVIDERS: PCP Family Medicine; Visit Provider Dietitian, Registered | DX: E11.69 Type 2 diabetes mellitus with other specified complication (principal); E66.01 Morbid (severe) obesity due to excess calories; Z71.3 Dietary counseling and surveillance | CPT/HCPCS: 97803 ==

== ENCOUNTER 2025-05-27 10:33 | Outpatient (REF) | payer OTHER, SELFPAY ==
[2025-05-27 13:59] LABS: MANUAL DIFF FLAG NO
[2025-05-27 14:04] LABS: Hematocrit 36.6 % (42.0-52.0); Hemoglobin 11.9 g/dl (14.0-18.0); Imm Gran Abs Auto 0.01 X10*3/uL (0.00-0.03); Imm Gran Pct Auto 0.2 % (0.0-0.4); Lymphocytes Absolute Auto 2.3 X10*3/uL (1.2-4.9); Mean Corpuscular HGB Conc 32.5 g/dl (31.0-36.0); Mean Corpuscular Hemoglobin 31.3 pg (27.0-33.0); Mean Corpuscular Volume 96.3 fL (80.0-98.0); NRBC Abs Auto 0.000 X10*3/uL (0.0-0.012); NRBC Pct Auto 0.0 /100WBC (0.0-0.2); Platelet Count 226 X10*3/uL (160-400); Red Blood Count 3.80 X10*6/uL (4.60-5.80); White Blood Count 5.1 X10*3/uL (4.8-10.8)
[2025-05-27 14:06] LABS: Appearance Urine Clear; Glucose Urine UA Negative (Negative); PH 6.5 (5.0-9.0); Specific Gravity - Urine 1.020 (1.005-1.025)
[2025-05-27 14:55] LABS: Alanine Aminotransferase 29 U/L (0-40); Albumin Level 4.5 g/dL (3.5-5.0); Alkaline Phosphatase 105 U/L (39-117); Anion Gap 14 (12-20); Aspartate Amino Transferase 32 U/L (5-37); Blood Urea Nitrogen 20 mg/dL (9-16); Calcium 9.6 mg/dL (8.4-10.2); Carbon Dioxide 25 mmol/L (22-29); Chloride 105 mmol/L (96-108); Cholesterol 183 mg/dL (<200); Estimated Glomerular Filt Rate > 60; HDL Cholesterol 44 mg/dL (>40); Potassium 4.9 mmol/L (3.3-5.1); Sodium 139 mmol/L (135-145); Total Protein 8.3 g/dL (6.5-8.0); Triglycerides 95 mg/dL (<150)
[2025-05-27 15:06] LABS: Microalbum/Creatinine Ratio Ur 12.5 ug/mg cr (<30)
== END 2025-05-27 10:34 | disposition home or self-care (01) ==
LOC: HO.WFDLDS 10:33
PROVIDERS: Visit Provider Family Medicine
DX: Z00.00 Encounter for general adult medical examination without abnormal findings (principal); I10 Essential (primary) hypertension; R73.01 Impaired fasting glucose
CPT/HCPCS: 36415; 80053; 80061; 81003; 82043; 82570; 83036; 84443; 85025

== ENCOUNTER 2025-05-28 15:01 | Outpatient (AMB) | payer OTHER, SELFPAY ==
--- NOTE | 2025-05-28 15:05 | MHC.PC.OV ---
Vital Signs 05/28/25 15:40 Height 5 ft 8 in Weight 403 lb 2 oz BMI 61.3 BP 136/82 Blood Pressure Location Lt brachial Position Sitting Respiration 15 Pulse 73 Pulse Source Pulse Oximeter Temp 98.1 F Temp Source Temporal Artery Scan Pulse Oximetry (%) 97 Oxygen Delivery Method Room Air Intake Visit Reasons: CPE with f/u labs and health maint. 30 mins Intake Note: Jonathan presents in the office today for his annual physical and a follow up to his lab results. 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 Allergies shellfish derived Allergy (Severe, Verified 05/28/25 15:38) rash, sweeling throat almond Allergy (Intermediate, Verified 05/28/25 15:38) Gastrointestinal Upset Egg Derived Allergy (Intermediate, Verified 05/28/25 15:38) Gastrointestinal Upset Fish Containing Products Allergy (Intermediate, Verified 05/28/25 15:38) Gastrointestinal Upset hazelnut Allergy (Intermediate, Verified 05/28/25 15:38) Diarrhea milk Allergy (Intermediate, Verified 05/28/25 15:38) Gastrointestinal Upset peanut Allergy (Intermediate, Verified 05/28/25 15:38) Gastrointestinal Upset soy Allergy (Intermediate, Verified 05/28/25 15:38) Gastrointestinal Upset walnut Allergy (Intermediate, Verified 05/28/25 15:38) Gastrointestinal Upset wheat Allergy (Intermediate, Verified 05/28/25 15:38) Gastrointestinal Upset No Known Drug Allergies Allergy (Unknown, Verified 05/28/25 15:38) none SESAME Allergy (Intermediate, Uncoded 05/28/25 15:38) Gastrointestinal Upset Raw fruit Adverse Reaction (Intermediate, Uncoded 05/28/25 15:38) Tickling in back of throat Medication List - Last Reconciled 05/28/25 by Kurt Steel MD acetaminophen (Tylenol Extra Strength) 1,000 mg PO Q6H PRN amlodipine 5 mg PO DAILY atorvastatin 80 mg PO BEDTIME 90 days carvedilol 6.25 mg PO BID cholecalciferol (vitamin D3) 125 mcg PO DAILY 90 days lisinopril-hydrochlorothiazide 20-25 mg 1 tab PO QAM 90 days metformin 750 mg (1.5 x 500 mg) PO BID 90 days Tobacco use date assessed: 05/28/25 Dental Screening Dental Screen Date: 05/28/25 Did you have a dental visit in the last 12 months?: No Did you have a dental problem in the last 6 months where you did not have access to dental care?: No Was dental information given to patient?: Patient declined HPI CPE with f/u labs and health maint. 30 mins HPI Details 54 y/o male presents for a CPE with f/u labs and health maintenance. Labs drawn 05/27/25. Reviewed labs with pt. Mild anemia. A1c 6.4%. Triglycerides 95. TC 183. LDL 120. HDL 44. He is on artovastatin 80mg daily. BP today 136/82, 73p. He is on lisinopril-HCTZ 20-25mg, carvedilol 6.25mg b.i.d, amlodipine 5mg daily. [facility] Medical History (Updated 05/28/25 @ 16:14 by Andrés Wallace) Screening for colon cancer Screening for prostate cancer Morbid obesity Adjustment disorder Impacted cerumen, bilateral Pre-diabetes Acute muscle stiffness of neck History of [place] (myocardial infarction) Viral illness Laboratory examination ordered as part of a routine general medical examination Adult general medical exam Screening for prostate cancer No pertinent past medical history Surgical History Hx of colonoscopy Hx of oral surgery Family History Father Heart disease Mother Diabetes Sister FH: diabetic complications Social History (Updated 05/28/25 @ 15:40 by Naima Cho [facility]) Housing: House Are you a primary inpatient care manager rn to a significant other at home: No Do you presently have visiting nurse or other home services: No Alcohol intake: current Alcohol intake frequency: does not drink Patient Tobacco Use Status: Never used Tobacco e-Cigarette/Vaping Use: Never Used Second Hand Smoke Exposure: No service: Yes Current occupational status: employed 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 Cognitive needs: No Hearing needs: No Vision needs: No Questionnaire PHQ-9 Over the last 2 weeks, how often have you been bothered by any of the following problems? 1. Little interest or pleasure in doing things: not at all 2. Feeling down, depressed, or hopeless: not at all 3. Trouble falling or staying asleep, or sleeping too much: not at all 4. Feeling tired or having little energy: several days 5. Poor appetite or overeating: not at all 6. Feeling bad about yourself - or that you are a failure or have let yourself or your family down: not at all 7. Trouble concentrating on things, such as reading the newspaper or watching television: not at all 8. Moving or speaking so slowly that other people could have noticed. Or the opposite - being so fidgety or restless that you have been moving around a lot more than usual: not at all 9. Thoughts that you would be better off or of hurting yourself in some way: not at all Total score: 1 Depression Screening Interpretation: Negative Depression Screening Done: Yes [id number] - PHQ-9 Billing: Yes Source: Developed by Drs. Alvarez Kirk, Jessica Jeff, Arthur Mosquera and colleagues, with an educational hilda from [employer]. Thrive Questionnaire Date Thrive assessed: 05/28/25 I am a: Patient What is your living situation today?: I have a steady place to live Within the past 12 months, did the food you bought not last and you didn't have the money to get more?: Never true Within the past 12 months, did you worry whether your food would run out before you got money to buy more?: Never true Do you have trouble paying for medicines?: No Do you have trouble getting transportation to medical appointments?: No Do you have trouble paying your heating and electricity bill?: No Do you have trouble taking care of your child, family member or friend?: No Do you have trouble with day-to-day activities such as bathing, preparing meals, shopping, managing finances, etc.?: No Are you currently unemployed and looking for a job?: No Are you interested in more education?: No Currently or been in a relationship where the following occur: No concerns reported THRIVE Score: 0 AUDIT C Alcohol Use Questionnaire (AUDIT-C) 1. How often do you have a drink containing alcohol?: Monthly or less 2. How many drinks containing alcohol do you have on a typical day when you are drinking?: 1 or 2 3. How often do you have six or more drinks on one occasion?: Never Total Score: 1 LOU-7 AMB Questionnaire LOU-7 Date LOU - 7 assessed: 05/28/25 Feeling nervous, anxious, or on edge: 0 = Not at all Not being able to stop or control worryin = Not at all Worrying too much about different things: 1 = Several days Trouble relaxin = Not at all Being so restless that it is hard to sit still: 0 = Not at all Becoming easily annoyed or irritable: 0 = Not at all Feeling afraid as if something awful might happen: 1 = Several days Total LOU-7 score (0-4 normal; 5-9 mild; 10-14 moderate; 15-21 severe): 2 Source: Developed by Drs. Alvraez Kirk, Jessica Jeff, Arthur Mosquera and colleagues, with an educational hilda from [employer]. LOU-7 Assessment Billing LOU-7 Assessment Tool: LOU-7 Assessment 18257 Review of Systems Const Denies chills, Denies fatigue, Denies fever(s), Denies headache(s) and Denies weakness Eyes Denies change in vision ENT Denies dizziness, Denies headache(s), Denies hearing loss, Denies nasal congestion, Denies sinus pain, Denies sinus pressure and Denies sore throat Card Denies chest pain, Denies lightheadedness, Denies dyspnea and Denies other (palpitations) Resp Denies cough, Denies dyspnea and Denies wheezing GI Denies abdominal pain, Denies melena, Denies hematochezia, Denies change in bowel habits, Denies dyspepsia and Denies nausea Denies hematuria and Denies dysuria Musc Denies abnormal gait, Denies myalgias, Denies arthralgias, Denies numbness and Denies tingling Skin/Breast Denies rash, Denies unusual bruising and Denies wounds Neuro Denies abnormal gait, Denies dizziness, Denies headache(s), Denies memory loss, Denies numbness, Denies Sensory deficit (Neuro), Denies tingling and Denies weakness Psych Denies anxiety, Denies depression and Denies memory loss Endo Denies cold intolerance, Denies fatigue, Denies heat intolerance, Denies polydipsia and Denies polyuria Rui/Lymph Denies easy bleeding and Denies easy bruising Aller/Immun Denies wheezing Physical exam (Primary Care) Vital Signs: Last Vital Signs Temp 98.1 F 05/28/25 15:40 Pulse 73 05/28/25 15:40 Resp 15 05/28/25 15:40 BP 136/82 05/28/25 15:40 Pulse Ox 97 05/28/25 15:40 Oxygen Delivery Method Room Air 05/28/25 15:40 BMI result Body Mass Index 61.3 Tobacco/Smoking Status: Tobacco use Status Tobacco use date assessed 05/28/25 05/28/25 15:44 Patient Tobacco Use Status Never used Tobacco 05/28/25 15:40 e-Cigarette/Vaping Use Never Used 05/28/25 15:40 PHQ-9: PHQ-9 Score PHQ-9: Total score 1 05/28/25 16:09 Depression Screening Interpretation: Negative Thrive Assessment: Date of Thrive Assessment Date Thrive assessed 05/28/25 05/28/25 15:10 Currently or been in a relationship where the following occur: No concerns reported Const General: no acute distress, well developed, alert and awake Nutritional Appearance: well nourished and obese morbidly obese Orientation/consciousness: patient oriented x3 HENMT Head: Yes normocephalic and Yes atraumatic Ears: hearing grossly normal bilaterally and TM's normal bilaterally General nose exam: Normal external nose present and Normal nares present Mouth: Normal oral and palatal mucosa present and moist mucous membranes Teeth and gingiva: dentition normal Throat: Yes posterior oropharynx normal Eyes General: appearance normal, both eyes and all related structures Pupils: Equal, round and reactive pupils present and Pupil accommodation reflex normal EOM: EOMs intact bilaterally Neck Neck: Yes normal visual inspection, Yes no lymphadenopathy and Yes trachea midline Thyroid: Thyroid normal Carotids: no bruits Lymphatic: no lymphadenopathy noted Chest Chest palpation & inspection: normal inspection of the chest Resp Effort & Inspection: normal respiratory effort Auscultation: clear to auscultation bilaterally Cardio Rate: regular rate Rhythm: regular rhythm Heart sounds: S1 normal heart sound present, S2 normal heart sound present, no gallops, no murmurs and no rubs Bruits: no abdominal aortic bruits and no carotid bruits GI Palpation (GI): No Abdominal aortic bruit present, Soft to palpation, nontender, No hepatosplenomegaly present and No Rebound tenderness present Auscultation: normal bowel sounds General: Yes no CVA tenderness Back/Spine/Pelvis Back: no CVA tenderness Cervical Spine: cervical ROM normal and No Cervical spine tenderness Thoracic/Lumbar Spine: thoraco-lumbar ROM normal, No pain with thoraco-lumbar ROM, No thoracic spinal tenderness and No lumbar spinal tenderness Skin Lesions: no lesions Rashes: no rashes Trauma: no lacerations or abrasions Wounds: no wounds Nails: normal Neuro General: patient oriented x3 Cranial nerves: Yes Equal, round and reactive pupils present Cognition (Neuro): normal cognition Gait exam (Neuro): Normal gait present Motor exam (neuro): 5/5 motor strength present throughout Sensory Exam: No Sensory deficit (Neuro) Deep tendon reflexes (DTR's): Right patellar reflex intensity grade: 2+ and Left patellar reflex intensity grade: 2+ Extrem General: Yes normal to inspection and No edema Psych Appearance: grossly normal Affect: normal affect Attitude: cooperative Thought process: Normal thought process present Coding Level of Care Code Est Pt Level 3 (48951) Est Pt Prev Care 40-64y(84044) Diagnoses Adult general medical exam Z00.00 Essential hypertension I10 CAD (coronary artery disease) I25.10 Diabetes E11.9 Screening for prostate cancer Z12.5 Screening for colon cancer Z12.11 Additional Codes LOU-7 Assessment Billing - LOU-7 Assessment Tool: LOU-7 Assessment 53911 ([id number]) PHQ-9 - 62138 - PHQ-9 Billing: Yes ([id number]) Assessment & Plan Assessment & Plan (1) Adult general medical exam: Code(s): Z00.00 - Encounter for general adult medical examination without abnormal findings Category: Medical Plan: 54-year-old male presents for complete physical exam encouraged healthy diet with active lifestyle and plenty of exercise (2) Essential hypertension: Code(s): I10 - Essential (primary) hypertension Category: Medical Plan: Blood pressure is fairly well controlled. 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 Goal is less than 7.0% continue current medications encouraged weight loss and diabetic diet (5) Screening for prostate cancer: Code(s): Z12.5 - Encounter for screening for malignant neoplasm of prostate Category: Medical Plan: due for PSA-ordered (6) Screening for colon cancer: Code(s): Z12.11 - Encounter for screening for malignant neoplasm of colon Category: Medical Plan: patient followed by [facility] gastroenterology patient says he was told to follow-up in 3 years. Up-to-date Orders: Orders Lipid Panel Today Z00.00 - Encounter for general adult medical examination without abnormal findings Prostate Specific Antigen Scr Today Z12.5 - Encounter for screening for malignant neoplasm of prostate Comprehensive [place]. Panel Fast Today Z00.00 - Encounter for general adult medical examination without abnormal findings Medications: New rosuvastatin 40 mg PO DAILY 90 tabs 3RF 90 days Discontinued atorvastatin Discontinued Reason: Doctor's Order 80 mg PO BEDTIME 90 days 90 tabs 1RF
[2025-05-28 15:40] VITALS: BP 136/82; PULSE 73; RESP 15; TEMP 36.7; O2SAT 97; BMI 61.3
== END 2025-05-28 16:24 | disposition home or self-care (01) ==
LOC: HO.HMCFM 15:02
PROVIDERS: PCP Family Medicine; Visit Provider Family Medicine
DX: Z00.00 Encounter for general adult medical examination without abnormal findings (principal); E11.9 Type 2 diabetes mellitus without complications; I10 Essential (primary) hypertension; I25.10 Atherosclerotic heart disease of native coronary artery without angina pectoris; Z12.5 Encounter for screening for malignant neoplasm of prostate

== ENCOUNTER → 2025-05-28 15:01 | Outpatient (BNVA) | payer OTHER, SELFPAY | PROVIDERS: PCP Family Medicine; Visit Provider Family Medicine | DX: Z00.00 Encounter for general adult medical examination without abnormal findings (principal); Z12.11 Encounter for screening for malignant neoplasm of colon; Z12.5 Encounter for screening for malignant neoplasm of prostate; I10 Essential (primary) hypertension; I25.10 Atherosclerotic heart disease of native coronary artery without angina pectoris; E11.9 Type 2 diabetes mellitus without complications | CPT/HCPCS: 96127 ==